=== PATIENT | female | born 1980 | race Caucasian/White ===

== ENCOUNTER 2020-08-14 08:17 | Emergency (ER) | payer BC, SELFPAY ==
[2020-08-14 08:31] VITALS: BP 125/80; PULSE 65; RESP 18; TEMP 37.3; O2SAT 99; BMI 25.7
--- NOTE | 2020-08-14 08:53 | CT_ITS ---
EXAMINATION: CT ABDOMEN AND PELVIS WITH CONTRAST CLINICAL INFORMATION: Epigastric pain. COMPARISON: CT abdomen and pelvis evaluate contrast 03/05/2020. TECHNIQUE: Multidetector volumetric images were obtained from the superior aspect of the liver through the pubic symphysis following administration 85 mL ofOmnipaque 350 intravenous contrast. Sagittal and coronal reformatted images were obtained on the technologist's workstation. Oral contrast: No This CT examination was performed using dose optimization techniques as appropriate, variously including the following: *Automated exposure control *Adjustment of mA and/or kV according to patient size (this includes techniques or standardized protocols for targeted exams where dose is matched to indication/reason for exam; i.e. extremities or head) *Use of iterative reconstruction technique DLP: 515 mGy-cm FINDINGS: LUNG BASES: The visualized lung bases are unremarkable. LIVER, GALLBLADDER, AND BILIARY TREE: The liver is normal in size, shape, and attenuation. There is a punctate hypodensity left hepatic lobe image 11/3. No focal hepatic lesion or biliary ductal dilatation is present. The gallbladder is unremarkable with no evidence of radiopaque gallstones, gallbladder wall thickening, or obvious pericholecystic inflammatory changes. PANCREAS: Unremarkable. SPLEEN: Unremarkable. ADRENAL GLANDS: Unremarkable. KIDNEYS AND URETERS: The kidneys are normal in size, shape, and attenuation. No hydronephrosis, hydroureter, or calculi seen. No perinephric stranding. BLADDER: The bladder is decompressed however there is mild bladder wall thickening. GASTROINTESTINAL TRACT: There is scattered stool and gas seen throughout the colon without significant distention. The small bowel loops are normal caliber. There is a surgical staple of the base of the appendix likely from previous appendectomy. Cecum lies within the lower pelvis. No inflammatory process or free fluid noted. ABDOMINAL WALL: No significant hernia is appreciated. LYMPH NODES: Normal. VASCULAR: Unremarkable. PELVIC VISCERA: Unremarkable. OSSEOUS STRUCTURES: No lytic or sclerotic process seen. CT/CT abdomen pelvis w IV con IMPRESSION: Moderate constipation without obstruction. Evidence of previous appendectomy. No acute intra-abdominal process seen
--- NOTE | 2020-08-14 08:54 | ECG_ITS ---
Test Reason : ABDOMINAL PAIN Blood Pressure : / mmHG Vent. Rate : 055 BPM Atrial Rate : 055 BPM P-R Int : 132 ms QRS Dur : 074 ms QT Int : 428 ms P-R-T Axes : 038 034 026 degrees QTc Int : 409 ms Sinus bradycardia Otherwise normal ECG When compared with ECG of 27-MAR-2020 11:07, Premature atrial complexes are no longer Present Referred By: Sugey Weiss Electronically Signed By:CECI BABCOCK MD
--- NOTE | 2020-08-14 08:54 | XR_ITS ---
EXAMINATION: XR CHEST CLINICAL INFORMATION: Bilateral lower rib pain. COMPARISON: None TECHNIQUE: Frontal view of the chest was obtained. FINDINGS: No significant abnormality is noted involving the heart, lungs, mediastinum, bony thorax or soft tissues. XR/XR chest 1V IMPRESSION: Unremarkable chest examination.
--- NOTE | 2020-08-14 08:57 | ED.ABDPAIN ---
HPI - Abdominal Pain General Stated Complaint: abd pain Time Seen by Provider: 08/14/20 08:44 Source: patient Mode of arrival: ambulatory Limitations: no limitations History of Present Illness HPI narrative: patient comes complaining of abdominal pain for approximately 4 days. Patient states it is epigastric, radiates backwards towards her back around the ribs. Patient states it is constant pain 4/10, at times the pain peaks to 10/10, causing her to dry heave, salivate. Patient denies diarrhea, no fever. Patient was admitted to the hospital in March 2020 for an internal hernia with omental adhesions. patient states that the abdominal pain is similar. Related Data Previous Rx's Medication Instructions Recorded lactulose 10 g PO DAILY PRN #237 ml 08/14/20 ondansetron HCl [Zofran] 4 mg PO Q6H PRN #14 tab 08/14/20 oxycodone-acetaminophen [Percocet] 1 tab PO Q6H PRN #14 tab 08/14/20 Allergies Allergy/AdvReac Type Severity Reaction Status Date / Time bee pollen [BEE STINGS] Allergy Severe ANAPHYLAXIS Unverified 07/03/20 19:30 clavulanic acid Allergy Severe GI DISTRESS Unverified 07/03/20 19:30 [CLAVULANIC ACID] latex [LATEX] Allergy Severe ANAPHYLAXIS Unverified 07/03/20 19:30 pork derived (porcine) Allergy Severe d/t Unverified 07/03/20 19:30 [PORK DERIVED (PORCINE)] MASTOCYTOSIS carrageenan [CARRAGEENAN] Allergy Unknown UNKNOWN Unverified 07/03/20 19:30 egg [EGG] Allergy Unknown DUE TO Unverified 07/03/20 19:30 MASTOCYTOSIS augmentin/ clevonic acid Allergy Unknown nausea and Uncoded 04/23/20 00:00 vomiting laytex/mucousa Allergy Unknown anaphylaxis Uncoded 04/23/20 00:00 Soy Allergy Unknown nausea and Uncoded 04/23/20 00:00 vomiting Review of Systems Review of Systems Constitutional : No Weight loss, No Fever, No Chills, No Night Sweats, No Fatigue, No Malaise ENT/Mouth : No Hearing loss, No Ear Pain, No Nasal Congestion, No Sinus Pain, No Hoarseness, No sore throat, No Rhinorrhea, No Swallowing Difficulty Eyes: No Eye Pain, No Swelling, No Redness, No Foreign Body, No Discharge, No Vision Changes Cardiovascular : No Chest Pain, No SOB, No Dyspnea on Exertion, No Orthopnea, No Edema, No Palpitations Respiratory : No Cough, No Sputum, No Wheezing, No Smoke Exposure, No Dyspnea Gastrointestinal : is planning of nausea without Vomiting, No Diarrhea, No Constipation, epigastric pain radiating towards the back around the ribs Genitourinary : no irregular bleeding, No Dysuria, No Urinary Frequency, No Hematuria, No Urinary Incontinence, No Urgency, No Flank Pain, No Urinary Flow Changes, No Hesitancy Musculoskeletal : No joint pain, No Myalgias, No Joint Swelling Skin : No Skin Lesions, No rash Neuro : No Weakness, No Numbness, No Paresthesias, No Loss of Consciousness, No Dizziness, No Headache Psych : No Anxiety/Panic, No Depression, No SI/HI/AH/VH, No Social Issues, Heme/Lymph: No Bruising, No Bleeding,No Lymphadenopathy Endocrine : No Polyuria, No Polydipsia, No Temperature Intolerance Physical Exam Vital Signs: Vital Signs: Vital Signs Temp Pulse Resp BP Pulse Ox 08/14/20 09:52 60 18 108/67 98 08/14/20 08:31 99.2 F 65 18 125/80 99 Body Mass Index 25.7 Appearance: Alert. Oriented X3. No acute distress. Eyes: Pupils equal, round and reactive to light. ENT: Pharynx normal. Neck: Normal inspection. Neck supple. No lymph nodes noted. No crepitus CVS: Normal heart rate and rhythm. Pulses normal. Normal S1 and S2 Respiratory: No respiratory distress. Breath sounds normal. No Wheezing. No rales Abdomen: Soft, tender to palpation in the epigastric area. No rigidity. No distention. good BS x4 Skin: Skin warm and dry. Normal skin color. Normal skin turgor. Extremities: No lower extremity edema. No lower extremity edema. No Lacerations. No Rash Neuro: Oriented X 3. No motor deficit. No sensory deficit. Moving all extermities. No slurred speech. Course Course Course Narrative: patient's abdominal pain improved with morphine. I discussed the labs and imaging with Dr. Doyle, at this time, no reason for admission, recommendations is to follow with Dr. Pierson from Gastroenterology. I discussed with the patient the CT scan and a moderate amount of stool was seen, patient will be discharged on lactulose, she is already taking 2 different medications for constipation. for pain management, patient will be discharged with Percocet, I discussed with the patient that this my worsen the constipation, therefore She will be sent home with a prescription for lactulose. MDM - Abdominal Pain Lab Data Result diagrams: 08/14/20 09:11 08/14/20 09:11 Labs: Lab Results 08/14/20 08/14/20 08/14/20 Range/Units 09:11 09:11 10:02 WBC 6.3 (4.8-10.8) X10*3/uL RBC 4.62 (4.20-5.50) X10*6/uL Hgb 13.6 (12.0-16.0) g/dl Hct 41.6 (37-47) % MCV 90.0 (80-98) fL MCH 29.4 (27.0-33.0) pg MCHC 32.7 (31.0-35.0) g/dl RDW 12.2 (11.0-16.0) % Plt Count 263 (160-400) X10*3/uL MPV 9.3 L (9.4-12.3) fL Immature Gran % (Auto) 0.2 (0.0-0.4) % Neut % (Auto) 63.7 (45-73) % Lymph % (Auto) 29.7 (20-40) % [place] % (Auto) 5.4 (2-11) % Eos % (Auto) 0.5 (0-4) % Baso % (Auto) 0.5 (0-2) % Lymph # (Auto) 1.9 (1.2-4.9) X10*3/uL [place] # (Auto) 0.3 (0.1-1.2) X10*3/uL Eos # (Auto) 0.0 (0.0-0.4) X10*3/uL Baso # (Auto) 0.0 (0.0-0.2) X10*3/uL Abs Immat Gran (auto) 0.01 (0.00-0.03) X10*3/uL Absolute Neuts (auto) 4.0 (2.0-8.3) X10*3/uL Absolute Nucleated RBC 0.000 (0.0-0.012) X10*3/uL Nucleated RBC % (auto) 0.0 (0.0-0.2) /100WBC Sodium 138 (135-145) mmol/L Potassium 4.3 (3.3-5.1) mmol/l Chloride 104 (96-108) mmol/L Carbon Dioxide 26 (22-29) mmol/L Anion Gap 12 (12-20) BUN 12 (9-16) mg/dL Creatinine 0.70 (0.5-1.4) mg/dL Estim Creat Clear Calc 97.3 Estimated GFR > 60 Random Glucose 104 (60-115) mg/dL Calcium 8.6 (8.4-10.2) mg/dL Total Bilirubin 0.6 (0.0-1.0) mg/dL Direct Bilirubin 0.2 (0.0-0.5) mg/dL AST 17 (5-31) U/L ALT 14 (0-31) U/L Alkaline Phosphatase 55 (39-117) U/L Total Protein 7.0 (6.5-8.0) g/dL Albumin 4.4 (3.5-5.0) g/dL Lipase 26 (8-78) U/L Urine Color YELLOW Urine Appearance CLEAR Urine pH 7.0 (5.0-8.0) Ur Specific [place] 1.010 (1.005-1.025) Urine Protein NEG (NEG-TRACE) MG/DL Urine Glucose (UA) NEG (NEG) MG/DL Urine Ketones NEG (NEG) MG/DL Urine Blood NEG (NEG) Urine Nitrite NEG (NEG) Ur Leukocyte Esterase NEG (NEG) Urine Test NEGATIVE (NEGATIVE) Imaging Data CT scan - abdomen: Radiologist's impression: LUNG BASES: The visualized lung bases are unremarkable. LIVER, GALLBLADDER, AND BILIARY TREE: The liver is normal in size, shape, and attenuation. There is a punctate hypodensity left hepatic lobe image 11/. No focal hepatic lesion or biliary ductal dilatation is present. The gallbladder is unremarkable with no evidence of radiopaque gallstones, gallbladder wall thickening, or obvious pericholecystic inflammatory changes. PANCREAS: Unremarkable. SPLEEN: Unremarkable. ADRENAL GLANDS: Unremarkable. KIDNEYS AND URETERS: The kidneys are normal in size, shape, and attenuation. No hydronephrosis, hydroureter, or calculi seen. No perinephric stranding. BLADDER: The bladder is decompressed however there is mild bladder wall thickening. GASTROINTESTINAL TRACT: There is scattered stool and gas seen throughout the colon without significant distention. The small bowel loops are normal caliber. There is a surgical staple of the base of the appendix likely from previous appendectomy. Cecum lies within the lower pelvis. No inflammatory process or free fluid noted. ABDOMINAL WALL: No significant hernia is appreciated. LYMPH NODES: Normal. VASCULAR: Unremarkable. PELVIC VISCERA: Unremarkable. ECG Data Attestation: I personally reviewed and interpreted this ECG as follows: (, rhythm, and cardia, heart rate 55, QTC 409, no ST segment depressions or elevations, no T-wave inversions) Discharge Plan Discharge Clinical Impression: Abdominal pain Qualifiers: Abdominal location: unspecified location Qualified Code(s): R10.9 - Unspecified abdominal pain Constipation Qualifiers: Constipation type: unspecified constipation type Qualified Code(s): K59.00 - Constipation, unspecified Patient Disposition: Home, Self-Care Instructions: Constipation (ED), Abdominal Pain (ED) Additional Instructions: please follow-up with her primary care physician and with 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 Please follow-up with your primary care physician tomorrow. If you have any worsening or new symptoms, please return to the emergency room or call 911 Prescriptions: New lactulose 10 gram/15 mL solution 10 g PO DAILY PRN (Reason: constipation) Qty: 237 RF: 0 oxycodone-acetaminophen [Percocet] 5-325 mg tablet 1 tab PO Q6H PRN (Reason: pain) Qty: 14 RF: 0 ondansetron HCl [Zofran] 4 mg tablet 4 mg PO Q6H PRN (Reason: nausea and vomiting) Qty: 14 RF: 0 PMFSH Past Medical History Medical History (Updated 08/14/20 @ 12:03 by Sugey Weiss MD) ADHD Depressed Dysplastic nevus Hyperlipidemia Mastocytosis Surgical History (Updated 08/14/20 @ 09:04 by Sugey Weiss MD) H/O gastric bypass H/O hernia repair H/O: hysterectomy History of appendectomy Social History Social History Advance Directives: No Advance Directives Information Provided: No
[2020-08-14] MEDS: Morphine Sulfate 4 MG/ML CARTRIDGE IVPUSH (09:18)
[2020-08-14] MEDS: ondansetron HCL 4 MG/2 ML VIAL IVPUSH (09:18)
[2020-08-14] MEDS: 0.9 % Sodium Chloride 1,000 ML 999 ML IVCONT (09:19)
[2020-08-14 09:20] LABS: MANUAL DIFF FLAG NO
[2020-08-14 09:22] LABS: Basophils Percent Auto 0.5 % (0-2); Eosinophils Percent Auto 0.5 % (0-4); Hematocrit 41.6 % (37-47); Hemoglobin 13.6 g/dl (12.0-16.0); Imm Gran Abs Auto 0.01 X10*3/uL (0.00-0.03); Imm Gran Pct Auto 0.2 % (0.0-0.4); Lymphocytes Absolute Auto 1.9 X10*3/uL (1.2-4.9); Lymphocytes Percent Auto 29.7 % (20-40); Mean Corpuscular HGB Conc 32.7 g/dl (31.0-35.0); Mean Corpuscular Hemoglobin 29.4 pg (27.0-33.0); Mean Platelet Volume 9.3 fL (9.4-12.3); Monocytes Absolute Auto 0.3 X10*3/uL (0.1-1.2); Monocytes Percent Auto 5.4 % (2-11); Neutrophils Percent Auto 63.7 % (45-73); Platelet Count 263 X10*3/uL (160-400); Red Blood Count 4.62 X10*6/uL (4.20-5.50); Red Cell Distribution Width 12.2 % (11.0-16.0); White Blood Count 6.3 X10*3/uL (4.8-10.8)
[2020-08-14 09:44] LABS: Alanine Aminotransferase 14 U/L (0-31); Albumin Level 4.4 g/dL (3.5-5.0); Alkaline Phosphatase 55 U/L (39-117); Anion Gap 12 (12-20); Aspartate Amino Transferase 17 U/L (5-31); Bilirubin Direct 0.2 mg/dL (0.0-0.5); Bilirubin Total 0.6 mg/dL (0.0-1.0); Blood Urea Nitrogen 12 mg/dL (9-16); Calcium 8.6 mg/dL (8.4-10.2); Carbon Dioxide 26 mmol/L (22-29); Chloride 104 mmol/L (96-108); Creatinine Clr Calc Pharmacy 97.3; Estimated Glomerular Filt Rate > 60; Glucose Random 104 mg/dL (60-115); Lipase 26 U/L (8-78); Potassium 4.3 mmol/l (3.3-5.1); Sodium 138 mmol/L (135-145)
[2020-08-14 09:52] VITALS: BP 108/67; PULSE 60; RESP 18; O2SAT 98
--- NOTE | 2020-08-14 09:54 | PC.NURSE ---
skin wpd, states pain now a 2/10, no nausea, lab results reviewed w pt
[2020-08-14 10:10] LABS: Glucose Urine UA NEG (NEG); Leukocyte Esterase Urine NEG (NEG); Nitrite Urine NEG (NEG); Urine Blood NEG (NEG); Urine Ketones NEG (NEG); Urine Protein NEG (NEG-TRACE)
[2020-08-14 10:13] LABS: Appearance Urine CLEAR; Color Urine YELLOW
[2020-08-14 10:15] LABS: UPreg QC Valid YES; Urine Pregnancy NEGATIVE (NEGATIVE)
[2020-08-14] MEDS: iohexoL 350 MG/ML 100 ML INFUS..BTL 85 ML IV (10:20)
[2020-08-14 11:58] VITALS: BP 96/56; PULSE 64; RESP 15; O2SAT 98
== END 2020-08-14 12:21 | disposition home or self-care (01) ==
PROVIDERS: Emergency Provider Emergency Medicine; PCP Internal Medicine
DX: K59.00 Constipation, unspecified (principal); M54.5 Low back pain; R10.9 Unspecified abdominal pain; Z79.899 Other long term (current) drug therapy
CPT/HCPCS: 36415; 71045; 74177; 80048; 80076; 81003; 81025; 83690; 85025; 93005; 96361; 96374; 96375; 99283; 99284; J2270; J2405; Q9967

== ENCOUNTER → 2020-08-19 09:57 | Outpatient (BNVA) | payer BC, SELFPAY | PROVIDERS: PCP Internal Medicine; Visit Provider Surgery | DX: Z76.89 Persons encountering health services in other specified circumstances (principal) ==

== ENCOUNTER 2020-08-30 07:40 | Outpatient (REF) | payer BC, SELFPAY ==
[2020-08-30 08:45] LABS: Alanine Aminotransferase 15 U/L (0-31); Albumin Level 4.2 g/dL (3.5-5.0); Alkaline Phosphatase 53 U/L (39-117); Anion Gap 10 (12-20); Aspartate Amino Transferase 16 U/L (5-31); Bilirubin Total 0.7 mg/dL (0.0-1.0); Blood Urea Nitrogen 19 mg/dL (9-16); C Reactive Protein 0.06 mg/dL (< or = 0.50); Calcium 8.6 mg/dL (8.4-10.2); Carbon Dioxide 30 mmol/L (22-29); Chloride 103 mmol/L (96-108); Cholesterol 212 mg/dL; Estimated Glomerular Filt Rate > 60; Glucose Fasting 101 mg/dL (60-99); HDL Cholesterol 60 mg/dL; Iron 86 mcg/dL (30-160); LDL Cholesterol Calculated 138 mg/dl; Percent Iron Saturation 27 % (15-50); Potassium 4.4 mmol/l (3.3-5.1); Sodium 139 mmol/L (135-145); Total Iron Binding Capacity 318 mcg/dL (228-428); Total Protein 6.4 g/dL (6.5-8.0); Triglycerides 72 mg/dL; Unsaturated Iron Binding 232 ug/dL
[2020-08-30 09:05] LABS: Thyroid Stimulating Hormone 1.08 uIU/mL (0.32-4.0)
[2020-08-30 09:37] LABS: Vitamin D 25-OH Total 53.8 ng/mL (>30)
[2020-09-01 08:55] LABS: Vitamin B12 637 pg/mL (200-900)
[2020-09-02 06:37] LABS: Zinc 83 mcg/dL (60-130)
[2020-09-04 15:36] LABS: Vitamin A 41 mcg/dL (38-98)
[2020-09-05 12:16] LABS: Vitamin B1 12 nmol/L (8-30)
== END 2020-08-30 07:41 | disposition home or self-care (01) ==
LOC: HO.LAB 07:40
PROVIDERS: PCP Internal Medicine; Visit Provider Surgery
DX: Z01.818 Encounter for other preprocedural examination (principal); K90.9 Intestinal malabsorption, unspecified
CPT/HCPCS: 80053; 80061; 82306; 82607; 83540; 84425; 84443; 84590; 84630; 86140

== ENCOUNTER → 2021-01-01 14:50 | Outpatient (BNVA) | payer BC, SELFPAY | PROVIDERS: PCP Internal Medicine; Visit Provider Surgery ==

== ENCOUNTER → 2021-01-23 10:50 | Outpatient (BNVA) | payer BC, SELFPAY | PROVIDERS: PCP Internal Medicine; Visit Provider Internal Medicine Gastroenterology ==

== ENCOUNTER → 2021-02-11 07:48 | Outpatient (BNVA) | payer BC, SELFPAY | PROVIDERS: PCP Internal Medicine; Visit Provider Internal Medicine Endocrinology, Diabetes & Metabolism ==

== ENCOUNTER 2021-02-24 06:36 | Outpatient (REF) | payer BC, SELFPAY ==
[2021-02-24 07:50] LABS: Free T4 (Free Thyroxine) 0.97 ng/dL (0.71-1.85)
[2021-02-25 09:32] LABS: C Peptide 0.82 ng/mL (0.80-3.85)
[2021-02-25 23:42] LABS: Adrenocorticotropic Hormone 17 pg/mL (6-50)
[2021-02-26 17:47] LABS: DHEA Sulfate 88 mcg/dL (19-231); Insulin Level Total 2.3 uIU/mL
[2021-02-28 13:42] LABS: Chlorpropamide None Detected; Glimepiride None Detected; Glipizide None Detected; Glyburide None Detected; Nateglinide None Detected; Pioglitazone None Detected; Repaglinide None Detected; Rosiglitazone None Detected; Tolazamide None Detected; Tolbutamide None Detected
[2021-02-28 21:42] LABS: Insulin Auto Antibody <0.4 U/mL (<0.4)
[2021-03-01 23:06] LABS: Insulinoma associated 2 aatb <5.4 U/mL (<5.4)
[2021-03-06 04:52] LABS: Proinsulin <4.0 pmol/L (< OR = 18.8)
[2021-03-06 14:11] LABS: Insulin Growth Factor 2 554 ng/mL (267-616)
[2021-03-07 20:02] LABS: 21 Hydroxylase Antibody NEGATIVE (NEGATIVE)
[2021-03-08 16:46] LABS: Beta-Hydroxybutyrate 3.8 mg/dL (0.0-3.0)
== END 2021-02-24 06:37 | disposition home or self-care (01) ==
LOC: HO.LAB 06:36
PROVIDERS: PCP Internal Medicine; Visit Provider Internal Medicine Endocrinology, Diabetes & Metabolism
DX: K91.2 Postsurgical malabsorption, not elsewhere classified (principal)
CPT/HCPCS: 36415; 80337; 82010; 82024; 82533; 82627; 83519; 83525; 83789; 84206; 84439; 84443; 84681; 86337

== ENCOUNTER → 2021-03-24 14:25 | Outpatient (BNVA) | payer BC, SELFPAY | PROVIDERS: PCP Internal Medicine; Visit Provider Dietitian, Registered | DX: K91.2 Postsurgical malabsorption, not elsewhere classified (principal) | CPT/HCPCS: 97802 ==

== ENCOUNTER → 2021-04-23 15:27 | Outpatient (BNVA) | payer BC, SELFPAY | PROVIDERS: PCP Internal Medicine; Referring Provider Internal Medicine; Visit Provider Surgery ==

== ENCOUNTER → 2021-04-30 07:47 | Outpatient (BNVA) | payer BC, SELFPAY | PROVIDERS: PCP Internal Medicine; Visit Provider Internal Medicine Endocrinology, Diabetes & Metabolism ==

== ENCOUNTER 2021-05-14 06:52 | Outpatient (REF) | payer BC, SELFPAY ==
[2021-05-14 08:24] LABS: Anion Gap 13 (12-20); Blood Urea Nitrogen 16 mg/dL (9-16); Calcium 9.2 mg/dL (8.4-10.2); Carbon Dioxide 24 mmol/L (22-29); Chloride 108 mmol/L (96-108); Estimated Glomerular Filt Rate > 60; Glucose Fasting 97 mg/dL (60-99); Potassium 4.5 mmol/L (3.3-5.1); Sodium 140 mmol/L (135-145)
[2021-05-16 19:02] LABS: C Peptide 0.74 ng/mL (0.80-3.85)
[2021-05-19 19:21] LABS: Insulinoma associated 2 aatb <5.4 U/mL (<5.4)
[2021-05-20 02:23] LABS: Proinsulin <4.0 pmol/L (< OR = 18.8)
[2021-05-22 15:10] LABS: Insulin Growth Factor 2 515 ng/mL (267-616)
[2021-05-25 21:06] LABS: Insulin Auto Antibody <0.4 U/mL (<0.4)
== END 2021-05-14 06:53 | disposition home or self-care (01) ==
LOC: HO.LAB 06:52
PROVIDERS: Surgery; PCP Internal Medicine; Visit Provider Internal Medicine Endocrinology, Diabetes & Metabolism
DX: Z01.818 Encounter for other preprocedural examination (principal); K91.2 Postsurgical malabsorption, not elsewhere classified
CPT/HCPCS: 36415; 80048; 82040; 83525; 83789; 84206; 84681; 86337

== ENCOUNTER 2021-06-22 05:51 | Emergency (ER) | payer BC, SELFPAY ==
--- NOTE | ~2021-06-22 | CT_ITS ---
EXAMINATION: CT ABDOMEN AND PELVIS WITH CONTRAST CLINICAL INFORMATION: Abdominal pain. History of internal hernia. COMPARISON: CT abdomen 08/14/2020 TECHNIQUE: Multidetector volumetric images were obtained from the superior aspect of the liver through the pubic symphysis following administration 85 mL of Omnipaque 350 intravenous contrast. Sagittal and coronal reformatted images were obtained on the technologist's workstation. Oral contrast: No This CT examination was performed using dose optimization techniques as appropriate, variously including the following: *Automated exposure control *Adjustment of mA and/or kV according to patient size (this includes techniques or standardized protocols for targeted exams where dose is matched to indication/reason for exam; i.e. extremities or head) *Use of iterative reconstruction technique DLP: 482 mGy-cm FINDINGS: LUNG BASES: Mild left basilar dependent changes. LIVER, GALLBLADDER, AND BILIARY TREE: The liver is normal in size, shape, and attenuation. Stable tiny hypodensity in the left hepatic lobe. No focal hepatic lesion otherwise or biliary ductal dilatation is present. The gallbladder is unremarkable with no evidence of radiopaque gallstones, gallbladder wall thickening, or obvious pericholecystic inflammatory changes. PANCREAS: Unremarkable. No acute inflammatory changes. SPLEEN: Unremarkable. ADRENAL GLANDS: Unremarkable. KIDNEYS AND URETERS: Normal enhancement bilateral kidneys.. No hydronephrosis, hydroureter, or calculi seen. No perinephric stranding. BLADDER: Unremarkable. GASTROINTESTINAL TRACT: There is mild wall prominence/thickening of the gastroesophageal junction. Postsurgical changes from prior gastric bypass surgery. There is wall thickening/prominence of small bowel loops in the left upper/mid abdomen. This could be related to lack of distention versus enteritis. No measurably dilated small bowel loops seen. There is luminal fluid in the distal small bowel. Small to moderate volume stool in the large colon. No dilatation of the large colon with no wall thickening or pericolonic inflammatory changes. Surgical clips adjacent to cecum likely prior appendectomy.. Small free fluid in the pelvis. No free air. ABDOMINAL WALL: No significant hernia is appreciated. LYMPH NODES: No enlarged lymph nodes are seen. VASCULAR: Normal caliber aorta. PELVIC VISCERA: Right adnexal/ovarian 1.7 cm peripherally enhancing cyst ([place] 8). OSSEOUS STRUCTURES: No suspicious lytic or sclerotic process is seen. CT/CT abdomen pelvis w IV con IMPRESSION: 1. Apparent mild wall prominence/thickening of the distal esophagus/gastroesophageal junction, which could be related to lack of distention versus other etiologies such as esophagitis. Postsurgical changes from gastric bypass surgery. Apparent wall prominence prominence of small bowel loops in the left upper/midabdomen, which could be related to lack of distention versus enteritis. Clinically correlate. Follow-up imaging for reassessment as clinically warranted. 2. Small free fluid in the pelvis, which could be physiological.
[2021-06-22 05:55] VITALS: BP 105/65; PULSE 75; RESP 16; TEMP 37; O2SAT 95; BMI 26.5
[2021-06-22 06:12] LABS: Basophils Percent Auto 0.4 % (0-2); Eosinophils Absolute Auto 0.1 X10*3/uL (0.0-0.4); Eosinophils Percent Auto 0.9 % (0-4); Hematocrit 37.6 % (37-47); Hemoglobin 12.3 g/dl (12.0-16.0); Imm Gran Abs Auto 0.01 X10*3/uL (0.00-0.03); Imm Gran Pct Auto 0.1 % (0.0-0.4); Lymphocytes Absolute Auto 2.3 X10*3/uL (1.2-4.9); Lymphocytes Percent Auto 33.6 % (20-40); Mean Corpuscular HGB Conc 32.7 g/dl (31.0-35.0); Mean Corpuscular Hemoglobin 28.6 pg (27.0-33.0); Mean Corpuscular Volume 87.4 fL (80-98); Monocytes Absolute Auto 0.4 X10*3/uL (0.1-1.2); Monocytes Percent Auto 6.2 % (2-11); Neutrophils Absolute Auto 4.1 X10*3/uL (2.0-8.3); Neutrophils Percent Auto 58.8 % (45-73); Platelet Count 281 X10*3/uL (160-400); Red Cell Distribution Width 12.8 % (11.0-16.0); White Blood Count 6.9 X10*3/uL (4.8-10.8)
[2021-06-22 06:13] LABS: MANUAL DIFF FLAG NO
[2021-06-22 06:25] LABS: COVID-19 Test Negative (Negative); IDNOW Serial# 9DD0AD1C
[2021-06-22 06:34] LABS: Alanine Aminotransferase 13 U/L (0-31); Alkaline Phosphatase 51 U/L (39-117); Anion Gap 11 (12-20); Aspartate Amino Transferase 15 U/L (5-31); Bilirubin Total 0.3 mg/dL (0.0-1.0); Blood Urea Nitrogen 15 mg/dL (9-16); Calcium 9.2 mg/dL (8.4-10.2); Carbon Dioxide 27 mmol/L (22-29); Chloride 105 mmol/L (96-108); Creatinine Clr Calc Pharmacy 100.8; Estimated Glomerular Filt Rate > 60; Glucose Random 98 mg/dL (60-115); Lipase 32 U/L (8-78); Sodium 139 mmol/L (135-145); Total Protein 6.1 g/dL (6.5-8.0)
--- NOTE | 2021-06-22 06:35 | ED_ITS ---
HPI - Abdominal Pain General Chief Complaint: Abdominal Pain Stated Complaint: Abd pain Time Seen by Provider: 06/22/21 06:35 Source: patient and old records reviewed Mode of arrival: ambulatory Limitations: no limitations History of Present Illness MD elicited complaint: abdominal pain Pertinent past history: other (bariatric surgery and internal hernia) Onset (ago): hour(s) (started at 2am today) Pain Consistency: constant Location: epigastric Severity: severe Quality: stabbing Radiation: back Migration to: no migration Exacerbating factors: eating, vomiting and movement Relieving factors: nothing Context: history of similar episodes Associated symptoms: nausea and vomiting Related Data Home Medications Medication Instructions Recorded Confirmed acetaminophen 500 mg tablet 500 mg PO Q6H PRN 08/19/20 04/30/21 (Tylenol Extra Strength) cholecalciferol (vitamin D3) 50 10,000 unit PO DAILY cap 08/19/20 04/30/21 mcg (2,000 unit) capsule clonidine HCl 0.1 mg tablet 0.1 mg PO TID 08/19/20 04/30/21 dexamethasone 4 mg tablet mg PO PRN 08/19/20 04/30/21 epinephrine 0.3 mg/0.3 mL 0.3 mg IM PRN 08/19/20 04/30/21 injection, auto-injector loratadine 10 mg tablet 10 mg PO DAILY 08/19/20 04/30/21 omega-3 fatty acids 1,250 mg 2,500 mg PO DAILY cap 08/19/20 04/30/21 capsule polyethylene glycol 3350 17 1 g PO BID g 08/19/20 04/30/21 gram/dose oral powder turmeric (bulk) 95 % powder ea MISCELLANEOUS DAILY g 08/19/20 04/30/21 (Curcumin) hydroxyzine HCl 25 mg tablet 25 mg PO BID 01/23/21 04/30/21 zinc gluconate 30 mg tablet 30 mg PO DAILY 02/11/21 04/30/21 Previous Rx's Medication Instructions Recorded hyoscyamine sulfate 0.125 mg 0.125 mg SUBLINGUAL TID PRN #90 tab 09/05/20 sublingual tablet cromolyn 100 mg/5 mL oral 200 mg PO QID 30 Days #1200 ml 01/23/21 concentrate FreeStyle Yesi 2 Sensor (flash #2 ea NS 04/30/21 glucose sensor) acarbose 50 mg tablet 50 mg PO TID 30 Days #90 tab 04/30/21 pantoprazole 40 mg tablet,delayed 40 mg PO DAILY #30 tab 06/12/21 release sucralfate 100 mg/mL oral 10 ml PO BID #1000 ml 06/12/21 suspension famotidine 40 mg tablet 40 mg PO BEDTIME 30 Days #30 tab 06/15/21 morphine 15 mg immediate release 15 mg PO Q6H PRN 3 Days #8 tab 06/22/21 tablet ondansetron 4 mg disintegrating 4 mg PO Q8H PRN #20 tab 06/22/21 tablet Allergies Allergy/AdvReac Type Severity Reaction Status Date / Time bee pollen [BEE STINGS] Allergy Severe ANAPHYLAXIS Verified 06/22/21 05:55 clavulanic acid Allergy Severe GI DISTRESS Verified 06/22/21 05:55 [CLAVULANIC ACID] latex [LATEX] Allergy Severe ANAPHYLAXIS Verified 06/22/21 05:55 pork derived (porcine) Allergy Severe d/t Verified 06/22/21 05:55 [PORK DERIVED (PORCINE)] MASTOCYTOSIS carrageenan [CARRAGEENAN] Allergy Unknown UNKNOWN Verified 06/22/21 05:55 egg [EGG] Allergy Unknown DUE TO Verified 06/22/21 05:55 MASTOCYTOSIS augmentin/ clevonic acid Allergy Mild nausea and Uncoded 04/23/21 16:30 vomiting laytex/mucousa Allergy Mild anaphylaxis Uncoded 04/23/21 16:30 Soy Allergy Mild nausea and Uncoded 04/23/21 16:30 vomiting Review of Systems Review of Systems Constitutional : No Weight loss, No Fever, No Chills ENT/Mouth : No sore throat, No Rhinorrhea Eyes: No Swelling, No Redness Cardiovascular : No Chest Pain, No SOB, NoEdema Respiratory : No Cough, No Sputum, No Wheezing Gastrointestinal : Positive Nausea, Positive Vomiting, no Diarrhea, positive abdominal Pain, No Hematochezia, No Melena Genitourinary : No Dysuria, No Urinary Frequency, No Hematuria, No Urgency Musculoskeletal : No joint pain, No Myalgias, No Joint Swelling Skin : No Skin Lesions, No rash Neuro : No Weakness, No Numbness, No Dizziness, No Headache Psych : No Anxiety/Panic, No Depression Heme/Lymph: No Bruising, No Lymphadenopathy Endocrine : No Polyuria, No Polydipsia All other systems reviewed and are negative. Physical Exam Vital Signs: Vital Signs: Last Vital Signs Temp 98.6 F 06/22/21 05:55 Pulse 93 06/22/21 07:21 Resp 20 06/22/21 07:21 BP 120/79 06/22/21 07:21 Pulse Ox 95 06/22/21 05:55 Body Mass Index 26.5 Appearance: Alert. Oriented X3. active vomiting mild acute distress. Eyes: Pupils equal, round and reactive to light. ENT: Pharynx dry MM Neck: Normal inspection. Neck supple. CVS: Normal heart rate and rhythm. Pulses normal. Respiratory: No respiratory distress. Breath sounds normal. Abdomen: Soft and moderate epigastric pain no rebound mild guarding Skin: Skin warm and dry. pale skin color. Normal skin turgor. Extremities: No lower extremity edema. No calf ttp Neuro: Oriented X 3. No motor deficit. No sensory deficit. Course Course Course Narrative: 855am will consult bariatric surgery service discussed with Felisha VALADEZ - okay for DC - lay off meat sticks do liquids just today feels better tolerating PO stable for DC MDM - Abdominal Pain MDM Narrative Medical decision making narrative: 40 yo female hx of adrenal insufficieny states she does not take PRN steroids with illness bouts, hx laparascopic co nversion of sleeve gastrectomy in 2017, lysis of adhesions in 2019 - sees Dr. Espinosa for her bariatric care. At this time reports sig abdominal pain as well as n/v starting at 2am. She is compliant with her diet and medications for suspected marjolin's ulcer. At this time labs, IVF, IV dilaudid for pain, CT scan for internal hernia. Dispo per results and findings. Lab Data Result diagrams: 06/22/21 06:07 06/22/21 06:07 Labs: Lab Results 06/22/21 06/22/21 06/22/21 Range/Units 06:07 06:07 06:07 WBC 6.9 (4.8-10.8) X10*3/uL RBC 4.30 (4.20-5.50) X10*6/uL Hgb 12.3 (12.0-16.0) g/dl Hct 37.6 (37-47) % MCV 87.4 (80-98) fL MCH 28.6 (27.0-33.0) pg MCHC 32.7 (31.0-35.0) g/dl RDW 12.8 (11.0-16.0) % Plt Count 281 (160-400) X10*3/uL MPV 9.0 L (9.4-12.3) fL Immature Gran % (Auto) 0.1 (0.0-0.4) % Neut % (Auto) 58.8 (45-73) % Lymph % (Auto) 33.6 (20-40) % [place] % (Auto) 6.2 (2-11) % Eos % (Auto) 0.9 (0-4) % Baso % (Auto) 0.4 (0-2) % Lymph # (Auto) 2.3 (1.2-4.9) X10*3/uL [place] # (Auto) 0.4 (0.1-1.2) X10*3/uL Eos # (Auto) 0.1 (0.0-0.4) X10*3/uL Baso # (Auto) 0.0 (0.0-0.2) X10*3/uL Abs Immat Gran (auto) 0.01 (0.00-0.03) X10*3/uL Absolute Neuts (auto) 4.1 (2.0-8.3) X10*3/uL Absolute Nucleated RBC 0.000 (0.0-0.012) X10*3/uL Nucleated RBC % (auto) 0.0 (0.0-0.2) /100WBC Sodium 139 (135-145) mmol/L Potassium 4.0 (3.3-5.1) mmol/L Chloride 105 (96-108) mmol/L Carbon Dioxide 27 (22-29) mmol/L Anion Gap 11 L (12-20) BUN 15 (9-16) mg/dL Creatinine 0.68 (0.5-1.4) mg/dL Estim Creat Clear Calc 100.8 Estimated GFR > 60 Random Glucose 98 (60-115) mg/dL Calcium 9.2 (8.4-10.2) mg/dL Total Bilirubin 0.3 (0.0-1.0) mg/dL AST 15 (5-31) U/L ALT 13 (0-31) U/L Alkaline Phosphatase 51 (39-117) U/L Total Protein 6.1 L (6.5-8.0) g/dL Albumin 4.0 (3.5-5.0) g/dL Lipase 32 (8-78) U/L COVID-19 (ANNA) Negative (Negative) COVID-19 Clin Com See Note Discharge Plan Discharge Clinical Impression: Esophagitis Abdominal pain Qualifiers: Abdominal location: epigastric Qualified Code(s): R10.13 - Epigastric pain Vomiting Qualifiers: Vomiting type: unspecified Vomiting Intractability: non-intractable Nausea presence: with nausea Qualified Code(s): R11.2 - Nausea with vomiting, unspecified Patient Disposition: Home, Self-Care Instructions: Acute Nausea and Vomiting (ED), Abdominal Pain (ED), Esophagitis (ED) Additional Instructions: return to ED for any worsening symptoms or concerns Bariatric surgery recommends holding meat sticks for today, clear liquids x 24 hours please call your surgeon and GI doctor Prescriptions: New morphine 15 mg tablet 15 mg PO Q6H PRN (Reason: pain) 3 Days Qty: 8 RF: 0 ondansetron 4 mg tablet,disintegrating 4 mg PO Q8H PRN (Reason: nausea and vomiting) Qty: 20 RF: 0 No Action hyoscyamine sulfate 0.125 mg tablet, sublingual 0.125 mg sublingual TID PRN (Reason: spasms) Qty: 90 RF: 4 sucralfate 100 mg/mL suspension 10 ml PO BID Qty: 1000 RF: 0 pantoprazole 40 mg tablet,delayed release (DR/EC) 40 mg PO DAILY Qty: 30 RF: 0 famotidine 40 mg tablet 40 mg PO BEDTIME 30 Days Qty: 30 RF: 3 clonidine HCl 0.1 mg tablet 0.1 mg PO TID RF: 0 loratadine 10 mg tablet 10 mg PO DAILY RF: 0 acetaminophen [Tylenol Extra Strength] 500 mg tablet 500 mg PO Q6H PRNRF: 0 cholecalciferol (vitamin D3) 50 mcg (2,000 unit) capsule 10,000 unit PO DAILY RF: 0 dexamethasone 4 mg tablet PO PRNRF: 0 epinephrine 0.3 mg/0.3 mL auto-injector 0.3 mg IM PRN (Reason: allergies) RF: 0 omega-3 fatty acids 1,250 mg capsule 2,500 mg PO DAILY RF: 0 polyethylene glycol 3350 17 gram/dose powder 1 g PO BID RF: 0 Curcumin 95 % powder miscellaneous DAILY RF: 0 zinc gluconate 30 mg tablet 30 mg PO DAILY RF: 0 hydroxyzine HCl 25 mg tablet 25 mg PO BID RF: 0 cromolyn 100 mg/5 mL concentrate 200 mg PO QID 30 Days Qty: 1200 RF: 3 (DME) FreeStyle Yesi 2 Sensor Kit See Rx Instructions .ROUTE .MEDSUPPLY Qty: 2 RF: 10 acarbose 50 mg tablet 50 mg PO TID 30 Days Qty: 90 RF: 4 PMFSH Past Medical History Medical History ADHD Adrenal insufficiency Depression Dysplastic nevus History of traumatic brain injury Hyperlipidemia Hypoglycemia after GI (gastrointestinal) surgery Hypothyroidism Intestinal malabsorption Mastocytosis Surgical History H/O colonoscopy H/O gastric bypass H/O hernia repair H/O: hysterectomy History of appendectomy History of esophagogastroduodenoscopy (EGD) History of laparoscopy History of sleeve gastrectomy Family History Family History Mother Obesity DM (diabetes mellitus) Arthritis Father Obesity HIV (human immunodeficiency virus infection) Hepatitis B Hepatitis C Brother No problems noted. Social History Social History (Updated 04/23/21 @ 16:33 by Theresa Doyle MD) Household Members: Spouse, Children and Other Alcohol intake: current Alcohol intake frequency: holidays/special occasions only Patient Tobacco Use Status: Former Tobacco user Advance Directives: No Advance Directives Information Provided: No
[2021-06-22] MEDS: HYDROmorphone HCl 1 MG/ML SYRINGE IVPUSH (07:12)
[2021-06-22] MEDS: ondansetron HCL 4 MG/2 ML VIAL IVPUSH (07:12)
[2021-06-22] MEDS: Lactated Ringers 1,000 ML 999 ML IV (07:12)
[2021-06-22 07:21] VITALS: BP 120/79; PULSE 93; RESP 20
[2021-06-22] MEDS: iohexoL 350 MG/ML 100 ML INFUS..BTL IV (08:07)
== END 2021-06-22 09:39 | disposition home or self-care (01) ==
PROVIDERS: Emergency Provider Emergency Medicine; PCP Internal Medicine
DX: K20.90 Esophagitis, unspecified without bleeding (principal); R10.13 Epigastric pain; R11.2 Nausea with vomiting, unspecified; Z20.822 Contact with and (suspected) exposure to COVID-19; Z98.84 Bariatric surgery status
CPT/HCPCS: 36415; 74177; 80053; 83690; 85025; 87635; 96361; 96374; 96375; 99283; 99284; J1170; J2405; Q9967

== ENCOUNTER → 2021-06-23 15:54 | Outpatient (BNVA) | payer BC, SELFPAY | PROVIDERS: PCP Internal Medicine; Referring Provider Internal Medicine; Visit Provider Surgery ==

== ENCOUNTER → 2021-07-14 11:07 | Outpatient (BNVA) | payer BC, SELFPAY | PROVIDERS: PCP Internal Medicine; Visit Provider Surgery ==

== ENCOUNTER → 2021-09-21 09:33 | Outpatient (BNVA) | payer BC, SELFPAY | PROVIDERS: PCP Internal Medicine; Referring Provider Internal Medicine; Visit Provider Internal Medicine Gastroenterology ==

== ENCOUNTER 2021-09-29 10:53 | Outpatient (REF) | payer BC, SELFPAY ==
--- NOTE | ~2021-09-29 | US_ITS ---
EXAMINATION: US ABDOMEN COMPLETE CLINICAL INFORMATION: Gastrojejunal ulcer, unspecified as acute or chronic. COMPARISON: CT abdomen and pelvis 06/22/2021. Ultrasound abdomen 08/16/2018. X-ray abdomen 05/26/2018. TECHNIQUE: Real-time imaging of the abdominal viscera. FINDINGS: PANCREAS: Normal. ABDOMINAL AORTA: The proximal, mid, and distal segments are normal in caliber. INFERIOR VENA CAVA: Visualized portions are normal. LIVER: Normal. The liver is normal in size. The liver contour is normal. Parenchymal echogenicity is normal. No focal hepatic lesion. There is no intrahepatic biliary duct dilatation seen. GALLBLADDER: Gallbladder wall thickness is 0.19 cm. The gallbladder is physiologically distended without evidence of stones, sludge, polyps, wall thickening or pericholecystic fluid. COMMON BILE DUCT: Normal in caliber measuring 0.5 cm in diameter. RIGHT KIDNEY: Normal. No hydronephrosis. No renal calculi or focal parenchymal lesions. The kidney measures 11.9 cm in maximum dimension. LEFT KIDNEY: Normal. No hydronephrosis. No renal calculi or focal parenchymal lesions. The kidney measures 11.7 cm in maximum dimension. SPLEEN: Normal. The spleen measures 10.0 cm in maximum dimension. FREE FLUID: None. US/US abdomen complete IMPRESSION: Unremarkable complete abdomen ultrasound.
== END 2021-09-29 10:54 | disposition home or self-care (01) ==
LOC: HO.US 10:53
PROVIDERS: Visit Provider Internal Medicine Gastroenterology
DX: K28.9 Gastrojejunal ulcer, unspecified as acute or chronic, without hemorrhage or perforation (principal); K90.9 Intestinal malabsorption, unspecified
CPT/HCPCS: 76700

== ENCOUNTER 2021-11-24 11:21 | Day surgery (SDC) | payer BC, SELFPAY ==
--- NOTE | 2021-11-23 10:08 | HO.ANESPROP2 ---
Documented by User: Cheyenne Parnell NP 11/23/21 10:09 HPI - Anesthesia Eval Consult details Narrative: 40yo F for Upper Endoscopy *Multiple Med Allergies* PMFSH Active Problems Active Problems: All Active Problems (Updated 11/18/21 @ 10:37 by Delilah Samuel RN) Body mass index (BMI) of 25.0 to 25.9 in adult (Acute) Hypoglycemia (Acute) Overweight (Acute) BMI 26.0-26.9,adult (Acute) BMI 27.0-27.9,adult (Acute) Marginal ulcer (Acute) H/O gastric bypass (Acute) Hypoglycemia after GI (gastrointestinal) surgery (Acute) Intestinal malabsorption (Acute) Past Medical History Medical History ADHD Adrenal insufficiency Depression Dysplastic nevus History of rhabdomyolysis History of traumatic brain injury Hyperlipidemia Hypoglycemia after GI (gastrointestinal) surgery Hypothyroidism Intestinal malabsorption Mastocytosis Family History Family History Mother Obesity DM (diabetes mellitus) Arthritis Father Obesity HIV (human immunodeficiency virus infection) Hepatitis B Hepatitis C Brother No problems noted. Surgical History Surgical History H/O colonoscopy H/O gastric bypass H/O hernia repair H/O: hysterectomy History of appendectomy History of esophagogastroduodenoscopy (EGD) History of laparoscopy History of sleeve gastrectomy Social History Social History Household Members: Spouse, Children and Other Alcohol intake: current Alcohol intake frequency: holidays/special occasions only Patient Tobacco Use Status: Former Tobacco user Tobacco use type: Cigarette Smoked in Last 30 Days: Yes Patient Interested in Nicotine Replacement: No (took 3 or 4 cigarettes yesterday) Use of substances other than those prescribed or required for medical reasons: No Are you DNR?: No Advance Directives: No Advance Directives Information Provided: No Patient : No (hx of hysterectomy) Meds Allergies Allergy/AdvReac Type Severity Reaction Status Date / Time bee pollen [BEE STINGS] Allergy Severe ANAPHYLAXIS Verified 09/21/21 09:38 clavulanic acid Allergy Severe GI DISTRESS Verified 09/21/21 09:38 [CLAVULANIC ACID] latex [LATEX] Allergy Severe ANAPHYLAXIS Verified 09/21/21 09:38 pork derived (porcine) Allergy Severe d/t Verified 09/21/21 09:38 [PORK DERIVED (PORCINE)] MASTOCYTOSIS carrageenan [CARRAGEENAN] Allergy Unknown UNKNOWN Verified 09/21/21 09:38 egg [EGG] Allergy Unknown DUE TO Verified 09/21/21 09:38 MASTOCYTOSIS augmentin/ clevonic acid Allergy Mild nausea and Uncoded 07/14/21 11:23 vomiting laytex/mucousa Allergy Mild anaphylaxis Uncoded 07/14/21 11:23 Soy Allergy Mild nausea and Uncoded 07/14/21 11:23 vomiting Home Medications Medication Instructions Recorded Confirmed Last Taken Type acetaminophen 500 mg tablet 500 mg PO Q6H PRN 08/19/20 11/18/21 Unknown History (Tylenol Extra Strength) cholecalciferol (vitamin D3) 50 10,000 unit PO DAILY cap 08/19/20 11/18/21 Unknown History mcg (2,000 unit) capsule clonidine HCl 0.1 mg tablet 0.1 mg PO TID 08/19/20 11/18/21 Unknown History epinephrine 0.3 mg/0.3 mL 0.3 mg IM PRN 08/19/20 07/14/21 Unknown History injection, auto-injector loratadine 10 mg tablet 10 mg PO DAILY 08/19/20 11/18/21 Unknown History omega-3 fatty acids 1,250 mg 2,500 mg PO DAILY cap 08/19/20 11/18/21 Unknown History capsule polyethylene glycol 3350 17 1 g PO BID g 08/19/20 07/14/21 Unknown History gram/dose oral powder hydroxyzine HCl 25 mg tablet 25 mg PO BID 01/23/21 11/18/21 Unknown History zinc gluconate 30 mg tablet 30 mg PO DAILY 02/11/21 11/18/21 Unknown History aluminum-mag hydroxide-simethicone 10 ml PO TID PRN 07/14/21 11/18/21 Unknown History 400 mg-400 mg-40 mg/5 mL oral susp (Mylanta Maximum Strength) esomeprazole magnesium 20 mg 20 mg PO BID cap 07/14/21 11/18/21 Unknown History capsule,delayed release dextroamphetamine-amphetamine 10 11/18/21 11/18/21 Unknown History mg tablet docusate sodium 100 mg capsule 100 mg PO BID 11/18/21 11/18/21 Unknown History (Colace) Exam Exam Date and Time: November 23, 2021 1008 Pertinent Lab Results Pertinent Lab Results: Laboratory Tests 06/22/21 06/22/21 06:07 06:07 WBC 6.9 Hgb 12.3 Hct 37.6 Plt Count 281 Sodium 139 Potassium 4.0 Chloride 105 Carbon Dioxide 27 BUN 15 Creatinine 0.68 Assessment and Plan Assessment Anesthesia Assessment: Chart Reviewed Documented by User: Darline Polanco MD 11/24/21 12:25 PMFSH Active Problems Active Problems: All Active Problems (Updated 11/18/21 @ 10:37 by Delilah Samuel RN) Body mass index (BMI) of 25.0 to 25.9 in adult (Acute) Hypoglycemia (Acute)- blood sugar today 101 Overweight (Acute) BMI 26.0-26.9,adult (Acute) BMI 27.0-27.9,adult (Acute) Marginal ulcer (Acute) H/O gastric bypass (Acute) Hypoglycemia after GI (gastrointestinal) surgery (Acute) Intestinal malabsorption (Acute) Past Medical History Medical History ADHD Adrenal insufficiency Depression Dysplastic nevus History of rhabdomyolysis History of traumatic brain injury Hyperlipidemia Hypoglycemia after GI (gastrointestinal) surgery Hypothyroidism Intestinal malabsorption Mastocytosis Family History Family History Mother Obesity DM (diabetes mellitus) Arthritis Father Obesity HIV (human immunodeficiency virus infection) Hepatitis B Hepatitis C Brother No problems noted. Family history of problems with anesthesia: Yes Surgical History Surgical History H/O colonoscopy H/O gastric bypass H/O hernia repair H/O: hysterectomy History of appendectomy History of esophagogastroduodenoscopy (EGD) History of laparoscopy History of sleeve gastrectomy History of Problems with Anesthesia: No (Has had propofol several times. No problems) Social History Social History Household Members: Spouse, Children and Other Alcohol intake: current Alcohol intake frequency: holidays/special occasions only Patient Tobacco Use Status: Former Tobacco user Tobacco use type: Cigarette Smoked in Last 30 Days: Yes Patient Interested in Nicotine Replacement: No (took 3 or 4 cigarettes yesterday) Use of substances other than those prescribed or required for medical reasons: No Are you DNR?: No Advance Directives: No Advance Directives Information Provided: No Patient : No (hx of hysterectomy) Meds Allergies Allergy/AdvReac Type Severity Reaction Status Date / Time bee pollen [BEE STINGS] Allergy Severe ANAPHYLAXIS Verified 09/21/21 09:38 clavulanic acid Allergy Severe GI DISTRESS Verified 09/21/21 09:38 [CLAVULANIC ACID] latex [LATEX] Allergy Severe ANAPHYLAXIS Verified 09/21/21 09:38 pork derived (porcine) Allergy Severe d/t Verified 09/21/21 09:38 [PORK DERIVED (PORCINE)] MASTOCYTOSIS carrageenan [CARRAGEENAN] Allergy Unknown UNKNOWN Verified 09/21/21 09:38 egg [EGG] Allergy Unknown DUE TO Verified 09/21/21 09:38 MASTOCYTOSIS augmentin/ clevonic acid Allergy Mild nausea and Uncoded 07/14/21 11:23 vomiting laytex/mucousa Allergy Mild anaphylaxis Uncoded 07/14/21 11:23 Soy Allergy Mild nausea and Uncoded 07/14/21 11:23 vomiting Home Medications Medication Instructions Recorded Confirmed Last Taken Type acetaminophen 500 mg tablet 500 mg PO Q6H PRN 08/19/20 11/18/21 Unknown History (Tylenol Extra Strength) cholecalciferol (vitamin D3) 50 10,000 unit PO DAILY cap 08/19/20 11/18/21 Unknown History mcg (2,000 unit) capsule clonidine HCl 0.1 mg tablet 0.1 mg PO TID 08/19/20 11/18/21 Unknown History epinephrine 0.3 mg/0.3 mL 0.3 mg IM PRN 08/19/20 07/14/21 Unknown History injection, auto-injector loratadine 10 mg tablet 10 mg PO DAILY 08/19/20 11/18/21 Unknown History omega-3 fatty acids 1,250 mg 2,500 mg PO DAILY cap 08/19/20 11/18/21 Unknown History capsule polyethylene glycol 3350 17 1 g PO BID g 08/19/20 07/14/21 Unknown History gram/dose oral powder hydroxyzine HCl 25 mg tablet 25 mg PO BID 01/23/21 11/18/21 Unknown History zinc gluconate 30 mg tablet 30 mg PO DAILY 02/11/21 11/18/21 Unknown History aluminum-mag hydroxide-simethicone 10 ml PO TID PRN 07/14/21 11/18/21 Unknown History 400 mg-400 mg-40 mg/5 mL oral susp (Mylanta Maximum Strength) esomeprazole magnesium 20 mg 20 mg PO BID cap 07/14/21 11/18/21 Unknown History capsule,delayed release dextroamphetamine-amphetamine 10 11/18/21 11/18/21 Unknown History mg tablet docusate sodium 100 mg capsule 100 mg PO BID 11/18/21 11/18/21 Unknown History (Colace) Exam Height,Weight and Vital Signs: Height 5 ft 3 in Weight 68.039 kg Vital Signs Temp Pulse Resp BP Pulse Ox 11/24/21 12:10 98.8 F 80 18 108/58 L 100 Airway Mallampati Class: II TM Dist: >3cm Neck ROM: Full Loose/Missing/Broken Teeth: Yes (Chipped top front left) Heart: RRR Lungs: CTAB Assessment and Plan Assessment Anesthesia Assessment: Anesthesia Plan Discussed Final Anesthetic Review Family History of Problems with Anesthesia: Yes History of Problems with Anesthesia: No (Has had propofol several times. No problems) NPO: Yes ASA Class: III Final Preanesthetic Review: No Changes in Pt Med Stat, Meds/Allgs Chart Reviewed, Consent Obtained/Reviewed and Anes Risks/Benef Reviewed Patient Risk: Intermediate Procedure Risk: Low Assessment/Block/Sedation in SS: Assess/Block/Sedation-SS Anesthetic Plan Anesthetic Plan: MAC: Disposition: Standard PACU
--- NOTE | 2021-11-24 11:23 | MHC.SHP ---
Pre-Procedural Eval Section A Date of Service: 11/24/21 Section B Chief Complaint: Gastrojejunal ulcer, unspecified Relevant Family History (Specify if Yes): No Relevant Social History: None Present Medications: see Short Stay Collaborative assessment Medical History: Significant History (ADHD Adrenal insufficiency Depression Dysplastic nevus History of rhabdomyolysis History of traumatic brain injury Hyperlipidemia Hypoglycemia after GI (gastrointestinal) surgery Hypothyroidism Intestinal malabsorption Mastocytosis) History of Previous Operations: Relevant previous surgery/procedure and date(s) (H/O colonoscopy H/O gastric bypass H/O hernia repair H/O: hysterectomy History of appendectomy History of esophagogastroduodenoscopy (EGD) History of laparoscopy History of sleeve gastrectomy) Allergies: Allergies Allergy/AdvReac Type Severity Reaction Status Date / Time bee pollen [BEE STINGS] Allergy Severe ANAPHYLAXIS Verified 09/21/21 09:38 clavulanic acid Allergy Severe GI DISTRESS Verified 09/21/21 09:38 [CLAVULANIC ACID] latex [LATEX] Allergy Severe ANAPHYLAXIS Verified 09/21/21 09:38 pork derived (porcine) Allergy Severe d/t Verified 09/21/21 09:38 [PORK DERIVED (PORCINE)] MASTOCYTOSIS carrageenan [CARRAG[place]NAN] Allergy Unknown UNKNOWN Verified 09/21/21 09:38 egg [EGG] Allergy Unknown DUE TO Verified 09/21/21 09:38 MASTOCYTOSIS augmentin/ clevonic acid Allergy Mild nausea and Uncoded 07/14/21 11:23 vomiting laytex/mucousa Allergy Mild anaphylaxis Uncoded 07/14/21 11:23 Soy Allergy Mild nausea and Uncoded 07/14/21 11:23 vomiting Review of Systems Sugical H&P ROS: Negative: Constitution, Cardiovascular, Respiratory, Neurological, Psychiatric, Hem-Onc, Allergic/Immunologic, Gastrointestinal, Genitourinary, Musculoskeletal, Integumentary, Endocrine and Eyes/Ears/Nose/Throat Exam Surgical H&P Exam: Normal: HEENT, Normal: Heart, Normal: Lungs, Normal: Extremities, Normal: Abdomen, Normal: Skin and Normal: Neurological Plan Diagnosis/Plan: Unchanged I have reviewed the history and physical and performed a pertinent physical examination on my patient. No changes have occurred unless specified.
[2021-11-24 11:42] VITALS: BMI 26.5
[2021-11-24 12:10] VITALS: BP 108/58; PULSE 80; RESP 18; TEMP 37.1; O2SAT 100
[2021-11-24] MEDS: Lactated Ringers 1,000 ML 100 ML IVCONT (12:11)
--- NOTE | 2021-11-24 12:40 | P.BOP_ITS ---
Brief Operative Note Date of Service: 11/24/21 Pre-op diagnosis: abdominal pain, nausea Post-op diagnosis: same Procedure: see op note Surgeon: Ld Harper MD Anesthesia: MAC Was an Engineering Illustrator used for this Procedure?: No Estimated blood loss (mL): 0 Condition: stable Disposition: PACU
--- NOTE | 2021-11-24 12:41 | W.PM.OPN ---
Operative Note Operative Note Date of Service: 11/24/21 Narrative: Procedure Description: EGD FLEXIBLE TRANSORAL UPPER GASTROINTESTINAL ENDOSCOPY UPPER ENDOSCOPY Consent: Indications for the procedure and potential complications of bleeding, perforation, reaction to medications and missed diagnosis were discussed with the patient and informed consent was obtained. Instrument: Olympus GIF H 190 J mid size upper endoscope Monitoring: Vital signs and clinical assessment, continuous EKG monitoring, Pulse oximetry, Carbon Dioxide monitoring and blood pressure monitoring were done throughout the procedure. Procedure: The patient was placed in the left lateral decubitis position and pre-procedure medications were administered and a bite block was placed. The endoscope was inserted into the mouth and advanced under direct vision to the third part of duodenum. A careful inspection was made as the upper endoscope was withdrawn including a retroflexed examination of the proximal stomach; Findings and interventions are described below. Hx of gastric sleeve converted to gastric bypass Findings: Larynx:normal Esophagus: GE junction at 33 cm, diaphragm hiatus at 35 cm, consistent with 2 cm hiatal hernia (fixed), aslo erosive esophagitis noted, bx taken from GEJ and random esophagus. Proximal esophageal inlet patch 1 cm. Stomach pouch: Measured 9 cm. Patchy gastric erythema and post surgical changes. Biopsies were obtained. hiatal hernia on retroflexed examination of the cardia. Jejunum: erythema and peptic injury to anastomic tissue with retained suture which was removed to prevent it acting as nidus for ulcer formation. Biopsies taken. Intervention: Biopsies as noted above, foreign body removal Impression/Findings: hiatal hernia erosive esophagitis jejunitis esophageal inlet patch retained suture PLAN: cont with carafate open PPI capsule and mix with apple sauce and take reconsult surgery for hernia repair
[2021-11-24 12:50] VITALS: BP 102/50; PULSE 95; RESP 15; TEMP 36.2; O2SAT 100
[2021-11-24 13:14] VITALS: BP 113/69; PULSE 77; RESP 16; TEMP 36.2; O2SAT 100
== END 2021-11-24 13:55 | disposition home or self-care (01) ==
PROVIDERS: Visit Provider Internal Medicine Gastroenterology
PROC: 0DJ08ZZ Inspection of Upper Intestinal Tract, Via Natural or Artificial Opening Endoscopic (ICD-10-PCS; CPT 43235; principal; 2021-11-24 12:30)
DX: K28.9 Gastrojejunal ulcer, unspecified as acute or chronic, without hemorrhage or perforation (principal); K20.80 Other esophagitis without bleeding; K63.89 Other specified diseases of intestine; K44.9 Diaphragmatic hernia without obstruction or gangrene; Q39.8 Other congenital malformations of esophagus; Z98.84 Bariatric surgery status; Z18.89 Other specified retained foreign body fragments
CPT/HCPCS: 43239; 88305; 88341; 88342

== ENCOUNTER → 2021-12-21 09:56 | Outpatient (BNVA) | payer OTHER, SELFPAY | PROVIDERS: PCP Internal Medicine; Visit Provider Internal Medicine Gastroenterology ==

== ENCOUNTER 2022-01-06 12:29 | Outpatient (REF) | payer OTHER, SELFPAY | END 2022-01-06 12:30 | disposition home or self-care (01) | LOC: HO.XRAY 12:29 | PROVIDERS: PCP Internal Medicine; Visit Provider Internal Medicine Gastroenterology | DX: Z13.89 Encounter for screening for other disorder (principal) ==

== ENCOUNTER 2022-01-11 10:32 | Outpatient (REF) | payer OTHER, SELFPAY ==
--- NOTE | ~2022-01-11 | XR_ITS ---
EXAMINATION: XR ABDOMEN KUB CLINICAL INDICATION: Check for colonic motility. COMPARISON: Previous CT of the abdomen and pelvis June 2021. TECHNIQUE: AP view of the abdomen. FINDINGS: 3 Sitz markers are seen 20 days after capsule ingestion; one projecting over the right lower quadrant/cecal region, one projecting over the left lateral abdomen/ ascending colon and one projecting in the pelvis /rectosigmoid. There is stool throughout the colon suggestive of constipation. There are postsurgical changes seen in the left side of the abdomen. There are small pelvic calcifications probably representing calcified phleboliths. Bony structures are unremarkable. XR/XR KUB IMPRESSION: Constipation. 3 Sitz markers seen 20 days after capsule ingestion suggestive of colonic inertia.
== END 2022-01-11 10:33 | disposition home or self-care (01) ==
LOC: HO.XRAY 10:32
PROVIDERS: PCP Internal Medicine; Visit Provider Internal Medicine Gastroenterology
DX: K59.01 Slow transit constipation (principal)
CPT/HCPCS: 74018

== ENCOUNTER → 2022-03-09 08:03 | Outpatient (BNVA) | payer OTHER, SELFPAY | PROVIDERS: PCP Student in an Organized Health Care Education/Training Program; Visit Provider Internal Medicine Endocrinology, Diabetes & Metabolism | DX: E16.2 Hypoglycemia, unspecified (principal) ==

== ENCOUNTER 2022-03-24 07:57 | Outpatient (REF) | payer OTHER, SELFPAY ==
--- NOTE | ~2022-03-24 | XR_ITS ---
EXAMINATION: XR ABDOMEN KUB CLINICAL INDICATION: Low transit constipation COMPARISON: Abdominal KUB 01/11/2022 TECHNIQUE: AP view of the abdomen. FINDINGS: Surgical changes consistent with gastric bypass procedure. There is a single loop of mildly prominent air-filled loop of small bowel within the left hemiabdomen which measure up to 3.5 cm, nonspecific. There is a moderate colonic stool burden diffusely. No acute osseous abnormality. A few small pelvic calcifications are likely vascular in nature. Visualized lung bases are well aerated. XR/XR KUB IMPRESSION: -Moderate colonic stool burden.
== END 2022-03-24 07:58 | disposition home or self-care (01) ==
LOC: HO.XRAY 07:57
PROVIDERS: Visit Provider Internal Medicine Gastroenterology
DX: K59.01 Slow transit constipation (principal)
CPT/HCPCS: 74018

== ENCOUNTER 2022-04-08 04:16 | Emergency (ER) | payer OTHER, SELFPAY ==
--- NOTE | ~2022-04-08 | CT_ITS ---
EXAMINATION: CT ABDOMEN AND PELVIS WITHOUT CONTRAST CLINICAL INFORMATION: Abdominal pain COMPARISON: KUB earlier today. Ultrasound abdomen 09/29/2021, CT abdomen pelvis 06/22/2021 TECHNIQUE: Multidetector volumetric imaging was performed from the superior aspect of the liver through the pubic symphysis. Sagittal and coronal reformatted images were obtained on the technologist's workstation. This CT examination was performed using dose optimization techniques as appropriate, variously including the following: *Automated exposure control *Adjustment of mA and/or kV according to patient size (this includes techniques or standardized protocols for targeted exams where dose is matched to indication/reason for exam; i.e. extremities or head) *Use of iterative reconstruction technique DLP: 438 mGy-cm FINDINGS: LUNG BASES: The visualized lung bases are unremarkable. LIVER, GALLBLADDER, AND BILIARY TREE: The liver is normal in size, shape, and attenuation. No focal hepatic lesion or biliary ductal dilatation is present. The gallbladder is unremarkable with no evidence of radiopaque gallstones, gallbladder wall thickening, or obvious pericholecystic inflammatory changes. PANCREAS: Unremarkable. SPLEEN: Unremarkable. ADRENAL GLANDS: Unremarkable. KIDNEYS AND URETERS: The kidneys are normal in size, shape, and attenuation. No hydronephrosis, hydroureter, or calculi seen. No perinephric stranding. BLADDER: Empty but unremarkable GASTROINTESTINAL TRACT: A small hiatal hernia is again seen. Again seen are postop changes in the stomach related to gastric bypass along with a small bowel anastomosis in left abdomen. There is no evidence of bowel obstruction. The small and large bowel are otherwise unremarkable. The appendix is none seen but there is no evidence of appendicitis.. ABDOMINAL WALL: No significant hernia is appreciated. Previous supraumbilical abdominal wall scarring/surgery. LYMPH NODES: No retroperitoneal lymphadenopathy. VASCULAR: Unremarkable. PELVIC VISCERA: Uterus does not appear to be present. An abnormal adnexal mass or free intraperitoneal fluid is not seen. OSSEOUS STRUCTURES: Unremarkable. CT/CT abdomen pelvis wo IV con IMPRESSION: An acute etiology for the patient's abdominal pain is not been found. Incidental note made of a small hiatal hernia and prior gastric/small bowel surgery without evidence of obstruction. Fleischner guidelines were followed.
--- NOTE | ~2022-04-08 | XR_ITS ---
EXAMINATION: XR ABDOMEN KUB CLINICAL INDICATION: Lower abdominal pain, history of constipation. COMPARISON: None TECHNIQUE: AP view of the abdomen. FINDINGS: There is a nonobstructive bowel gas pattern. Mild to moderate stool seen within the colon, most pronounced proximally. Surgical clips overlie the left upper quadrant epigastric region. The osseous structures are unremarkable. XR/XR KUB IMPRESSION: Nonobstructive bowel gas pattern. Mild to moderate colonic stool burden more pronounced proximally without significant interval change.
[2022-04-08 04:21] VITALS: BP 126/76; PULSE 92; RESP 18; TEMP 36.6; O2SAT 100; BMI 26.6
[2022-04-08 04:46] LABS: Basophils Percent Auto 0.4 % (0-2); Eosinophils Absolute Auto 0.1 X10*3/uL (0.0-0.4); Eosinophils Percent Auto 1.3 % (0-4); Hematocrit 38.2 % (37.0-47.0); Hemoglobin 12.5 g/dl (12.0-16.0); Imm Gran Abs Auto 0.02 X10*3/uL (0.00-0.03); Imm Gran Pct Auto 0.2 % (0.0-0.4); Lymphocytes Absolute Auto 2.4 X10*3/uL (1.2-4.9); Lymphocytes Percent Auto 26.3 % (20-40); MANUAL DIFF FLAG NO; Mean Corpuscular HGB Conc 32.7 g/dl (31.0-35.0); Mean Corpuscular Volume 85.7 fL (80.0-98.0); Monocytes Absolute Auto 0.6 X10*3/uL (0.1-1.2); Monocytes Percent Auto 6.5 % (2-11); Neutrophils Absolute Auto 5.9 x10*3/uL (2.0-8.3); Neutrophils Percent Auto 65.3 % (45-73); Platelet Count 374 X10*3/uL (160-400); Red Blood Count 4.46 X10*6/uL (4.20-5.50)
[2022-04-08 04:47] LABS: Appearance Urine HAZY; Color Urine YELLOW; Glucose Urine UA NEG (NEG); Leukocyte Esterase Urine NEG (NEG); Nitrite Urine NEG (NEG); PH 6.5 (5.0-8.0); Specific Gravity - Urine 1.025 (1.005-1.025); UACC Culture Trigger NO; Urine Blood TRACE (NEG); Urine Ketones 15 MG/DL (NEG); Urine Protein NEG (NEG-TRACE)
[2022-04-08 04:48] LABS: UPreg QC Valid YES; Urine Pregnancy NEGATIVE (NEGATIVE)
[2022-04-08 05:00] LABS: Bacteria Urine 1+ /LPF; Mucus Urine 3+ /LPF; RBC Urine 0-2 /HPF (0); Squamous Epithelial Cell Urine 3+ /LPF; WBC Urine 0 /HPF (0-4)
[2022-04-08 05:10] LABS: Alanine Aminotransferase 18 U/L (0-31); Albumin Level 4.2 g/dL (3.5-5.0); Alkaline Phosphatase 72 U/L (39-117); Anion Gap 11 (12-20); Aspartate Amino Transferase 20 U/L (5-31); Bilirubin Total 0.3 mg/dL (0.0-1.0); Blood Urea Nitrogen 9 mg/dL (9-16); Calcium 8.7 mg/dL (8.4-10.2); Carbon Dioxide 25 mmol/L (22-29); Chloride 104 mmol/L (96-108); Creatinine Clr Calc Pharmacy 94.7; Estimated Glomerular Filt Rate > 60; Glucose Random 106 mg/dL (60-115); Lipase 60 U/L (8-78); Potassium 4.2 mmol/L (3.3-5.1); Sodium 136 mmol/L (135-145); Total Protein 6.6 g/dL (6.5-8.0)
--- NOTE | 2022-04-08 07:21 | ED_ITS ---
HPI - Abdominal Pain General Chief Complaint: Abdominal Pain Stated Complaint: belly pain Time Seen by Provider: 04/08/22 07:21 Source: patient Mode of arrival: ambulatory History of Present Illness HPI narrative: 41-year-old female with history of mastocytosis/gastric sleeve and presents with complaints of 4 days of abdominal discomfort that is crampy in nature and radiates into her back but has not been associated by nausea, vomiting, fevers, chills, obstipation, patient states she does have pretty significant constipation issues and otherwise denies urinary pain/burning/frequency, or history of renal colic. Patient is currently under the care of Dr. Harper. Related Data Home Medications Medication Instructions Recorded Confirmed acetaminophen 500 mg tablet 500 mg PO Q6H PRN Pain 08/19/20 11/18/21 (Tylenol Extra Strength) cholecalciferol (vitamin D3) 50 10,000 unit PO DAILY 08/19/20 11/18/21 mcg (2,000 unit) capsule clonidine HCl 0.1 mg tablet 0.1 mg PO TID 08/19/20 11/18/21 epinephrine 0.3 mg/0.3 mL 0.3 mg IM PRN allergies 08/19/20 07/14/21 injection, auto-injector loratadine 10 mg tablet 10 mg PO DAILY 08/19/20 11/18/21 omega-3 fatty acids 1,250 mg 2,500 mg PO DAILY 08/19/20 11/18/21 capsule polyethylene glycol 3350 17 1 g PO BID constipation 08/19/20 07/14/21 gram/dose oral powder hydroxyzine HCl 25 mg tablet 25 mg PO BID 01/23/21 11/18/21 zinc gluconate 30 mg tablet 30 mg PO DAILY 02/11/21 11/18/21 aluminum-mag hydroxide-simethicone 10 ml PO TID PRN Heartburn 07/14/21 11/18/21 400 mg-400 mg-40 mg/5 mL oral susp (Mylanta Maximum Strength) esomeprazole magnesium 20 mg 20 mg PO BID 07/14/21 11/18/21 capsule,delayed release docusate sodium 100 mg capsule 100 mg PO BID 11/18/21 11/18/21 (Colace) metoclopramide HCl 10 mg tablet 10 mg PO QID 12/21/21 phentermine 7.5 mg-topiramate ER 1 cap PO DAILY 03/09/22 46 mg capsule,ext.release 24hr mphase (Qsymia) Previous Rx's Medication Instructions Recorded hyoscyamine sulfate 0.125 mg 0.125 mg sublingual TID PRN spasms 09/05/20 sublingual tablet #90 tabs acarbose 50 mg tablet 50 mg PO TID 30 days #90 tabs 04/30/21 ondansetron 4 mg disintegrating 4 mg PO Q8H PRN nausea and 06/22/21 tablet vomiting #20 tabs lidocaine HCl 2 % mucosal solution 1 appl mucous membrane BID #100 mL 07/14/21 (Lidocaine Viscous) sucralfate 100 mg/mL oral 10 ml PO QID 1 month #1,200 mL 07/14/21 suspension (Carafate) FreeStyle Yesi 2 Sensor (flash #2 ea 03/09/22 glucose sensor) prucalopride 2 mg tablet 2 mg PO DAILY #30 tabs 03/23/22 (Motegrity) dicyclomine 20 mg tablet 20 mg PO TID PRN pain #7 tabs 04/08/22 Allergies Allergy/AdvReac Type Severity Reaction Status Date / Time bee pollen [BEE STINGS] Allergy Severe ANAPHYLAXIS Verified 03/09/22 08:08 clavulanic acid Allergy Severe GI DISTRESS Verified 03/09/22 08:08 [CLAVULANIC ACID] latex [LATEX] Allergy Severe ANAPHYLAXIS Verified 03/09/22 08:08 pork derived (porcine) Allergy Severe d/t Verified 03/09/22 08:08 [PORK DERIVED (PORCINE)] MASTOCYTOSIS carrageenan [CARRAGEENAN] Allergy Unknown UNKNOWN Verified 03/09/22 08:08 egg [EGG] Allergy Unknown DUE TO Verified 03/09/22 08:08 MASTOCYTOSIS augmentin/ clevonic acid Allergy Mild nausea and Uncoded 03/09/22 08:08 vomiting laytex/mucousa Allergy Mild anaphylaxis Uncoded 03/09/22 08:08 Soy Allergy Mild nausea and Uncoded 03/09/22 08:08 vomiting Review of Systems Review of Systems Pertinent positives and negatives as stated in HPI 10 point review of systems is otherwise negative. PMFSH Past Medical History Source: nursing notes reviewed Medical History ADHD Adrenal insufficiency Depression Dysplastic nevus History of rhabdomyolysis History of traumatic brain injury Hyperlipidemia Hypothyroidism Mastocytosis Surgical History H/O colonoscopy H/O hernia repair H/O: hysterectomy History of appendectomy History of esophagogastroduodenoscopy (EGD) History of laparoscopy History of sleeve gastrectomy Family History Family History Mother Obesity DM (diabetes mellitus) Arthritis Father Obesity HIV (human immunodeficiency virus infection) Hepatitis B Hepatitis C Brother No problems noted. Social History Social History Household Members: Spouse, Children and Other Alcohol intake: never Patient Tobacco Use Status: Current someday Tobacco user Tobacco use type: Cigarette Use of substances other than those prescribed or required for medical reasons: No Advance Directives: No Advance Directives Information Provided: Yes Physical Exam ED Vital Signs: Vital Signs - 24 hr 04/08/22 04:21 04/08/22 07:39 04/08/22 10:43 Temperature 97.9 F Pulse Rate 92 64 Respiratory Rate 18 16 14 Blood Pressure 126/76 96/66 89/49 L Pulse Oximetry 100 97 Oxygen Delivery Method Room Air Room Air BMI result Body Mass Index 26.6 VITAL SIGNS: Reviewed. GENERAL: Well developed, well nourished, in mild distress. HEAD: Normocephalic/atraumatic EYES: PERRLA, EOMI EARS: Ext canals without abnormality OROPHARYNX: no oral lesions noted, posterior pharynx clear LUNGS: Normal breath sounds. No adventitious sounds or accessory muscle use. SpO2<100> CARDIOVASCULAR: Regular rate and rhythm without noted murmurs ABDOMEN: Soft, non-tender, non-distended with bowel sounds, no CVA tenderness MUSCULOSKELETAL: No tenderness, deformities, or effusions noted on gross inspection. EXTREMITIES: No cyanosis, clubbing or edema. SKIN: Inspection of the skin reveals no rashes NEUROLOGIC: Alert and oriented x 4. Course Course Course Narrative: 41-year-old female with history and clinical presentation most suggestive of possible renal colic versus UTI versus constipation. Review of all investigations without acute findings and on re-evaluation she has had some improvement in her pain but not entirely resolved. Patient did receive some symptom relief with the Bentyl and she will be discharged with a prescription for this medication as well as referral for GI. MDM - Abdominal Pain Lab Data Result diagrams: 04/08/22 04:41 04/08/22 04:41 Labs: Lab Results 04/08/22 04/08/22 04/08/22 Range/Units 04:39 04:39 04:41 WBC 9.0 (4.8-10.8) X10*3/uL RBC 4.46 (4.20-5.50) X10*6/uL Hgb 12.5 (12.0-16.0) g/dl Hct 38.2 (37.0-47.0) % MCV 85.7 (80.0-98.0) fL MCH 28.0 (27.0-33.0) pg MCHC 32.7 (31.0-35.0) g/dl RDW 14.0 (11.0-16.0) % Plt Count 374 (160-400) X10*3/uL MPV 9.0 L (9.4-12.3) fL Immature Gran % (Auto) 0.2 (0.0-0.4) % Neut % (Auto) 65.3 (45-73) % Lymph % (Auto) 26.3 (20-40) % [place] % (Auto) 6.5 (2-11) % Eos % (Auto) 1.3 (0-4) % Baso % (Auto) 0.4 (0-2) % Lymph # (Auto) 2.4 (1.2-4.9) X10*3/uL [place] # (Auto) 0.6 (0.1-1.2) X10*3/uL Eos # (Auto) 0.1 (0.0-0.4) X10*3/uL Baso # (Auto) 0.0 (0.0-0.2) X10*3/uL Abs Immat Gran (auto) 0.02 (0.00-0.03) X10*3/uL Absolute Neuts (auto) 5.9 (2.0-8.3) x10*3/uL Absolute Nucleated RBC 0.000 (0.0-0.012) X10*3/uL Nucleated RBC % (auto) 0.0 (0.0-0.2) /100WBC Sodium (135-145) mmol/L Potassium (3.3-5.1) mmol/L Chloride (96-108) mmol/L Carbon Dioxide (22-29) mmol/L Anion Gap (12-20) BUN (9-16) mg/dL Creatinine (0.5-1.4) mg/dL Estim Creat Clear Calc Estimated GFR Random Glucose (60-115) mg/dL Calcium (8.4-10.2) mg/dL Total Bilirubin (0.0-1.0) mg/dL AST (5-31) U/L ALT (0-31) U/L Alkaline Phosphatase (39-117) U/L Total Protein (6.5-8.0) g/dL Albumin (3.5-5.0) g/dL Lipase (8-78) U/L Urine Color YELLOW Urine Appearance HAZY Urine pH 6.5 (5.0-8.0) Ur Specific [place] 1.025 (1.005-1.025) Urine Protein NEG (NEG-TRACE) MG/DL Urine Glucose (UA) NEG (NEG) MG/DL Urine Ketones 15 (NEG) MG/DL Urine Blood TRACE (NEG) Urine Nitrite NEG (NEG) Ur Leukocyte Esterase NEG (NEG) Urine RBC 0-2 (0) /HPF Urine WBC 0 (0-4) /HPF Ur Squamous Epith Cells 3+ /LPF Urine Bacteria 1+ /LPF Urine Mucus 3+ /LPF Urine Test NEGATIVE (NEGATIVE) 04/08/22 Range/Units 04:41 WBC (4.8-10.8) X10*3/uL RBC (4.20-5.50) X10*6/uL Hgb (12.0-16.0) g/dl Hct (37.0-47.0) % MCV (80.0-98.0) fL MCH (27.0-33.0) pg MCHC (31.0-35.0) g/dl RDW (11.0-16.0) % Plt Count (160-400) X10*3/uL MPV (9.4-12.3) fL Immature Gran % (Auto) (0.0-0.4) % Neut % (Auto) (45-73) % Lymph % (Auto) (20-40) % [place] % (Auto) (2-11) % Eos % (Auto) (0-4) % Baso % (Auto) (0-2) % Lymph # (Auto) (1.2-4.9) X10*3/uL [place] # (Auto) (0.1-1.2) X10*3/uL Eos # (Auto) (0.0-0.4) X10*3/uL Baso # (Auto) (0.0-0.2) X10*3/uL Abs Immat Gran (auto) (0.00-0.03) X10*3/uL Absolute Neuts (auto) (2.0-8.3) x10*3/uL Absolute Nucleated RBC (0.0-0.012) X10*3/uL Nucleated RBC % (auto) (0.0-0.2) /100WBC Sodium 136 (135-145) mmol/L Potassium 4.2 (3.3-5.1) mmol/L Chloride 104 (96-108) mmol/L Carbon Dioxide 25 (22-29) mmol/L Anion Gap 11 L (12-20) BUN 9 (9-16) mg/dL Creatinine 0.69 (0.5-1.4) mg/dL Estim Creat Clear Calc 94.7 Estimated GFR > 60 Random Glucose 106 (60-115) mg/dL Calcium 8.7 (8.4-10.2) mg/dL Total Bilirubin 0.3 (0.0-1.0) mg/dL AST 20 (5-31) U/L ALT 18 (0-31) U/L Alkaline Phosphatase 72 D (39-117) U/L Total Protein 6.6 (6.5-8.0) g/dL Albumin 4.2 (3.5-5.0) g/dL Lipase 60 (8-78) U/L Urine Color Urine Appearance Urine pH (5.0-8.0) Ur Specific [place] (1.005-1.025) Urine Protein (NEG-TRACE) MG/DL Urine Glucose (UA) (NEG) MG/DL Urine Ketones (NEG) MG/DL Urine Blood (NEG) Urine Nitrite (NEG) Ur Leukocyte Esterase (NEG) Urine RBC (0) /HPF Urine WBC (0-4) /HPF Ur Squamous Epith Cells /LPF Urine Bacteria /LPF Urine Mucus /LPF Urine Test (NEGATIVE) Discharge Plan Discharge Clinical Impression: Abdominal pain, History of gastric bypass, Constipation by delayed colonic transit Patient Disposition: Home, Self-Care Instructions: Abdominal Pain (ED) Additional Instructions: 1. Resume all home medications as prescribed. 2. Please follow-up with the GI referral that you have been provided. Return to the ER for worsening symptoms. Prescriptions: New dicyclomine 20 mg tablet 20 mg PO TID PRN (Reason: pain) Qty: 7 0RF No Action hyoscyamine sulfate 0.125 mg tablet, sublingual 0.125 mg sublingual TID PRN (Reason: spasms) Qty: 90 4RF Motegrity 2 mg tablet 2 mg PO DAILY Qty: 30 0RF ondansetron 4 mg tablet,disintegrating 4 mg PO Q8H PRN (Reason: nausea and vomiting) Qty: 20 0RF docusate sodium [Colace] 100 mg Capsule 100 mg PO BID clonidine HCl 0.1 mg tablet 0.1 mg PO TID loratadine 10 mg tablet 10 mg PO DAILY acetaminophen [Tylenol Extra Strength] 500 mg tablet 500 mg PO Q6H PRN (Reason: Pain) cholecalciferol (vitamin D3) 50 mcg (2,000 unit) capsule 10,000 unit PO DAILY epinephrine 0.3 mg/0.3 mL auto-injector 0.3 mg IM PRN (Reason: allergies) omega-3 fatty acids 1,250 mg capsule 2,500 mg PO DAILY polyethylene glycol 3350 17 gram/dose powder 1 g PO BID zinc gluconate 30 mg tablet 30 mg PO DAILY hydroxyzine HCl 25 mg tablet 25 mg PO BID acarbose 50 mg tablet 50 mg PO TID 30 Days Qty: 90 4RF alum-mag hydroxide-simeth [Mylanta Maximum Strength] 400-400-40 mg/5 mL suspension 10 ml PO TID PRN (Reason: Heartburn) lidocaine HCl [Lidocaine Viscous] 2 % solution 1 appl mucous membrane BID Qty: 100 6RF esomeprazole magnesium 20 mg capsule,delayed release(DR/EC) 20 mg PO BID sucralfate [Carafate] 100 mg/mL suspension 10 ml PO QID 30 Days Qty: 1200 4RF Rx Instructions: swish in mouth and swallow; use after food/drink metoclopramide HCl 10 mg tablet 10 mg PO QID Qsymia 7.5-46 mg capsule, ER multiphase 24 hr 1 cap PO DAILY (DME) FreeStyle Yesi 2 Sensor Kit See Rx Instructions .ROUTE .MEDSUPPLY Qty: 2 10RF Rx Instructions: Every 14 days Referrals: Rivera Juarez DO [Primary Care Provider] - Lilian Simeon MD [Physician] -
[2022-04-08] MEDS: Ketorolac Tromethamine 15 MG/ML VIAL IM (07:37)
[2022-04-08 07:39] VITALS: BP 96/66; RESP 16
[2022-04-08] MEDS: Acetaminophen 325 MG TABLET 975 MG PO (10:41)
[2022-04-08] MEDS: Dicyclomine HCl 10 MG CAPSULE PO (10:41)
[2022-04-08 10:43] VITALS: BP 89/49; PULSE 64; RESP 14; O2SAT 97
== END 2022-04-08 13:11 | disposition home or self-care (01) ==
PROVIDERS: Emergency Provider Student in an Organized Health Care Education/Training Program; PCP Student in an Organized Health Care Education/Training Program
DX: R10.9 Unspecified abdominal pain (principal); K59.01 Slow transit constipation; Z98.84 Bariatric surgery status
CPT/HCPCS: 36415; 74018; 74176; 80053; 81001; 81025; 83690; 85025; 96372; 99284; J1885

== ENCOUNTER 2022-06-22 13:23 | Inpatient (IN) | payer OTHER, SELFPAY ==
[2022-06-22 15:02] VITALS: BP 114/75; PULSE 72; RESP 18; TEMP 37.7; O2SAT 100; BMI 24.7
[2022-06-22 19:59] LABS: Alanine Aminotransferase 13 U/L (0-31); Albumin Level 4.1 g/dL (3.5-5.0); Alkaline Phosphatase 71 U/L (39-117); Anion Gap 14 (12-20); Aspartate Amino Transferase 15 U/L (5-31); Bilirubin Direct 0.2 mg/dL (0.0-0.5); Bilirubin Total 0.4 mg/dL (0.0-1.0); Blood Urea Nitrogen 6 mg/dL (9-16); Calcium 8.9 mg/dL (8.4-10.2); Carbon Dioxide 23 mmol/L (22-29); Chloride 105 mmol/L (96-108); Creatinine Clr Calc Pharmacy 102.7; Estimated Glomerular Filt Rate > 60; Glucose Random 118 mg/dL (60-115); Lipase 21 U/L (8-78); Potassium 4.3 mmol/L (3.3-5.1); Sodium 138 mmol/L (135-145); Total Protein 6.9 g/dL (6.5-8.0)
[2022-06-22 20:01] LABS: Hematocrit 34.7 % (37.0-47.0); Hemoglobin 10.9 g/dl (12.0-16.0); Mean Corpuscular HGB Conc 31.4 g/dl (31.0-35.0); Mean Corpuscular Volume 79.6 fL (80.0-98.0); Mean Platelet Volume 8.8 fL (9.4-12.3); Platelet Count 508 X10*3/uL (160-400); Red Blood Count 4.36 X10*6/uL (4.20-5.50); Red Cell Distribution Width 14.2 % (11.0-16.0); White Blood Count 12.3 X10*3/uL (4.8-10.8)
[2022-06-22 20:23] LABS: Appearance Urine Clear; Color Urine Yellow; Glucose Urine UA Negative (Negative); Leukocyte Esterase Urine Negative (Negative); Nitrite Urine Negative (Negative); PH 6.5 (5.0-9.0); Specific Gravity - Urine 1.025 (1.005-1.025); Urine Blood Negative (Negative); Urine Ketones >=160 mg/dL (Negative); Urine Protein Trace mg/dL (Neg-Trace)
[2022-06-22 20:25] LABS: Bacteria Urine None Seen (None Seen); Hyaline Casts Urine 0-2 /LPF (0-2); Squamous Epithelial Cell Urine 0-2 /HPF (0-2); WBC Urine 0-5 /HPF (0-5)
[2022-06-22 21:24] VITALS: BP 119/67; PULSE 63; RESP 18; TEMP 36.8; O2SAT 98
--- NOTE | 2022-06-22 21:26 | ED.ABDPAIN ---
HPI - Abdominal Pain General Chief Complaint: Nausea/Vomiting/Diarrhea Stated Complaint: Abd pain/Vomiting blood Time Seen by Provider: 06/22/22 19:14 Source: patient Mode of arrival: ambulatory Limitations: no limitations History of Present Illness HPI narrative: Patient is status post gastric sleeve, gastric bypass surgery 2019 with frequent vomiting and abdominal pain with history of marginal ulcer comes here for 3 days of vomiting with bright red blood about half cup per day earlier today also patient has vomiting with blood but after that last vomiting was clearer with small specks of blood no melena Unable to hold any solids or liquids had normal bowel movement no fever no chills no abdominal distension complaining of upper abdominal pain patient does get this similar complaints in the past multiple times had a CT scan done 04/07 which was negative endoscopy done on 12/08 showed marginal ulcer without any active bleeding Related Data Home Medications Medication Instructions Recorded Confirmed acetaminophen 500 mg tablet 500 mg PO Q6H PRN Pain 08/19/20 11/18/21 (Tylenol Extra Strength) cholecalciferol (vitamin D3) 50 10,000 unit PO DAILY 08/19/20 11/18/21 mcg (2,000 unit) capsule clonidine HCl 0.1 mg tablet 0.1 mg PO TID 08/19/20 11/18/21 epinephrine 0.3 mg/0.3 mL 0.3 mg IM PRN allergies 08/19/20 07/14/21 injection, auto-injector loratadine 10 mg tablet 10 mg PO DAILY 08/19/20 11/18/21 omega-3 fatty acids 1,250 mg 2,500 mg PO DAILY 08/19/20 11/18/21 capsule polyethylene glycol 3350 17 1 g PO BID constipation 08/19/20 07/14/21 gram/dose oral powder hydroxyzine HCl 25 mg tablet 25 mg PO BID 01/23/21 11/18/21 zinc gluconate 30 mg tablet 30 mg PO DAILY 02/11/21 11/18/21 aluminum-mag hydroxide-simethicone 10 ml PO TID PRN Heartburn 07/14/21 11/18/21 400 mg-400 mg-40 mg/5 mL oral susp (Mylanta Maximum Strength) esomeprazole magnesium 20 mg 20 mg PO BID 07/14/21 11/18/21 capsule,delayed release docusate sodium 100 mg capsule 100 mg PO BID 11/18/21 11/18/21 (Colace) metoclopramide HCl 10 mg tablet 10 mg PO QID 12/21/21 phentermine 7.5 mg-topiramate ER 1 cap PO DAILY 03/09/22 46 mg capsule,ext.release 24hr mphase (Qsymia) Previous Rx's Medication Instructions Recorded hyoscyamine sulfate 0.125 mg 0.125 mg sublingual TID PRN spasms 09/05/20 sublingual tablet #90 tabs acarbose 50 mg tablet 50 mg PO TID 30 days #90 tabs 04/30/21 ondansetron 4 mg disintegrating 4 mg PO Q8H PRN nausea and 06/22/21 tablet vomiting #20 tabs lidocaine HCl 2 % mucosal solution 1 appl mucous membrane BID #100 mL 07/14/21 (Lidocaine Viscous) sucralfate 100 mg/mL oral 10 ml PO QID 1 month #1,200 mL 07/14/21 suspension (Carafate) FreeStyle Yesi 2 Sensor (flash #2 ea 03/09/22 glucose sensor) prucalopride 2 mg tablet 2 mg PO DAILY #30 tabs 03/23/22 (Motegrity) dicyclomine 20 mg tablet 20 mg PO TID PRN pain #7 tabs 04/08/22 Allergies Allergy/AdvReac Type Severity Reaction Status Date / Time bee pollen [BEE STINGS] Allergy Severe ANAPHYLAXIS Verified 03/09/22 08:08 clavulanic acid Allergy Severe GI DISTRESS Verified 03/09/22 08:08 [CLAVULANIC ACID] latex [LATEX] Allergy Severe ANAPHYLAXIS Verified 03/09/22 08:08 pork derived (porcine) Allergy Severe d/t Verified 03/09/22 08:08 [PORK DERIVED (PORCINE)] MASTOCYTOSIS carrageenan [CARRAGEENAN] Allergy Unknown UNKNOWN Verified 03/09/22 08:08 egg [EGG] Allergy Unknown DUE TO Verified 03/09/22 08:08 MASTOCYTOSIS augmentin/ clevonic acid Allergy Mild nausea and Uncoded 03/09/22 08:08 vomiting laytex/mucousa Allergy Mild anaphylaxis Uncoded 03/09/22 08:08 Soy Allergy Mild nausea and Uncoded 03/09/22 08:08 vomiting Review of Systems Review of Systems Yes all other systems are reviewed and are negative PMFSH Past Medical History Medical History (Updated 06/23/22 @ 01:15 by Jayjay Uribe MD) ADHD Adrenal insufficiency Depression Dysplastic nevus Erosive esophagitis History of rhabdomyolysis History of traumatic brain injury Hyperlipidemia Hypoglycemia after GI (gastrointestinal) surgery Hypothyroidism Intestinal malabsorption Jejunitis Mastocytosis Surgical History (Updated 06/23/22 @ 01:15 by Jayjay Uribe MD) H/O colonoscopy H/O gastric bypass H/O hernia repair H/O: hysterectomy History of appendectomy History of esophagogastroduodenoscopy (EGD) History of laparoscopy History of sleeve gastrectomy Family History Family History Mother Obesity DM (diabetes mellitus) Arthritis Father Obesity HIV (human immunodeficiency virus infection) Hepatitis B Hepatitis C Brother No problems noted. Social History Social History Household Members: Spouse, Children and Other Alcohol intake: never Patient Tobacco Use Status: Current everyday Tobacco user Tobacco use type: Cigarette Use of substances other than those prescribed or required for medical reasons: No Advance Directives: No Advance Directives Information Provided: No Physical Exam ED Vital Signs: Vital Signs - 24 hr 06/22/22 15:02 06/22/22 21:24 06/22/22 21:47 Temperature 100 F 98.2 F Pulse Rate 72 63 Respiratory Rate 18 18 18 Blood Pressure 114/75 119/67 Pulse Oximetry 100 98 Oxygen Delivery Method Room Air Room Air BMI result Body Mass Index 24.7 Appearance: Alert. Oriented X3. In moderate distress Eyes: No pallor or icterus ENT: Pharynx normal. Oral Mucosa dry Neck: Normal inspection. Neck supple. CVS: Normal heart rate and rhythm. Pulses normal. Respiratory: No respiratory distress. Equal air entry bilateral, no wheezing/rales/rhonchi Abdomen: Soft , epigastric tenderness Bowel sounds are present, no mass palpable, no CVA tenderness Skin: Skin warm and dry. Normal skin color. Normal skin turgor. Extremities: No lower extremity edema. No calf tenderness Neuro: Oriented X 3. No motor deficit. MDM - Abdominal Pain MDM Narrative Medical decision making narrative: Patient s/p gastric sleeve surgery followed by gastric bypass surgery with marginal ulcer history of bleeding in the past comes here with 3 days of nausea vomiting with intermittent blood in vomitus no melena patient baseline hemoglobin is 12.5 on arrival patient hemoglobin was 10.9 hematocrit 34.7 repeat hemoglobin is 9.5 with hematocrit 30.4 patient started on Protonix drip type and screen blood done at this time patient is not vomiting blood. Will admit patient for further management patient vitals are stable Differential Diagnosis Differential diagnosis: Likely abdominal pain, pancreatitis and peptic ulcer disease Medical Records Attestation: I reviewed the patient's medical records. Lab Data Attestation: I reviewed the patient's lab results. Result diagrams: 06/22/22 23:44 06/22/22 19:33 Labs: Lab Results 06/22/22 06/22/22 06/22/22 Range/Units 19:33 19:33 20:09 WBC 12.3 H (4.8-10.8) X10*3/uL RBC 4.36 (4.20-5.50) X10*6/uL Hgb 10.9 L (12.0-16.0) g/dl Hct 34.7 L (37.0-47.0) % MCV 79.6 L (80.0-98.0) fL MCH 25.0 L (27.0-33.0) pg MCHC 31.4 (31.0-35.0) g/dl RDW 14.2 (11.0-16.0) % Plt Count 508 H D (160-400) X10*3/uL MPV 8.8 L (9.4-12.3) fL Absolute Nucleated RBC 0.000 (0.0-0.012) X10*3/uL Nucleated RBC % (auto) 0.0 (0.0-0.2) /100WBC Sodium 138 (135-145) mmol/L Potassium 4.3 (3.3-5.1) mmol/L Chloride 105 (96-108) mmol/L Carbon Dioxide 23 (22-29) mmol/L Anion Gap 14 (12-20) BUN 6 L (9-16) mg/dL Creatinine 0.64 (0.5-1.4) mg/dL Estim Creat Clear Calc 102.7 Estimated GFR > 60 Random Glucose 118 H (60-115) mg/dL Calcium 8.9 (8.4-10.2) mg/dL Total Bilirubin 0.4 (0.0-1.0) mg/dL Direct Bilirubin 0.2 (0.0-0.5) mg/dL AST 15 (5-31) U/L ALT 13 (0-31) U/L Alkaline Phosphatase 71 (39-117) U/L Total Protein 6.9 (6.5-8.0) g/dL Albumin 4.1 (3.5-5.0) g/dL Lipase 21 (8-78) U/L Urine Color Yellow Urine Appearance Clear Urine pH 6.5 (5.0-9.0) Ur Specific [place] 1.025 (1.005-1.025) Urine Protein Trace (Neg-Trace) mg/dL Urine Glucose (UA) Negative (Negative) mg/dL Urine Ketones >=160 (Negative) mg/dL Urine Blood Negative (Negative) Urine Nitrite Negative (Negative) Ur Leukocyte Esterase Negative (Negative) Urine RBC 3-5 H (0-2) /HPF Urine WBC 0-5 (0-5) /HPF Ur Squamous Epith Cells 0-2 (0-2) /HPF Urine Bacteria None Seen (None Seen) Hyaline Casts 0-2 (0-2) /LPF 06/22/22 Range/Units 23:44 WBC (4.8-10.8) X10*3/uL RBC (4.20-5.50) X10*6/uL Hgb 9.5 L (12.0-16.0) g/dl Hct 30.4 L (37.0-47.0) % MCV (80.0-98.0) fL MCH (27.0-33.0) pg MCHC (31.0-35.0) g/dl RDW (11.0-16.0) % Plt Count (160-400) X10*3/uL MPV (9.4-12.3) fL Absolute Nucleated RBC (0.0-0.012) X10*3/uL Nucleated RBC % (auto) (0.0-0.2) /100WBC Sodium (135-145) mmol/L Potassium (3.3-5.1) mmol/L Chloride (96-108) mmol/L Carbon Dioxide (22-29) mmol/L Anion Gap (12-20) BUN (9-16) mg/dL Creatinine (0.5-1.4) mg/dL Estim Creat Clear Calc Estimated GFR Random Glucose (60-115) mg/dL Calcium (8.4-10.2) mg/dL Total Bilirubin (0.0-1.0) mg/dL Direct Bilirubin (0.0-0.5) mg/dL AST (5-31) U/L ALT (0-31) U/L Alkaline Phosphatase (39-117) U/L Total Protein (6.5-8.0) g/dL Albumin (3.5-5.0) g/dL Lipase (8-78) U/L Urine Color Urine Appearance Urine pH (5.0-9.0) Ur Specific [place] (1.005-1.025) Urine Protein (Neg-Trace) mg/dL Urine Glucose (UA) (Negative) mg/dL Urine Ketones (Negative) mg/dL Urine Blood (Negative) Urine Nitrite (Negative) Ur Leukocyte Esterase (Negative) Urine RBC (0-2) /HPF Urine WBC (0-5) /HPF Ur Squamous Epith Cells (0-2) /HPF Urine Bacteria (None Seen) Hyaline Casts (0-2) /LPF Discharge Plan Discharge Clinical Impression: Hematemesis, Marginal ulcer, H/O gastric bypass Patient Disposition: Admitted As Inpatient
[2022-06-22 21:47] VITALS: RESP 18
[2022-06-22] MEDS: 0.9 % Sodium Chloride 1,000 ML 999 ML IV (21:47)
[2022-06-22] MEDS: Morphine Sulfate 4 MG/ML CARTRIDGE IVPUSH (21:47)
[2022-06-22] MEDS: Pantoprazole Sodium 40 MG/10 ML VIAL IVPUSH (21:47)
[2022-06-22] MEDS: Prochlorperazine Edisylate 10 MG/2 ML VIAL IVPUSH (21:47)
--- NOTE | 2022-06-22 21:52 | PC.NURSE ---
Pt self presents with significant other with reports of N/V and upper abd pain X 2 days. Denies diarrhea. Denies urinary symptoms. A&Ox3 skin pwd respirations even unlabored. IV access obtained, medicated per MAR for pain and n/v. IVF hung and infusing without difficulty. Awaiting improvement in symptoms.
[2022-06-22 23:49] LABS: Hematocrit 30.4 % (37.0-47.0); Hemoglobin 9.5 g/dl (12.0-16.0)
[2022-06-23] VITALS (8 sets, daily range): BP systolic 94–108; BP diastolic 52–75; PULSE 63–98; RESP 16–18; TEMP 36.2–37.1; O2SAT 97–100; BMI 25.8
[2022-06-23] MEDS: 0.9 % Sodium Chloride 1,000 ML 999 ML IV (01:04)
--- NOTE | 2022-06-23 01:04 | P.HPHOSP_ITS ---
History of Present Illness Date of Service: 06/23/22 Chief Complaint: Bloody vomiting 41-year-old female with past medical history of erosive esophagitis, jejunitis, and hiatal hernia, ADHD, adrenal insufficiency, depression, HLD, hypothyroidism, distal malabsorption, mastocytosis, presents to the hospital with complaints of epigastric abdominal plain as well as hematemesis. Patient reports that she started developing epigastric abdominal pain radiating across the abdomen to the left and right, associated with 2 episodes of bright red blood. She reports about a 1 cup bleed. Reports no dizziness, no headache, no change in vision, no diarrhea but has had constipation for the past 3 days. Reports no fever, has some chills, feels clammy. Denies any weakness numbness or tingling. No urinary symptoms and no lower extremity edema. No chest pain, no shortness of breath. No cough. On arrival to the ED patient hemodynamically stable with no significant abnormal vitals Labs are significant for WBC count of 12.3, hemoglobin of 10.9- 12.5 previously, hematocrit of 34.7, MCV of 79.6, labs otherwise unremarkable Patient started on IV pantoprazole will be admitted for further management Review of Systems Review of Systems: Yes all other systems are reviewed and are negative [facility] Medical History (Updated 06/23/22 @ 01:11 by Maria Esther Camarillo MD) ADHD Adrenal insufficiency Depression Dysplastic nevus Erosive esophagitis History of rhabdomyolysis History of traumatic brain injury Hyperlipidemia Hypoglycemia after GI (gastrointestinal) surgery Hypothyroidism Intestinal malabsorption Jejunitis Mastocytosis Family History Mother Obesity DM (diabetes mellitus) Arthritis Father Obesity HIV (human immunodeficiency virus infection) Hepatitis B Hepatitis C Brother No problems noted. Surgical History H/O colonoscopy H/O gastric bypass H/O hernia repair H/O: hysterectomy History of appendectomy History of esophagogastroduodenoscopy (EGD) History of laparoscopy History of sleeve gastrectomy Social History Household Members: Spouse, Children and Other Alcohol intake: never Patient Tobacco Use Status: Current everyday Tobacco user Tobacco use type: Cigarette Use of substances other than those prescribed or required for medical reasons: No Advance Directives: No Advance Directives Information Provided: No Meds Allergies Allergy/AdvReac Type Severity Reaction Status Date / Time bee pollen [BEE STINGS] Allergy Severe ANAPHYLAXIS Verified 03/09/22 08:08 clavulanic acid Allergy Severe GI DISTRESS Verified 03/09/22 08:08 [CLAVULANIC ACID] latex [LATEX] Allergy Severe ANAPHYLAXIS Verified 03/09/22 08:08 pork derived (porcine) Allergy Severe d/t Verified 03/09/22 08:08 [PORK DERIVED (PORCINE)] MASTOCYTOSIS carrageenan [CARRAGEENAN] Allergy Unknown UNKNOWN Verified 03/09/22 08:08 egg [EGG] Allergy Unknown DUE TO Verified 03/09/22 08:08 MASTOCYTOSIS augmentin/ clevonic acid Allergy Mild nausea and Uncoded 03/09/22 08:08 vomiting laytex/mucousa Allergy Mild anaphylaxis Uncoded 03/09/22 08:08 Soy Allergy Mild nausea and Uncoded 03/09/22 08:08 vomiting Active Medications: Current Medications Pantoprazole Sodium 80 mg/ (Sodium Chloride) 100 mls @ 10 mls/hr IV .Q10H [facility] Home Medications Medication Instructions Recorded Confirmed Last Taken Type acetaminophen 500 mg tablet 500 mg PO Q6H PRN Pain 08/19/20 11/18/21 Unknown His tory (Tylenol Extra Strength) cholecalciferol (vitamin D3) 50 10,000 unit PO DAILY 08/19/20 11/18/21 Unknown History mcg (2,000 unit) capsule clonidine HCl 0.1 mg tablet 0.1 mg PO TID 08/19/20 11/18/21 Unknown History epinephrine 0.3 mg/0.3 mL 0.3 mg IM PRN allergies 08/19/20 07/14/21 Unknown History injection, auto-injector loratadine 10 mg tablet 10 mg PO DAILY 08/19/20 11/18/21 Unknown History omega-3 fatty acids 1,250 mg 2,500 mg PO DAILY 08/19/20 11/18/21 Unknown History capsule polyethylene glycol 3350 17 1 g PO BID constipation 08/19/20 07/14/21 Unknown History gram/dose oral powder hydroxyzine HCl 25 mg tablet 25 mg PO BID 01/23/21 11/18/21 Unknown History zinc gluconate 30 mg tablet 30 mg PO DAILY 02/11/21 11/18/21 Unknown History aluminum-mag hydroxide-simethicone 10 ml PO TID PRN Heartburn 07/14/21 11/18/21 Unknown History 400 mg-400 mg-40 mg/5 mL oral susp (Mylanta Maximum Strength) esomeprazole magnesium 20 mg 20 mg PO BID 07/14/21 11/18/21 Unknown History capsule,delayed release docusate sodium 100 mg capsule 100 mg PO BID 11/18/21 11/18/21 Unknown History (Colace) metoclopramide HCl 10 mg tablet 10 mg PO QID 12/21/21 Unknown History phentermine 7.5 mg-topiramate ER 1 cap PO DAILY 03/09/22 Unknown History 46 mg capsule,ext.release 24hr mphase (Qsymia) Physical Exam Vital Signs and Narrative: Vital Signs: Last Vital Signs Temp 98.2 F 06/22/22 21:24 Pulse 63 06/22/22 21:24 Resp 18 06/22/22 21:47 BP 119/67 06/22/22 21:24 Pulse Ox 98 06/22/22 21:24 O2 Del Method 06/22/22 21:24 BMI result Body Mass Index 24.7 Const: General: cooperative and no acute distress Orientation/consciousness: patient oriented x3 Eyes: General: appearance normal, both eyes and all related structures Resp: Effort & Inspection: normal respiratory effort and able to speak in complete sentences Auscultation: clear to auscultation bilaterally Cardio: Rate: regular rate Rhythm: regular rhythm GI: Other: Reproducible pain in the epigastric region, no rebound or guarding Palpation (GI): Soft to palpation Auscultation: normal bowel sounds Skin: General skin exam: no rashes or lesions noted Neuro: General: patient oriented x3 Cognition (Neuro): normal cognition Extrem: General: Yes normal to inspection and Yes no pedal edema Results Labs CBC and Chem 7: 06/22/22 23:44 06/22/22 19:33 Labs: Laboratory Results - last 24 hr 06/22/22 06/22/22 06/22/22 19:33 19:33 20:09 MCV 79.6 L MCH 25.0 L MCHC 31.4 RDW 14.2 Plt Count 508 H D MPV 8.8 L Absolute Nucleated RBC 0.000 Nucleated RBC % (auto) 0.0 Anion Gap 14 Estim Creat Clear Calc 102.7 Estimated GFR > 60 Random Glucose 118 H Calcium 8.9 Total Bilirubin 0.4 Direct Bilirubin 0.2 AST 15 ALT 13 Alkaline Phosphatase 71 Total Protein 6.9 Albumin 4.1 Lipase 21 Urine Color Yellow Urine Appearance Clear Urine pH 6.5 Ur Specific [place] 1.025 Urine Protein Trace Urine Glucose (UA) Negative Urine Ketones >=160 Urine Blood Negative Urine Nitrite Negative Ur Leukocyte Esterase Negative Urine RBC 3-5 H Urine WBC 0-5 Ur Squamous Epith Cells 0-2 Urine Bacteria None Seen Hyaline Casts 0-2 Assessment and Plan (1) Hematemesis: Qualifiers: Nausea presence: with nausea Qualified Code(s): K92.0 - Hematemesis Status: Acute (2) Acute blood loss anemia: Status: Acute (3) Erosive esophagitis: Status: Acute Plan This is a 41-year-old female with past medical history of erosive esophagitis, jejunitis, as well as hiatal hernia who presents to the hospital with hematemesis # acute hematemesis - with nausea and epigastric abdominal pain - concerning for stomach ulcer, as well as history of erosive esophagitis - patient started on PPI - continue Carafate - GI consulted - keep NPO # acute blood loss anemia - does have a drop in hemoglobin - hemodynamically stable - will follow CBC - threshold to transfuse hemoglobin of 7 # history of erosive esophagitis - had an endoscopy done in November of 2021 - showed erosive esophagitis as well as jejunitis - patient compliant with omeprazole b.i.d. as well as Carafate and Mylanta - GI consulted # constipation - MiraLax daily DVT prophylaxis: SCDs in the setting of acute bleed Given the hematemesis and need for evaluation by GI patient will be admitted will require a minimum tonight hospital stay for further management Quality Stroke Does the patient have a stroke diagnosis?: No VTE Prior VTE?: No VTE Risk Level:: Medical - moderate - high VTE Device Contraindication: N/A - Device Ordered VTE Drug Contraindication: Treatment Not Indicated
[2022-06-23] MEDS: Pantoprazole Sodium 80 MG in 0.9 % Sodium Chloride 80 ML 10 MG IV ×2 (01:14→10:28)
[2022-06-23 06:17] LABS: COVID-19 Test Negative (Negative); IDNOW Serial# 55D5AD1C
[2022-06-23 07:27] LABS: MANUAL DIFF FLAG NO
--- NOTE | 2022-06-23 07:30 | PHA.MEDREC ---
Pharmacy Consult ? Medication Reconciliation Pharmacy has completed the medication reconciliation. Reviewed med rec done by nursing
[2022-06-23 07:31] LABS: Basophils Percent Auto 0.4 % (0-2); Eosinophils Absolute Auto 0.1 X10*3/uL (0.0-0.4); Eosinophils Percent Auto 1.5 % (0-4); Hematocrit 27.9 % (37.0-47.0); Hemoglobin 8.8 g/dl (12.0-16.0); Imm Gran Abs Auto 0.05 X10*3/uL (0.00-0.03); Imm Gran Pct Auto 0.5 % (0.0-0.4); Lymphocytes Absolute Auto 2.3 X10*3/uL (1.2-4.9); Mean Corpuscular HGB Conc 31.5 g/dl (31.0-35.0); Mean Corpuscular Hemoglobin 25.2 pg (27.0-33.0); Mean Corpuscular Volume 79.9 fL (80.0-98.0); Mean Platelet Volume 8.5 fL (9.4-12.3); Monocytes Absolute Auto 0.8 X10*3/uL (0.1-1.2); Monocytes Percent Auto 8.3 % (2-11); Neutrophils Absolute Auto 6.2 x10*3/uL (2.0-8.3); Neutrophils Percent Auto 65.3 % (45-73); Platelet Count 373 X10*3/uL (160-400); Red Blood Count 3.49 X10*6/uL (4.20-5.50); Red Cell Distribution Width 14.3 % (11.0-16.0); White Blood Count 9.5 X10*3/uL (4.8-10.8)
--- NOTE | 2022-06-23 07:49 | PC.NURSE ---
confirmed with dr randolph about protonix orders, gtt and iv push bid wants to keep gtt for now
[2022-06-23 08:04] LABS: Anion Gap 13 (12-20); Blood Urea Nitrogen 6 mg/dL (9-16); Carbon Dioxide 21 mmol/L (22-29); Chloride 110 mmol/L (96-108); Creatinine Clr Calc Pharmacy 104.4; Estimated Glomerular Filt Rate > 60; Glucose Random 94 mg/dL (60-115); Potassium 3.6 mmol/L (3.3-5.1); Sodium 140 mmol/L (135-145)
[2022-06-23] MEDS: Sucralfate Oral Suspension 1 GM/10 ML ORAL.SUSP 0.5 GM PO ×2 (08:35→21:12)
--- NOTE | 2022-06-23 10:53 | P.CNGI_ITS ---
History of Present Illness Data of Consult Service Date: 06/23/22 Requesting physician: Ad Bui Primary Care Provider: Unknown Physician HPI Reason for consult: acute blood loss anemia A 41-year-old female with hx of mastocytosis, depression, HLD, hypothyroidism, sleeve gastrectomy with revision to gastric bypass 2018 being seen for assessment for acute blood loss anemia. Patient had suddenly started vomiting hugh bloody emesis since Tuesday, associated with 10/10 epigastric pain radiating across the bra line and worse with food. Seh had some chills, but denies melena, diarrhea, or rectal bleeding. Doesn;t recall eating anything suspicious but does remember last having some pudding on a road trip that made her feel sick for a day or so. Labs: WBC count of 12.3, hemoglobin of 10.9--->8.9 g/dl had been 12.5 before this admission, hematocrit of 34.7, MCV of 79.6 Prior tests: colonoscopy--04/2020-- penduculated polyp, small tics, tubular adenoma--scattered mast cells, no aggregates CT 06/2021-- thickening GEJ and small bowel loops LUQ due to ongoing abdo pain EGD was done:11/24/21---hiatal hernia, erosive esophagitis, jejunitis, retained suture ? Review of Systems Review of Systems: Constitutional : No Weight loss, No Fever, No Chills ENT/Mouth : No sore throat, No Rhinorrhea Eyes: No Swelling, No Redness Cardiovascular : No Chest Pain, No SOB, No Edema Respiratory : No Cough, No Sputum, No Wheezing Gastrointestinal : see HPI Genitourinary : NO Dysuria, No Urinary Frequency, No Hematuria, No Urgency Musculoskeletal : No joint pain, No Myalgias, No Joint Swelling Skin : No Skin Lesions, No rash Neuro : + Weakness, No Numbness, No Dizziness, No Headache Psych : No Anxiety/Panic, No Depression Heme/Lymph: No Bruising, No Lymphadenopathy Endocrine : No Polyuria, No Polydipsia All other systems reviewed and are negative. [facility]LY [facility] Past Medical History Medical History (Updated 06/23/22 @ 01:15 by Jayjay Uribe MD) ADHD Adrenal insufficiency Depression Dysplastic nevus Erosive esophagitis History of rhabdomyolysis History of traumatic brain injury Hyperlipidemia Hypoglycemia after GI (gastrointestinal) surgery Hypothyroidism Intestinal malabsorption Jejunitis Mastocytosis Family History Family History Mother Obesity DM (diabetes mellitus) Arthritis Father Obesity HIV (human immunodeficiency virus infection) Hepatitis B Hepatitis C Brother No problems noted. Surgical History Surgical History (Updated 06/23/22 @ 01:15 by Jayjay Uribe MD) H/O colonoscopy H/O gastric bypass H/O hernia repair H/O: hysterectomy History of appendectomy History of esophagogastroduodenoscopy (EGD) History of laparoscopy History of sleeve gastrectomy Social History Social History Household Members: Spouse, Children and Other Alcohol intake: never Patient Tobacco Use Status: Current everyday Tobacco user Tobacco use type: Cigarette Use of substances other than those prescribed or required for medical reasons: No Advance Directives: No Advance Directives Information Provided: No Meds Allergies Allergy/AdvReac Type Severity Reaction Status Date / Time bee pollen [BEE STINGS] Allergy Severe ANAPHYLAXIS Verified 03/09/22 08:08 clavulanic acid Allergy Severe GI DISTRESS Verified 03/09/22 08:08 [CLAVULANIC ACID] latex [LATEX] Allergy Severe ANAPHYLAXIS Verified 03/09/22 08:08 pork derived (porcine) Allergy Severe d/t Verified 03/09/22 08:08 [PORK DERIVED (PORCINE)] MASTOCYTOSIS carrageenan [CARRAGEENAN] Allergy Unknown UNKNOWN Verified 03/09/22 08:08 egg [EGG] Allergy Unknown DUE TO Verified 03/09/22 08:08 MASTOCYTOSIS augmentin/ clevonic acid Allergy Mild nausea and Uncoded 03/09/22 08:08 vomiting laytex/mucousa Allergy Mild anaphylaxis Uncoded 03/09/22 08:08 Soy Allergy Mild nausea and Uncoded 03/09/22 08:08 vomiting Active Medications: Current Medications Acetaminophen (Acetaminophen 325 Mg Tablet) 650 mg PO Q6H PRN PRN Reason: Pain, Mild (Pain Scale 1-3) Pantoprazole Sodium 80 mg/ (Sodium Chloride) 100 mls @ 10 mls/hr IV .Q10H [facility] Last Admin: 06/23/22 10:28 Dose: 8 mg/hr, 10 mls/hr Ondansetron HCl (Ondansetron Hcl 4 Mg/2 Ml Vial) 4 mg IVPUSH Q8H PRN PRN Reason: Nausea and Vomiting Polyethylene Glycol (Polyethylene Glycol 3350 17 Gm Powd.Pack) 17 gm PO DAILY [facility] Last Admin: 06/23/22 08:36 Dose: Not Given Sodium Chloride (0.9 % Sodium Chloride Flush 3 Ml Syringe) 3 ml IVFLUSH QSHIFT [facility] Last Admin: 06/23/22 08:36 Dose: Not Given Sucralfate (Sucralfate Oral Suspension 1 Gm/10 Ml Oral.Susp) 0.5 gm PO QIDACHS [facility] Last Admin: 06/23/22 08:35 Dose: 0.5 gm Home Medications Medication Instructions Recorded Confirmed Last Taken Type clonidine HCl 0.1 mg tablet 1 tab PO TID 06/23/22 06/23/22 Unknown History dextroamphetamine-amphetamine 10 1 tab PO BID 06/23/22 06/23/22 Unknown History mg tablet sucralfate 100 mg/mL oral 10 ml PO BID 06/23/22 06/23/22 Unknown History suspension (Carafate) Physical Exam Vital Signs: Vital Signs: Last Vital Signs Temp 97.9 F 06/23/22 05:55 Pulse 68 06/23/22 05:55 Resp 16 06/23/22 05:55 BP 106/52 L 06/23/22 05:55 Pulse Ox 97 06/23/22 05:55 O2 Del Method 06/23/22 05:55 BMI result Body Mass Index 24.7 EXAM: GENERAL: The patient is well developed and nontoxic, fatigued looking VITAL SIGNS:see workflow HEENT: Nonicteric sclerae, PERRLA, EOMI. Oropharynx clear. Moist mucous membranes. Conjunctivae appear well perfused. No thyroid mass. CHEST: Chest wall is nontender. HEART: Regular rate and rhythm without murmurs. LUNGS: Clear to auscultation bilaterally. ABDOMEN: Soft, positive bowel sounds, tender epigastrium, no organomegaly.no flank tenderness SKIN: No rash, no excessive bruising, petechiae, or purpura. NEUROLOGIC: Cranial nerves II-XII intact without motor/sensory deficit. Psych: nml affect Results Labs CBC & Chem 7: 06/23/22 07:23 06/23/22 07:23 Labs: Short CBC 06/22/22 06/22/22 06/23/22 Range/Units 19:33 23:44 07:23 WBC 12.3 H 9.5 (4.8-10.8) X10*3/uL Hgb 10.9 L 9.5 L 8.8 L (12.0-16.0) g/dl Hct 34.7 L 30.4 L 27.9 L (37.0-47.0) % Plt Count 508 H D 373 D (160-400) X10*3/uL BMP 06/22/22 06/23/22 19:33 07:23 Sodium 138 140 Potassium 4.3 3.6 Chloride 105 110 H Carbon Dioxide 23 21 L BUN 6 L 6 L Creatinine 0.64 0.63 Calcium 8.9 8.0 L D Liver Function 06/22/22 Range/Units 19:33 Total Bilirubin 0.4 (0.0-1.0) mg/dL Direct Bilirubin 0.2 (0.0-0.5) mg/dL AST 15 (5-31) U/L ALT 13 (0-31) U/L Alkaline Phosphatase 71 (39-117) U/L Albumin 4.1 (3.5-5.0) g/dL Urine 06/22/22 Range/Units 20:09 Urine Color Yellow Urine Appearance Clear Urine pH 6.5 (5.0-9.0) Ur Specific [place] 1.025 (1.005-1.025) Urine Protein Trace (Neg-Trace) mg/dL Urine Glucose (UA) Negative (Negative) mg/dL Assessment and Plan (1) Erosive esophagitis: Status: Acute (2) Acute blood loss anemia: Status: Acute Plan 1/ Acute blood loss anemia, concern for anastomotic ulcer, esophagitis, dieulafoy, Kirstin sebastian tear PLAN: 1/ Agree with BID PPI 2/ EGD today for further assessment 3/ transfuse PRBC if HGB < 7 g/dl 4/ check hematinics Procedures Date of Service Date of Service: 06/23/22
--- NOTE | 2022-06-23 11:15 | P.CONAN_ITS ---
[facility] Active Problems Active Problems: All Active Problems (Updated 06/23/22 @ 01:15 by Jayjay Uribe MD) Erosive esophagitis (Acute) Acute blood loss anemia (Acute) Hematemesis (Acute) Constipation by delayed colonic transit (Acute) Body mass index (BMI) of 25.0 to 25.9 in adult (Acute) Hypoglycemia (Acute) Overweight (Acute) BMI 26.0-26.9,adult (Acute) BMI 27.0-27.9,adult (Acute) Marginal ulcer (Acute) H/O gastric bypass (Acute) Hypoglycemia after GI (gastrointestinal) surgery (Acute) Intestinal malabsorption (Acute) Past Medical History Medical History ADHD Adrenal insufficiency Depression Dysplastic nevus Erosive esophagitis History of rhabdomyolysis History of traumatic brain injury Hyperlipidemia Hypoglycemia after GI (gastrointestinal) surgery Hypothyroidism Intestinal malabsorption Jejunitis Mastocytosis Functional capacity: independent ambulation Patient : No Family History Family History Mother Obesity DM (diabetes mellitus) Arthritis Father Obesity HIV (human immunodeficiency virus infection) Hepatitis B Hepatitis C Brother No problems noted. Family history of problems with anesthesia: Yes Surgical History Surgical History H/O colonoscopy H/O gastric bypass H/O hernia repair H/O: hysterectomy History of appendectomy History of esophagogastroduodenoscopy (EGD) History of laparoscopy History of sleeve gastrectomy History of Problems with Anesthesia: No (Has had propofol several times. No problems) Social History Social History Household Members: Spouse, Children and Other Alcohol intake: never Patient Tobacco Use Status: Current everyday Tobacco user Tobacco use type: Cigarette Use of substances other than those prescribed or required for medical reasons: No Advance Directives: No Advance Directives Information Provided: No Meds Allergies Allergy/AdvReac Type Severity Reaction Status Date / Time bee pollen [BEE STINGS] Allergy Severe ANAPHYLAXIS Verified 03/09/22 08:08 clavulanic acid Allergy Severe GI DISTRESS Verified 03/09/22 08:08 [CLAVULANIC ACID] latex [LATEX] Allergy Severe ANAPHYLAXIS Verified 03/09/22 08:08 pork derived (porcine) Allergy Severe d/t Verified 03/09/22 08:08 [PORK DERIVED (PORCINE)] MASTOCYTOSIS carrageenan [CARRAGEENAN] Allergy Unknown UNKNOWN Verified 03/09/22 08:08 egg [EGG] Allergy Unknown DUE TO Verified 03/09/22 08:08 MASTOCYTOSIS augmentin/ clevonic acid Allergy Mild nausea and Uncoded 03/09/22 08:08 vomiting laytex/mucousa Allergy Mild anaphylaxis Uncoded 03/09/22 08:08 Soy Allergy Mild nausea and Uncoded 03/09/22 08:08 vomiting Active Medications: Current Medications Acetaminophen (Acetaminophen 325 Mg Tablet) 650 mg PO Q6H PRN PRN Reason: Pain, Mild (Pain Scale 1-3) Pantoprazole Sodium 80 mg/ (Sodium Chloride) 100 mls @ 10 mls/hr IV .Q10H [facility] Last Admin: 06/23/22 10:28 Dose: 8 mg/hr, 10 mls/hr Ondansetron HCl (Ondansetron Hcl 4 Mg/2 Ml Vial) 4 mg IVPUSH Q8H PRN PRN Reason: Nausea and Vomiting Polyethylene Glycol (Polyethylene Glycol 3350 17 Gm Powd.Pack) 17 gm PO DAILY [facility] Last Admin: 06/23/22 08:36 Dose: Not Given Sodium Chloride (0.9 % Sodium Chloride Flush 3 Ml Syringe) 3 ml IVFLUSH QSHIFT [facility] Last Admin: 06/23/22 08:36 Dose: Not Given Sucralfate (Sucralfate Oral Suspension 1 Gm/10 Ml Oral.Susp) 0.5 gm PO QIDACHS [facility] Last Admin: 06/23/22 08:35 Dose: 0.5 gm Home Medications Medication Instructions Recorded Confirmed Last Taken Type clonidine HCl 0.1 mg tablet 1 tab PO TID 06/23/22 06/23/22 Unknown History dextroamphetamine-amphetamine 10 1 tab PO BID 06/23/22 06/23/22 Unknown History mg tablet sucralfate 100 mg/mL oral 10 ml PO BID 06/23/22 06/23/22 Unknown History suspension (Carafate) Exam Exam Date and Time: June 23, 2022 1115 Height,Weight and Vital Signs: Height 5 ft 3 in Weight 63.503 kg Last Vital Signs Temp 97.9 F 06/23/22 05:55 Pulse 68 06/23/22 05:55 Resp 16 06/23/22 05:55 BP 106/52 L 06/23/22 05:55 Pulse Ox 97 06/23/22 05:55 O2 Del Method 06/23/22 05:55 Pertinent Lab Results Pertinent Lab Results: Laboratory Tests 06/22/22 06/22/22 06/22/22 19:33 19:33 20:09 WBC 12.3 H RBC 4.36 Hgb 10.9 L Hct 34.7 L MCV 79.6 L MCH 25.0 L MCHC 31.4 RDW 14.2 Plt Count 508 H D MPV 8.8 L Immature Gran % (Auto) Neut % (Auto) Lymph % (Auto) [place] % (Auto) Eos % (Auto) Baso % (Auto) Lymph # (Auto) [place] # (Auto) Eos # (Auto) Baso # (Auto) Abs Immat Gran (auto) Absolute Neuts (auto) Absolute Nucleated RBC 0.000 Nucleated RBC % (auto) 0.0 Sodium 138 Potassium 4.3 Chloride 105 Carbon Dioxide 23 Anion Gap 14 BUN 6 L Creatinine 0.64 Estim Creat Clear Calc 102.7 Estimated GFR > 60 Random Glucose 118 H Calcium 8.9 Total Bilirubin 0.4 Direct Bilirubin 0.2 AST 15 ALT 13 Alkaline Phosphatase 71 Total Protein 6.9 Albumin 4.1 Lipase 21 Urine Color Yellow Urine Appearance Clear Urine pH 6.5 Ur Specific [place] 1.025 Urine Protein Trace Urine Glucose (UA) Negative Urine Ketones >=160 Urine Blood Negative Urine Nitrite Negative Ur Leukocyte Esterase Negative Urine RBC 3-5 H Urine WBC 0-5 Ur Squamous Epith Cells 0-2 Urine Bacteria None Seen Hyaline Casts 0-2 COVID-19 ([facility]NA) COVID-19 Clin Com Blood Type Antibody Screen 06/22/22 06/23/22 06/23/22 23:44 05:57 07:23 WBC 9.5 RBC 3.49 L Hgb 9.5 L 8.8 L Hct 30.4 L 27.9 L MCV 79.9 L MCH 25.2 L MCHC 31.5 RDW 14.3 Plt Count 373 D MPV 8.5 L Immature Gran % (Auto) 0.5 H Neut % (Auto) 65.3 Lymph % (Auto) 24.0 [place] % (Auto) 8.3 Eos % (Auto) 1.5 Baso % (Auto) 0.4 Lymph # (Auto) 2.3 [place] # (Auto) 0.8 Eos # (Auto) 0.1 Baso # (Auto) 0.0 Abs Immat Gran (auto) 0.05 H Absolute Neuts (auto) 6.2 Absolute Nucleated RBC 0.000 Nucleated RBC % (auto) 0.0 Sodium Potassium Chloride Carbon Dioxide Anion Gap BUN Creatinine Estim Creat Clear Calc Estimated GFR Random Glucose Calcium Total Bilirubin Direct Bilirubin AST ALT Alkaline Phosphatase Total Protein Albumin Lipase Urine Color Urine Appearance Urine pH Ur Specific [place] Urine Protein Urine Glucose (UA) Urine Ketones Urine Blood Urine Nitrite Ur Leukocyte Esterase Urine RBC Urine WBC Ur Squamous Epith Cells Urine Bacteria Hyaline Casts COVID-19 (ANNA) Negative COVID-19 [facility] Com See Note Blood Type Antibody Screen 06/23/22 06/23/22 07:23 07:23 WBC RBC Hgb Hct MCV MCH MCHC RDW Plt Count MPV Immature Gran % (Auto) Neut % (Auto) Lymph % (Auto) [place] % (Auto) Eos % (Auto) Baso % (Auto) Lymph # (Auto) [place] # (Auto) Eos # (Auto) Baso # (Auto) Abs Immat Gran (auto) Absolute Neuts (auto) Absolute Nucleated RBC Nucleated RBC % (auto) Sodium 140 Potassium 3.6 Chloride 110 H Carbon Dioxide 21 L Anion Gap 13 BUN 6 L Creatinine 0.63 Estim Creat Clear Calc 104.4 Estimated GFR > 60 Random Glucose 94 Calcium 8.0 L D Total Bilirubin Direct Bilirubin AST ALT Alkaline Phosphatase Total Protein Albumin Lipase Urine Color Urine Appearance Urine pH Ur Specific [place] Urine Protein Urine Glucose (UA) Urine Ketones Urine Blood Urine Nitrite Ur Leukocyte Esterase Urine RBC Urine WBC Ur Squamous Epith Cells Urine Bacteria Hyaline Casts COVID-19 (ANNA) COVID-19 Clin Com Blood Type A Negative Antibody Screen NEGATIVE Airway Mallampati Class: II TM Dist: >3cm Neck ROM: Full Heart: RRR Lungs: CTA Assessment and Plan Final Anesthetic Review Family History of Problems with Anesthesia: Yes History of Problems with Anesthesia: No (Has had propofol several times. No problems) ASA Class: II and Emergency Final Preanesthetic Review: Meds/Allgs Chart Reviewed, Consent Obtained/Reviewed and Anes Risks/Benef Reviewed Patient Risk: Low Procedure Risk: Low Anesthetic Plan Anesthetic Plan: MAC: Disposition: Standard PACU
--- NOTE | 2022-06-23 11:17 | MHC.SHP ---
Pre-Procedural Eval Section A Date of Service: 06/23/22 The patient is an INPATIENT: Yes The History & Physical has been completed within 30 days and I have reviewed it.: Yes Section B Chief Complaint: Hematemesis Allergies: Allergies Allergy/AdvReac Type Severity Reaction Status Date / Time bee pollen [BEE STINGS] Allergy Severe ANAPHYLAXIS Verified 03/09/22 08:08 clavulanic acid Allergy Severe GI DISTRESS Verified 03/09/22 08:08 [CLAVULANIC ACID] latex [LATEX] Allergy Severe ANAPHYLAXIS Verified 03/09/22 08:08 pork derived (porcine) Allergy Severe d/t Verified 03/09/22 08:08 [PORK DERIVED (PORCINE)] MASTOCYTOSIS carrageenan [CARRAGEENAN] Allergy Unknown UNKNOWN Verified 03/09/22 08:08 egg [EGG] Allergy Unknown DUE TO Verified 03/09/22 08:08 MASTOCYTOSIS augmentin/ clevonic acid Allergy Mild nausea and Uncoded 03/09/22 08:08 vomiting laytex/mucousa Allergy Mild anaphylaxis Uncoded 03/09/22 08:08 Soy Allergy Mild nausea and Uncoded 03/09/22 08:08 vomiting Plan Diagnosis/Plan: Unchanged I have reviewed the history and physical and performed a pertinent physical examination on my patient. No changes have occurred unless specified.
--- NOTE | 2022-06-23 11:18 | W.PM.OPN ---
Operative Note Operative Note Date of Service: 06/23/22 Narrative: Procedure Description: EGD Indication: acute blood loss anemia Anesthesia: MAC FLEXIBLE TRANSORAL UPPER GASTROINTESTINAL ENDOSCOPY UPPER ENDOSCOPY Consent: Indications for the procedure and potential complications of bleeding, perforation, reaction to medications and missed diagnosis were discussed with the patient and informed consent was obtained. Instrument: Olympus GIF H 190 J mid size upper endoscope Monitoring: Vital signs and clinical assessment, continuous EKG monitoring, Pulse oximetry, Carbon Dioxide monitoring and blood pressure monitoring were done throughout the procedure. Procedure: The patient was placed in the left lateral decubitis position and pre-procedure medications were administered and a bite block was placed. The endoscope was inserted into the mouth and advanced under direct vision to the third part of duodenum. A careful inspection was made as the upper endoscope was withdrawn including a retroflexed examination of the proximal stomach; Findings and interventions are described below. Findings: Larynx:normal Esophagus: GE junction at 33? cm, diaphragm hiatus at 35 cm, consistent with 2 cm hiatal hernia (fixed). Erosive esophagitis noted, Proximal esophageal inlet patch 1 cm. Stomach pouch: Measured 9 cm. Patchy gastric erythema and post surgical changes. Biopsies were obtained. hiatal hernia on retroflexed examination of the cardia. Jejunum: anastomotic ulcer at rosanne limb extending into the afferent limb with pigmented spot (emiliano grade IIc) measured about 12-14 mm in length. There was also patchy erythema and erosions in the efferent limb. The ulcer was biopsied. Intervention: Biopsies as noted above, Impression/Findings: hiatal hernia erosive esophagitis jejunitis and anastomotic ulcer esophageal inlet patch PLAN: high dose PPI, e.g omerpazoel capsule 40 mg bid, open capsule and mix with apple sauce carafate 1 g, liquid QID avoid smoking and nsaids
--- NOTE | 2022-06-23 12:03 | HO.POSTANES ---
Post Anesthesia Evaluation Post Anesthesia Evaluation Vital Signs: Vital Signs Temp Pulse Resp BP Pulse Ox O2 Del Method 06/23/22 11:15 98.3 F 81 16 94/58 L 98 Room Air 06/23/22 05:55 97.9 F 68 16 106/52 L 97 Room Air Anesthesia: Monitored Mental Status: Awake Pain Control: Satisfactory Nausea/Vomiting: None Hydration: Adequate Anesthesia-Related Issues: No Anes. Related Issues Comments: s
--- NOTE | 2022-06-23 14:22 | PM.EVENT ---
Event Note Date of Service: 06/23/22 Event Note: chart reviewed/ patient examined. Exam unchanged from admission. EEG notes reviewed. Will DC Protonix drip and start omeprazole b.i.d.. Follow clinically
--- NOTE | 2022-06-23 15:14 | MHC.CM.PN ---
PATIENT LIVES WITH [facility] AT HOME AND COMMUNITY- EMPLOYED DENIES USE OF DME OR HOME SERVICES ANTONIA HERNANDEZ'[facility] X[facility] MRNA PCP: VASU PAK HCP- EDUCATED DECLINED AT THIS TIME [facility] WILL TRANSPORT D/C PLAN: HOME SELF-CARE
[2022-06-23] MEDS: ondansetron HCL 4 MG/2 ML VIAL IVPUSH (15:48)
[2022-06-23] MEDS: Sucralfate Oral Suspension 1 GM/10 ML ORAL.SUSP PO ×2 (15:49→21:14)
[2022-06-23] MEDS: polyethylene glycoL 3350 17 GM POWD.PACK PO (15:49)
[2022-06-23] MEDS: Acetaminophen 325 MG TABLET 650 MG PO (15:56)
[2022-06-23] MEDS: Morphine Sulfate 4 MG/ML CARTRIDGE IVPUSH ×2 (16:04→21:11)
[2022-06-24] VITALS: BP 101/55; PULSE 77; RESP 14; TEMP 36.7; O2SAT 98
[2022-06-24 00:15] VITALS: BMI 26.1
[2022-06-24] MEDS: Morphine Sulfate 4 MG/ML CARTRIDGE IVPUSH (01:11)
[2022-06-24 04:00] VITALS: BP 123/56; PULSE 68; RESP 14; TEMP 36.6; O2SAT 99
[2022-06-24 07:32] VITALS: BP 107/69; PULSE 69; RESP 20; TEMP 36.6; O2SAT 97
[2022-06-24 07:42] LABS: MANUAL DIFF FLAG NO
[2022-06-24 07:45] LABS: Basophils Percent Auto 0.5 % (0-2); Eosinophils Absolute Auto 0.1 X10*3/uL (0.0-0.4); Hematocrit 27.1 % (37.0-47.0); Hemoglobin 8.6 g/dl (12.0-16.0); Imm Gran Abs Auto 0.02 X10*3/uL (0.00-0.03); Imm Gran Pct Auto 0.3 % (0.0-0.4); Lymphocytes Absolute Auto 1.8 X10*3/uL (1.2-4.9); Lymphocytes Percent Auto 23.3 % (20-40); Mean Corpuscular HGB Conc 31.7 g/dl (31.0-35.0); Mean Corpuscular Hemoglobin 25.4 pg (27.0-33.0); Mean Corpuscular Volume 80.2 fL (80.0-98.0); Mean Platelet Volume 8.6 fL (9.4-12.3); Monocytes Absolute Auto 0.7 X10*3/uL (0.1-1.2); Monocytes Percent Auto 8.7 % (2-11); Neutrophils Absolute Auto 5.1 x10*3/uL (2.0-8.3); Neutrophils Percent Auto 66.2 % (45-73); Platelet Count 358 X10*3/uL (160-400); Red Blood Count 3.38 X10*6/uL (4.20-5.50); Red Cell Distribution Width 14.2 % (11.0-16.0); White Blood Count 7.7 X10*3/uL (4.8-10.8)
[2022-06-24 08:11] LABS: Alanine Aminotransferase 8 U/L (0-31); Albumin Level 3.2 g/dL (3.5-5.0); Alkaline Phosphatase 52 U/L (39-117); Anion Gap 13 (12-20); Aspartate Amino Transferase 12 U/L (5-31); Bilirubin Total < 0.2 mg/dL (0.0-1.0); Blood Urea Nitrogen 7 mg/dL (9-16); Carbon Dioxide 26 mmol/L (22-29); Chloride 106 mmol/L (96-108); Creatinine Clr Calc Pharmacy 100.4; Estimated Glomerular Filt Rate > 60; Glucose Random 93 mg/dL (60-115); Potassium 3.7 mmol/L (3.3-5.1); Sodium 141 mmol/L (135-145); Total Protein 5.3 g/dL (6.5-8.0)
[2022-06-24] MEDS: polyethylene glycoL 3350 17 GM POWD.PACK PO (09:42)
[2022-06-24] MEDS: 0.9 % Sodium Chloride Flush 3 ML SYRINGE IVFLUSH (09:45)
[2022-06-24 10:27] VITALS: O2SAT 98
[2022-06-24] MEDS: Sucralfate Oral Suspension 1 GM/10 ML ORAL.SUSP PO (11:00)
[2022-06-24] MEDS: Sucralfate Oral Suspension 1 GM/10 ML ORAL.SUSP 0.5 GM PO (11:00)
--- NOTE | 2022-06-24 11:03 | HO.POSTANES ---
Post Anesthesia Evaluation Post Anesthesia Evaluation Vital Signs: Vital Signs Temp Pulse Resp BP Pulse Ox O2 Del Method 06/24/22 10:27 98 Room Air 06/24/22 07:32 97.9 F 69 20 107/69 97 Room Air 06/24/22 04:00 97.9 F 68 14 123/56 L 99 Room Air 06/24/22 00:00 98.0 F 77 14 101/55 L 98 Room Air Anesthesia: Monitored Mental Status: Awake Pain Control: Satisfactory Nausea/Vomiting: None Hydration: Adequate Anesthesia-Related Issues: No Anes. Related Issues
[2022-06-24 11:54] VITALS: BP 112/57; PULSE 86; RESP 20; TEMP 36.6; O2SAT 97
--- NOTE | 2022-06-24 12:02 | P.DS_ITS ---
DS: Providers Provider Date of Service: 06/24/22 Date of admission: 06/23/22 01:01 Date of discharge: 06/24/22 Primary care physician: Unknown Physician Consults: 06/23/22 00:56 Consult to Gastroenterology Routine Consulting Provider: Ld Harper Reason for consultation: pt of your, hematemsis DS: Diagnosis Discharge Diagnosis (1) Erosive esophagitis: Status: Acute (2) Acute blood loss anemia: Status: Acute DS: Summary Hospital Course Hospital Course: 41-year-old female with past medical history of erosive esophagitis, jejunitis, and hiatal hernia, ADHD, adrenal insufficiency, depression, HLD, hypothyroidism, distal malabsorption, mastocytosis, presents to the hospital with complaints of epigastric abdominal plain as well as hematemesis.? Patient reports that she started developing epigastric abdominal pain radiating across the abdomen to the left and right, associated with 2 episodes of bright red blood.? She reports about a 1 cup bleed.? Reports no dizziness, no headache, no change in vision, no diarrhea but has had constipation for the past 3 days.? Reports no fever, has some chills, feels clammy.? Denies any weakness numbness or tingling.? No urinary symptoms and no lower extremity edema.? No chest pain, no shortness of breath.? No cough.? Hospital course Admitted to telemetry on PPI drip. Seen by GI in consultation and on 06/23/2022 underwent an EGD which demonstrated erosive esophagitis, jejunitis and anastomotic ulcer. Her diet was advanced without issue. Last hemoglobin was 8.6 and she received 400 mg of IV iron prior to discharge. At this point in time she is stable for discharge and will follow-up with GI in the office Time Spent with Patient Time attestation: Total time spent providing and/or coordinating discharge services: Discharge coordination time: Greater than 30 minutes Quality: Safe Use of Opioids Does Pt have an Active Cancer Diagnosis on the Problem List?: No Quality: Stroke Does the patient have a stroke diagnosis?: No Physical Exam Vital Signs: Vital Signs: Last Vital Signs Temp 98 F 06/24/22 11:54 Pulse 86 06/24/22 11:54 Resp 20 06/24/22 11:54 BP 112/57 L 06/24/22 11:54 Pulse Ox 97 06/24/22 11:54 O2 Del Method 06/24/22 11:54 BMI result Body Mass Index 26.1 Const: Other: No acute distress Resp: Other: Clear to auscultation bilaterally. No rales rhonchi or wheezes Cardio: Other: No S4; positive S1-S2; no S3 murmurs rubs or gallops GI: Other: Soft nontender nondistended normoactive bowel sounds Extrem: Other: No edema bilaterally DS: Data Data Completed and Pending Pending studies at discharge: Pending at discharge 06/23/22 11:38 Surgical [PTH] Routine Labs on day of discharge: Laboratory Results - last 24 hr 06/24/22 06/24/22 07:38 07:38 WBC 7.7 RBC 3.38 L Hgb 8.6 L Hct 27.1 L MCV 80.2 MCH 25.4 L MCHC 31.7 RDW 14.2 Plt Count 358 MPV 8.6 L Immature Gran % (Auto) 0.3 Neut % (Auto) 66.2 Lymph % (Auto) 23.3 Emanuel % (Auto) 8.7 Eos % (Auto) 1.0 Baso % (Auto) 0.5 Lymph # (Auto) 1.8 Emanuel # (Auto) 0.7 Eos # (Auto) 0.1 Baso # (Auto) 0.0 Abs Immat Gran (auto) 0.02 Absolute Neuts (auto) 5.1 Absolute Nucleated RBC 0.000 Nucleated RBC % (auto) 0.0 Sodium 141 Potassium 3.7 Chloride 106 Carbon Dioxide 26 Anion Gap 13 BUN 7 L Creatinine 0.67 Estim Creat Clear Calc 100.4 Estimated GFR > 60 Random Glucose 93 Calcium 8.0 L Total Bilirubin < 0.2 AST 12 ALT 8 Alkaline Phosphatase 52 D Total Protein 5.3 L D Albumin 3.2 L D Discharge Plan Discharge Patient Disposition: Home, Self-Care Discharge Diagnosis: Erosive esophagitis Referrals: Physician,Unknown J [Primary Care Provider] - 1 Week Discharge Medications: New amoxicillin 875 mg tablet 875 mg PO BID Qty: 14 0RF Continued clonidine HCl 0.1 mg tablet 1 tab PO TID sucralfate [Carafate] 100 mg/mL suspension 10 ml PO BID dextroamphetamine-amphetamine 10 mg tablet 1 tab PO BID Discharge Orders: Discharge Order (Routine); Ordered 09/08/22 Ordered By: Ad Bui Diet: Advance to usual diet Activity on Discharge: As tolerated Stand Alone Forms: Patient Portal Discharge page Care Plan Goals: Resume all medications as prior to hospitalization Health Concerns: Complete course of amoxicillin for left otitis media. Abstain from tobacco Plan of Treatment: Follow-up with PCP/GI as scheduled Assessment: See discharge summary
--- NOTE | 2022-06-24 12:30 | MHC.CM.PN ---
Patient is discharged to home today. No home services have been ordered. Patient's Spouse will provide transportation home.
[2022-06-24] MEDS: Iron Sucrose Complex 400 MG in 0.9 % Sodium Chloride 250 ML 180 MG IV (12:58)
== END 2022-06-24 16:03 | disposition home or self-care (01) | DRG 243 ==
LOC: HO.ED 06-23 01:15 → HO.EDOVER 06-23 01:19 → HO.IMC 06-23 23:01
PROVIDERS: Internal Medicine Gastroenterology; Admitting Provider Internal Medicine; Emergency Provider Internal Medicine; PCP Student in an Organized Health Care Education/Training Program; Visit Provider Hospitalist
PROC: 0DJ08ZZ Inspection of Upper Intestinal Tract, Via Natural or Artificial Opening Endoscopic (ICD-10-PCS; CPT 43235; principal; 2022-06-23 16:40)
DX: K22.11 Ulcer of esophagus with bleeding (principal); K28.4 Chronic or unspecified gastrojejunal ulcer with hemorrhage; E27.40 Unspecified adrenocortical insufficiency; D62 Acute posthemorrhagic anemia; F90.9 Attention-deficit hyperactivity disorder, unspecified type; Z87.820 Personal history of traumatic brain injury; E03.9 Hypothyroidism, unspecified; F32.A Depression, unspecified; K59.00 Constipation, unspecified; Z20.822 Contact with and (suspected) exposure to COVID-19; Z98.84 Bariatric surgery status; F17.210 Nicotine dependence, cigarettes, uncomplicated; Z71.6 Tobacco abuse counseling; Z91.040 Latex allergy status; Z91.030 Bee allergy status; Z88.0 Allergy status to penicillin; Z88.1 Allergy status to other antibiotic agents; Z79.899 Other long term (current) drug therapy; K44.9 Diaphragmatic hernia without obstruction or gangrene
CPT/HCPCS: 36415; 80048; 80053; 81001; 82248; 83690; 85014; 85018; 85025; 85027; 86850; 86900; 86901; 87635; 88305; 88341; 88342; 99285; J1756; J2270; J2405

== ENCOUNTER 2022-07-06 09:33 | Outpatient (REF) | payer OTHER, SELFPAY ==
[2022-07-06 09:44] LABS: MANUAL DIFF FLAG NO
[2022-07-06 10:09] LABS: Basophils Absolute Auto 0.1 X10*3/uL (0.0-0.2); Basophils Percent Auto 0.7 % (0-2); Eosinophils Absolute Auto 0.1 X10*3/uL (0.0-0.4); Eosinophils Percent Auto 0.8 % (0-4); Hematocrit 32.6 % (37.0-47.0); Hemoglobin 9.9 g/dl (12.0-16.0); Imm Gran Abs Auto 0.03 X10*3/uL (0.00-0.03); Imm Gran Pct Auto 0.3 % (0.0-0.4); Lymphocytes Absolute Auto 2.3 X10*3/uL (1.2-4.9); Lymphocytes Percent Auto 25.2 % (20-40); Mean Corpuscular HGB Conc 30.4 g/dl (31.0-35.0); Mean Corpuscular Hemoglobin 25.4 pg (27.0-33.0); Mean Corpuscular Volume 83.8 fL (80.0-98.0); Mean Platelet Volume 8.9 fL (9.4-12.3); Monocytes Absolute Auto 0.6 X10*3/uL (0.1-1.2); Neutrophils Absolute Auto 5.9 x10*3/uL (2.0-8.3); Platelet Count 445 X10*3/uL (160-400); Red Blood Count 3.89 X10*6/uL (4.20-5.50); Red Cell Distribution Width 17.2 % (11.0-16.0); White Blood Count 8.9 X10*3/uL (4.8-10.8)
[2022-07-06 10:40] LABS: Iron 48 mcg/dL (30-160)
[2022-07-06 10:54] LABS: Percent Iron Saturation 15 % (15-50); Total Iron Binding Capacity 331 mcg/dL (228-428); Unsaturated Iron Binding 283 ug/dL
[2022-07-06 10:57] LABS: Ferritin 55 ng/mL (10-250)
== END 2022-07-06 09:34 | disposition home or self-care (01) ==
LOC: HO.LAB 09:33
PROVIDERS: Visit Provider Internal Medicine Gastroenterology
DX: K28.9 Gastrojejunal ulcer, unspecified as acute or chronic, without hemorrhage or perforation (principal); K90.9 Intestinal malabsorption, unspecified
CPT/HCPCS: 36415; 82728; 83540; 85025

== ENCOUNTER 2022-10-04 12:05 | Inpatient (IN) | payer OTHER, SELFPAY ==
[2022-10-04] VITALS (9 sets, daily range): BP systolic 78–114; BP diastolic 44–73; PULSE 67–112; RESP 14–49; TEMP 36.6–36.7; O2SAT 100; BMI 25.4
--- NOTE | 2022-10-04 12:08 | ED.GENADULT ---
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 associated with epigastric pain across the bra line worse with food patient does feel weak and tired and exhausted patient admitted here in 07/08 for upper GI bleed and received iron transfusion <Jayjay Uribe MD - Last Filed: 10/05/22 00:29> Related Data Home medications: Home Medications Medication Instructions Recorded Confirmed clonidine HCl 0.1 mg tablet 1 tab PO TID PRN Anxiety 06/23/22 10/04/22 acetaminophen 500 mg tablet 1,000 mg PO TID PRN Pain 07/05/22 10/04/22 (Tylenol Extra Strength) cholecalciferol (vitamin D3) 250 250 mcg PO DAILY 07/05/22 10/04/22 mcg (10,000 unit) capsule epinephrine 0.3 mg/0.3 mL 0.3 mg IM Q4H PRN Anaphylaxis 07/05/22 10/04/22 injection, auto-injector hyoscyamine sulfate 0.125 mg tablet 0.25 mg PO TID-QID PRN Spasms 07/05/22 10/04/22 loratadine 10 mg tablet 10 mg PO DAILY 07/05/22 10/04/22 omega-3 fatty acids 500 mg capsule 500 mg PO BID 07/05/22 10/04/22 simethicone 40 mg chewable tablet 20 mg PO QID 07/05/22 10/04/22 aluminum-mag hydroxide-simethicone 20 ml PO QID 10/04/22 10/04/22 200 mg-200 mg-20 mg/5 mL oral susp dextroamphetamine-amphetamine 10 1 tab PO DAILY PRN ATTENTION 10/04/22 10/04/22 mg tablet lidocaine HCl 2 % mucosal solution 15 ml PO QID 10/04/22 10/04/22 (Lidocaine Viscous) sucralfate 100 mg/mL oral 10 ml PO QID 10/04/22 10/04/22 suspension (Carafate) topiramate 50 mg tablet 50 mg PO BID 10/04/22 10/04/22 Previous Rx's Medication Instructions Recorded famotidine 40 mg tablet 40 mg PO BEDTIME #30 tabs 07/05/22 esomeprazole magnesium 40 mg 40 mg PO BID #120 caps 10/04/22 capsule,delayed release <Chrissy Lee CNP - Last Filed: 10/04/22 15:34> Allergies/adverse reactions: Allergies Allergy/AdvReac Type Severity Reaction Status Date / Time bee pollen [BEE STINGS] Allergy Severe ANAPHYLAXIS Verified 10/04/22 11:45 clavulanic acid Allergy Severe GI DISTRESS Verified 10/04/22 11:45 [CLAVULANIC ACID] latex [LATEX] Allergy Severe ANAPHYLAXIS Verified 10/04/22 11:45 pork derived (porcine) Allergy Severe d/t Verified 10/04/22 11:45 [PORK DERIVED (PORCINE)] MASTOCYTOSIS soy Allergy Severe Anaphylaxis Verified 10/04/22 22:47 carrageenan [CARRAGEENAN] Allergy Unknown UNKNOWN Verified 10/04/22 11:45 egg [EGG] Allergy Unknown DUE TO Verified 10/04/22 11:45 MASTOCYTOSIS <Chrissy Lee CNP - Last Filed: 10/04/22 15:34> Review of Systems Review of Systems: Yes all other systems are reviewed and are negative <Jayjay Uribe MD - Last Filed: 10/05/22 00:29> [facility] Past Medical History Medical History: Medical History (Updated 10/05/22 @ 00:28 by Jayjay Uribe MD) ADHD Depression Dysplastic nevus Erosive esophagitis History of rhabdomyolysis History of traumatic brain injury Hyperlipidemia Hypoglycemia after GI (gastrointestinal) surgery Hypothyroidism Intestinal malabsorption Jejunitis Mastocytosis <Chrissy Lee CNP - Last Filed: 10/04/22 15:34> Surgical History: Surgical History H/O colonoscopy H/O gastric bypass H/O hernia repair H/O: hysterectomy History of appendectomy History of esophagogastroduodenoscopy (EGD) History of laparoscopy History of sleeve gastrectomy <Chrissy Lee CNP - Last Filed: 10/04/22 15:34> Family History Family History: Family History Mother Obesity DM (diabetes mellitus) Arthritis Father Obesity HIV (human immunodeficiency virus infection) Hepatitis B Hepatitis C Brother No problems noted. <Chrissy Lee CNP - Last Filed: 10/04/22 15:34> Social History Social History: Social History Household Members: Spouse and Children Housing: House Do you presently have visiting nurse or other home services: No Alcohol intake: never Patient Tobacco Use Status: Current someday Tobacco user Tobacco use type: Cigarette Advance Directives: Yes Advance Directives Information Provided: No Advance Directives on File: No service: No Current occupational status: employed <Chrissy Lee CNP - Last Filed: 10/04/22 15:34> Physical Exam ED Vital Signs: Vital Signs - 24 hr 10/04/22 12:08 10/04/22 21:12 10/04/22 21:45 Temperature 97.8 F Pulse Rate 112 H 87 90 Respiratory Rate 18 16 Blood Pressure 114/73 85/44 L 87/52 L Pulse Oximetry 100 100 Oxygen Delivery Method Room Air Room Air 10/04/22 22:05 Temperature Pulse Rate 70 Respiratory Rate Blood Pressure 85/46 L Pulse Oximetry Oxygen Delivery Method BMI result Body Mass Index 25.4 <Chrissy Lee CNP - Last Filed: 10/04/22 15:34> Vital Signs - 24 hr 10/04/22 12:08 10/04/22 21:12 10/04/22 21:45 Temperature 97.8 F Pulse Rate 112 H 87 90 Respiratory Rate 18 16 Blood Pressure 114/73 85/44 L 87/52 L Pulse Oximetry 100 100 Oxygen Delivery Method Room Air Room Air 10/04/22 22:05 Temperature Pulse Rate 70 Respiratory Rate Blood Pressure 85/46 L Pulse Oximetry Oxygen Delivery Method BMI result Body Mass Index 25.4 <Jayjay Uribe MD - Last Filed: 10/05/22 00:29> Appearance: Alert. Oriented X3. No acute distress. Eyes: PERRLA, No Nystagmus pallor++ ENT: Pharynx normal. Oral Mucosa moist Neck: Normal inspection. Neck supple. CVS: Normal heart rate and rhythm. Pulses normal. Respiratory: No respiratory distress. Equal air entry bilateral, no wheezing/rales/rhonchi Abdomen: Soft, mild epigastric tenderness Bowel sounds are present, no mass palpable, no CVA tenderness Skin: Skin warm and dry. Normal skin color. Normal skin turgor. Extremities: No lower extremity edema. No calf tenderness Neuro: Oriented X 3. No motor deficit. No sensory deficit.No cerebellar signs , cranial nerves II-XII intact <Jayjay Uribe MD - Last Filed: 10/05/22 00:29> Course Course Course Narrative: RME: Patient is a 41-year-old female who presents to the emergency department after evaluation today at Gastroenterology office, Dr. Pierson, concern for acute blood loss; pale, tachycardic, fatigue, history of bleeding ulcer. Currently prescribed Nexium. Denies vomiting, bloody or dark stools. Plan: Labs, urinalysis. 15:30 - hemoglobin 7.5 hematocrit 24.3, symptomatic anemia, will require blood transfusion and further evaluation. Spoke with supercharger repair supervisor, patient should be moved to main ED. <Chrissy Lee CNP - Last Filed: 10/04/22 15:34> Medications Administered Generic Name Dose Route Start Last Admin Trade Name Freq PRN Reason Stop Dose Admin Lactated Ringer's 1,000 mls @ 80 mls/hr 10/04/22 22:45 10/05/22 00:12 Lr IVCONT 0 mls/hr .[id number] JAN Infusion Lactated Ringer's 1,000 mls @ 999 mls/hr 10/05/22 00:15 10/05/22 00:11 Lr IV 10/05/22 01:15 999 mls/hr .Q1H1M JAN Administration Sodium Chloride 3 ml 10/05/22 00:00 10/05/22 00:12 0.9 % Sodium Chloride Flush 3 Ml Syringe IVFLUSH 3 ml QSHIFT JAN Administration Discontinued Medications Generic Name Dose Route Start Last Admin Trade Name Freq PRN Reason Stop Dose Admin Diphenhydramine HCl 12.5 mg 10/04/22 22:10 10/04/22 22:18 Diphenhydramine Hcl 50 Mg/Ml Vial IVPUSH 10/04/22 22:11 12.5 mg ONCE ONE Administration Sodium Chloride 1,000 mls @ 999 mls/hr 10/04/22 21:19 10/04/22 23:33 Ns IV 10/04/22 22:19 Infused .Q1H1M ONE Infusion Methylprednisolone Sodium Succinate 125 mg 10/04/22 22:10 10/04/22 22:18 Methylprednisolone Sod Succ 125 Mg/2 Ml Vial IVPUSH 10/04/22 22:11 125 mg ONCE ONE Administration Pantoprazole Sodium 40 mg 10/04/22 20:40 10/04/22 21:46 Pantoprazole Sodium 40 Mg/10 Ml Vial IVPUSH 10/04/22 20:41 40 mg ONCE ONE Administration <Chrissy Lee, TEST ENGINEERING MANAGER - Last Filed: 10/04/22 15:34> Medications Administered Generic Name Dose Route Start Last Admin Trade Name Freq PRN Reason Stop Dose Admin Lactated Ringer's 1,000 mls @ 80 mls/hr 10/04/22 22:45 10/05/22 00:12 Lr IVCONT 0 mls/hr .[id number] JAN Infusion Lactated Ringer's 1,000 mls @ 999 mls/hr 10/05/22 00:15 10/05/22 00:11 Lr IV 10/05/22 01:15 999 mls/hr .Q1H1M JAN Administration Sodium Chloride 3 ml 10/05/22 00:00 10/05/22 00:12 0.9 % Sodium Chloride Flush 3 Ml Syringe IVFLUSH 3 ml QSHIFT JAN Administration Discontinued Medications Generic Name Dose Route Start Last Admin Trade Name Freq PRN Reason Stop Dose Admin Diphenhydramine HCl 12.5 mg 10/04/22 22:10 10/04/22 22:18 Diphenhydramine Hcl 50 Mg/Ml Vial IVPUSH 10/04/22 22:11 12.5 mg ONCE ONE Administration Sodium Chloride 1,000 mls @ 999 mls/hr 10/04/22 21:19 10/04/22 23:33 Ns IV 10/04/22 22:19 Infused .Q1H1M ONE Infusion Methylprednisolone Sodium Succinate 125 mg 10/04/22 22:10 10/04/22 22:18 Methylprednisolone Sod Succ 125 Mg/2 Ml Vial IVPUSH 10/04/22 22:11 125 mg ONCE ONE Administration Pantoprazole Sodium 40 mg 10/04/22 20:40 10/04/22 21:46 Pantoprazole Sodium 40 Mg/10 Ml Vial IVPUSH 10/04/22 20:41 40 mg ONCE ONE Administration <Jayjay Uribe MD - Last Filed: 10/05/22 00:29> Medical Decision Making Medical Decision Making [facility] Narrative: Patient has significant iron deficiency anemia with iron level of 10 transferrin saturation only 3% with history of anastomotic ulcer although patient is not bleeding at this time likely severe anemia is from malabsorption of iron although bleeding cannot be ruled out. Will give patient 2 units of PRBC plan for endoscopy by assistant curator in the a.m. advised to give IV iron infusion after admission <Jayjay Uribe MD - Last Filed: 10/05/22 00:29> Lab Data [facility] Lab Attestation statement: I reviewed the patient's lab results. <Jayjay Uribe MD - Last Filed: 10/05/22 00:29> Result Diagrams: : 10/04/22 13:07 10/04/22 13:07 <Chrissy Lee CNP - Last Filed: 10/04/22 15:34> Labs: Lab Results 10/04/22 10/04/22 10/04/22 Range/Units 13:07 13:07 19:00 WBC 9.7 (4.8-10.8) X10*3/uL RBC 3.22 L (4.20-5.50) X10*6/uL Hgb 7.5 L D (12.0-16.0) g/dl Hct 24.3 L D (37.0-47.0) % MCV 75.5 L (80.0-98.0) fL MCH 23.3 L (27.0-33.0) pg MCHC 30.9 L (31.0-35.0) g/dl RDW 16.0 (11.0-16.0) % Plt Count 360 (160-400) X10*3/uL MPV 8.9 L (9.4-12.3) fL Immature Gran % (Auto) 0.3 (0.0-0.4) % Neut % (Auto) 62.6 (45-73) % Lymph % (Auto) 31.0 (20-40) % [place] % (Auto) 5.2 (2-11) % Eos % (Auto) 0.5 (0-4) % Baso % (Auto) 0.4 (0-2) % Lymph # (Auto) 3.0 (1.2-4.9) X10*3/uL [place] # (Auto) 0.5 (0.1-1.2) X10*3/uL Eos # (Auto) 0.1 (0.0-0.4) X10*3/uL Baso # (Auto) 0.0 (0.0-0.2) X10*3/uL Abs Immat Gran (auto) 0.03 (0.00-0.03) X10*3/uL Absolute Neuts (auto) 6.1 (2.0-8.3) x10*3/uL Absolute Nucleated RBC 0.000 (0.0-0.012) X10*3/uL Nucleated RBC % (auto) 0.0 (0.0-0.2) /100WBC Sodium 138 (135-145) mmol/L Potassium 4.5 D (3.3-5.1) mmol/L Chloride 110 H (96-108) mmol/L Carbon Dioxide 23 (22-29) mmol/L Anion Gap 10 L (12-20) BUN 15 (9-16) mg/dL Creatinine 0.77 (0.5-1.4) mg/dL Estim Creat Clear Calc 86.3 Estimated GFR > 60 POC Glucose 100 (60-115) mg/dL Random Glucose 141 H (60-115) mg/dL Calcium 8.9 D (8.4-10.2) mg/dL Iron 10 L (30-160) mcg/dL TIBC 302 (228-428) mcg/dL % Saturation 3 L (15-50) % Unsat Iron Binding 292 ug/dL Total Bilirubin 0.2 (0.0-1.0) mg/dL AST 14 (5-31) U/L ALT 12 (0-31) U/L Alkaline Phosphatase 58 (39-117) U/L Total Protein 6.0 L (6.5-8.0) g/dL Albumin 3.9 (3.5-5.0) g/dL Urine Color Urine Appearance Urine pH (5.0-9.0) Ur Specific [place] (1.005-1.025) Urine Protein (Neg-Trace) mg/dL Urine Glucose (UA) (Negative) mg/dL Urine Ketones (Negative) mg/dL Urine Blood (Negative) Urine Nitrite (Negative) Ur Leukocyte Esterase (Negative) Urine Test (NEGATIVE) COVID-19 (ANNA) (Negative) COVID-19 Clin Com Blood Type Antibody Screen Crossmatch 10/04/22 10/04/22 10/04/22 Range/Units 20:42 20:42 20:42 WBC (4.8-10.8) X10*3/uL RBC (4.20-5.50) X10*6/uL Hgb (12.0-16.0) g/dl Hct (37.0-47.0) % MCV (80.0-98.0) fL MCH (27.0-33.0) pg MCHC (31.0-35.0) g/dl RDW (11.0-16.0) % Plt Count (160-400) X10*3/uL MPV (9.4-12.3) fL Immature Gran % (Auto) (0.0-0.4) % Neut % (Auto) (45-73) % Lymph % (Auto) (20-40) % [place] % (Auto) (2-11) % Eos % (Auto) (0-4) % Baso % (Auto) (0-2) % Lymph # (Auto) (1.2-4.9) X10*3/uL [place] # (Auto) (0.1-1.2) X10*3/uL Eos # (Auto) (0.0-0.4) X10*3/uL Baso # (Auto) (0.0-0.2) X10*3/uL Abs Immat Gran (auto) (0.00-0.03) X10*3/uL Absolute Neuts (auto) (2.0-8.3) x10*3/uL Absolute Nucleated RBC (0.0-0.012) X10*3/uL Nucleated RBC % (auto) (0.0-0.2) /100WBC Sodium (135-145) mmol/L Potassium (3.3-5.1) mmol/L Chloride (96-108) mmol/L Carbon Dioxide (22-29) mmol/L Anion Gap (12-20) BUN (9-16) mg/dL Creatinine (0.5-1.4) mg/dL Estim Creat Clear Calc Estimated GFR POC Glucose (60-115) mg/dL Random Glucose (60-115) mg/dL Calcium (8.4-10.2) mg/dL Iron (30-160) mcg/dL TIBC (228-428) mcg/dL % Saturation (15-50) % Unsat Iron Binding ug/dL Total Bilirubin (0.0-1.0) mg/dL AST (5-31) U/L ALT (0-31) U/L Alkaline Phosphatase (39-117) U/L Total Protein (6.5-8.0) g/dL Albumin (3.5-5.0) g/dL Urine Color Yellow Urine Appearance Clear Urine pH 5.5 (5.0-9.0) Ur Specific [place] 1.025 (1.005-1.025) Urine Protein Negative (Neg-Trace) mg/dL Urine Glucose (UA) 250 H (Negative) mg/dL Urine Ketones Trace (Negative) mg/dL Urine Blood Negative (Negative) Urine Nitrite Negative (Negative) Ur Leukocyte Esterase Negative (Negative) Urine Test NEGATIVE (NEGATIVE) COVID-19 (ANNA) (Negative) COVID-19 Clin Com Blood Type A Negative Antibody Screen NEGATIVE Crossmatch See Detail 10/04/22 Range/Units 21:33 WBC (4.8-10.8) X10*3/uL RBC (4.20-5.50) X10*6/uL Hgb (12.0-16.0) g/dl Hct (37.0-47.0) % MCV (80.0-98.0) fL MCH (27.0-33.0) pg MCHC (31.0-35.0) g/dl RDW (11.0-16.0) % Plt Count (160-400) X10*3/uL MPV (9.4-12.3) fL Immature Gran % (Auto) (0.0-0.4) % Neut % (Auto) (45-73) % Lymph % (Auto) (20-40) % [place] % (Auto) (2-11) % Eos % (Auto) (0-4) % Baso % (Auto) (0-2) % Lymph # (Auto) (1.2-4.9) X10*3/uL [place] # (Auto) (0.1-1.2) X10*3/uL Eos # (Auto) (0.0-0.4) X10*3/uL Baso # (Auto) (0.0-0.2) X10*3/uL Abs Immat Gran (auto) (0.00-0.03) X10*3/uL Absolute Neuts (auto) (2.0-8.3) x10*3/uL Absolute Nucleated RBC (0.0-0.012) X10*3/uL Nucleated RBC % (auto) (0.0-0.2) /100WBC Sodium (135-145) mmol/L Potassium (3.3-5.1) mmol/L Chloride (96-108) mmol/L Carbon Dioxide (22-29) mmol/L Anion Gap (12-20) BUN (9-16) mg/dL Creatinine (0.5-1.4) mg/dL Estim Creat Clear Calc Estimated GFR POC Glucose (60-115) mg/dL Random Glucose (60-115) mg/dL Calcium (8.4-10.2) mg/dL Iron (30-160) mcg/dL TIBC (228-428) mcg/dL % Saturation (15-50) % Unsat Iron Binding ug/dL Total Bilirubin (0.0-1.0) mg/dL AST (5-31) U/L ALT (0-31) U/L Alkaline Phosphatase (39-117) U/L Total Protein (6.5-8.0) g/dL Albumin (3.5-5.0) g/dL Urine Color Urine Appearance Urine pH (5.0-9.0) Ur Specific [place] (1.005-1.025) Urine Protein (Neg-Trace) mg/dL Urine Glucose (UA) (Negative) mg/dL Urine Ketones (Negative) mg/dL Urine Blood (Negative) Urine Nitrite (Negative) Ur Leukocyte Esterase (Negative) Urine Test (NEGATIVE) COVID-19 (ANNA) Negative (Negative) COVID-19 Clin Com See Note Blood Type Antibody Screen Crossmatch <Chrissy Lee, TEST ENGINEERING MANAGER - Last Filed: 10/04/22 15:34> Lab Results 10/04/22 10/04/22 10/04/22 Range/Units 13:07 13:07 19:00 WBC 9.7 (4.8-10.8) X10*3/uL RBC 3.22 L (4.20-5.50) X10*6/uL Hgb 7.5 L D (12.0-16.0) g/dl Hct 24.3 L D (37.0-47.0) % MCV 75.5 L (80.0-98.0) fL MCH 23.3 L (27.0-33.0) pg MCHC 30.9 L (31.0-35.0) g/dl RDW 16.0 (11.0-16.0) % Plt Count 360 (160-400) X10*3/uL MPV 8.9 L (9.4-12.3) fL Immature Gran % (Auto) 0.3 (0.0-0.4) % Neut % (Auto) 62.6 (45-73) % Lymph % (Auto) 31.0 (20-40) % [place] % (Auto) 5.2 (2-11) % Eos % (Auto) 0.5 (0-4) % Baso % (Auto) 0.4 (0-2) % Lymph # (Auto) 3.0 (1.2-4.9) X10*3/uL [place] # (Auto) 0.5 (0.1-1.2) X10*3/uL Eos # (Auto) 0.1 (0.0-0.4) X10*3/uL Baso # (Auto) 0.0 (0.0-0.2) X10*3/uL Abs Immat Gran (auto) 0.03 (0.00-0.03) X10*3/uL Absolute Neuts (auto) 6.1 (2.0-8.3) x10*3/uL Absolute Nucleated RBC 0.000 (0.0-0.012) X10*3/uL Nucleated RBC % (auto) 0.0 (0.0-0.2) /100WBC Sodium 138 (135-145) mmol/L Potassium 4.5 D (3.3-5.1) mmol/L Chloride 110 H (96-108) mmol/L Carbon Dioxide 23 (22-29) mmol/L Anion Gap 10 L (12-20) BUN 15 (9-16) mg/dL Creatinine 0.77 (0.5-1.4) mg/dL Estim Creat Clear Calc 86.3 Estimated GFR > 60 POC Glucose 100 (60-115) mg/dL Random Glucose 141 H (60-115) mg/dL Calcium 8.9 D (8.4-10.2) mg/dL Iron 10 L (30-160) mcg/dL TIBC 302 (228-428) mcg/dL % Saturation 3 L (15-50) % Unsat Iron Binding 292 ug/dL Total Bilirubin 0.2 (0.0-1.0) mg/dL AST 14 (5-31) U/L ALT 12 (0-31) U/L Alkaline Phosphatase 58 (39-117) U/L Total Protein 6.0 L (6.5-8.0) g/dL Albumin 3.9 (3.5-5.0) g/dL Urine Color Urine Appearance Urine pH (5.0-9.0) Ur Specific [place] (1.005-1.025) Urine Protein (Neg-Trace) mg/dL Urine Glucose (UA) (Negative) mg/dL Urine Ketones (Negative) mg/dL Urine Blood (Negative) Urine Nitrite (Negative) Ur Leukocyte Esterase (Negative) Urine Test (NEGATIVE) COVID-19 (ANNA) (Negative) COVID-19 Clin Com Blood Type Antibody Screen Crossmatch 10/04/22 10/04/22 10/04/22 Range/Units 20:42 20:42 20:42 WBC (4.8-10.8) X10*3/uL RBC (4.20-5.50) X10*6/uL Hgb (12.0-16.0) g/dl Hct (37.0-47.0) % MCV (80.0-98.0) fL MCH (27.0-33.0) pg MCHC (31.0-35.0) g/dl RDW (11.0-16.0) % Plt Count (160-400) X10*3/uL MPV (9.4-12.3) fL Immature Gran % (Auto) (0.0-0.4) % Neut % (Auto) (45-73) % Lymph % (Auto) (20-40) % [place] % (Auto) (2-11) % Eos % (Auto) (0-4) % Baso % (Auto) (0-2) % Lymph # (Auto) (1.2-4.9) X10*3/uL [place] # (Auto) (0.1-1.2) X10*3/uL Eos # (Auto) (0.0-0.4) X10*3/uL Baso # (Auto) (0.0-0.2) X10*3/uL Abs Immat Gran (auto) (0.00-0.03) X10*3/uL Absolute Neuts (auto) (2.0-8.3) x10*3/uL Absolute Nucleated RBC (0.0-0.012) X10*3/uL Nucleated RBC % (auto) (0.0-0.2) /100WBC Sodium (135-145) mmol/L Potassium (3.3-5.1) mmol/L Chloride (96-108) mmol/L Carbon Dioxide (22-29) mmol/L Anion Gap (12-20) BUN (9-16) mg/dL Creatinine (0.5-1.4) mg/dL Estim Creat Clear Calc Estimated GFR POC Glucose (60-115) mg/dL Random Glucose (60-115) mg/dL Calcium (8.4-10.2) mg/dL Iron (30-160) mcg/dL TIBC (228-428) mcg/dL % Saturation (15-50) % Unsat Iron Binding ug/dL Total Bilirubin (0.0-1.0) mg/dL AST (5-31) U/L ALT (0-31) U/L Alkaline Phosphatase (39-117) U/L Total Protein (6.5-8.0) g/dL Albumin (3.5-5.0) g/dL Urine Color Yellow Urine Appearance Clear Urine pH 5.5 (5.0-9.0) Ur Specific [place] 1.025 (1.005-1.025) Urine Protein Negative (Neg-Trace) mg/dL Urine Glucose (UA) 250 H (Negative) mg/dL Urine Ketones Trace (Negative) mg/dL Urine Blood Negative (Negative) Urine Nitrite Negative (Negative) Ur Leukocyte Esterase Negative (Negative) Urine Test NEGATIVE (NEGATIVE) COVID-19 (ANNA) (Negative) COVID-19 Clin Com Blood Type A Negative Antibody Screen NEGATIVE Crossmatch See Detail 10/04/22 Range/Units 21:33 WBC (4.8-10.8) X10*3/uL RBC (4.20-5.50) X10*6/uL Hgb (12.0-16.0) g/dl Hct (37.0-47.0) % MCV (80.0-98.0) fL MCH (27.0-33.0) pg MCHC (31.0-35.0) g/dl RDW (11.0-16.0) % Plt Count (160-400) X10*3/uL MPV (9.4-12.3) fL Immature Gran % (Auto) (0.0-0.4) % Neut % (Auto) (45-73) % Lymph % (Auto) (20-40) % [place] % (Auto) (2-11) % Eos % (Auto) (0-4) % Baso % (Auto) (0-2) % Lymph # (Auto) (1.2-4.9) X10*3/uL [place] # (Auto) (0.1-1.2) X10*3/uL Eos # (Auto) (0.0-0.4) X10*3/uL Baso # (Auto) (0.0-0.2) X10*3/uL Abs Immat Gran (auto) (0.00-0.03) X10*3/uL Absolute Neuts (auto) (2.0-8.3) x10*3/uL Absolute Nucleated RBC (0.0-0.012) X10*3/uL Nucleated RBC % (auto) (0.0-0.2) /100WBC Sodium (135-145) mmol/L Potassium (3.3-5.1) mmol/L Chloride (96-108) mmol/L Carbon Dioxide (22-29) mmol/L Anion Gap (12-20) BUN (9-16) mg/dL Creatinine (0.5-1.4) mg/dL Estim Creat Clear Calc Estimated GFR POC Glucose (60-115) mg/dL Random Glucose (60-115) mg/dL Calcium (8.4-10.2) mg/dL Iron (30-160) mcg/dL TIBC (228-428) mcg/dL % Saturation (15-50) % Unsat Iron Binding ug/dL Total Bilirubin (0.0-1.0) mg/dL AST (5-31) U/L ALT (0-31) U/L Alkaline Phosphatase (39-117) U/L Total Protein (6.5-8.0) g/dL Albumin (3.5-5.0) g/dL Urine Color Urine Appearance Urine pH (5.0-9.0) Ur Specific [place] (1.005-1.025) Urine Protein (Neg-Trace) mg/dL Urine Glucose (UA) (Negative) mg/dL Urine Ketones (Negative) mg/dL Urine Blood (Negative) Urine Nitrite (Negative) Ur Leukocyte Esterase (Negative) Urine Test (NEGATIVE) COVID-19 (ANNA) Negative (Negative) COVID-19 Clin Com See Note Blood Type Antibody Screen Crossmatch <Jayjay Uribe MD - Last Filed: 10/05/22 00:29> Discharge Plan Discharge Clinical Impression: Severe anemia, Iron deficiency anemia <Chrissy Lee CNP - Last Filed: 10/04/22 15:34> Patient Disposition: Admitted As Inpatient <Chrissy Lee CNP - Last Filed: 10/04/22 15:34>
[2022-10-04 13:14] LABS: MANUAL DIFF FLAG NO
[2022-10-04 13:30] LABS: Basophils Percent Auto 0.4 % (0-2); Eosinophils Absolute Auto 0.1 X10*3/uL (0.0-0.4); Eosinophils Percent Auto 0.5 % (0-4); Hematocrit 24.3 % (37.0-47.0); Hemoglobin 7.5 g/dl (12.0-16.0); Imm Gran Abs Auto 0.03 X10*3/uL (0.00-0.03); Imm Gran Pct Auto 0.3 % (0.0-0.4); Mean Corpuscular HGB Conc 30.9 g/dl (31.0-35.0); Mean Corpuscular Hemoglobin 23.3 pg (27.0-33.0); Mean Corpuscular Volume 75.5 fL (80.0-98.0); Mean Platelet Volume 8.9 fL (9.4-12.3); Monocytes Absolute Auto 0.5 X10*3/uL (0.1-1.2); Monocytes Percent Auto 5.2 % (2-11); Neutrophils Absolute Auto 6.1 x10*3/uL (2.0-8.3); Neutrophils Percent Auto 62.6 % (45-73); Platelet Count 360 X10*3/uL (160-400); Red Blood Count 3.22 X10*6/uL (4.20-5.50)
[2022-10-04 13:33] LABS: Alanine Aminotransferase 12 U/L (0-31); Albumin Level 3.9 g/dL (3.5-5.0); Alkaline Phosphatase 58 U/L (39-117); Anion Gap 10 (12-20); Aspartate Amino Transferase 14 U/L (5-31); Bilirubin Total 0.2 mg/dL (0.0-1.0); Blood Urea Nitrogen 15 mg/dL (9-16); Calcium 8.9 mg/dL (8.4-10.2); Carbon Dioxide 23 mmol/L (22-29); Chloride 110 mmol/L (96-108); Creatinine Clr Calc Pharmacy 86.3; Estimated Glomerular Filt Rate > 60; Glucose Random 141 mg/dL (60-115); Potassium 4.5 mmol/L (3.3-5.1); Sodium 138 mmol/L (135-145)
[2022-10-04 13:34] LABS: White Blood Count 9.7 X10*3/uL (4.8-10.8)
[2022-10-04 19:04] LABS: Glucose, Whole Blood 100 mg/dL (60-115)
[2022-10-04 20:51] LABS: Appearance Urine Clear; Color Urine Yellow; Glucose Urine UA 250 mg/dL (Negative); Leukocyte Esterase Urine Negative (Negative); Nitrite Urine Negative (Negative); PH 5.5 (5.0-9.0); Specific Gravity - Urine 1.025 (1.005-1.025); Urine Blood Negative (Negative); Urine Ketones Trace mg/dL (Negative); Urine Protein Negative (Neg-Trace)
[2022-10-04 20:52] LABS: UPreg QC Valid YES; Urine Pregnancy NEGATIVE (NEGATIVE)
[2022-10-04] MEDS: 0.9 % Sodium Chloride 1,000 ML 999 ML IV (21:25)
[2022-10-04] MEDS: Pantoprazole Sodium 40 MG/10 ML VIAL IVPUSH (21:46)
--- NOTE | 2022-10-04 21:56 | PHA.MEDREC ---
Pharmacy Consult ? Medication Reconciliation Pharmacy has completed the medication reconciliation.
[2022-10-04 21:57] LABS: COVID-19 Test Negative (Negative); IDNOW Serial# 55D5AD1C
[2022-10-04 22:00] LABS: Iron 10 mcg/dL (30-160); Percent Iron Saturation 3 % (15-50); Total Iron Binding Capacity 302 mcg/dL (228-428); Unsaturated Iron Binding 292 ug/dL
[2022-10-04] MEDS: diphenhydrAMINE HCL 50 MG/ML VIAL 12.5 MG IVPUSH (22:18)
[2022-10-04] MEDS: methylPREDNISolone Sod Succ 125 MG/2 ML VIAL IVPUSH (22:18)
--- NOTE | 2022-10-04 22:49 | P.HPHOSP_ITS ---
History of Present Illness Date of Service: 10/04/22 Chief Complaint: weakness 41F pmh ?sleeve gastrectomy with revision to gastric bypass 2018, mastocystotis, anastamosis site ulcer, erosive esophagitis, jejunitis, and hiatal hernia, ADHD, adrenal insufficiency, depression, HLD, hypothyroidism, distal malabsorption, presented with symptomatic anemia. patient was admitted to [facility] in june 2022 for anastmosis site ulcer and gi bleed. was discharged on carafate and high dose PPI, hgb was 9.9 on 07/06/22. was following up with GI as outpatient, noted to be pale and weak appearing, patient reports feeling more fatigued and having palpitations with tachycardia, though she had attributed to lack of sleep and s tress. noted to have hgb of 7.5. patient denies active gross bleeding. Review of Systems Review of Systems: Constitutional: feeling weak Eyes: denies blurry vision ENT: denies sore throat CVS: palpitations Respiratory: Denies dyspnea GI: no abdominal pain : denies dysuria MSK: denies neck pain Skin: denies rash Neuro: denies specific motor weakness Psych: denies suicidal ideation Endocrine: denies heat/cold intolerance Hematologic: denies easy bleeding Allergy: denies hives [facility] Medical History (Updated 10/04/22 @ 22:55 by Thierry Park MD) ADHD Depression Dysplastic nevus Erosive esophagitis History of rhabdomyolysis History of traumatic brain injury Hyperlipidemia Hypoglycemia after GI (gastrointestinal) surgery Hypothyroidism Intestinal malabsorption Jejunitis Mastocytosis Family History Mother Obesity DM (diabetes mellitus) Arthritis Father Obesity HIV (human immunodeficiency virus infection) Hepatitis B Hepatitis C Brother No problems noted. Surgical History H/O colonoscopy H/O gastric bypass H/O hernia repair H/O: hysterectomy History of appendectomy History of esophagogastroduodenoscopy (EGD) History of laparoscopy History of sleeve gastrectomy Social History Household Members: Spouse and Children Housing: House Do you presently have visiting nurse or other home services: No Alcohol intake: never Patient Tobacco Use Status: Current someday Tobacco user Tobacco use type: Cigarette Advance Directives: Yes Advance Directives Information Provided: No Advance Directives on File: No service: No Current occupational status: employed Meds Allergies Allergy/AdvReac Type Severity Reaction Status Date / Time bee pollen [BEE STINGS] Allergy Severe ANAPHYLAXIS Verified 10/04/22 11:45 clavulanic acid Allergy Severe GI DISTRESS Verified 10/04/22 11:45 [CLAVULANIC ACID] latex [LATEX] Allergy Severe ANAPHYLAXIS Verified 10/04/22 11:45 pork derived (porcine) Allergy Severe d/t Verified 10/04/22 11:45 [PORK DERIVED (PORCINE)] MASTOCYTOSIS soy Allergy Severe Anaphylaxis Verified 10/04/22 22:47 carrageenan [CARRAGEENAN] Allergy Unknown UNKNOWN Verified 10/04/22 11:45 egg [EGG] Allergy Unknown DUE TO Verified 10/04/22 11:45 MASTOCYTOSIS Active Medications: Current Medications Lactated Ringer's (Lr) 1,000 mls @ 80 mls/hr IVCONT .[id number] [facility] Non-Formulary Medication (Acetaminophen [Tylenol Extra Strength]) 1,000 mg PO TID PRN PRN Reason: Pain Non-Formulary Medication (Cholecalciferol (Vitamin D3)) 250 mcg PO DAILY [facility] Pantoprazole Sodium (Pantoprazole Sodium 40 Mg/10 Ml Vial) 40 mg IVPUSH BID@0630,1630 [facility] Pharmacy Consult (Consult Rx Perform Med Rec) 1 each MISCELLANE ONCE PRN PRN Reason: Consult order Sucralfate (Sucralfate Oral Suspension 1 Gm/10 Ml Oral.Susp) gm PO QID [facility] Topiramate (Topiramate 25 Mg Tablet) 50 mg PO BID [facility] Home Medications Medication Instructions Recorded Confirmed Last Taken Type clonidine HCl 0.1 mg tablet 1 tab PO TID PRN Anxiety 06/23/22 10/04/22 10/03/22 History acetaminophen 500 mg tablet 1,000 mg PO TID PRN Pain 07/05/22 10/04/22 10/03/22 History (Tylenol Extra Strength) cholecalciferol (vitamin D3) 250 250 mcg PO DAILY 07/05/22 10/04/22 10/03/22 History mcg (10,000 unit) capsule epinephrine 0.3 mg/0.3 mL 0.3 mg IM Q4H PRN Anaphylaxis 07/05/22 10/04/22 10/03/22 History injection, auto-injector hyoscyamine sulfate 0.125 mg tablet 0.25 mg PO TID-QID PRN Spasms 07/05/22 10/04/22 10/03/22 History loratadine 10 mg tablet 10 mg PO DAILY 07/05/22 10/04/22 10/03/22 History omega-3 fatty acids 500 mg capsule 500 mg PO BID 07/05/22 10/04/22 10/03/22 History simethicone 40 mg chewable tablet 20 mg PO QID 07/05/22 10/04/22 10/03/22 History aluminum-mag hydroxide-simethicone 20 ml PO QID 10/04/22 10/04/22 10/03/22 History 200 mg-200 mg-20 mg/5 mL oral susp dextroamphetamine-amphetamine 10 1 tab PO DAILY PRN ATTENTION 10/04/22 10/04/22 10/03/22 History mg tablet lidocaine HCl 2 % mucosal solution 15 ml PO QID 10/04/22 10/04/22 10/03/22 History (Lidocaine Viscous) sucralfate 100 mg/mL oral 10 ml PO QID 10/04/22 10/04/22 10/03/22 History suspension (Carafate) topiramate 50 mg tablet 50 mg PO BID 10/04/22 10/04/22 10/03/22 History Physical Exam Vital Signs and Narrative: Vital Signs: Last Vital Signs Temp 97.8 F 10/04/22 12:08 Pulse 70 10/04/22 22:05 Resp 16 10/04/22 21:12 BP 85/46 L 10/04/22 22:05 Pulse Ox 100 10/04/22 21:12 O2 Del Method 10/04/22 21:12 BMI result Body Mass Index 25.4 General: no acute distress HEENT: atraumatic Neck: normal to visual inspection CVS: S1, S2, RRR Resp: CTA bilateral Chest: non tender GI: soft, non tender, non distended : no CVA tenderness Skin: no rashes Extremities: no edema Neuro: Oriented X3, grossly intact Psych: cooperative Results Labs CBC and Chem 7: 10/04/22 13:07 10/04/22 13:07 Labs: Laboratory Results - last 24 hr 10/04/22 10/04/22 10/04/22 13:07 13:07 19:00 MCV 75.5 L MCH 23.3 L MCHC 30.9 L RDW 16.0 Plt Count 360 MPV 8.9 L Immature Gran % (Auto) 0.3 Neut % (Auto) 62.6 Lymph % (Auto) 31.0 [place] % (Auto) 5.2 Eos % (Auto) 0.5 Baso % (Auto) 0.4 Lymph # (Auto) 3.0 [place] # (Auto) 0.5 Eos # (Auto) 0.1 Baso # (Auto) 0.0 Abs Immat Gran (auto) 0.03 Absolute Neuts (auto) 6.1 Absolute Nucleated RBC 0.000 Nucleated RBC % (auto) 0.0 Anion Gap 10 L Estim Creat Clear Calc 86.3 Estimated GFR > 60 POC Glucose 100 Random Glucose 141 H Calcium 8.9 D Iron 10 L TIBC 302 % Saturation 3 L Unsat Iron Binding 292 Total Bilirubin 0.2 AST 14 ALT 12 Alkaline Phosphatase 58 Total Protein 6.0 L Albumin 3.9 Urine Color Urine Appearance Urine pH Ur Specific [place] Urine Protein Urine Glucose (UA) Urine Ketones Urine Blood Urine Nitrite Ur Leukocyte Esterase Urine Test COVID-19 (ANNA) [facility] Blood Type Antibody Screen Crossmatch 10/04/22 10/04/22 10/04/22 20:42 20:42 20:42 MCV MCH MCHC RDW Plt Count MPV Immature Gran % (Auto) Neut % (Auto) Lymph % (Auto) [place] % (Auto) Eos % (Auto) Baso % (Auto) Lymph # (Auto) [place] # (Auto) Eos # (Auto) Baso # (Auto) Abs Immat Gran (auto) Absolute Neuts (auto) Absolute Nucleated RBC Nucleated RBC % (auto) Anion Gap Estim Creat Clear Calc Estimated GFR POC Glucose Random Glucose Calcium Iron TIBC % Saturation Unsat Iron Binding Total Bilirubin AST ALT Alkaline Phosphatase Total Protein Albumin Urine Color Yellow Urine Appearance Clear Urine pH 5.5 Ur Specific [place] 1.025 Urine Protein Negative Urine Glucose (UA) 250 H Urine Ketones Trace Urine Blood Negative Urine Nitrite Negative Ur Leukocyte Esterase Negative Urine Test NEGATIVE COVID-19 (ANNA) COVID-[place] Com Blood Type A Negative Antibody Screen NEGATIVE Crossmatch See Detail 10/04/22 21:33 MCV MCH MCHC RDW Plt Count MPV Immature Gran % (Auto) Neut % (Auto) Lymph % (Auto) [place] % (Auto) Eos % (Auto) Baso % (Auto) Lymph # (Auto) [place] # (Auto) Eos # (Auto) Baso # (Auto) Abs Immat Gran (auto) Absolute Neuts (auto) Absolute Nucleated RBC Nucleated RBC % (auto) Anion Gap Estim Creat Clear Calc Estimated GFR POC Glucose Random Glucose Calcium Iron TIBC % Saturation Unsat Iron Binding Total Bilirubin AST ALT Alkaline Phosphatase Total Protein Albumin Urine Color Urine Appearance Urine pH Ur Specific [place] Urine Protein Urine Glucose (UA) Urine Ketones Urine Blood Urine Nitrite Ur Leukocyte Esterase Urine Test COVID-19 (ANNA) Negative COVID-19 Clin Com See Note Blood Type Antibody Screen Crossmatch Assessment and Plan (1) Erosive esophagitis: Status: Acute Plan 41F pmh ?sleeve gastrectomy with revision to gastric bypass 2018, mastocystotis, anastamosis site ulcer, erosive esophagitis, jejunitis, and hiatal hernia, ADHD, depression, distal malabsorption presented with symptomatic anemia acute on chronic blood loss anemia due to anastamosis site ulcer, erosive esophagitis, jejunitis, and hiatal hernia transfuse 2 units (premedicate with steroids and antihistamine due to mastocytosis) ppi carafate npo for EGD tomorrow gi eval montior cbc dvt prophylaxis - mechancial due to gi bleed full code patient with singificant anemia with multiple site of potential bleeding resulting in relative hypotension, requiring multiple transfusions, close monitoring, and urgent GI eval, therefore, expected to require atleast 2 midnights inpatient. Time Spent With Patient Time: Total time managing care of this patient today ____ minutes. Quality Stroke Does the patient have a stroke diagnosis?: No VTE Prior VTE?: No VTE Risk Level:: Medical - moderate - high VTE Device Contraindication: N/A - Device Ordered VTE Drug Contraindication: Treatment Not Tolerated
--- NOTE | 2022-10-04 23:05 | PC.NURSE ---
patient pre medicated prior to blood transfusion
--- NOTE | 2022-10-04 23:35 | PC.NURSE ---
patient sleeping, skin pale, warm, dry. resp even and non labored. awakens easily to verbal stimuli. NSR via tele, pt cont to be hypotensive. continuing w/ blood tranfusion-patient tolerating well. as well as starting IV fluids per order. patient reports feeling tired, denies any other complaints.
[2022-10-04] MEDS: Lactated Ringers 1,000 ML 80 ML IVCONT (23:49)
[2022-10-05] VITALS (17 sets, daily range): BP systolic 84–103; BP diastolic 36–59; PULSE 56–92; RESP 12–84; TEMP 36.1–37.1; O2SAT 95–100; BMI 25.4
[2022-10-05] MEDS: Lactated Ringers 1,000 ML 999 ML IV (00:11)
[2022-10-05] MEDS: 0.9 % Sodium Chloride Flush 3 ML SYRINGE IVFLUSH ×2 (00:12→15:50)
[2022-10-05] MEDS: Midodrine HCl 10 MG TABLET PO (00:34)
[2022-10-05] MEDS: Ferrous Sulfate 324 MG TABLET.DR PO (00:34)
--- NOTE | 2022-10-05 01:41 | PC.NURSE ---
patient awake and alert, skin pale, warm, dry. resp even and non labored. speaking in full, clear sentences. 2nd unit of RBC infusing as ordered, patient tolerating well. lungs CTA bilaterally throughout. patient denies pain. NSR via tele. denies any bleeding when using bathroom. awaiting admit.
--- NOTE | 2022-10-05 01:52 | PC.NURSE ---
This keno writer assumed care of this PT at 0139.
[2022-10-05 06:03] LABS: Hematocrit 26.3 % (37.0-47.0); Hemoglobin 8.5 g/dl (12.0-16.0); Mean Corpuscular HGB Conc 32.3 g/dl (31.0-35.0); Mean Corpuscular Hemoglobin 25.4 pg (27.0-33.0); Mean Corpuscular Volume 78.5 fL (80.0-98.0); Mean Platelet Volume 9.1 fL (9.4-12.3); Platelet Count 273 X10*3/uL (160-400); Red Blood Count 3.35 X10*6/uL (4.20-5.50); Red Cell Distribution Width 18.4 % (11.0-16.0); White Blood Count 14.4 X10*3/uL (4.8-10.8)
[2022-10-05 06:19] LABS: Anion Gap 12 (12-20); Blood Urea Nitrogen 12 mg/dL (9-16); Calcium 8.3 mg/dL (8.4-10.2); Carbon Dioxide 20 mmol/L (22-29); Chloride 110 mmol/L (96-108); Creatinine Clr Calc Pharmacy 105.4; Estimated Glomerular Filt Rate > 60; Glucose Fasting 160 mg/dL (60-99); Magnesium 1.8 mg/dL (1.6-2.6); Potassium 4.5 mmol/L (3.3-5.1); Sodium 137 mmol/L (135-145)
[2022-10-05] MEDS: Pantoprazole Sodium 40 MG/10 ML VIAL IVPUSH ×2 (06:19→16:39)
--- NOTE | 2022-10-05 06:48 | P.PNIM_ITS ---
Subjective Subjective Date of Service: 10/05/22 Interval History: cc: weakness, anemia interval history: some improvement after transfusion Cardiovascular Cardiovascular: Reports no additional cardiovascular complaints Respiratory Respiratory: Reports no additional respiratory complaints Physical Exam Vital Signs: Vital Signs: Last Vital Signs Temp 98.1 F 10/05/22 04:10 Pulse 65 10/05/22 06:27 Resp 14 10/05/22 06:27 BP 97/50 L 10/05/22 06:27 Pulse Ox 98 10/05/22 05:50 O2 Del Method 10/05/22 05:50 BMI result Body Mass Index 25.4 General: AO X 3, no acute distress Resp: CTA bilateral, no accessory muscles used CVS: S1,S2,RRR GI: soft, non tender, non distended Neuro: motor grossly intact, alert Psych: appropriate affect, appropriate insight Objective Data Active Medications Acetaminophen (Acetaminophen 325 Mg Tablet) 975 mg PO TID PRN PRN Reason: Pain Lactated Ringer's (Lr) 1,000 mls @ 80 mls/hr IVCONT .[id number] [facility] Last Infusion: 10/05/22 01:16 Dose: 80 mls/hr Documented By: MIS Pantoprazole Sodium (Pantoprazole Sodium 40 Mg/10 Ml Vial) 40 mg IVPUSH BID@0630,1630 [facility] Last Admin: 10/05/22 06:19 Dose: 40 mg Documented By: BASILIA Pharmacy Consult (Consult Rx Perform Med Rec) 1 each MISCELLANE ONCE PRN PRN Reason: Consult order Sodium Chloride (0.9 % Sodium Chloride Flush 3 Ml Syringe) 3 ml IVFLUSH QSHIFT [facility] Last Admin: 10/05/22 00:12 Dose: 3 ml Documented By: MIS Sucralfate (Sucralfate Oral Suspension 1 Gm/10 Ml Oral.Susp) 1 gm PO QID [facility] Topiramate (Topiramate 25 Mg Tablet) 50 mg PO BID [facility] Vitamin D (Cholecalciferol (Vitamin D3) 25 Mcg Tablet) 250 mcg PO DAILY [facility] Labs CBC & Chem 7: 10/05/22 05:33 10/05/22 05:33 Labs: Laboratory Results - last 24 hr 10/04/22 10/04/22 10/04/22 13:07 13:07 19:00 MCV 75.5 L MCH 23.3 L MCHC 30.9 L RDW 16.0 Plt Count 360 MPV 8.9 L Immature Gran % (Auto) 0.3 Neut % (Auto) 62.6 Lymph % (Auto) 31.0 [place] % (Auto) 5.2 Eos % (Auto) 0.5 Baso % (Auto) 0.4 Lymph # (Auto) 3.0 [place] # (Auto) 0.5 Eos # (Auto) 0.1 Baso # (Auto) 0.0 Abs Immat Gran (auto) 0.03 Absolute Neuts (auto) 6.1 Absolute Nucleated RBC 0.000 Nucleated RBC % (auto) 0.0 Anion Gap 10 L Estim Creat Clear Calc 86.3 Estimated GFR > 60 POC Glucose 100 Random Glucose 141 H Fasting Glucose Calcium 8.9 D Magnesium Iron 10 L TIBC 302 % Saturation 3 L Unsat Iron Binding 292 Total Bilirubin 0.2 AST 14 ALT 12 Alkaline Phosphatase 58 Total Protein 6.0 L Albumin 3.9 Urine Color Urine Appearance Urine pH Ur Specific [place] Urine Protein Urine Glucose (UA) Urine Ketones Urine Blood Urine Nitrite Ur Leukocyte Esterase Urine Test COVID-19 (ANNA) [facility] Blood Type Antibody Screen Crossmatch 10/04/22 10/04/22 10/04/22 20:42 20:42 20:42 MCV MCH MCHC RDW Plt Count MPV Immature Gran % (Auto) Neut % (Auto) Lymph % (Auto) [place] % (Auto) Eos % (Auto) Baso % (Auto) Lymph # (Auto) [place] # (Auto) Eos # (Auto) Baso # (Auto) Abs Immat Gran (auto) Absolute Neuts (auto) Absolute Nucleated RBC Nucleated RBC % (auto) Anion Gap Estim Creat Clear Calc Estimated GFR POC Glucose Random Glucose Fasting Glucose Calcium Magnesium Iron TIBC % Saturation Unsat Iron Binding Total Bilirubin AST ALT Alkaline Phosphatase Total Protein Albumin Urine Color Yellow Urine Appearance Clear Urine pH 5.5 Ur Specific [place] 1.025 Urine Protein Negative Urine Glucose (UA) 250 H Urine Ketones Trace Urine Blood Negative Urine Nitrite Negative Ur Leukocyte Esterase Negative Urine Test NEGATIVE COVID-19 (ANNA) [facility] Blood Type A Negative Antibody Screen NEGATIVE Crossmatch See Detail 10/04/22 10/05/22 10/05/22 21:33 05:33 05:33 MCV 78.5 L MCH 25.4 L MCHC 32.3 RDW 18.4 H Plt Count 273 MPV 9.1 L Immature Gran % (Auto) Neut % (Auto) Lymph % (Auto) [place] % (Auto) Eos % (Auto) Baso % (Auto) Lymph # (Auto) [place] # (Auto) Eos # (Auto) Baso # (Auto) Abs Immat Gran (auto) Absolute Neuts (auto) Absolute Nucleated RBC 0.000 Nucleated RBC % (auto) 0.0 Anion Gap 12 Estim Creat Clear Calc 105.4 Estimated GFR > 60 POC Glucose Random Glucose Fasting Glucose 160 H Calcium 8.3 L D Magnesium 1.8 Iron TIBC % Saturation Unsat Iron Binding Total Bilirubin AST ALT Alkaline Phosphatase Total Protein Albumin Urine Color Urine Appearance Urine pH Ur Specific [place] Urine Protein Urine Glucose (UA) Urine Ketones Urine Blood Urine Nitrite Ur Leukocyte Esterase Urine Test COVID-19 (ANNA) Negative COVID-19 Clin Com See Note Blood Type Antibody Screen Crossmatch Assessment and Plan (1) Severe anemia: Status: Acute Plan 41F pmh ?sleeve gastrectomy with revision to gastric bypass 2018, mastocystotis, anastamosis site ulcer, erosive esophagitis, jejunitis, and hiatal hernia, ADHD, depression, distal malabsorption presented with symptomatic anemia acute on chronic blood loss anemia due to anastamosis site ulcer, erosive esophagitis, jejunitis, and hiatal hernia transfused 2 units (premedicated with steroids and antihistamine due to mastocytosis) ppi carafate npo for EGD today gi eval montior cbc (hgb improved to 8.5) dvt prophylaxis - mechancial due to gi bleed full code reason for continued hospitalization:egd today Time Spent With Patient Time: Total time managing care of this patient today ____ minutes. Quality Stroke Does the patient have a stroke diagnosis?: No VTE Prior VTE?: No VTE Risk Level:: Medical - moderate - high VTE Device Contraindication: N/A - Device Ordered VTE Drug Contraindication: Treatment Not Tolerated
--- NOTE | 2022-10-05 08:18 | PC.NURSE ---
report given to SSS on pt. BP stable. pt has been NPO. She got up and ambulated to the BR independently, gait steady. pt A&O x4, skin PWD, no complaints at this time.
--- NOTE | 2022-10-05 08:37 | P.CNGI_ITS ---
History of Present Illness Data of Consult Service Date: 10/05/22 Requesting physician: Thierry Park Primary Care Provider: Rivera Juarez DO HPI Reason for consult: anemia 41 yr old f with h/o ?sleeve gastrectomy with revision to gastric bypass 2018, mastocystotis, anastamosis site ulcer, erosive esophagitis, jejunitis, and hiatal hernia, ADHD, adrenal insufficiency, depression, HLD, hypothyroidism, distal malabsorption, who I am seeing for assessment for anemia. Patient had noted increased tiredness, lightheadedness and fatgiue for last few days. She also noted palpitations but no chest pain, mild SOB. She denies melena, rectal bleeding, nose bleeds, but noted urine looked pinkish this morning. She has not been taking NSAIDs, does have hx of marginal ulcer and conts to smoke. Patient was admitted to [facility] in june 2022 for marginal ulcer and gi bleed. She was discharged on carafate and high dose PPI, hgb was 9.9 on 07/06/22 at that time but it was 7.5 g/dl on this admission. she has received PRBC transfusion. ? Review of Systems Review of Systems: Constitutional: feeling weak Eyes: denies blurry vision ENT: denies sore throat CVS: palpitations Respiratory: Denies dyspnea GI: no abdominal pain : denies dysuria MSK: denies neck pain Skin: denies rash Neuro: denies specific motor weakness Psych: denies suicidal ideation Endocrine: denies heat/cold intolerance Hematologic: denies easy bleeding Allergy: denies hives PMFSH Past Medical History Medical History (Updated 10/05/22 @ 00:28 by Jayjay Uribe MD) ADHD Depression Dysplastic nevus Erosive esophagitis History of rhabdomyolysis History of traumatic brain injury Hyperlipidemia Hypoglycemia after GI (gastrointestinal) surgery Hypothyroidism Intestinal malabsorption Jejunitis Mastocytosis Family History Family History Mother Obesity DM (diabetes mellitus) Arthritis Father Obesity HIV (human immunodeficiency virus infection) Hepatitis B Hepatitis C Brother No problems noted. Surgical History Surgical History H/O colonoscopy H/O gastric bypass H/O hernia repair H/O: hysterectomy History of appendectomy History of esophagogastroduodenoscopy (EGD) History of laparoscopy History of sleeve gastrectomy Social History Social History Household Members: Spouse and Children Housing: House Do you presently have visiting nurse or other home services: No Alcohol intake: never Patient Tobacco Use Status: Current everyday Tobacco user Tobacco use type: Cigarette Smoked in Last 30 Days: Yes Use of substances other than those prescribed or required for medical reasons: No Advance Directives: No Advance Directives Information Provided: No Advance Directives on File: No Patient : No service: No Current occupational status: employed Meds Allergies Allergy/AdvReac Type Severity Reaction Status Date / Time bee pollen [BEE STINGS] Allergy Severe ANAPHYLAXIS Verified 10/04/22 11:45 clavulanic acid Allergy Severe GI DISTRESS Verified 10/04/22 11:45 [CLAVULANIC ACID] latex [LATEX] Allergy Severe ANAPHYLAXIS Verified 10/04/22 11:45 pork derived (porcine) Allergy Severe d/t Verified 10/04/22 11:45 [PORK DERIVED (PORCINE)] MASTOCYTOSIS soy Allergy Severe Anaphylaxis Verified 10/04/22 22:47 carrageenan [CARRAGEENAN] Allergy Unknown UNKNOWN Verified 10/04/22 11:45 egg [EGG] Allergy Unknown DUE TO Verified 10/04/22 11:45 MASTOCYTOSIS Active Medications: Current Medications Acetaminophen (Acetaminophen 325 Mg Tablet) 975 mg PO TID PRN PRN Reason: Pain Lactated Ringer's (Lr) 1,000 mls @ 80 mls/hr IVCONT .[id number] [facility] Last Infusion: 10/05/22 01:16 Dose: 80 mls/hr Pantoprazole Sodium (Pantoprazole Sodium 40 Mg/10 Ml Vial) 40 mg IVPUSH BID@0630,1630 [facility] Last Admin: 10/05/22 06:19 Dose: 40 mg Pharmacy Consult (Consult Rx Perform Med Rec) 1 each MISCELLANE ONCE PRN PRN Reason: Consult order Sodium Chloride (0.9 % Sodium Chloride Flush 3 Ml Syringe) 3 ml IVFLUSH QSHIFT [facility] Last Admin: 10/05/22 07:53 Dose: Not Given Sucralfate (Sucralfate Oral Suspension 1 Gm/10 Ml Oral.Susp) 1 gm PO QID [facility] Topiramate (Topiramate 25 Mg Tablet) 50 mg PO BID [facility] Vitamin D (Cholecalciferol (Vitamin D3) 25 Mcg Tablet) 250 mcg PO DAILY [facility] Home Medications Medication Instructions Recorded Confirmed Last Taken Type clonidine HCl 0.1 mg tablet 1 tab PO TID PRN Anxiety 06/23/22 10/04/22 10/03/22 History acetaminophen 500 mg tablet 1,000 mg PO TID PRN Pain 07/05/22 10/04/22 10/03/22 History (Tylenol Extra Strength) cholecalciferol (vitamin D3) 250 250 mcg PO DAILY 07/05/22 10/04/22 10/03/22 History mcg (10,000 unit) capsule epinephrine 0.3 mg/0.3 mL 0.3 mg IM Q4H PRN Anaphylaxis 07/05/22 10/04/22 10/03/22 History injection, auto-injector hyoscyamine sulfate 0.125 mg tablet 0.25 mg PO TID-QID PRN Spasms 07/05/22 10/04/22 10/03/22 History loratadine 10 mg tablet 10 mg PO DAILY 07/05/22 10/04/22 10/03/22 History omega-3 fatty acids 500 mg capsule 500 mg PO BID 07/05/22 10/04/22 10/03/22 History simethicone 40 mg chewable tablet 20 mg PO QID 07/05/22 10/04/22 10/03/22 History aluminum-mag hydroxide-simethicone 20 ml PO QID 10/04/22 10/04/22 10/03/22 History 200 mg-200 mg-20 mg/5 mL oral susp dextroamphetamine-amphetamine 10 1 tab PO DAILY PRN ATTENTION 10/04/22 10/04/22 10/03/22 History mg tablet lidocaine HCl 2 % mucosal solution 15 ml PO QID 10/04/22 10/04/22 10/03/22 History (Lidocaine Viscous) sucralfate 100 mg/mL oral 10 ml PO QID 10/04/22 10/04/22 10/03/22 History suspension (Carafate) topiramate 50 mg tablet 50 mg PO BID 10/04/22 10/04/22 10/03/22 History Physical Exam Vital Signs: Vital Signs: Last Vital Signs Temp 98.1 F 10/05/22 04:10 Pulse 73 10/05/22 08:11 Resp 12 10/05/22 08:11 BP 103/55 L 10/05/22 08:11 Pulse Ox 98 10/05/22 08:11 O2 Del Method 10/05/22 08:11 BMI result Body Mass Index 25.4 EXAM: GENERAL: The patient is relaxed, pale VITAL SIGNS:see workflow HEENT: Nonicteric sclerae, PERRLA, EOMI. Oropharynx clear. Moist mucous membranes. Conjunctivae appear well perfused. No thyroid mass. CHEST: Chest wall is nontender. HEART: Regular rate and rhythm without murmurs. LUNGS: Clear to auscultation bilaterally. ABDOMEN: Soft, positive bowel sounds, nontender, no organomegaly.no flank tenderness SKIN: No rash, no excessive bruising, petechiae, or purpura. NEUROLOGIC: Cranial nerves II-XII intact without motor/sensory deficit. Psych--normal Results Labs CBC & Chem 7: 10/05/22 05:33 10/05/22 05:33 Labs: Short CBC 10/04/22 10/05/22 Range/Units 13:07 05:33 WBC 9.7 14.4 H (4.8-10.8) X10*3/uL Hgb 7.5 L D 8.5 L (12.0-16.0) g/dl Hct 24.3 L D 26.3 L (37.0-47.0) % Plt Count 360 273 (160-400) X10*3/uL BMP 10/04/22 10/05/22 13:07 05:33 Sodium 138 137 Potassium 4.5 D 4.5 Chloride 110 H 110 H Carbon Dioxide 23 20 L BUN 15 12 Creatinine 0.77 0.63 Calcium 8.9 D 8.3 L D Liver Function 10/04/22 Range/Units 13:07 Total Bilirubin 0.2 (0.0-1.0) mg/dL AST 14 (5-31) U/L ALT 12 (0-31) U/L Alkaline Phosphatase 58 (39-117) U/L Albumin 3.9 (3.5-5.0) g/dL Urine 10/04/22 Range/Units 20:42 Urine Color Yellow Urine Appearance Clear Urine pH 5.5 (5.0-9.0) Ur Specific [place] 1.025 (1.005-1.025) Urine Protein Negative (Neg-Trace) mg/dL Urine Glucose (UA) 250 H (Negative) mg/dL Assessment and Plan (1) Severe anemia: Status: Acute Plan 1/ Acute on chronic anemia, hx of marginal ulcer, concern for bleeding ulcer, she still smokes which may worsen such ulcers by reducing healing Plan: 1/NPO 2/ keep on PPI 3/ EGD today for assessment, if neg then colonoscopy and UA Time Spent With Patient Time: Total time managing care of this patient today ____ minutes. Procedures Date of Service Date of Service: 10/05/22
[2022-10-05] MEDS: Sucralfate Oral Suspension 1 GM/10 ML ORAL.SUSP PO ×4 (09:29→20:21)
[2022-10-05] MEDS: Topiramate 25 MG TABLET 50 MG PO ×2 (09:29→20:21)
[2022-10-05] MEDS: Cholecalciferol (Vitamin D3) 25 MCG TABLET 250 MCG PO (09:29)
--- NOTE | 2022-10-05 10:40 | PC.NURSE ---
educated pt regarding prep for the OR, informed pt she will need to have the hospital obinna on with hospital socks on and be naked underneath. also t/w explained to pt that she will need to remove all her jewelry. pt stated The OR is familiar with me and always let me keep my underwear on. I also cannot remove my nose ring or my rings on my fingers and they have never had a problem with that . re-educated pt regarding the importance of OR prep - pt insisted that the OR is familiar with her and always lets her do this.
--- NOTE | 2022-10-05 10:42 | PC.NURSE ---
pt requesting stop to IV fluids. tiger connect sent to dr reza who OKed stop of IVF LR running at 80ml/hr.
--- NOTE | 2022-10-05 10:43 | PC.NURSE ---
pt up to bathroom, reported she thinks her urine was a little pink and a little discolored . pt reported she attempted to get this rn but the toilet is on an automatic flusher and flushed too soon. plan to give pt a hat for next time she needs to get to the bathroom for t/w to inspect.
--- NOTE | 2022-10-05 12:03 | MHC.SHP ---
Pre-Procedural Eval Section A Date of Service: 10/05/22 The patient is an INPATIENT: Yes The History & Physical has been completed within 30 days and I have reviewed it.: Yes Section B Chief Complaint: GI Bleed Allergies: Allergies Allergy/AdvReac Type Severity Reaction Status Date / Time bee pollen [BEE STINGS] Allergy Severe ANAPHYLAXIS Verified 10/04/22 11:45 clavulanic acid Allergy Severe GI DISTRESS Verified 10/04/22 11:45 [CLAVULANIC ACID] latex [LATEX] Allergy Severe ANAPHYLAXIS Verified 10/04/22 11:45 pork derived (porcine) Allergy Severe d/t Verified 10/04/22 11:45 [PORK DERIVED (PORCINE)] MASTOCYTOSIS soy Allergy Severe Anaphylaxis Verified 10/04/22 22:47 carrageenan [CARRAGEENAN] Allergy Unknown UNKNOWN Verified 10/04/22 11:45 egg [EGG] Allergy Unknown DUE TO Verified 10/04/22 11:45 MASTOCYTOSIS Plan Diagnosis/Plan: Unchanged I have reviewed the history and physical and performed a pertinent physical examination on my patient. No changes have occurred unless specified. EGD Time Spent With Patient Time: Total time managing care of this patient today ____ minutes.
--- NOTE | 2022-10-05 12:04 | W.PM.OPN ---
Operative Note Operative Note Date of Service: 10/05/22 Narrative: Procedure Description: EGD Indication: anemia Anesthesia: MAC FLEXIBLE TRANSORAL UPPER GASTROINTESTINAL ENDOSCOPY UPPER ENDOSCOPY Consent: Indications for the procedure and potential complications of bleeding, perforation, reaction to medications and missed diagnosis were discussed with the patient and informed consent was obtained. Instrument: Olympus GIF H 190 J mid size upper endoscope Monitoring: Vital signs and clinical assessment, continuous EKG monitoring, Pulse oximetry, Carbon Dioxide monitoring and blood pressure monitoring were done throughout the procedure. Procedure: The patient was placed in the left lateral decubitis position and pre-procedure medications were administered and a bite block was placed. The endoscope was inserted into the mouth and advanced under direct vision to the third part of duodenum. A careful inspection was made as the upper endoscope was withdrawn including a retroflexed examination of the proximal stomach; Findings and interventions are described below. Findings: Larynx:normal Esophagus: GE junction at 32? cm, diaphragm hiatus at 35 cm, consistent with 3 cm hiatal hernia (fixed). Proximal esophageal inlet patch 1 cm. Stomach pouch: Measured 9 cm. Normal mucosa with post surgical changes. hiatal hernia on retroflexed examination of the cardia. Jejunum: anastomotic ulcer at rosanne charles (emiliano grade III) measured about 12- mm in length. This was not bleeding, but due to her recurrent anemia this was clipped with a ovesco clip and an ultra resolution clip as well Intervention: OTC Impression/Findings: hiatal hernia anastomotic ulcer -actually seems improved compared to before but still present esophageal inlet patch PLAN: high dose PPI, e.g omerpazoel capsule 40 mg bid, open capsule and mix with apple sauce carafate 1 g, liquid QID avoid smoking and nsaids colonoscopy for completion can be done as o/p if the patient prefers will discuss with her or as in patient tomorrow (last colonoscopy 2019)
--- NOTE | 2022-10-05 12:05 | P.CONAN_ITS ---
HPI - Anesthesia Eval Consult details Narrative: 41 F for EGD PMF Active Problems Active Problems: All Active Problems (Updated 10/05/22 @ 00:28 by Jayjay Uribe MD) Severe anemia (Acute) Iron deficiency anemia (Acute) Tachycardia (Acute) Erosive esophagitis (Acute) Constipation by delayed colonic transit (Acute) Body mass index (BMI) of 25.0 to 25.9 in adult (Acute) Hypoglycemia (Acute) Overweight (Acute) BMI 26.0-26.9,adult (Acute) BMI 27.0-27.9,adult (Acute) Marginal ulcer (Acute) Hypoglycemia after GI (gastrointestinal) surgery (Acute) Intestinal malabsorption (Acute) Past Medical History Medical History ADHD Depression Dysplastic nevus Erosive esophagitis History of rhabdomyolysis History of traumatic brain injury Hyperlipidemia Hypoglycemia after GI (gastrointestinal) surgery Hypothyroidism Intestinal malabsorption Jejunitis Mastocytosis Family History Family History Mother Obesity DM (diabetes mellitus) Arthritis Father Obesity HIV (human immunodeficiency virus infection) Hepatitis B Hepatitis C Brother No problems noted. Family history of problems with anesthesia: Yes (Paternal grandmother malignant hyperthermia ) Surgical History Surgical History H/O colonoscopy H/O gastric bypass H/O hernia repair H/O: hysterectomy History of appendectomy History of esophagogastroduodenoscopy (EGD) History of laparoscopy History of sleeve gastrectomy History of Problems with Anesthesia: No (Has had propofol several times. No problems) Social History Social History Household Members: Spouse and Children Housing: House Do you presently have visiting nurse or other home services: No Alcohol intake: never Patient Tobacco Use Status: Current someday Tobacco user Tobacco use type: Cigarette Cigarettes Per Day: 2 e-Cigarette/Vaping Use: Never Used service: No Current occupational status: employed Meds Allergies Allergy/AdvReac Type Severity Reaction Status Date / Time bee pollen [BEE STINGS] Allergy Severe ANAPHYLAXIS Verified 10/04/22 11:45 clavulanic acid Allergy Severe GI DISTRESS Verified 10/04/22 11:45 [CLAVULANIC ACID] latex [LATEX] Allergy Severe ANAPHYLAXIS Verified 10/04/22 11:45 pork derived (porcine) Allergy Severe d/t Verified 10/04/22 11:45 [PORK DERIVED (PORCINE)] MASTOCYTOSIS soy Allergy Severe Anaphylaxis Verified 10/04/22 22:47 carrageenan [CARRAGEENAN] Allergy Unknown UNKNOWN Verified 10/04/22 11:45 egg [EGG] Allergy Unknown DUE TO Verified 10/04/22 11:45 MASTOCYTOSIS Active Medications: Current Medications Acetaminophen (Acetaminophen 325 Mg Tablet) 975 mg PO TID PRN PRN Reason: Pain Lactated Ringer's (Lr) 1,000 mls @ 80 mls/hr IVCONT .[id number] [facility] Last Admin: 10/05/22 11:21 Dose: Not Given Pantoprazole Sodium (Pantoprazole Sodium 40 Mg/10 Ml Vial) 40 mg IVPUSH BID@0630,1630 [facility] Last Admin: 10/05/22 06:19 Dose: 40 mg Pharmacy Consult (Consult Rx Perform Med Rec) 1 each MISCELLANE ONCE PRN PRN Reason: Consult order Sodium Chloride (0.9 % Sodium Chloride Flush 3 Ml Syringe) 3 ml IVFLUSH QSHIFT [facility] Last Admin: 10/05/22 07:53 Dose: Not Given Sucralfate (Sucralfate Oral Suspension 1 Gm/10 Ml Oral.Susp) 1 gm PO QID [facility] Last Admin: 10/05/22 09:29 Dose: 1 gm Topiramate (Topiramate 25 Mg Tablet) 50 mg PO BID [facility] Last Admin: 10/05/22 09:29 Dose: 50 mg Vitamin D (Cholecalciferol (Vitamin D3) 25 Mcg Tablet) 250 mcg PO DAILY [facility] Last Admin: 10/05/22 09:29 Dose: 250 mcg Home Medications Medication Instructions Recorded Confirmed Last Taken Type clonidine HCl 0.1 mg tablet 1 tab PO TID PRN Anxiety 06/23/22 10/04/22 10/03/22 History acetaminophen 500 mg tablet 1,000 mg PO TID PRN Pain 07/05/22 10/04/22 10/03/22 History (Tylenol Extra Strength) cholecalciferol (vitamin D3) 250 250 mcg PO DAILY 07/05/22 10/04/22 10/03/22 History mcg (10,000 unit) capsule epinephrine 0.3 mg/0.3 mL 0.3 mg IM Q4H PRN Anaphylaxis 07/05/22 10/04/22 10/03/22 History injection, auto-injector hyoscyamine sulfate 0.125 mg tablet 0.25 mg PO TID-QID PRN Spasms 07/05/22 10/04/22 10/03/22 History loratadine 10 mg tablet 10 mg PO DAILY 07/05/22 10/04/22 10/03/22 History omega-3 fatty acids 500 mg capsule 500 mg PO BID 07/05/22 10/04/22 10/03/22 History simethicone 40 mg chewable tablet 20 mg PO QID 07/05/22 10/04/22 10/03/22 History aluminum-mag hydroxide-simethicone 20 ml PO QID 10/04/22 10/04/22 10/03/22 History 200 mg-200 mg-20 mg/5 mL oral susp dextroamphetamine-amphetamine 10 1 tab PO DAILY PRN ATTENTION 10/04/22 10/04/22 10/03/22 History mg tablet lidocaine HCl 2 % mucosal solution 15 ml PO QID 10/04/22 10/04/22 10/03/22 History (Lidocaine Viscous) sucralfate 100 mg/mL oral 10 ml PO QID 10/04/22 10/04/22 10/03/22 History suspension (Carafate) topiramate 50 mg tablet 50 mg PO BID 10/04/22 10/04/22 10/03/22 History Exam Exam Date and Time: October 05, 2022 1205 Height,Weight and Vital Signs: Height 5 ft 3 in Weight 65 kg Last Vital Signs Temp 98 F 10/05/22 11:10 Pulse 60 10/05/22 11:10 Resp 19 10/05/22 11:10 BP 96/53 L 10/05/22 11:10 Pulse Ox 97 10/05/22 11:10 O2 Del Method 10/05/22 11:10 Pertinent Lab Results Pertinent Lab Results: Laboratory Tests 10/04/22 10/04/22 10/04/22 13:07 13:07 19:00 WBC 9.7 RBC 3.22 L Hgb 7.5 L D Hct 24.3 L D MCV 75.5 L MCH 23.3 L MCHC 30.9 L RDW 16.0 Plt Count 360 MPV 8.9 L Immature Gran % (Auto) 0.3 Neut % (Auto) 62.6 Lymph % (Auto) 31.0 Labette % (Auto) 5.2 Eos % (Auto) 0.5 Baso % (Auto) 0.4 Lymph # (Auto) 3.0 Labette # (Auto) 0.5 Eos # (Auto) 0.1 Baso # (Auto) 0.0 Abs Immat Gran (auto) 0.03 Absolute Neuts (auto) 6.1 Absolute Nucleated RBC 0.000 Nucleated RBC % (auto) 0.0 Sodium 138 Potassium 4.5 D Chloride 110 H Carbon Dioxide 23 Anion Gap 10 L BUN 15 Creatinine 0.77 Estim Creat Clear Calc 86.3 Estimated GFR > 60 POC Glucose 100 Random Glucose 141 H Fasting Glucose Calcium 8.9 D Magnesium Iron 10 L TIBC 302 % Saturation 3 L Unsat Iron Binding 292 Total Bilirubin 0.2 AST 14 ALT 12 Alkaline Phosphatase 58 Total Protein 6.0 L Albumin 3.9 Urine Color Urine Appearance Urine pH Ur Specific Scott Urine Protein Urine Glucose (UA) Urine Ketones Urine Blood Urine Nitrite Ur Leukocyte Esterase Urine Test COVID-19 (ANNA) COVID-[employer] Blood Type Antibody Screen Crossmatch 10/04/22 10/04/22 10/04/22 20:42 20:42 20:42 WBC RBC Hgb Hct MCV MCH MCHC RDW Plt Count MPV Immature Gran % (Auto) Neut % (Auto) Lymph % (Auto) [place] % (Auto) Eos % (Auto) Baso % (Auto) Lymph # (Auto) [place] # (Auto) Eos # (Auto) Baso # (Auto) Abs Immat Gran (auto) Absolute Neuts (auto) Absolute Nucleated RBC Nucleated RBC % (auto) Sodium Potassium Chloride Carbon Dioxide Anion Gap BUN Creatinine Estim Creat Clear Calc Estimated GFR POC Glucose Random Glucose Fasting Glucose Calcium Magnesium Iron TIBC % Saturation Unsat Iron Binding Total Bilirubin AST ALT Alkaline Phosphatase Total Protein Albumin Urine Color Yellow Urine Appearance Clear Urine pH 5.5 Ur Specific Scott 1.025 Urine Protein Negative Urine Glucose (UA) 250 H Urine Ketones Trace Urine Blood Negative Urine Nitrite Negative Ur Leukocyte Esterase Negative Urine Test NEGATIVE COVID-19 (ANNA) COVID-[employer] Blood Type A Negative Antibody Screen NEGATIVE Crossmatch See Detail 10/04/22 10/05/22 10/05/22 21:33 05:33 05:33 WBC 14.4 H RBC 3.35 L Hgb 8.5 L Hct 26.3 L MCV 78.5 L MCH 25.4 L MCHC 32.3 RDW 18.4 H Plt Count 273 MPV 9.1 L Immature Gran % (Auto) Neut % (Auto) Lymph % (Auto) Labette % (Auto) Eos % (Auto) Baso % (Auto) Lymph # (Auto) Labette # (Auto) Eos # (Auto) Baso # (Auto) Abs Immat Gran (auto) Absolute Neuts (auto) Absolute Nucleated RBC 0.000 Nucleated RBC % (auto) 0.0 Sodium 137 Potassium 4.5 Chloride 110 H Carbon Dioxide 20 L Anion Gap 12 BUN 12 Creatinine 0.63 Estim Creat Clear Calc 105.4 Estimated GFR > 60 POC Glucose Random Glucose Fasting Glucose 160 H Calcium 8.3 L D Magnesium 1.8 Iron TIBC % Saturation Unsat Iron Binding Total Bilirubin AST ALT Alkaline Phosphatase Total Protein Albumin Urine Color Urine Appearance Urine pH Ur Specific Scott Urine Protein Urine Glucose (UA) Urine Ketones Urine Blood Urine Nitrite Ur Leukocyte Esterase Urine Test COVID-19 (ANNA) Negative COVID-19 Clin Com See Note Blood Type Antibody Screen Crossmatch Airway Mallampati Class: III TM Dist: >3cm Neck ROM: Full Loose/Missing/Broken Teeth: Yes (Chipped front teeth , crowns ) Heart: S1,S2 Lungs: b/l breath sounds Assessment and Plan Assessment Anesthesia Assessment: Anesthesia Plan Discussed and Chart Reviewed Final Anesthetic Review Family History of Problems with Anesthesia: Yes (Paternal grandmother malignant hyperthermia ) History of Problems with Anesthesia: No (Has had propofol several times. No problems) NPO: Yes ASA Class: III and Emergency Final Preanesthetic Review: Meds/Allgs Chart Reviewed, Consent Obtained/Reviewed and Anes Risks/Benef Reviewed Patient Risk: High Procedure Risk: Intermediate Anesthetic Plan Anesthetic Plan: MAC: Disposition: Standard PACU
--- NOTE | 2022-10-05 13:28 | MHC.CM.PN ---
met with pt in ed pt lives with is indepedetn is not expected to need servceis when dcd is covid vax x 5 has own ride home
--- NOTE | 2022-10-05 13:47 | PC.NURSE ---
patient transferred back to ed and report provided to Angelique CABRERA resting comfortably
[2022-10-05 14:54] LABS: Appearance Urine Clear; Color Urine Yellow; Glucose Urine UA Negative (Negative); Leukocyte Esterase Urine Negative (Negative); Nitrite Urine Negative (Negative); PH 7.5 (5.0-9.0); Specific Gravity - Urine <= 1.005 (1.005-1.025); Urine Blood Negative (Negative); Urine Ketones Negative (Negative); Urine Protein Negative (Neg-Trace)
[2022-10-05] MEDS: PEG 3350/Na Sulf,Bicarb,Cl/KCL 4,000 ML SOLN.RECON 4000 ML PO (15:50)
[2022-10-06] VITALS (9 sets, daily range): BP systolic 82–109; BP diastolic 43–62; PULSE 64–90; RESP 16–20; TEMP 36.4–36.9; O2SAT 97–100
[2022-10-06] MEDS: Pantoprazole Sodium 40 MG/10 ML VIAL IVPUSH ×2 (06:08→16:23)
[2022-10-06 06:17] LABS: Hematocrit 22.3 % (37.0-47.0); Hemoglobin 7.2 g/dl (12.0-16.0); Mean Corpuscular HGB Conc 32.3 g/dl (31.0-35.0); Mean Corpuscular Hemoglobin 25.2 pg (27.0-33.0); Mean Platelet Volume 9.1 fL (9.4-12.3); Platelet Count 231 X10*3/uL (160-400); Red Blood Count 2.86 X10*6/uL (4.20-5.50); Red Cell Distribution Width 17.6 % (11.0-16.0); White Blood Count 7.8 X10*3/uL (4.8-10.8)
[2022-10-06 06:40] LABS: Anion Gap 10 (12-20); Blood Urea Nitrogen 8 mg/dL (9-16); Calcium 8.1 mg/dL (8.4-10.2); Carbon Dioxide 24 mmol/L (22-29); Chloride 112 mmol/L (96-108); Creatinine Clr Calc Pharmacy 93.6; Estimated Glomerular Filt Rate > 60; Glucose Fasting 85 mg/dL (60-99); Potassium 3.7 mmol/L (3.3-5.1); Sodium 142 mmol/L (135-145)
[2022-10-06] MEDS: 0.9 % Sodium Chloride Flush 3 ML SYRINGE IVFLUSH ×2 (08:09→16:23)
[2022-10-06] MEDS: Sucralfate Oral Suspension 1 GM/10 ML ORAL.SUSP PO ×3 (08:09→19:53)
[2022-10-06] MEDS: Topiramate 25 MG TABLET 50 MG PO ×2 (08:09→19:53)
[2022-10-06] MEDS: Cholecalciferol (Vitamin D3) 25 MCG TABLET 250 MCG PO (08:09)
--- NOTE | 2022-10-06 11:04 | HO.PM.IMPN ---
Subjective Subjective Date of Service: 10/06/22 Interval History: seen and examined this AM awaiting colonoscopy concerned about her drop in h/h Review of Systems negative except HPI Physical Exam Vital Signs: Vital Signs: Last Vital Signs Temp 98.0 F 10/06/22 07:31 Pulse 70 10/06/22 07:31 Resp 18 10/06/22 07:31 BP 92/52 L 10/06/22 07:31 Pulse Ox 98 10/06/22 07:31 O2 Del Method 10/06/22 07:31 BMI result Body Mass Index 25.4 Const: Other: General - no acute distress, appears comfortable Cardiovascular - regular rate and rhythm, S1-S2 Lungs - normal respiratory effort, clear to auscultation bilaterally, no wheezing Abdomen - soft, nontender, no rebound or guarding Extremities - no edema bilaterally Neuro - awake and alert, no focal deficits Objective Data Active Medications Acetaminophen (Acetaminophen 325 Mg Tablet) 975 mg PO TID PRN PRN Reason: Pain Lactated Ringer's (Lr) 1,000 mls @ 80 mls/hr IVCONT [id number] Last Admin: 10/05/22 23:30 Dose: Not Given Documented By: AARON Non-Admin Reason: Patient Refused Ondansetron HCl (Ondansetron Hcl 4 Mg/2 Ml Vial) 4 mg IVPUSH ONCE PRN PRN Reason: Nausea and Vomiting Pantoprazole Sodium (Pantoprazole Sodium 40 Mg/10 Ml Vial) 40 mg IVPUSH BID@0630,1630 [facility] Last Admin: 10/06/22 06:08 Dose: 40 mg Documented By: AARON Pharmacy Consult (Consult Rx Perform Med Rec) 1 each MISCELLANE ONCE PRN PRN Reason: Consult order Sodium Chloride (0.9 % Sodium Chloride Flush 3 Ml Syringe) 3 ml IVFLUSH QSHIFT [facility] Last Admin: 10/06/22 08:09 Dose: 3 ml Documented By: ALVA Sucralfate (Sucralfate Oral Suspension 1 Gm/10 Ml Oral.Susp) 1 gm PO QID [facility] Last Admin: 10/06/22 08:09 Dose: 1 gm Documented By: ALVA Topiramate (Topiramate 25 Mg Tablet) 50 mg PO BID [facility] Last Admin: 10/06/22 08:09 Dose: 50 mg Documented By: ALVA Vitamin D (Cholecalciferol (Vitamin D3) 25 Mcg Tablet) 250 mcg PO DAILY [facility] Last Admin: 10/06/22 08:09 Dose: 250 mcg Documented By: ALVA Labs CBC & Chem 7: 10/06/22 05:47 10/06/22 05:47 Labs: Laboratory Results - last 24 hr 10/05/22 10/06/22 10/06/22 14:38 05:47 05:47 MCV 78.0 L MCH 25.2 L MCHC 32.3 RDW 17.6 H Plt Count 231 MPV 9.1 L Absolute Nucleated RBC 0.000 Nucleated RBC % (auto) 0.0 Anion Gap 10 L Estim Creat Clear Calc 93.6 Estimated GFR > 60 Fasting Glucose 85 Calcium 8.1 L Urine Color Yellow Urine Appearance Clear Urine pH 7.5 Ur Specific Nabb <= 1.005 Urine Protein Negative Urine Glucose (UA) Negative Urine Ketones Negative Urine Blood Negative Urine Nitrite Negative Ur Leukocyte Esterase Negative Assessment and Plan (1) Severe anemia: Status: Acute Plan 41F pmh ?sleeve gastrectomy with revision to gastric bypass 2018, mastocystotis, anastamosis site ulcer, erosive esophagitis, jejunitis, and hiatal hernia, ADHD, depression, distal malabsorption presented with symptomatic anemia acute on chronic blood loss anemia s/p prbcs with improvement in h/h initially, but now down to 7.5/22.3 - will repeat h/h at noon and transfuse if below 7 s/p EGD which showed improving anastomotic ulcer with no active bleeding continue PPI + carafate plan for colonscopy this afternoon dvt prophylaxis - mechancial due to gi bleed full code reason for continued hospitalization: continued work up for her anemia with plans for colonoscopy today Time Spent With Patient Time: Total time managing care of this patient today ____ minutes. Quality Stroke Does the patient have a stroke diagnosis?: No VTE Prior VTE?: No VTE Risk Level:: Medical - moderate - high VTE Device Contraindication: N/A - Device Ordered VTE Drug Contraindication: Treatment Not Tolerated
--- NOTE | 2022-10-06 11:05 | PC.NURSE ---
report received from overnight RN. project administrator per DEC, no c/o pain. Planned for procedure today, report given to RN at 0915, pt picked up by transport at 1035.
--- NOTE | 2022-10-06 11:40 | P.CONAN_ITS ---
[facility] Active Problems Active Problems: All Active Problems (Updated 10/05/22 @ 00:28 by Jayjay Uribe MD) Severe anemia (Acute) Iron deficiency anemia (Acute) Tachycardia (Acute) Erosive esophagitis (Acute) Constipation by delayed colonic transit (Acute) Body mass index (BMI) of 25.0 to 25.9 in adult (Acute) Hypoglycemia (Acute) Overweight (Acute) BMI 26.0-26.9,adult (Acute) BMI 27.0-27.9,adult (Acute) Marginal ulcer (Acute) Hypoglycemia after GI (gastrointestinal) surgery (Acute) Intestinal malabsorption (Acute) Past Medical History Medical History ADHD Depression Dysplastic nevus Erosive esophagitis History of rhabdomyolysis History of traumatic brain injury Hyperlipidemia Hypoglycemia after GI (gastrointestinal) surgery Hypothyroidism Intestinal malabsorption Jejunitis Mastocytosis Family History Family History Mother Obesity DM (diabetes mellitus) Arthritis Father Obesity HIV (human immunodeficiency virus infection) Hepatitis B Hepatitis C Brother No problems noted. Family history of problems with anesthesia: Yes (Paternal grandmother malignant hyperthermia ) Surgical History Surgical History H/O colonoscopy H/O gastric bypass H/O hernia repair H/O: hysterectomy History of appendectomy History of esophagogastroduodenoscopy (EGD) History of laparoscopy History of sleeve gastrectomy History of Problems with Anesthesia: No (Has had propofol several times. No problems) Social History Social History Household Members: Spouse and Children Housing: House Do you presently have visiting nurse or other home services: No Alcohol intake: never Patient Tobacco Use Status: Current someday Tobacco user Tobacco use type: Cigarette Cigarettes Per Day: 2 e-Cigarette/Vaping Use: Never Used service: No Current occupational status: employed Meds Allergies Allergy/AdvReac Type Severity Reaction Status Date / Time bee pollen [BEE STINGS] Allergy Severe ANAPHYLAXIS Verified 10/04/22 11:45 latex [LATEX] Allergy Severe ANAPHYLAXIS Verified 10/04/22 11:45 pork derived (porcine) Allergy Severe d/t Verified 10/04/22 11:45 [PORK DERIVED (PORCINE)] MASTOCYTOSIS soy Allergy Severe Anaphylaxis Verified 10/04/22 22:47 carrageenan [CARRAGEENAN] Allergy Unknown UNKNOWN Verified 10/04/22 11:45 egg [EGG] Allergy Unknown DUE TO Verified 10/04/22 11:45 MASTOCYTOSIS Active Medications: Current Medications Acetaminophen (Acetaminophen 325 Mg Tablet) 975 mg PO TID PRN PRN Reason: Pain Lactated Ringer's (Lr) 1,000 mls @ 80 mls/hr IVCONT .[id number] [facility] Last Admin: 10/05/22 23:30 Dose: Not Given Ondansetron HCl (Ondansetron Hcl 4 Mg/2 Ml Vial) 4 mg IVPUSH ONCE PRN PRN Reason: Nausea and Vomiting Pantoprazole Sodium (Pantoprazole Sodium 40 Mg/10 Ml Vial) 40 mg IVPUSH BID@0630,1630 [facility] Last Admin: 10/06/22 06:08 Dose: 40 mg Pharmacy Consult (Consult Rx Perform Med Rec) 1 each MISCELLANE ONCE PRN PRN Reason: Consult order Sodium Chloride (0.9 % Sodium Chloride Flush 3 Ml Syringe) 3 ml IVFLUSH QSHIFT [facility] Last Admin: 10/06/22 08:09 Dose: 3 ml Sucralfate (Sucralfate Oral Suspension 1 Gm/10 Ml Oral.Susp) 1 gm PO QID [facility] Last Admin: 10/06/22 08:09 Dose: 1 gm Topiramate (Topiramate 25 Mg Tablet) 50 mg PO BID [facility] Last Admin: 10/06/22 08:09 Dose: 50 mg Vitamin D (Cholecalciferol (Vitamin D3) 25 Mcg Tablet) 250 mcg PO DAILY [facility] Last Admin: 10/06/22 08:09 Dose: 250 mcg Home Medications Medication Instructions Recorded Confirmed Last Taken Type clonidine HCl 0.1 mg tablet 1 tab PO TID PRN Anxiety 06/23/22 10/04/22 10/03/22 History acetaminophen 500 mg tablet 1,000 mg PO TID PRN Pain 07/05/22 10/04/22 10/03/22 History (Tylenol Extra Strength) cholecalciferol (vitamin D3) 250 250 mcg PO DAILY 07/05/22 10/04/22 10/03/22 History mcg (10,000 unit) capsule epinephrine 0.3 mg/0.3 mL 0.3 mg IM Q4H PRN Anaphylaxis 07/05/22 10/04/22 10/03/22 History injection, auto-injector hyoscyamine sulfate 0.125 mg tablet 0.25 mg PO TID-QID PRN Spasms 07/05/22 10/04/22 10/03/22 History loratadine 10 mg tablet 10 mg PO DAILY 07/05/22 10/04/22 10/03/22 History omega-3 fatty acids 500 mg capsule 500 mg PO BID 07/05/22 10/04/22 10/03/22 History simethicone 40 mg chewable tablet 20 mg PO QID 07/05/22 10/04/22 10/03/22 History aluminum-mag hydroxide-simethicone 20 ml PO QID 10/04/22 10/04/22 10/03/22 History 200 mg-200 mg-20 mg/5 mL oral susp dextroamphetamine-amphetamine 10 1 tab PO DAILY PRN ATTENTION 10/04/22 10/04/22 10/03/22 History mg tablet lidocaine HCl 2 % mucosal solution 15 ml PO QID 10/04/22 10/04/22 10/03/22 History (Lidocaine Viscous) sucralfate 100 mg/mL oral 10 ml PO QID 10/04/22 10/04/22 10/03/22 History suspension (Carafate) topiramate 50 mg tablet 50 mg PO BID 10/04/22 10/04/22 10/03/22 History Exam Exam Date and Time: October 06, 2022 1140 Height,Weight and Vital Signs: Height 5 ft 3 in Weight 65 kg Last Vital Signs Temp 98.0 F 10/06/22 07:31 Pulse 70 10/06/22 07:31 Resp 18 10/06/22 07:31 BP 92/52 L 10/06/22 07:31 Pulse Ox 98 10/06/22 07:31 O2 Del Method 10/06/22 07:31 Pertinent Lab Results Pertinent Lab Results: Laboratory Tests 10/04/22 10/04/22 10/04/22 13:07 13:07 19:00 WBC 9.7 RBC 3.22 L Hgb 7.5 L D Hct 24.3 L D MCV 75.5 L MCH 23.3 L MCHC 30.9 L RDW 16.0 Plt Count 360 MPV 8.9 L Immature Gran % (Auto) 0.3 Neut % (Auto) 62.6 Lymph % (Auto) 31.0 [place] % (Auto) 5.2 Eos % (Auto) 0.5 Baso % (Auto) 0.4 Lymph # (Auto) 3.0 [place] # (Auto) 0.5 Eos # (Auto) 0.1 Baso # (Auto) 0.0 Abs Immat Gran (auto) 0.03 Absolute Neuts (auto) 6.1 Absolute Nucleated RBC 0.000 Nucleated RBC % (auto) 0.0 Sodium 138 Potassium 4.5 D Chloride 110 H Carbon Dioxide 23 Anion Gap 10 L BUN 15 Creatinine 0.77 Estim Creat Clear Calc 86.3 Estimated GFR > 60 POC Glucose 100 Random Glucose 141 H Fasting Glucose Calcium 8.9 D Magnesium Iron 10 L TIBC 302 % Saturation 3 L Unsat Iron Binding 292 Total Bilirubin 0.2 AST 14 ALT 12 Alkaline Phosphatase 58 Total Protein 6.0 L Albumin 3.9 Urine Color Urine Appearance Urine pH Ur Specific [place] Urine Protein Urine Glucose (UA) Urine Ketones Urine Blood Urine Nitrite Ur Leukocyte Esterase Urine Test COVID-19 (ANNA) COVID-[employer] Com Blood Type Antibody Screen Crossmatch 10/04/22 10/04/22 10/04/22 20:42 20:42 20:42 WBC RBC Hgb Hct MCV MCH MCHC RDW Plt Count MPV Immature Gran % (Auto) Neut % (Auto) Lymph % (Auto) [place] % (Auto) Eos % (Auto) Baso % (Auto) Lymph # (Auto) [place] # (Auto) Eos # (Auto) Baso # (Auto) Abs Immat Gran (auto) Absolute Neuts (auto) Absolute Nucleated RBC Nucleated RBC % (auto) Sodium Potassium Chloride Carbon Dioxide Anion Gap BUN Creatinine Estim Creat Clear Calc Estimated GFR POC Glucose Random Glucose Fasting Glucose Calcium Magnesium Iron TIBC % Saturation Unsat Iron Binding Total Bilirubin AST ALT Alkaline Phosphatase Total Protein Albumin Urine Color Yellow Urine Appearance Clear Urine pH 5.5 Ur Specific [place] 1.025 Urine Protein Negative Urine Glucose (UA) 250 H Urine Ketones Trace Urine Blood Negative Urine Nitrite Negative Ur Leukocyte Esterase Negative Urine Test NEGATIVE COVID-19 (ANNA) COVID-[employer]Nectar Blood Type A Negative Antibody Screen NEGATIVE Crossmatch See Detail 10/04/22 10/05/22 10/05/22 21:33 05:33 05:33 WBC 14.4 H RBC 3.35 L Hgb 8.5 L Hct 26.3 L MCV 78.5 L MCH 25.4 L MCHC 32.3 RDW 18.4 H Plt Count 273 MPV 9.1 L Immature Gran % (Auto) Neut % (Auto) Lymph % (Auto) [place] % (Auto) Eos % (Auto) Baso % (Auto) Lymph # (Auto) [place] # (Auto) Eos # (Auto) Baso # (Auto) Abs Immat Gran (auto) Absolute Neuts (auto) Absolute Nucleated RBC 0.000 Nucleated RBC % (auto) 0.0 Sodium 137 Potassium 4.5 Chloride 110 H Carbon Dioxide 20 L Anion Gap 12 BUN 12 Creatinine 0.63 Estim Creat Clear Calc 105.4 Estimated GFR > 60 POC Glucose Random Glucose Fasting Glucose 160 H Calcium 8.3 L D Magnesium 1.8 Iron TIBC % Saturation Unsat Iron Binding Total Bilirubin AST ALT Alkaline Phosphatase Total Protein Albumin Urine Color Urine Appearance Urine pH Ur Specific [place] Urine Protein Urine Glucose (UA) Urine Ketones Urine Blood Urine Nitrite Ur Leukocyte Esterase Urine Test COVID-19 (ANNA) Negative COVID-19 Clin Com See Note Blood Type Antibody Screen Crossmatch 10/05/22 10/06/22 10/06/22 14:38 05:47 05:47 WBC 7.8 RBC 2.86 L Hgb 7.2 L Hct 22.3 L MCV 78.0 L MCH 25.2 L MCHC 32.3 RDW 17.6 H Plt Count 231 MPV 9.1 L Immature Gran % (Auto) Neut % (Auto) Lymph % (Auto) [place] % (Auto) Eos % (Auto) Baso % (Auto) Lymph # (Auto) [place] # (Auto) Eos # (Auto) Baso # (Auto) Abs Immat Gran (auto) Absolute Neuts (auto) Absolute Nucleated RBC 0.000 Nucleated RBC % (auto) 0.0 Sodium 142 Potassium 3.7 Chloride 112 H Carbon Dioxide 24 Anion Gap 10 L BUN 8 L Creatinine 0.71 Estim Creat Clear Calc 93.6 Estimated GFR > 60 POC Glucose Random Glucose Fasting Glucose 85 Calcium 8.1 L Magnesium Iron TIBC % Saturation Unsat Iron Binding Total Bilirubin AST ALT Alkaline Phosphatase Total Protein Albumin Urine Color Yellow Urine Appearance Clear Urine pH 7.5 Ur Specific [place] <= 1.005 Urine Protein Negative Urine Glucose (UA) Negative Urine Ketones Negative Urine Blood Negative Urine Nitrite Negative Ur Leukocyte Esterase Negative Urine Test COVID-19 (ANNA) COVID-19 Clin Com Blood Type Antibody Screen Crossmatch Airway Mallampati Class: II Neck ROM: Full Heart: rrr Lungs: clear Assessment and Plan Final Anesthetic Review Family History of Problems with Anesthesia: Yes (Paternal grandmother malignant hyperthermia ) History of Problems with Anesthesia: No (Has had propofol several times. No problems) ASA Class: II and Emergency Final Preanesthetic Review: No Changes in Pt Med Stat, Meds/Allgs Chart Reviewed, Consent Obtained/Reviewed and Anes Risks/Benef Reviewed Patient Risk: Intermediate Procedure Risk: Low Anesthetic Plan Anesthetic Plan: MAC: Disposition: Standard PACU
--- NOTE | 2022-10-06 11:40 | MHC.SHP ---
Pre-Procedural Eval Section A Date of Service: 10/06/22 The patient is an INPATIENT: Yes The History & Physical has been completed within 30 days and I have reviewed it.: Yes Section B Chief Complaint: GI Bleed Allergies: Allergies Allergy/AdvReac Type Severity Reaction Status Date / Time bee pollen [BEE STINGS] Allergy Severe ANAPHYLAXIS Verified 10/04/22 11:45 latex [LATEX] Allergy Severe ANAPHYLAXIS Verified 10/04/22 11:45 pork derived (porcine) Allergy Severe d/t Verified 10/04/22 11:45 [PORK DERIVED (PORCINE)] MASTOCYTOSIS soy Allergy Severe Anaphylaxis Verified 10/04/22 22:47 carrageenan [CARRAGEENAN] Allergy Unknown UNKNOWN Verified 10/04/22 11:45 egg [EGG] Allergy Unknown DUE TO Verified 10/04/22 11:45 MASTOCYTOSIS Plan I have reviewed the history and physical and performed a pertinent physical examination on my patient. No changes have occurred unless specified. Repeat EGD due to recurrent anemia and colonoscopy Time Spent With Patient Time: Total time managing care of this patient today ____ minutes.
--- NOTE | 2022-10-06 12:04 | P.OP_ITS ---
Operative Note Operative Note Date of Service: 10/06/22 Narrative: Operative Information Procedure Description: EGD, Colonoscopy Indication: anemia--hx of gastric bypass Anesthesia: MAC FLEXIBLE TRANSORAL UPPER GASTROINTESTINAL ENDOSCOPY AND COLONOSCOPY PROCEDURE NOTE UPPER ENDOSCOPY Consent: Indications for the procedure and potential complications of bleeding, perforation, reaction to medications and missed diagnosis were discussed with the patient and informed consent was obtained. Instrument: Olympus GIF H 190 J mid size upper endoscope Monitoring: Vital signs and clinical assessment, continuous EKG monitoring, Pulse oximetry, Carbon Dioxide monitoring and blood pressure monitoring were done throughout the procedure. Procedure: The patient was placed in the left lateral decubitis position and pre-procedure medications were administered and a bite block was placed. The endoscope was inserted into the mouth and advanced under direct vision to the jejunum. A careful inspection was made as the upper endoscope was withdrawn including a retroflexed examination of the proximal stomach; Findings and interventions are described below. Findings: Larynx:normal Esophagus: GE junction at 32? cm, diaphragm hiatus at 35 cm, consistent with 3 cm hiatal hernia (fixed). Proximal esophageal inlet patch 1 cm. Stomach pouch: Measured 9 cm. Normal mucosa with post surgical changes. hiatal hernia on retroflexed examination of the cardia. Jejunum: anastomotic ulcer at rosanne limb (emiliano grade III) measured about 12- mm in length. The ovesco clip placed yesterday had slipped off, but the ulcer w as not actively bleeding, x 2 ultra clips and x 1 resolution clip was applied across the ulcer. No blood seen in pouch or jejunum. Intervention: clips applied COLONOSCOPY Instrument: Olympus variable stiffness pediatric scope 190L Colonoscopy Monitoring: Vital signs and clinical assessment, continuous EKG monitoring, Pulse oximetry, Carbon Dioxide monitoring and blood pressure monitoring were done throughout the procedure. Colon withdrawal time was 11 minutes. Procedure: The patient was placed in the left lateral decubitis position and pre-procedure medications were administered. After a digital rectal examination of the ano-rectum, the video colonoscope was inserted into the rectum and advanced through the colon to the cecum/TI. The colonoscope was slowly withdrawn in a retrograde panoramic fashion and the colon mucosa was carefully examined including a retroflexed view of the rectum. Findings and interventions are described below. Procedure Difficulty:easy Findings: Terminal Ileum-normal, no blood seen Cecum:normal, ovesco clip that had slipped from the ulcer noted in cecum and was retrieved with net and removed Ascending Colon: normal Transverse Colon -normal Descending Colon:normal Sigmoid Colon: normal Rectum: Retroflexion with moderate sized inflammed internal hemorrhoids, grade I Anorectum - normal Colon preparation: [place] Bowel Preparation Scale Right colon; 2 Transverse colon: 2 Left colon; 2 (0 = Unprepared colon segment with mucosa not seen due to solid stool that cannot be cleared. 1 = Portion of mucosa of the colon segment seen, but other areas of the colon segment not well seen due to staining, residual stool and/or opaque liquid. 2 = Minor amount of residual staining, small fragments of stool and/or opaque liquid, but mucosa of colon segment seen well. 3 = Entire mucosa of colon segment seen well with no residual staining, small fragments of stool or opaque liquid) Impression and Post Procedure Diagnosis: Endoscopy Findings: marginal ulcer hiatal hernia Colonoscopy Findings: internal hemorrhoids clip retrieval and removal Plan: No evidence of active bleeding recommend check hematinics and hemolysis labs she has not been taking iron supplements for some time so the anemia could be nutrition related as well, she would benefit from iron transfusion Above findings were reviewed with the patient and relevant handouts were provided if indicated.
[2022-10-06 14:58] LABS: Hematocrit 24.2 % (37.0-47.0); Hemoglobin 7.8 g/dl (12.0-16.0)
--- NOTE | 2022-10-06 15:21 | HO.POSTANES ---
Post Anesthesia Evaluation Post Anesthesia Evaluation Vital Signs: Vital Signs Temp Pulse Resp BP Pulse Ox O2 Del Method 10/06/22 13:59 71 20 99/59 L 100 Room Air 10/06/22 13:12 98.5 F 77 18 98/53 L 100 Room Air 10/06/22 12:56 98.2 F 87 20 108/62 100 Room Air 10/06/22 11:52 98 F 86 16 85/50 L 99 Room Air 10/06/22 07:31 98.0 F 70 18 92/52 L 98 Room Air 10/06/22 03:39 98.3 F 68 16 82/44 L 99 Room Air Anesthesia: Monitored Mental Status: Awake Pain Control: Satisfactory Nausea/Vomiting: None Hydration: Adequate Anesthesia-Related Issues: No Anes. Related Issues
[2022-10-06 15:38] LABS: Ferritin 166 ng/mL (10-250); Iron 37 mcg/dL (30-160); Lactate Dehydrogenase 174 U/L (122-220); Percent Iron Saturation 14 % (15-50); Total Iron Binding Capacity 263 mcg/dL (228-428); Unsaturated Iron Binding 226 ug/dL
[2022-10-06 15:50] LABS: Folate 17.9 ng/mL (> or = 4.0); Vitamin B12 579 pg/mL (200-900)
[2022-10-06] MEDS: Iron Sucrose Complex 200 MG in 0.9 % Sodium Chloride 100 ML 440 MG IV (18:01)
[2022-10-07] VITALS (15 sets, daily range): BP systolic 72–102; BP diastolic 48–59; PULSE 58–99; RESP 16–76; TEMP 36.4–37.2; O2SAT 98–100
[2022-10-07] MEDS: 0.9 % Sodium Chloride Flush 3 ML SYRINGE IVFLUSH ×3 (00:03→21:12)
[2022-10-07] MEDS: Lactated Ringers 1,000 ML 999 ML IV ×2 (01:09→08:03)
[2022-10-07 01:33] LABS: Lactic Acid 0.7 mmol/L (0.5-2.0)
[2022-10-07] MEDS: Pantoprazole Sodium 40 MG/10 ML VIAL IVPUSH (06:07)
--- NOTE | 2022-10-07 06:35 | PM.EVENT ---
Event Note Date of Service: 10/07/22 Event Note: pt slightly hypotensive. received 1 L of fluid with improvement. Pt lactic acid normal. no other abnormal vitals Time Spent With Patient Time: Total time managing care of this patient today ____ minutes.
--- NOTE | 2022-10-07 06:42 | PC.NURSE ---
PATIENT WILL LOW BP ON 0000 ROUNDS, 98.0-64-16-82/43, PT STATED FELT FINE OTHER THAN LITTLE WEAK AND TIRED. HOWEVER, NOTED PT HAD A BUSY DAY WITH PROCEDURES. HOSPITALIST ON DUTY ALERTED, 1 LIER IVF OF LR GIVEN, BP 84/58, 87/49 DUIRNG INFUSION. VITALS AFTERWARDS 98.0-67-18-92/51. MD UPDATED AND DID INCLUDE BP HISTORY DURING THIS STAY OF LOW VALUES. THIS AM PT AWAKE, VOIDED, NO STATED PAIN, WATCHING TV, AND DID ACCEPT AND DRINK PROVIDED BEVERAGES. WILL CONT TO MONITOR. NO FURTHER NEW ORDERS.
[2022-10-07] MEDS: Sucralfate Oral Suspension 1 GM/10 ML ORAL.SUSP PO ×4 (08:08→21:15)
[2022-10-07] MEDS: Cholecalciferol (Vitamin D3) 25 MCG TABLET 250 MCG PO (08:08)
[2022-10-07] MEDS: Topiramate 25 MG TABLET 50 MG PO ×2 (08:08→21:11)
[2022-10-07 11:29] LABS: Hematocrit 24.3 % (37.0-47.0); Hemoglobin 7.4 g/dl (12.0-16.0); Mean Corpuscular HGB Conc 30.5 g/dl (31.0-35.0); Mean Corpuscular Hemoglobin 24.4 pg (27.0-33.0); Mean Corpuscular Volume 80.2 fL (80.0-98.0); Mean Platelet Volume 9.4 fL (9.4-12.3); Platelet Count 278 X10*3/uL (160-400); Red Blood Count 3.03 X10*6/uL (4.20-5.50); Red Cell Distribution Width 18.2 % (11.0-16.0); White Blood Count 7.2 X10*3/uL (4.8-10.8)
--- NOTE | 2022-10-07 11:33 | HO.PM.IMPN ---
Subjective Subjective Date of Service: 10/07/22 Interval History: cc: weakness, anemia interval history: still weak Cardiovascular Cardiovascular: Reports no additional cardiovascular complaints Respiratory Respiratory: Reports no additional respiratory complaints Physical Exam Vital Signs: Vital Signs: Last Vital Signs Temp 98.4 F 10/07/22 11:00 Pulse 60 10/07/22 11:00 Resp 18 10/07/22 11:00 BP 86/52 L 10/07/22 11:00 Pulse Ox 100 10/07/22 11:00 O2 Del Method 10/07/22 11:00 BMI result Body Mass Index 25.4 General: AO X 3, pallor Resp: CTA bilateral, no accessory muscles used CVS: S1,S2,RRR GI: soft, non tender, non distended Neuro: motor grossly intact, alert Psych: appropriate affect, appropriate insight Objective Data Active Medications Acetaminophen (Acetaminophen 325 Mg Tablet) 975 mg PO TID PRN PRN Reason: Pain Ondansetron HCl (Ondansetron Hcl 4 Mg/2 Ml Vial) 4 mg IVPUSH ONCE PRN PRN Reason: Nausea and Vomiting Pantoprazole Sodium (Pantoprazole Sodium 40 Mg/10 Ml Vial) 40 mg IVPUSH BID@0630,4810 [facility] Last Admin: 10/07/22 06:07 Dose: 40 mg Documented By: GALINA Pharmacy Consult (Consult Rx Perform Med Rec) 1 each MISCELLANE ONCE PRN PRN Reason: Consult order Sodium Chloride (0.9 % Sodium Chloride Flush 3 Ml Syringe) 3 ml IVFLUSH QSHIFT [facility] Last Admin: 10/07/22 08:08 Dose: 3 ml Documented By: ALVA Sucralfate (Sucralfate Oral Suspension 1 Gm/10 Ml Oral.Susp) 1 gm PO QID [facility] Last Admin: 10/07/22 08:08 Dose: 1 gm Documented By: ALVA Topiramate (Topiramate 25 Mg Tablet) 50 mg PO BID [facility] Last Admin: 10/07/22 08:08 Dose: 50 mg Documented By: ALVA Vitamin D (Cholecalciferol (Vitamin D3) 25 Mcg Tablet) 250 mcg PO DAILY [facility] Last Admin: 10/07/22 08:08 Dose: 250 mcg Documented By: ALVA Labs CBC & Chem 7: 10/07/22 10:57 10/06/22 05:47 Labs: Laboratory Results - last 24 hr 10/04/22 10/06/22 10/06/22 20:42 14:02 14:02 MCV MCH MCHC RDW Plt Count MPV Absolute Nucleated RBC Nucleated RBC % (auto) Lactic Acid Iron 37 TIBC 263 % Saturation 14 L Unsat Iron Binding 226 Ferritin 166 Lactate Dehydrogenase 174 Vitamin B12 Folate HARRY, Polyspecific NEGATIVE Positive HARRY Work-up TNP Crossmatch See Detail 10/06/22 10/07/22 10/07/22 14:03 01:13 10:57 MCV 80.2 MCH 24.4 L MCHC 30.5 L RDW 18.2 H Plt Count 278 MPV 9.4 Absolute Nucleated RBC 0.000 Nucleated RBC % (auto) 0.0 Lactic Acid 0.7 Iron TIBC % Saturation Unsat Iron Binding Ferritin Lactate Dehydrogenase Vitamin B12 579 Folate 17.9 HARRY, Polyspecific Positive HARRY Work-up Crossmatch Assessment and Plan (1) Severe anemia: Status: Acute Plan 41F pmh ?sleeve gastrectomy with revision to gastric bypass 2018, mastocystotis, anastamosis site ulcer, erosive esophagitis, jejunitis, and hiatal hernia, ADHD, depression, distal malabsorption presented with symptomatic anemia acute on chronic blood loss anemia s/p EGD which showed improving chronic anastomotic ulcer with no active bleeding continue PPI + carafate colonoscopy unremarkable possible small bowel site vs malabsorption iron defeciency s/p 1 dose iv iron will transfuse another 2 units prbc as hgb still 7.4 and patient hypotensive and symptomatic monitor dvt prophylaxis - mechancial due to gi bleed full code reason for continued hospitalization: hypotension, anemia requiring tranfusion and close monitoring Time Spent With Patient Time: Total time managing care of this patient today ____ minutes. Quality Stroke Does the patient have a stroke diagnosis?: No VTE Prior VTE?: No VTE Risk Level:: Medical - moderate - high VTE Device Contraindication: N/A - Device Ordered VTE Drug Contraindication: Treatment Not Tolerated
[2022-10-07 11:47] LABS: Anion Gap 7 (12-20); Blood Urea Nitrogen 5 mg/dL (9-16); Calcium 8.4 mg/dL (8.4-10.2); Carbon Dioxide 23 mmol/L (22-29); Chloride 113 mmol/L (96-108); Creatinine Clr Calc Pharmacy 96.3; Estimated Glomerular Filt Rate > 60; Glucose Random 90 mg/dL (60-115); Potassium 4.1 mmol/L (3.3-5.1); Sodium 139 mmol/L (135-145)
--- NOTE | 2022-10-07 12:08 | PC.NURSE ---
Report received from overnight RN, per REGISTERED NURSE MIDWIFE round BP low - manual BP 72/50, HR 59. Pt reports feeling ok , denies dizziness/lightheadedness. MD Telles notified, verbal order for 1L of LR bolus at 999mL/hr. LR bolus administer along with morning medications per MAR. Pt c/o pain and discomfort in both IV sites - #20 in L forearm noted to be infiltrated. Both IVs removed, a new #20 IV was placed in the R forearm, blood return noted, flushing and patent. Call collins within reach, hourly rounding, encouraged to call for help.
--- NOTE | 2022-10-07 14:24 | HO.POSTANES ---
Post Anesthesia Evaluation Post Anesthesia Evaluation Vital Signs: Vital Signs Temp Pulse Resp BP Pulse Ox O2 Del Method 10/07/22 12:56 99.0 F 60 17 94/59 L 10/07/22 12:33 98.8 F 58 18 92/54 L 10/07/22 09:01 100 Room Air 10/07/22 11:00 98.4 F 60 18 86/52 L 100 Room Air 10/07/22 07:11 98.4 F 59 18 72/50 L 100 Room Air 10/07/22 03:42 60 10/07/22 03:17 98.0 F 67 16 92/51 L 98 Room Air Anesthesia: Monitored Mental Status: Awake Pain Control: Satisfactory Nausea/Vomiting: None Hydration: Adequate Anesthesia-Related Issues: No Anes. Related Issues
[2022-10-07] MEDS: Omeprazole 40 MG CAPSULE.DR PO (16:47)
--- NOTE | 2022-10-07 20:23 | P.PNGI_ITS ---
Subjective Subjective Date of Service: 10/07/22 Interval History: she has no complaints she has labile BP no melena and no rectal bleeding no abominal pain appetite is fair Critical Care Time (minutes): 0 Physical Exam Vital Signs: Vital Signs: Last Vital Signs Temp 98 F 10/07/22 19:30 Pulse 63 10/07/22 19:30 Resp 76 H 10/07/22 19:30 BP 90/55 L 10/07/22 19:30 Pulse Ox 99 10/07/22 19:30 O2 Del Method 10/07/22 19:30 BMI result Body Mass Index 25.4 EXAM: GENERAL: The patient is relaxed VITAL SIGNS:see workflow HEENT: Nonicteric sclerae, PERRLA, EOMI. Oropharynx clear. Moist mucous memb ranes. Conjunctivae pale. No thyroid mass. CHEST: Chest wall is nontender. HEART: Regular rate and rhythm without murmurs. LUNGS: Clear to auscultation bilaterally. ABDOMEN: Soft, positive bowel sounds, nontender, no organomegaly.no flank tenderness SKIN: No rash, no excessive bruising, petechiae, or purpura. NEUROLOGIC: Cranial nerves II-XII intact without motor/sensory deficit. psych- slightly low affect Objective Data Labs CBC & Chem 7: 10/07/22 10:57 10/07/22 10:57 Labs: Laboratory Results - last 24 hr 10/04/22 10/07/22 10/07/22 20:42 01:13 10:57 WBC 7.2 RBC 3.03 L Hgb 7.4 L Hct 24.3 L MCV 80.2 MCH 24.4 L MCHC 30.5 L RDW 18.2 H Plt Count 278 MPV 9.4 Absolute Nucleated RBC 0.000 Nucleated RBC % (auto) 0.0 Sodium Potassium Chloride Carbon Dioxide Anion Gap BUN Creatinine Estim Creat Clear Calc Estimated GFR Random Glucose Lactic Acid 0.7 Calcium Blood Type A Negative Antibody Screen NEGATIVE Crossmatch See Detail 10/07/22 10:57 WBC RBC Hgb Hct MCV MCH MCHC RDW Plt Count MPV Absolute Nucleated RBC Nucleated RBC % (auto) Sodium 139 Potassium 4.1 Chloride 113 H Carbon Dioxide 23 Anion Gap 7 L BUN 5 L Creatinine 0.69 Estim Creat Clear Calc 96.3 Estimated GFR > 60 Random Glucose 90 Lactic Acid Calcium 8.4 Blood Type Antibody Screen Crossmatch Procedures Date of Service Date of Service: 10/07/22 Progress Note: A&P Assessment and plan (1) Severe anemia: Status: Acute (2) Marginal ulcer: Status: Acute Plan 1/ Anemia from combination of marginal ulcer and prob diet with low iron intake (not taking iron due to constipation) 2/ smoking which maybe worsening the ulcer and impeding healing PLAN: 1/ NRT and smoking cessation 2/ consider cosyntropin stim test d ue to labile BP 3/ if stable then o/p capsule and recheck labs in4 weeks, she might need o/p iron Time Spent With Patient Time: Total time managing care of this patient today ____ minutes. Quality Stroke Does the patient have a stroke diagnosis?: No VTE Prior VTE?: No VTE Risk Level:: Medical - moderate - high VTE Device Contraindication: N/A - Device Ordered VTE Drug Contraindication: Treatment Not Tolerated
[2022-10-07] MEDS: diphenhydrAMINE HCL 50 MG/ML VIAL 25 MG IVPUSH (21:12)
[2022-10-08 04:00] VITALS: BP 87/54; PULSE 66; RESP 16; TEMP 37.1; O2SAT 98
[2022-10-08] MEDS: Omeprazole 40 MG CAPSULE.DR PO (06:10)
[2022-10-08 06:20] VITALS: BP 90/56; PULSE 65
[2022-10-08 06:58] LABS: Hematocrit 30.2 % (37.0-47.0); Hemoglobin 9.6 g/dl (12.0-16.0); Mean Corpuscular HGB Conc 31.8 g/dl (31.0-35.0); Mean Corpuscular Hemoglobin 26.2 pg (27.0-33.0); Mean Corpuscular Volume 82.3 fL (80.0-98.0); Mean Platelet Volume 9.2 fL (9.4-12.3); Platelet Count 230 X10*3/uL (160-400); Red Blood Count 3.67 X10*6/uL (4.20-5.50); Red Cell Distribution Width 19.8 % (11.0-16.0); White Blood Count 8.5 X10*3/uL (4.8-10.8)
[2022-10-08 07:11] LABS: Anion Gap 9 (12-20); Blood Urea Nitrogen 9 mg/dL (9-16); Calcium 8.2 mg/dL (8.4-10.2); Carbon Dioxide 24 mmol/L (22-29); Chloride 110 mmol/L (96-108); Creatinine Clr Calc Pharmacy 88.6; Estimated Glomerular Filt Rate > 60; Glucose Fasting 96 mg/dL (60-99); Potassium 3.9 mmol/L (3.3-5.1); Sodium 139 mmol/L (135-145)
[2022-10-08 07:25] VITALS: BP 93/59; PULSE 76; RESP 18; TEMP 37.2; O2SAT 98
[2022-10-08] MEDS: Topiramate 25 MG TABLET 50 MG PO (09:13)
[2022-10-08] MEDS: Acetaminophen 325 MG TABLET 975 MG PO (09:13)
[2022-10-08] MEDS: Cholecalciferol (Vitamin D3) 25 MCG TABLET 250 MCG PO (09:14)
[2022-10-08] MEDS: Sucralfate Oral Suspension 1 GM/10 ML ORAL.SUSP PO (09:14)
[2022-10-08] MEDS: 0.9 % Sodium Chloride Flush 3 ML SYRINGE IVFLUSH (09:14)
[2022-10-08 11:02] LABS: Cortisol Random 6.8 ug/dL
[2022-10-08 11:16] VITALS: BP 115/73; PULSE 76; RESP 20; TEMP 36.6; O2SAT 100
[2022-10-08 12:01] LABS: Influenza A PCR NEGATIVE (Negative); Influenza B PCR NEGATIVE (Negative); Resp Syncy Virus RNA Qual PCR NEGATIVE (Negative); SARS COV2 PCR INHOUSE NEGATIVE (Negative)
--- NOTE | 2022-10-08 12:26 | MHC.CM.PN ---
Per MD rounds dc today home self care. Patient has arranged for transport home.
--- NOTE | 2022-10-08 12:35 | PM.DS ---
DS: Providers Provider Date of Service: 10/08/22 Date of admission: 10/04/22 22:48 Primary care physician: Rivera Juarez DO Consults: 10/04/22 22:44 Consult to Gastroenterology Routine Consulting Provider: Ld Harper Reason for consultation: anemia, recent anastomtic ulcer bleed DS: Diagnosis Discharge Diagnosis (1) Severe anemia: Status: Acute (2) Marginal ulcer: Status: Acute DS: Summary Hospital Course Hospital Course: from initial hpi: Chief Complaint: weakness 41F pmh ?sleeve gastrectomy with revision to gastric bypass 2018, mastocystotis, anastamosis site ulcer, erosive esophagitis, jejunitis, and hiatal hernia, ADHD, adrenal insufficiency, depression, HLD, hypothyroidism, distal malabsorption, presented with symptomatic anemia. patient was admitted to [facility] in june 2022 for anastmosis site ulcer and gi bleed. was discharged on carafate and high dose PPI, hgb was 9.9 on 07/06/22. was following up with GI as outpatient, noted to be pale and weak appearing, patient reports feeling more fatigued and having palpitations with tachycardia, though she had attributed to lack of sleep and stress. noted to have hgb of 7.5. patient denies active gross bleeding.? hospital course: Patient was admitted for acute on chronic iron deficiency anemia with concern for acute on chronic blood loss. She underwent EGD which showed improving chronic anastomosis site ulcer with no active bleeding. Recommendations were to continue PPI and Carafate. Colonoscopy was unremarkable. Differential includes possible small-bowel source versus malabsorption iron deficiency. Patient received 1 dose of IV iron. She had multiple transfusions and hemoglobin is 9.6 at discharge. Patient will follow up with GI as outpatient. Time Spent with Patient Time attestation: Total time managing care of this patient today ____ minutes. Discharge coordination time: Greater than 30 minutes Quality: Safe Use of Opioids Does Pt have an Active Cancer Diagnosis on the Problem List?: No Quality: Stroke Does the patient have a stroke diagnosis?: No Physical Exam Vital Signs: Vital Signs: Last Vital Signs Temp 97.8 F 10/08/22 11:16 Pulse 76 10/08/22 11:16 Resp 20 10/08/22 11:16 BP 115/73 10/08/22 11:16 Pulse Ox 100 10/08/22 11:16 O2 Del Method 10/08/22 11:16 BMI result Body Mass Index 25.4 General: AO X 3, no acute distress Resp: CTA bilateral, no accessory muscles used CVS: S1,S2,RRR GI: soft, non tender, non distended Neuro: motor grossly intact, alert Psych: appropriate affect, appropriate insight DS: Data Data Completed and Pending Completed studies during hospitalization [Text1]: Procedures Excision of Jejunum, Via Natural or Artificial Opening Endoscopic, Diagnostic (06/23/22) Excision of Stomach, Pylorus, Via Natural or Artificial Opening Endoscopic, Diagnostic (06/23/22) Labs on day of discharge: Laboratory Results - last 24 hr 10/04/22 10/08/22 10/08/22 20:42 06:24 06:24 WBC 8.5 RBC 3.67 L D Hgb 9.6 L D Hct 30.2 L D MCV 82.3 MCH 26.2 L MCHC 31.8 RDW 19.8 H Plt Count 230 MPV 9.2 L Absolute Nucleated RBC 0.000 Nucleated RBC % (auto) 0.0 Sodium 139 Potassium 3.9 Chloride 110 H Carbon Dioxide 24 Anion Gap 9 L BUN 9 D Creatinine 0.75 Estim Creat Clear Calc 88.6 Estimated GFR > 60 Fasting Glucose 96 Calcium 8.2 L Random Cortisol Influenza Type A (PCR) Influenza Type B (PCR) RSV RNA Qual (PCR) SARS-CoV-2 RNA (RT-PCR) Blood Type A Negative Antibody Screen NEGATIVE Crossmatch See Detail 10/08/22 10/08/22 06:24 11:02 WBC RBC Hgb Hct MCV MCH MCHC RDW Plt Count MPV Absolute Nucleated RBC Nucleated RBC % (auto) Sodium Potassium Chloride Carbon Dioxide Anion Gap BUN Creatinine Estim Creat Clear Calc Estimated GFR Fasting Glucose Calcium Random Cortisol 6.8 Influenza Type A (PCR) NEGATIVE Influenza Type B (PCR) NEGATIVE RSV RNA Qual (PCR) NEGATIVE SARS-CoV-2 RNA (RT-PCR) NEGATIVE Blood Type Antibody Screen Crossmatch Discharge Plan Discharge Anticipated Discharge Date/Time: 10/08/22 12:33 Patient Disposition: Home, Self-Care Discharge Diagnosis: iron defeciency anemia Referrals: Rivera Juarez DO [Primary Care Provider] - 1 Week Discharge Medications: Continued dextroamphetamine-amphetamine 10 mg tablet 1 tab PO DAILY PRN (Reason: ATTENTION) lidocaine HCl [Lidocaine Viscous] 2 % solution 15 ml PO QID alum-mag hydroxide-simeth 200-200-20 mg/5 mL Suspension 20 ml PO QID Rx Instructions: administer between meals and at bedtime sucralfate [Carafate] 100 mg/mL suspension 10 ml PO QID simethicone 40 mg tablet,chewable 20 mg PO QID loratadine 10 mg tablet 10 mg PO DAILY omega-3 fatty acids 500 mg capsule 500 mg PO BID cholecalciferol (vitamin D3) 250 mcg (10,000 unit) capsule 250 mcg PO DAILY acetaminophen [Tylenol Extra Strength] 500 mg tablet 1,000 mg PO TID PRN (Reason: Pain) hyoscyamine sulfate 0.125 mg tablet 0.25 mg PO TID-QID PRN (Reason: Spasms) epinephrine 0.3 mg/0.3 mL auto-injector 0.3 mg IM Q4H PRN (Reason: Anaphylaxis) famotidine 40 mg tablet 40 mg PO BEDTIME Qty: 30 3RF topiramate 50 mg tablet 50 mg PO BID esomeprazole magnesium 40 mg capsule,delayed release(DR/EC) 40 mg PO BID Qty: 120 2RF Discontinued clonidine HCl 0.1 mg tablet 1 tab PO TID PRN (Reason: Anxiety) Discharge Orders: Discharge Order (Routine); Ordered 10/08/22 Ordered By: Thierry Park Diet: Advance to usual diet Activity on Discharge: As tolerated Stand Alone Forms: Patient Portal Discharge page Care Plan Goals: recovery Health Concerns: iron defeciency anemia Plan of Treatment: follow up gi Assessment: see above
[2022-10-08 13:08] LABS: Haptoglobin 142 mg/dL (43-212)
== END 2022-10-08 13:25 | disposition home or self-care (01) | DRG 252 ==
LOC: HO.ED 20:29 → HO.EDOVER 23:01 → HO.IMC 10-05 13:47
PROVIDERS: Family Medicine; Internal Medicine; Internal Medicine Gastroenterology; Nurse Practitioner Family; Admitting Provider Internal Medicine; Emergency Provider Internal Medicine; PCP Student in an Organized Health Care Education/Training Program; Visit Provider Internal Medicine
PROC: 0DJ08ZZ Inspection of Upper Intestinal Tract, Via Natural or Artificial Opening Endoscopic (ICD-10-PCS; CPT 43235; principal; 2022-10-05 15:10)
PROC: 0DCH8ZZ Extirpation of Matter from Cecum, Via Natural or Artificial Opening Endoscopic (ICD-10-PCS; principal; 2022-10-06 14:50)
DX: K95.89 Other complications of other bariatric procedure (principal); I95.9 Hypotension, unspecified; K91.2 Postsurgical malabsorption, not elsewhere classified; D62 Acute posthemorrhagic anemia; Y84.8 Other medical procedures as the cause of abnormal reaction of the patient, or of later complication, without mention of misadventure at the time of the procedure; F90.9 Attention-deficit hyperactivity disorder, unspecified type; E03.9 Hypothyroidism, unspecified; K28.7 Chronic gastrojejunal ulcer without hemorrhage or perforation; K64.8 Other hemorrhoids; E78.5 Hyperlipidemia, unspecified; Z87.820 Personal history of traumatic brain injury; F17.210 Nicotine dependence, cigarettes, uncomplicated; Z71.6 Tobacco abuse counseling; Z20.822 Contact with and (suspected) exposure to COVID-19; Z91.040 Latex allergy status; Z79.899 Other long term (current) drug therapy
CPT/HCPCS: 0241U; 36415; 36430; 80048; 80053; 81003; 81025; 82533; 82607; 82728; 82746; 82947; 83010; 83540; 83605; 83615; 83735; 85014; 85018; 85025; 85027; 86850; 86880; 86900; 86901; 86923; 87635; 96361; 96374; 96375; 99285; J1200; J1756; J2930; P9016

== ENCOUNTER 2022-11-09 14:47 | Outpatient (REF) | payer OTHER, SELFPAY ==
[2022-11-09 15:32] LABS: Hematocrit 28.4 % (37.0-47.0); Hemoglobin 9.1 g/dl (12.0-16.0); Mean Corpuscular Hemoglobin 27.6 pg (27.0-33.0); Mean Corpuscular Volume 86.1 fL (80.0-98.0); Mean Platelet Volume 9.5 fL (9.4-12.3); Platelet Count 334 X10*3/uL (160-400); Red Cell Distribution Width 20.6 % (11.0-16.0); White Blood Count 8.1 X10*3/uL (4.8-10.8)
[2022-11-09 16:25] LABS: Iron 10 mcg/dL (30-160); Percent Iron Saturation 4 % (15-50); Total Iron Binding Capacity 280 mcg/dL (228-428); Unsaturated Iron Binding 270 ug/dL
[2022-11-09 16:41] LABS: Ferritin 8 ng/mL (10-250)
== END 2022-11-09 14:48 | disposition home or self-care (01) ==
LOC: HO.LAB 14:47
PROVIDERS: PCP Student in an Organized Health Care Education/Training Program; Visit Provider Internal Medicine
DX: D50.9 Iron deficiency anemia, unspecified (principal)
CPT/HCPCS: 36415; 82728; 83540; 85027

== ENCOUNTER 2022-12-09 14:33 | Outpatient (REF) | payer OTHER, SELFPAY | END 2022-12-09 14:34 | disposition home or self-care (01) | LOC: HO.MDS 14:33 | PROVIDERS: Visit Provider Internal Medicine Gastroenterology | DX: D50.9 Iron deficiency anemia, unspecified (principal) | CPT/HCPCS: 96365; J1756 ==

== ENCOUNTER 2022-12-23 08:22 | Outpatient (REF) | payer OTHER, SELFPAY | END 2022-12-23 08:23 | disposition home or self-care (01) | LOC: HO.MDS 08:22 | PROVIDERS: Visit Provider Internal Medicine Gastroenterology | DX: D50.9 Iron deficiency anemia, unspecified (principal) | CPT/HCPCS: 96365; J1756 ==

== ENCOUNTER → 2023-01-03 09:22 | Outpatient (BNVA) | payer OTHER, SELFPAY | PROVIDERS: PCP Student in an Organized Health Care Education/Training Program; Visit Provider Internal Medicine Gastroenterology | DX: Z13.89 Encounter for screening for other disorder (principal) ==

== ENCOUNTER → 2023-04-21 14:25 | Outpatient (BNVA) | payer OTHER, SELFPAY | PROVIDERS: PCP Student in an Organized Health Care Education/Training Program; Visit Provider Physician Assistant Surgical ==

== ENCOUNTER 2023-04-27 15:14 | Outpatient (AMB) | payer OTHER, SELFPAY ==
--- NOTE | 2023-04-27 15:22 | MHC.AMNUTRGE ---
Intake Intake Visit Reasons: (OV) PO GBP 05/25/18 [employer]room[employer] Grader Required: No Allergies bee pollen [BEE STINGS] Allergy (Severe, Verified 04/21/23 14:39) ANAPHYLAXIS latex [LATEX] Allergy (Severe, Verified 04/21/23 14:39) ANAPHYLAXIS pork derived (porcine) [PORK DERIVED (PORCINE)] Allergy (Severe, Verified 04/21/23 14:39) d/t MASTOCYTOSIS soy Allergy (Severe, Verified 04/21/23 14:39) Anaphylaxis carrageenan [CARRAGEENAN] Allergy (Unknown, Verified 04/21/23 14:39) UNKNOWN egg [EGG] Allergy (Unknown, Verified 04/21/23 14:39) DUE TO MASTOCYTOSIS HPI Nutrition Presentation Details GBP 2018, Hx of ulcer and was following by Dr. Harper in GI. she reports she is symptom free. Pt has reactive Hypoglycemia - has CGM Mastocytosis Pt shares she wants to lose 20# Food allergies/aversions Yes Diet Assmnt Details I am a complicated case based on what I can and cannot eat . Between her mastocytosis and GBP related hypoglycemia, she feels that she has a lot of food restrictions. Can eat egg containing products but not the egg as is. chicken causes her vomiting and feeling sick. onions and garlic causes vomiting, flushing and some minor reactions. doesn't not tolerate whey protein or pea protein. cannot tolerate artificial sweeteners or stevia. She reports these food intolerances change overtime. can eat beef, pork, eats some seafood has an autistic child who is very picky about food. is keto. Is stressed about cooking many seperate meals for everyone Chronometer food tracking isidro - Now has the G7 which links with the food tracker. AM protein coffee with 2tbsp heavy cream, with vital proteins maritime - - 12g protein - collagen, not a complete protein. grazes during the day on whatever the kids eat Example: 12:45pm today, had 1 slice of cinnamon raisin toast, spiked blood glucose, then rapidly fell. Is experiencing true reactive hypoglycemia. Has dropped into the 30's middle of the night . Diagnosis Nutrition problem #1 altered nutrition labs As related to (etiology) #1 altered metabolism nutri As evidenced by (sign/symptom) #1 widely varied blood sugar Nutrition problem #2 food nutri know defi As related to (etiology) #2 lack of nutrit education As evidenced by (sign/symptom) #2 knowledge deficit of diet Monitoring/Goals Nutrition problem monitoring total energy intake, level of knowledge/skill, total PRO intake, total CHO intake and weight Outcome progress progressing Learning/Education Readiness to learn good Stages of change action Educational materials provided Yes Most Recent Diabetes Results: Cholesterol 237 mg/dL 04/29/23 HDL Cholesterol 50 mg/dL 04/29/23 Triglycerides 112 mg/dL 04/29/23 Creatinine 0.72 mg/dL (0.5-1.4) 04/29/23 Blood Urea Nitrogen 13 mg/dL (9-16) 04/29/23 Sodium 140 mmol/L (135-145) 04/29/23 Potassium 3.8 mmol/L (3.3-5.1) 04/29/23 Chloride 107 mmol/L (96-108) 04/29/23 Carbon Dioxide 26 mmol/L (22-29) 04/29/23 Calcium 9.4 mg/dL (8.4-10.2) 04/29/23 AST 17 U/L (5-31) 04/29/23 ALT 15 U/L (0-31) 04/29/23 Total Protein 6.7 g/dL (6.5-8.0) 04/29/23 Albumin 4.2 g/dL (3.5-5.0) 04/29/23 [facility] Medical History ADHD Depression Dysplastic nevus Erosive esophagitis History of rhabdomyolysis History of traumatic brain injury Hyperlipidemia Hypoglycemia after GI (gastrointestinal) surgery Hypothyroidism Intestinal malabsorption Jejunitis Mastocytosis Surgical History (Updated 04/21/23 @ 15:04 by RORY Jacobs) H/O colonoscopy H/O gastric bypass H/O hernia repair H/O: hysterectomy History of appendectomy History of esophagogastroduodenoscopy (EGD) History of laparoscopy History of sleeve gastrectomy History of surgery on wrist Hx of adenoidectomy Hx of dilation and curettage Hx of endoscopy Hx of tonsillectomy Family History Mother Obesity DM (diabetes mellitus) Arthritis Father Obesity HIV (human immunodeficiency virus infection) Hepatitis B Hepatitis C Brother No problems noted. Social History (Updated 04/21/23 @ 14:36 by JAYNE Oates) Household Members: Spouse and Children Housing: House Do you presently have visiting nurse or other home services: No Alcohol intake: never Patient Tobacco Use Status: Former Tobacco user Tobacco use type: Cigarette e-Cigarette/Vaping Use: Never Used service: No Current occupational status: employed Assessment & Plan Assessment & Plan (1) Hypoglycemia after GI (gastrointestinal) surgery: Code(s): K91.2 - Postsurgical malabsorption, not elsewhere classified Patient Instructions: Recommendation: structured meals with adequate protein and low carb For reactive hypoglycemia, we discussed limiting carbs to no more than 15 g per serving and having protein every 3-4 hours. If eating carbs, always pair with a protein or and limit portion. Goal should be 20-30 g of protein per serving. Can continue to use vitals collagen protein, but needs two shakes, and use 1% milk or 1% fairlife milk for more protein and carb. Plus 2 meals - each 3 oz of protein and 1-2 oz of vegetable. I provided pt with Iron supplements in soft chew form to trial. Coding Level of Care Code Nutr Indiv Subseq (27883) Diagnoses Hypoglycemia after GI (gastrointestinal) surgery K91.2 Time Spent (min) 45
== END 2023-04-27 16:36 | disposition home or self-care (01) ==
PROVIDERS: PCP Student in an Organized Health Care Education/Training Program; Visit Provider Dietitian, Registered
DX: K91.2 Postsurgical malabsorption, not elsewhere classified (principal)

== ENCOUNTER → 2023-04-27 15:14 | Outpatient (BNVA) | payer OTHER, SELFPAY | PROVIDERS: PCP Student in an Organized Health Care Education/Training Program; Visit Provider Dietitian, Registered | DX: K91.2 Postsurgical malabsorption, not elsewhere classified (principal); E16.2 Hypoglycemia, unspecified; Z71.3 Dietary counseling and surveillance; Z98.84 Bariatric surgery status | CPT/HCPCS: 97803 ==

== ENCOUNTER 2023-04-29 06:13 | Outpatient (REF) | payer OTHER, SELFPAY ==
[2023-04-29 06:29] LABS: MANUAL DIFF FLAG NO
[2023-04-29 07:23] LABS: Basophils Absolute Auto 0.1 X10*3/uL (0.0-0.2); Eosinophils Absolute Auto 0.2 X10*3/uL (0.0-0.4); Eosinophils Percent Auto 2.6 % (0-4); Hematocrit 35.5 % (37.0-47.0); Imm Gran Abs Auto 0.02 X10*3/uL (0.00-0.03); Imm Gran Pct Auto 0.3 % (0.0-0.4); Lymphocytes Absolute Auto 2.9 X10*3/uL (1.2-4.9); Mean Corpuscular Hemoglobin 23.6 pg (27.0-33.0); Mean Corpuscular Volume 76.2 fL (80.0-98.0); Mean Platelet Volume 9.1 fL (9.4-12.3); Monocytes Absolute Auto 0.6 X10*3/uL (0.1-1.2); Monocytes Percent Auto 7.8 % (2-11); Neutrophils Absolute Auto 3.6 x10*3/uL (2.0-8.3); Neutrophils Percent Auto 49.3 % (45-73); Platelet Count 357 X10*3/uL (160-400); Red Blood Count 4.66 X10*6/uL (4.20-5.50); Red Cell Distribution Width 19.8 % (11.0-16.0); White Blood Count 7.3 X10*3/uL (4.8-10.8)
[2023-04-29 08:10] LABS: Estimated Average Glucose 103 mg/dL; Hemoglobin A1c % 5.2 %
[2023-04-29 08:51] LABS: Alanine Aminotransferase 15 U/L (0-31); Albumin Level 4.2 g/dL (3.5-5.0); Alkaline Phosphatase 49 U/L (39-117); Anion Gap 11 (12-20); Aspartate Amino Transferase 17 U/L (5-31); Bilirubin Total 0.5 mg/dL (0.0-1.0); Blood Urea Nitrogen 13 mg/dL (9-16); C Reactive Protein 0.11 mg/dL (< or = 0.50); Calcium 9.4 mg/dL (8.4-10.2); Carbon Dioxide 26 mmol/L (22-29); Chloride 107 mmol/L (96-108); Cholesterol 237 mg/dL; Estimated Glomerular Filt Rate > 60; Glucose Random 82 mg/dL (60-115); HDL Cholesterol 50 mg/dL; Iron 39 mcg/dL (30-160); LDL Cholesterol Calculated 165 mg/dl; Percent Iron Saturation 13 % (15-50); Potassium 3.8 mmol/L (3.3-5.1); Sodium 140 mmol/L (135-145); Total Iron Binding Capacity 304 mcg/dL (228-428); Total Protein 6.7 g/dL (6.5-8.0); Triglycerides 112 mg/dL; Unsaturated Iron Binding 265 ug/dL
[2023-04-29 09:00] LABS: Ferritin 5 ng/mL (10-250); Insulin 7 uU/mL (2-29); TSH reflex Free T4 2.43 uIU/mL (0.32-4.0); Vitamin D 25-OH Total 64.7 ng/mL (>30)
[2023-04-29 09:18] LABS: Folate 15.8 ng/mL (> or = 4.0); Vitamin B12 692 pg/mL (200-900)
[2023-05-02 15:24] LABS: PTHI 63 pg/mL (16-77)
[2023-05-04 05:59] LABS: Zinc 75 mcg/dL (60-130)
[2023-05-04 15:48] LABS: Vitamin B1 16 nmol/L (8-30)
[2023-05-05 12:03] LABS: Vitamin A 41 mcg/dL (38-98)
== END 2023-04-29 06:14 | disposition home or self-care (01) ==
LOC: HO.LAB 06:13
PROVIDERS: PCP Student in an Organized Health Care Education/Training Program; Visit Provider Physician Assistant Surgical
DX: Z98.84 Bariatric surgery status (principal); K91.2 Postsurgical malabsorption, not elsewhere classified
CPT/HCPCS: 36415; 80053; 80061; 82306; 82607; 82728; 82746; 83036; 83525; 83540; 83970; 84425; 84443; 84590; 84630; 85025; 86140

== ENCOUNTER → 2023-05-11 10:13 | Outpatient (BNVA) | payer OTHER, SELFPAY | PROVIDERS: PCP Student in an Organized Health Care Education/Training Program; Visit Provider Dietitian, Registered | DX: E16.2 Hypoglycemia, unspecified (principal); D47.09 Other mast cell neoplasms of uncertain behavior; E78.5 Hyperlipidemia, unspecified; K22.10 Ulcer of esophagus without bleeding | CPT/HCPCS: 97803 ==

== ENCOUNTER 2023-06-09 14:09 | Outpatient (AMB) | payer OTHER, SELFPAY ==
--- NOTE | 2023-06-09 13:51 | MHC.AMNUTRGE ---
Intake VS Expanded 06/09/23 13:52 Height 5 ft 3 in Weight 150 lb BMI 26.6 Intake Visit Reasons: VIDEO PO GBP 05/25/18 Allergies bee pollen [BEE STINGS] Allergy (Severe, Verified 04/21/23 14:39) ANAPHYLAXIS latex [LATEX] Allergy (Severe, Verified 04/21/23 14:39) ANAPHYLAXIS pork derived (porcine) [PORK DERIVED (PORCINE)] Allergy (Severe, Verified 04/21/23 14:39) d/t MASTOCYTOSIS soy Allergy (Severe, Verified 04/21/23 14:39) Anaphylaxis carrageenan [CARRAGEENAN] Allergy (Unknown, Verified 04/21/23 14:39) UNKNOWN egg [EGG] Allergy (Unknown, Verified 04/21/23 14:39) DUE TO MASTOCYTOSIS HPI Nutrition Presentation Details GBP 2018, Hx of ulcer and was following by Dr. Harper in GI. she reports she is symptom free. Pt has reactive Hypoglycemia - has CGM Mastocytosis Pt shares she wants to lose 20# Food allergies/aversions Yes Diet Assmnt Details Dx of her mastocytosis and GBP related hypoglycemia, she feels that she has a lot of food restrictions. Can eat egg containing products but not the egg as is. chicken causes her vomiting and feeling sick. onions and garlic causes vomiting, flushing and some minor reactions. doesn't not tolerate whey protein or pea protein. cannot tolerate artificial sweeteners or stevia. She reports these food intolerances change overtime. can eat beef, pork, eats some seafood. Chronometer food tracking isidro - Now has the G7 which links with the food tracker. Has been tracking her food consistently at 1000 calories per day and 90-100g protein, gained 4# from this per pt 1/4c Cottage cheese coffee with 1/2c fairlife lunch another portion of cottage cheese or deli meat in a little jerky protein bar - Extend bars or Bulletproof bar and she just ordered built bars. (which actually contain a lot of the ingredients she reports she is allergic to) Main madyson in diet include fairlife milk, cottage cheese, pt states she is tired of sweet things but has a lot of intolerances to savory foods. Blood sugar low once, sensor did not read. the following blood sugars ranging: M 43-199 T 52- 132 W 39 - 132 TH 39 - 144 F 42 - 162 S 41-170 S 39 - 124 Bike, kayake, bike ride every weekend. Pt did complete labs - reviewed Diagnosis Nutrition problem #1 altered nutrition labs As related to (etiology) #1 altered metabolism nutri As evidenced by (sign/symptom) #1 widely varied blood sugar Nutrition problem #2 food nutri know defi As related to (etiology) #2 lack of nutrit education As evidenced by (sign/symptom) #2 knowledge deficit of diet Monitoring/Goals Nutrition problem monitoring total energy intake, level of knowledge/skill, total PRO intake, total CHO intake and weight Outcome progress progressing Learning/Education Readiness to learn good Stages of change action Educational materials provided Yes Most Recent Diabetes Results: Cholesterol 237 mg/dL 04/29/23 HDL Cholesterol 50 mg/dL 04/29/23 Triglycerides 112 mg/dL 04/29/23 Creatinine 0.72 mg/dL (0.5-1.4) 04/29/23 Blood Urea Nitrogen 13 mg/dL (9-16) 04/29/23 Sodium 140 mmol/L (135-145) 04/29/23 Potassium 3.8 mmol/L (3.3-5.1) 04/29/23 Chloride 107 mmol/L (96-108) 04/29/23 Carbon Dioxide 26 mmol/L (22-29) 04/29/23 Calcium 9.4 mg/dL (8.4-10.2) 04/29/23 AST 17 U/L (5-31) 04/29/23 ALT 15 U/L (0-31) 04/29/23 Total Protein 6.7 g/dL (6.5-8.0) 04/29/23 Albumin 4.2 g/dL (3.5-5.0) 04/29/23 [facility] Medical History ADHD Depression Dysplastic nevus Erosive esophagitis History of rhabdomyolysis History of traumatic brain injury Hyperlipidemia Hypoglycemia after GI (gastrointestinal) surgery Hypothyroidism Intestinal malabsorption Jejunitis Mastocytosis Surgical History (Updated 04/21/23 @ 15:04 by RORY Jacobs) H/O colonoscopy H/O gastric bypass H/O hernia repair H/O: hysterectomy History of appendectomy History of esophagogastroduodenoscopy (EGD) History of laparoscopy History of sleeve gastrectomy History of surgery on wrist Hx of adenoidectomy Hx of dilation and curettage Hx of endoscopy Hx of tonsillectomy Family History Mother Obesity DM (diabetes mellitus) Arthritis Father Obesity HIV (human immunodeficiency virus infection) Hepatitis B Hepatitis C Brother No problems noted. Social History (Updated 04/21/23 @ 14:36 by JAYNE Oates) Household Members: Spouse and Children Housing: House Do you presently have visiting nurse or other home services: No Alcohol intake: never Patient Tobacco Use Status: Former Tobacco user Tobacco use type: Cigarette e-Cigarette/Vaping Use: Never Used service: No Current occupational status: employed Assessment & Plan Assessment & Plan (1) Body mass index (BMI) of 25.0 to 25.9 in adult: Code(s): Z68.25 - Body mass index [BMI] 25.0-25.9, adult Patient Instructions: Not clear what her intolerances are. encouraged she continue to choose foods she is comfortable eating. continue to monitor blood glucose and continue structured meals high in protein and small amount of carb, fat. Increase exercise as tolerated. Mentioned research on cornstarch for hypoglycemia, will pull together research articles if able. pt willing to trial. Pt would like to f/u in a month Telehealth Telehealth Location of provider rendering services: practice address Location of patient: address on file Patient Identification confirmed using: Name, : Yes Telehealth method: video Patient verbally consented to treatment: Yes Patient verbally consented to billing insurance company: Yes Patient informed of any privacy concerns related to visit: Yes Minutes spent on Phone/Video with Pt.: 30 Coding Level of Care Code Nutr Indiv Subseq (70001) Diagnoses Body mass index (BMI) of 25.0 to 25.9 in adult Z68.25 Time Spent (min) 30
[2023-06-09 13:52] VITALS: BMI 26.6
== END 2023-06-09 14:18 | disposition home or self-care (01) ==
LOC: HO.HBS 14:09
PROVIDERS: PCP Student in an Organized Health Care Education/Training Program; Visit Provider Dietitian, Registered
DX: Z68.25 Body mass index [BMI] 25.0-25.9, adult (principal)

== ENCOUNTER → 2023-06-09 14:09 | Outpatient (BNVA) | payer OTHER, SELFPAY | PROVIDERS: PCP Student in an Organized Health Care Education/Training Program; Visit Provider Dietitian, Registered | DX: E16.2 Hypoglycemia, unspecified (principal); Z98.84 Bariatric surgery status; Z71.3 Dietary counseling and surveillance | CPT/HCPCS: 97803 ==

== ENCOUNTER 2023-07-12 12:50 | Outpatient (AMB) | payer OTHER, SELFPAY ==
--- NOTE | 2023-07-12 13:10 | A.OFFVIS_ITS ---
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 Harper in GI. she reports she is symptom free. Pt has reactive Hypoglycemia - has CGM Mastocytosis current weight 150# Pt shares she wants to lose 20# Food allergies/aversions Yes Diet Assmnt Details Dx of her mastocytosis and GBP related hypoglycemia, she feels that she has a lot of food restrictions. Can eat egg containing products but not the egg as is. chicken causes her vomiting and feeling sick. onions and garlic causes vomiting, flushing and some minor reactions. doesn't not tolerate whey protein or pea protein. cannot tolerate artificial sweeteners or stevia. She reports these food intolerances change overtime. can eat beef, pork, eats some seafood. Chronometer food tracking isidro - Now has the G7 which links with the food tracker. Struggling with insomnia, is managed by her mental health prescriber. 3:30am coffee with collagen (12g protein ) + 1/2c fairlife milk = 18g protein 4:30 same coffee again snacked on 10 animal crackers , also had 2 coffees 1:30 healthy choice zero frozen meal 3pm 2 tortillas and 3oz steak dinner 3 oz pork chops and 5oz carrots 9pm built bar Dietary counseling reduction Diagnosis Nutrition problem #1 altered nutrition labs As related to (etiology) #1 altered metabolism nutri As evidenced by (sign/symptom) #1 widely varied blood sugar Monitoring/Goals Nutrition problem monitoring total energy intake, level of knowledge/skill, total PRO intake, total CHO intake and weight Outcome progress not met Learning/Education Readiness to learn fair Stages of change action Educational materials provided Yes Most Recent Diabetes Results: Cholesterol 237 mg/dL 04/29/23 HDL Cholesterol 50 mg/dL 04/29/23 Triglycerides 112 mg/dL 04/29/23 Creatinine 0.72 mg/dL (0.5-1.4) 04/29/23 Blood Urea Nitrogen 13 mg/dL (9-16) 04/29/23 Sodium 140 mmol/L (135-145) 04/29/23 Potassium 3.8 mmol/L (3.3-5.1) 04/29/23 Chloride 107 mmol/L (96-108) 04/29/23 Carbon Dioxide 26 mmol/L (22-29) 04/29/23 Calcium 9.4 mg/dL (8.4-10.2) 04/29/23 AST 17 U/L (5-31) 04/29/23 ALT 15 U/L (0-31) 04/29/23 Total Protein 6.7 g/dL (6.5-8.0) 04/29/23 Albumin 4.2 g/dL (3.5-5.0) 04/29/23 [facility] Medical History Jejunitis Erosive esophagitis History of rhabdomyolysis Hypoglycemia after GI (gastrointestinal) surgery Intestinal malabsorption History of traumatic brain injury Hypothyroidism Depression Dysplastic nevus Hyperlipidemia Mastocytosis ADHD Surgical History (Updated 04/21/23 @ 15:04 by RORY Jacobs) Hx of endoscopy Hx of dilation and curettage History of surgery on wrist Hx of adenoidectomy Hx of tonsillectomy History of esophagogastroduodenoscopy (EGD) H/O colonoscopy History of laparoscopy History of sleeve gastrectomy H/O gastric bypass H/O hernia repair History of appendectomy H/O: hysterectomy Family History Mother Obesity DM (diabetes mellitus) Arthritis Father Obesity HIV (human immunodeficiency virus infection) Hepatitis B Hepatitis C Brother No problems noted. Social History (Updated 04/21/23 @ 14:36 by JAYNE Oates) Household Members: Spouse and Children Housing: House Do you presently have visiting nurse or other home services: No Alcohol intake: never Patient Tobacco Use Status: Former Tobacco user Tobacco use type: Cigarette e-Cigarette/Vaping Use: Never Used service: No Current occupational status: employed Assessment & Plan Assessment & Plan (1) BMI 26.0-26.9,adult: Code(s): Z68.26 - Body mass index [BMI] 26.0-26.9, adult Patient Instructions: Encouraged trying to maintain structure, eating every 3-4 hours and shortening eating window. She was agreeable to the following: black coffee in the morning after waking up 9am coffee with collagen and 1/2c fairlife milk = 18g protein 12pm 3oz protein, 2-3oz veg or yogurt, cottage cheese, etc 3pm another collagen + fairlife 6pm dinner 3oz protein and 2-3oz veg f/u wtih me in 1-2 months as requested by pt Coding Level of Care Code Nutr Indiv Subseq (57170) Diagnoses BMI 26.0-26.9,adult Z68.26 Time Spent (min) 40
[2023-07-12 13:18] VITALS: BMI 26.6
== END 2023-07-12 15:24 | disposition home or self-care (01) ==
PROVIDERS: PCP Student in an Organized Health Care Education/Training Program; Visit Provider Dietitian, Registered
DX: Z68.26 Body mass index [BMI] 26.0-26.9, adult (principal)

== ENCOUNTER → 2023-07-12 12:50 | Outpatient (BNVA) | payer OTHER, SELFPAY | PROVIDERS: PCP Student in an Organized Health Care Education/Training Program; Visit Provider Dietitian, Registered | DX: Z98.84 Bariatric surgery status (principal); Z71.3 Dietary counseling and surveillance | CPT/HCPCS: 97803 ==

== ENCOUNTER → 2023-08-23 13:13 | Outpatient (BNVA) | payer OTHER, SELFPAY | PROVIDERS: PCP Student in an Organized Health Care Education/Training Program; Visit Provider Dietitian, Registered | DX: K90.49 Malabsorption due to intolerance, not elsewhere classified (principal); E16.1 Other hypoglycemia; D47.09 Other mast cell neoplasms of uncertain behavior; Z90.3 Acquired absence of stomach [part of]; Z98.84 Bariatric surgery status | CPT/HCPCS: 97803 ==

== ENCOUNTER 2024-05-08 08:31 | Outpatient (AMB) | payer OTHER, SELFPAY ==
--- NOTE | 2024-05-08 08:38 | MHC.PC.OV ---
Vital Signs 05/08/24 08:42 Height 5 ft 3 in Weight 153 lb BMI 27.1 BP 100/62 Blood Pressure Location Rt brachial Position Sitting Respiration 12 Pulse 83 Pulse Source Pulse Oximeter Pulse Oximetry (%) 99 Oxygen Delivery Method Room Air Intake Visit Reasons: New patient exam Intake Note: Patient is here to establish care with [facility]. Patient expresses a complex medical history. [employer] Required: No Accompanied by: Self / Same As Patient Allergies bee pollen [BEE STINGS] Allergy (Severe, Verified 05/08/24 08:50) ANAPHYLAXIS latex [LATEX] Allergy (Severe, Verified 05/08/24 08:50) ANAPHYLAXIS pork derived (porcine) [PORK DERIVED (PORCINE)] Allergy (Severe, Verified 05/08/24 08:50) d/t MASTOCYTOSIS soy Allergy (Severe, Verified 05/08/24 08:50) Anaphylaxis carrageenan [CARRAGEENAN] Allergy (Unknown, Verified 05/08/24 08:50) UNKNOWN egg [EGG] Allergy (Unknown, Verified 05/08/24 08:50) DUE TO MASTOCYTOSIS Tobacco use date assessed: 05/08/24 Dental Screening Dental Screen Date: 05/08/24 Did you have a dental visit in the last 12 months?: Yes Did you have a dental problem in the last 6 months where you did not have access to dental care?: No Was dental information given to patient?: Patient has dentist HPI HPI Comments History of Present Illness Details 43-year-old female with a past medical history of systemic mastocytosis, sleeve gastrectomy, tubular adenoma, polyarthralgia, polymalgia, osteopenia presenting to establish care. Iliana ALMEIDA Patient says she is fairly stable. A&I: systemic mastocytosis. Managed by GI. Endocrine: hypoglycemia following sleeve gastrectomy. Saw endocrineDr Polk. Osteopenia. MSK: History of polyarthraliga, polymyalgia. Saw Dr Asia ALMEIDA in past. No signs of inflammatory condition GI: History of tubular adenoma. Has seen GI at [facility]. she was admitted with anemia 10/07 and had EGD and colonoscopy with no active bleeding but note made of hemorrhoids and Dallas III marginal ulcer. 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 Mela Moreland PAC. On berberine. Plans to go to [facility] for Frieda procedure-tightening of pouch. Followed by feeder catcher-Enrrique Fan. [facility] [place]. MRI and mammo annually. MRI usually Oct, 2 mammos per year at moment based on last imaging. Not on estrogen. ROS CONSTITUTIONAL: Denies weight loss, fever and chills. HEENT: Denies changes in vision and hearing. RESPIRATORY: Denies SOB and cough. CV: Denies palpitations and CP GI: Denies abdominal pain, nausea, vomiting and diarrhea. : Denies dysuria and urinary frequency. MSK: Denies new myalgia and joint pain. SKIN: Denies rash and pruritus. NEUROLOGICAL: Denies headache PSYCHIATRIC: Denies recent changes in mood. PHYSICAL EXAM: GENERAL: Alert and oriented x 3. NAD EYES: EOMI. Anicteric. HENT: Moist mucous membranes. No scleral icterus. No cervical lymphadenopathy. LUNGS: Clear to auscultation bilaterally. CARDIOVASCULAR: Regular rate and rhythm. No murmur. No JVD. ABDOMEN: Soft, non-tender +bs EXTREMITIES: No edema. Non-tender. SKIN: No rashes or lesions. Warm. NEUROLOGIC: No focal neurological deficits. CN II-XII grossly intact PSYCHIATRIC: Cooperative. Appropriate mood and affect [facility] Medical History (Updated 05/13/24 @ 11:27 by Angelique Alston MD) Jejunitis Erosive esophagitis History of rhabdomyolysis Hypoglycemia after GI (gastrointestinal) surgery Intestinal malabsorption History of traumatic brain injury Hypothyroidism Depression Dysplastic nevus Hyperlipidemia Mastocytosis ADHD Surgical History Hx of endoscopy Hx of dilation and curettage History of surgery on wrist Hx of adenoidectomy Hx of tonsillectomy History of esophagogastroduodenoscopy (EGD) H/O colonoscopy History of laparoscopy History of sleeve gastrectomy H/O gastric bypass H/O hernia repair History of appendectomy H/O: hysterectomy Family History Mother Obesity DM (diabetes mellitus) Arthritis Father Obesity HIV (human immunodeficiency virus infection) Hepatitis B Hepatitis C Brother No problems noted. Social History Household Members: Spouse and Children Housing: House Do you presently have visiting nurse or other home services: No Alcohol intake: never Patient Tobacco Use Status: Former Tobacco user Tobacco use type: Cigarette e-Cigarette/Vaping Use: Currently Using service: No Current occupational status: employed Current occupation: [employer] Cognitive needs: No Hearing needs: No Vision needs: Yes (wears glasses) Questionnaire PHQ-9 Over the last 2 weeks, how often have you been bothered by any of the following problems? 1. Little interest or pleasure in doing things: nearly every day 2. Feeling down, depressed, or hopeless: more than half the days 3. Trouble falling or staying asleep, or sleeping too much: nearly every day 4. Feeling tired or having little energy: nearly every day 5. Poor appetite or overeating: several days 6. Feeling bad about yourself - or that you are a failure or have let yourself or your family down: nearly every day 7. Trouble concentrating on things, such as reading the newspaper or watching television: nearly every day 8. Moving or speaking so slowly that other people could have noticed. Or the opposite - being so fidgety or restless that you have been moving around a lot more than usual: nearly every day 9. Thoughts that you would be better off or of hurting yourself in some way: not at all Total score: 21 Depression Screening Interpretation: Positive Depression Screening Follow-up: Existing condition Depression Screening Done: Yes 84712 - PHQ-9 Billing: Yes Source: Developed by Drs. Arthur Joaquin, Whitney Sarabia, Konrad Cat and colleagues, with an educational mary from [employer]. Thrive Questionnaire Date Thrive assessed: 05/08/24 I am a: Patient What is your living situation today?: I have a steady place to live Within the past 12 months, did the food you bought not last and you didn't have the money to get more?: Never true Within the past 12 months, did you worry whether your food would run out before you got money to buy more?: Never true Do you have trouble paying for medicines?: No Do you have trouble getting transportation to medical appointments?: No Do you have trouble paying your heating and electricity bill?: No Do you have trouble taking care of your child, family member or friend?: No Do you have trouble with day-to-day activities such as bathing, preparing meals, shopping, managing finances, etc.?: No Are you currently unemployed and looking for a job?: No Are you interested in more education?: No Please select the resources that you would like help with: None Currently or been in a relationship where the following occur: No concerns reported THRIVE Score: 0 AUDIT C Alcohol Use Questionnaire (AUDIT-C) 1. How often do you have a drink containing alcohol?: Monthly or less 2. How many drinks containing alcohol do you have on a typical day when you are drinking?: 1 or 2 3. How often do you have six or more drinks on one occasion?: Never Total Score: 1 YULIANA-7 AMB Questionnaire YULIANA-7 Date YULIANA - 7 assessed: 05/08/24 Feeling nervous, anxious, or on edge: 3 = Nearly every day Not being able to stop or control worryin = Nearly every day Worrying too much about different things: 3 = Nearly every day Trouble relaxin = Nearly every day Being so restless that it is hard to sit still: 3 = Nearly every day Becoming easily annoyed or irritable: 2 = More than half the days Feeling afraid as if something awful might happen: 2 = More than half the days Total YULIANA-7 score (0-4 normal; 5-9 mild; 10-14 moderate; 15-21 severe): 19 Source: Developed by Drs. Arthur Joaquin, Whitney Sarabia, Konrad Cat and colleagues, with an educational mary from [employer]. YULIANA-7 Assessment Billing YULIANA-7 Assessment Tool: YULIANA-7 Assessment 17038 Physical exam (Primary Care) Vital Signs: Last Vital Signs Pulse 83 05/08/24 08:42 Resp 12 05/08/24 08:42 BP 100/62 05/08/24 08:42 Pulse Ox 99 05/08/24 08:42 Oxygen Delivery Method Room Air 05/08/24 08:42 BMI result Body Mass Index 27.1 Tobacco/Smoking Status: Tobacco use Status Tobacco use date assessed 05/08/24 05/08/24 08:51 Patient Tobacco Use Status Former Tobacco user 05/08/24 08:40 Tobacco use type Cigarette 05/08/24 08:40 e-Cigarette/Vaping Use Currently Using 05/08/24 08:57 PHQ-9: PHQ-9 Score PHQ-9: Total score 21 05/13/24 11:28 Depression Screening Interpretation: Positive Depression Screening Follow-up: Existing condition Thrive Assessment: Date of Thrive Assessment Date Thrive assessed 05/08/24 05/08/24 11:59 Currently or been in a relationship where the following occur: No concerns reported Assessment and Plan Assessment & Plan (1) Encounter to establish care: Code(s): Z76.89 - Persons encountering health services in other specified circumstances Plan: 43 year old female with a complex medical history to [facility]. PMHx, surgical history, family and social history reviewed. Chart updated Referral to A&I for mast cell disorder (2) Mastocytosis: Code(s): D47.09 - Other mast cell neoplasms of uncertain behavior (3) Hypoglycemia after GI (gastrointestinal) surgery: Code(s): K91.2 - Postsurgical malabsorption, not elsewhere classified Orders: Referrals Allergy & Immunology Referral D47.09 - Other mast cell neoplasms of uncertain behavior, E16.2 - Hypoglycemia, unspecified, Z98.84 - Bariatric surgery status Medications: New blood-glucose sensor (Dexcom G6 Sensor device) As directed 9 ea 3RF E16.2 - Hypoglycemia, unspecified Refilled blood-glucose sensor (Dexcom G7 Sensor device) USE DIRECTED TO TEST BLOOD SUGARS CONTINUOUSLY AND CHANGE SENSOR EVERY 10 DAYS 9 ea 3RF Coding Level of Care Code New Pt Level 5 (85608) Diagnoses Encounter to establish care Z76.89 Mastocytosis D47.09 Hypoglycemia after GI (gastrointestinal) surgery K91.2 Additional Codes YULIANA-7 Assessment Billing - YULIANA-7 Assessment Tool: YULIANA-7 Assessment 36158 ([id number]) Time Spent (min) 62
[2024-05-08 08:42] VITALS: BP 100/62; PULSE 83; RESP 12; O2SAT 99; BMI 27.1
== END 2024-05-08 09:24 | disposition home or self-care (01) ==
PROVIDERS: PCP Internal Medicine; Visit Provider Internal Medicine
DX: D47.09 Other mast cell neoplasms of uncertain behavior (principal); K91.2 Postsurgical malabsorption, not elsewhere classified; Z76.89 Persons encountering health services in other specified circumstances
CPT/HCPCS: 99205

== ENCOUNTER 2024-05-22 09:24 | Outpatient (AMB) | payer OTHER, SELFPAY ==
--- NOTE | 2024-05-22 09:28 | A.OFFVIS_ITS ---
VS Expanded 05/22/24 09:37 BP 108/60 Blood Pressure Location Rt brachial Blood Pressure Position Sitting Pulse 78 Pulse Source Pulse Oximeter Temp 96.8 F Temperature Source Temporal Artery Scan Pulse Oximetry 78 L Oxygen Delivery Method Room Air Height 5 ft 3 in Weight 157 lb 12.8 oz BMI 27.9 Body Fat % 30.2 Body Fat Mass 47.6 Fat Free Mass 110.0 Visceral Fat Rating 6.0 Body Water % 49.8 Body Water Mass 78.4 Muscle Mass/Score 104.4 Basal Metabolic Rate/Score 1,481 Intake Visit Reasons: (OV) LRYGB 05/25/2018 Allergies bee pollen [BEE STINGS] Allergy (Severe, Verified 05/22/24 09:28) ANAPHYLAXIS latex [LATEX] Allergy (Severe, Verified 05/22/24 09:28) ANAPHYLAXIS pork derived (porcine) [PORK DERIVED (PORCINE)] Allergy (Severe, Verified 05/22/24 09:28) d/t MASTOCYTOSIS soy Allergy (Severe, Verified 05/22/24 09:28) Anaphylaxis carrageenan [CARRAGEENAN] Allergy (Unknown, Verified 05/22/24 09:28) UNKNOWN egg [EGG] Allergy (Unknown, Verified 05/22/24 09:28) DUE TO MASTOCYTOSIS Medication List - Last Reconciled 05/22/24 by RORY Jacobs acetaminophen (Tylenol Extra Strength) 1,000 mg PO TID PRN berberine chloride mg PO blood-glucose sensor (Dexcom G6 Sensor device) As directed blood-glucose sensor (Dexcom G7 Sensor device) USE DIRECTED TO TEST BLOOD SUGARS CONTINUOUSLY AND CHANGE SENSOR EVERY 10 DAYS cholecalciferol (vitamin D3) 125 mcg PO DAILY clonidine HCl 0.1 mg PO BID epinephrine 0.3 mg IM Q4H PRN esomeprazole magnesium 40 mg PO BID hyoscyamine sulfate 0.25 mg PO TID-QID PRN loratadine 10 mg PO DAILY [TAY WOMEN MVI PO] HPI Comments Details: This?is a?43?yo female who is s/p RYGB 05/25/2018. Presents for 6 year post op visit. Weight at last visit on 08/23/2023 was 150 pounds; weight today is 157.8 pounds, representing a 7.8 pound weight gain with a BMI today of 28.? Has an appt with a PA at [facility] for consult for TAHIR procedure, interested in discussing options for making pouch smaller. Now has Dr Membreno for a PCP, referred to immunology for mastocytosis. Is going through a separation with her . Blood sugars are okay as long as I don't do anything stupid. Ate a bag of Fritos last night and had a spike in BS which makes her symptomatic. Sleeps 4h/night. Present meal plan includes: 3:30am coffee with Kechava (12.5g protein) 4:30 same coffee again snacks throughout the day dinner 3 oz pork chops and 5oz carrots 9pm built bar still struggles to follow a timed meal plan due to chaotic schedule takes MVI Exercise routine includes: [facility] Medical History (Updated 05/13/24 @ 11:27 by Angelique Alston MD) Jejunitis Erosive esophagitis History of rhabdomyolysis Hypoglycemia after GI (gastrointestinal) surgery Intestinal malabsorption History of traumatic brain injury Hypothyroidism Depression Dysplastic nevus Hyperlipidemia Mastocytosis ADHD Surgical History Hx of endoscopy Hx of dilation and curettage History of surgery on wrist Hx of adenoidectomy Hx of tonsillectomy History of esophagogastroduodenoscopy (EGD) H/O colonoscopy History of laparoscopy History of sleeve gastrectomy H/O gastric bypass H/O hernia repair History of appendectomy H/O: hysterectomy Family History Mother Obesity DM (diabetes mellitus) Arthritis Father Obesity HIV (human immunodeficiency virus infection) Hepatitis B Hepatitis C Brother No problems noted. Social History Household Members: Spouse and Children Housing: House Do you presently have visiting nurse or other home services: No Alcohol intake: never Patient Tobacco Use Status: Former Tobacco user Tobacco use type: Cigarette e-Cigarette/Vaping Use: Currently Using service: No Current occupational status: employed Current occupation: [employer] Cognitive needs: No Hearing needs: No Vision needs: Yes (wears glasses) Physical Exam Vital Signs: Last Vital Signs Temp 96.8 F 05/22/24 09:37 Pulse 78 05/22/24 09:37 BP 108/60 05/22/24 09:37 Pulse Ox 78 L 05/22/24 09:37 Oxygen Delivery Method Room Air 05/22/24 09:37 BMI result Body Mass Index 27.9 Assessment & Plan Assessment & Plan (1) H/O gastric bypass: Code(s): Z98.84 - Bariatric surgery status Category: Surgical (2) Body mass index (BMI) of 25.0 to 25.9 in adult: Code(s): Z68.25 - Body mass index [BMI] 25.0-25.9, adult Category: Medical (3) Hypoglycemia after GI (gastrointestinal) surgery: Code(s): K91.2 - Postsurgical malabsorption, not elsewhere classified Category: Medical Plan Pt with inadequate meal plan currently, no exercise, frustrated with weight gain and lack of support. We reviewed Tanita, she actually has a healthy BF%. We will communicate weekly from now on with weight measurements sent every Tuesday. I encouraged pt to reach out with any concerns or if meal plan is not working well for her. 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 Discussed keeping meals to 6oz portion sizes after bypass. Meal plan Kechava shake x 2, 1 scoop each (12.5g each) can mix in coffee, water, or UAM 1 cottage cheese w/ veg 1 meal 6f/6f Labs ordered. RTC 6-8w. I spent a total of 30 minutes reviewing/updating records, examining the patient and counseling the patient on weight management as detailed above. Orders: Orders Insulin Today - Bariatric surgery status Complete Blood Count Auto Diff Today - Bariatric surgery status Lipid Panel Today - Bariatric surgery status IRON PROFILE Today - Bariatric surgery status Comprehensive Met. Panel Today - Bariatric surgery status Zinc Today - Bariatric surgery status C Reactive Protein Today - Bariatric surgery status Vitamin A Today - Bariatric surgery status TSH reflex Free T4 Today - Bariatric surgery status Hemoglobin A1c Today - Bariatric surgery status Vitamin B12 and Folate Today - Bariatric surgery status Vitamin B1 Today - Bariatric surgery status Ferritin Today - Bariatric surgery status Vitamin D 25-OH Total Today - Bariatric surgery status
[2024-05-22 09:37] VITALS: BP 108/60; PULSE 78; TEMP 36; O2SAT 78; BMI 27.9
== END 2024-05-22 10:18 | disposition home or self-care (01) ==
PROVIDERS: PCP Internal Medicine; Visit Provider Physician Assistant Surgical
DX: K91.2 Postsurgical malabsorption, not elsewhere classified (principal); Z68.27 Body mass index [BMI] 27.0-27.9, adult; Z98.84 Bariatric surgery status
CPT/HCPCS: 99214

== ENCOUNTER → 2024-05-22 09:24 | Outpatient (BNVA) | payer OTHER, SELFPAY | PROVIDERS: PCP Internal Medicine; Visit Provider Physician Assistant Surgical ==

== ENCOUNTER 2024-05-23 05:53 | Outpatient (REF) | payer OTHER, SELFPAY ==
[2024-05-23 06:22] LABS: MANUAL DIFF FLAG NO
[2024-05-23 07:12] LABS: Basophils Absolute Auto 0.1 X10*3/uL (0.0-0.2); Basophils Percent Auto 0.8 % (0-2); Eosinophils Absolute Auto 0.2 X10*3/uL (0.0-0.4); Eosinophils Percent Auto 3.3 % (0-4); Imm Gran Abs Auto 0.01 X10*3/uL (0.00-0.03); Imm Gran Pct Auto 0.2 % (0.0-0.4); Lymphocytes Absolute Auto 2.3 X10*3/uL (1.2-4.9); Lymphocytes Percent Auto 35.5 % (20-40); Mean Corpuscular HGB Conc 32.4 g/dl (31.0-35.0); Mean Corpuscular Hemoglobin 27.7 pg (27.0-33.0); Mean Corpuscular Volume 85.5 fL (80.0-98.0); Mean Platelet Volume 9.6 fL (9.4-12.3); Monocytes Absolute Auto 0.5 X10*3/uL (0.1-1.2); Monocytes Percent Auto 8.3 % (2-11); Neutrophils Absolute Auto 3.3 x10*3/uL (2.0-8.3); Neutrophils Percent Auto 51.9 % (45-73); Platelet Count 332 X10*3/uL (160-400); Red Blood Count 4.33 X10*6/uL (4.20-5.50); Red Cell Distribution Width 15.2 % (11.0-16.0); White Blood Count 6.4 X10*3/uL (4.8-10.8)
[2024-05-23 07:26] LABS: Estimated Average Glucose 105 mg/dL; Hemoglobin A1c % 5.3 % (<6.0)
[2024-05-23 07:46] LABS: Alanine Aminotransferase 14 U/L (0-31); Albumin Level 4.1 g/dL (3.5-5.0); Alkaline Phosphatase 48 U/L (39-117); Anion Gap 10 (12-20); Aspartate Amino Transferase 18 U/L (5-31); Bilirubin Total 0.3 mg/dL (0.0-1.0); Blood Urea Nitrogen 18 mg/dL (9-16); Carbon Dioxide 26 mmol/L (22-29); Chloride 110 mmol/L (96-108); Cholesterol 191 mg/dL (<200); Estimated Glomerular Filt Rate > 60; Glucose Random 96 mg/dL (60-115); HDL Cholesterol 54 mg/dL (>40); Iron 35 mcg/dL (30-160); LDL Cholesterol Calculated 127 mg/dL (<100); Percent Iron Saturation 13 % (15-50); Sodium 142 mmol/L (135-145); Total Iron Binding Capacity 280 mcg/dL (228-428); Total Protein 6.5 g/dL (6.5-8.0); Triglycerides 51 mg/dL (<150); Unsaturated Iron Binding 245 ug/dL
[2024-05-23 08:03] LABS: Ferritin 7 ng/mL (10-250); Insulin 5 uU/mL (2-29); TSH reflex Free T4 4.25 uIU/mL (0.32-4.0); Vitamin D 25-OH Total 71.4 ng/mL (>30)
[2024-05-23 08:14] LABS: Folate 11.9 ng/mL (> or = 4.0); Vitamin B12 1546 pg/mL (200-900)
[2024-05-23 08:59] LABS: Free T4 (Free Thyroxine) 0.89 ng/dL (0.71-1.85)
[2024-05-26 16:37] LABS: Zinc 77 mcg/dL (60-130)
[2024-05-26 20:37] LABS: Vitamin A 46 mcg/dL (38-98)
[2024-05-29 14:07] LABS: Vitamin B1 26 nmol/L (8-30)
== END 2024-05-23 05:54 | disposition home or self-care (01) ==
LOC: HO.LAB 05:53
PROVIDERS: PCP Internal Medicine; Visit Provider Physician Assistant Surgical
DX: Z98.84 Bariatric surgery status (principal); Z13.1 Encounter for screening for diabetes mellitus; Z13.89 Encounter for screening for other disorder
CPT/HCPCS: 36415; 80053; 80061; 82306; 82607; 82728; 82746; 83036; 83525; 83540; 84425; 84439; 84443; 84590; 84630; 85025; 86140

== ENCOUNTER 2024-07-16 12:43 | Outpatient (AMB) | payer OTHER, SELFPAY ==
--- NOTE | 2024-07-16 12:35 | A.OFFVIS_ITS ---
VS Expanded 07/16/24 12:41 Height 5 ft 3 in Weight 152 lb BMI 26.9 Intake Visit Reasons: (TV) LRYGB 05/25/2018 Allergies bee pollen [BEE STINGS] Allergy (Severe, Verified 05/22/24 09:28) ANAPHYLAXIS latex [LATEX] Allergy (Severe, Verified 05/22/24 09:28) ANAPHYLAXIS pork derived (porcine) [PORK DERIVED (PORCINE)] Allergy (Severe, Verified 05/22/24 09:28) d/t MASTOCYTOSIS soy Allergy (Severe, Verified 05/22/24 09:28) Anaphylaxis carrageenan [CARRAGEENAN] Allergy (Unknown, Verified 05/22/24 09:28) UNKNOWN egg [EGG] Allergy (Unknown, Verified 05/22/24 09:28) DUE TO MASTOCYTOSIS Medication List - Last Reconciled 07/16/24 by RORY Jacobs acetaminophen (Tylenol Extra Strength) 1,000 mg PO TID PRN berberine chloride mg PO blood-glucose sensor (Dexcom G6 Sensor device) As directed blood-glucose sensor (Dexcom G7 Sensor device) USE DIRECTED TO TEST BLOOD SUGARS CONTINUOUSLY AND CHANGE SENSOR EVERY 10 DAYS cholecalciferol (vitamin D3) 125 mcg PO DAILY clonidine HCl 0.1 mg PO BID epinephrine 0.3 mg IM Q4H PRN esomeprazole magnesium 40 mg PO BID hyoscyamine sulfate 0.25 mg PO TID-QID PRN loratadine 10 mg PO DAILY [TAY WOMEN MVI PO] HPI Comments Details: This?is a?43?yo female who is s/p RYGB 05/25/2018. Weight change since last OV 05/25/2018 -5.8lbs. Had an appt with a PA at [facility] for consult for TAHIR procedure, interested in discussing options for making pouch smaller. Pt reports she had a phone call with their office, but has not heard back after initial encounter. Now has Dr Membreno for a PCP, referred to immunology for mastocytosis. Blood sugars are a little bit crazy . Last night had a spike up to 250 after having a protein shake, reading stayed up for over an hour which is unusual for her. Sleeps 4h/night. Was restarted on Adderall. 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 Has one day per week on average where she has difficulty following plan. Trying to track hydration. Taking minimum 24oz coffee/day, puts shake in this. I don't like the physical act of drinking. Has to fight not to go over protein goal. Present meal plan includes: Kedeirdreva shake x 2, 1 scoop each (12.5g each) can mix in coffee, water, or UAM 1 cottage cheese w/ veg 1 meal 6f/6f takes MVI Exercise routine includes: very sporadic , depending on when she has her kids ( from her ) goes to park with her kids and is active there going on longer walks [facility] Medical History (Updated 05/13/24 @ 11:27 by Angelique Alston MD) Jejunitis Erosive esophagitis History of rhabdomyolysis Hypoglycemia after GI (gastrointestinal) surgery Intestinal malabsorption History of traumatic brain injury Hypothyroidism Depression Dysplastic nevus Hyperlipidemia Mastocytosis ADHD Surgical History Hx of endoscopy Hx of dilation and curettage History of surgery on wrist Hx of adenoidectomy Hx of tonsillectomy History of esophagogastroduodenoscopy (EGD) H/O colonoscopy History of laparoscopy History of sleeve gastrectomy H/O gastric bypass H/O hernia repair History of appendectomy H/O: hysterectomy Family History Mother Obesity DM (diabetes mellitus) Arthritis Father Obesity HIV (human immunodeficiency virus infection) Hepatitis B Hepatitis C Brother No problems noted. Social History Household Members: Spouse and Children Housing: House Do you presently have visiting nurse or other home services: No Alcohol intake: never Patient Tobacco Use Status: Former Tobacco user Tobacco use type: Cigarette e-Cigarette/Vaping Use: Currently Using service: No Current occupational status: employed Current occupation: [employer] Cognitive needs: No Hearing needs: No Vision needs: Yes (wears glasses) Telehealth Telehealth Telehealth Platform: Telephone Location of provider rendering services: practice address Location of patient: other Patient Identification confirmed using: Name, : Yes Telehealth method: voice only Patient verbally consented to treatment: Yes Patient verbally consented to billing insurance company: Yes Patient informed of any privacy concerns related to visit: Yes Minutes spent on Phone/Video with Pt.: 18 Assessment & Plan Assessment & Plan (1) H/O gastric bypass: Code(s): Z98.84 - Bariatric surgery status Category: Surgical (2) Overweight: Code(s): E66.3 - Overweight Category: Medical (3) Hypoglycemia after GI (gastrointestinal) surgery: Code(s): K91.2 - Postsurgical malabsorption, not elsewhere classified Category: Medical Plan We discussed expectations for pace of weight loss, pt was unhappy with rate of weight loss since last visit so I pointed out things that could change to help her pace- making sure she is hitting nutrition goals every day, increase exercise to 2000 calories/week, increase sleep. Pt would like to be a size 6 ultimately as she felt most comfortable here, does not have a weight loss goal. TSH was elevated last time labs were drawn, pt discussed with PCP, would like to recheck in a few months, has not been on levothyroxine in many years. RTC 6-8 weeks. I spent a total of 30 minutes reviewing/updating records, examining the patient and counseling the patient on weight management as detailed above.
[2024-07-16 12:41] VITALS: BMI 26.9
== END 2024-07-16 13:02 | disposition home or self-care (01) ==
LOC: HO.HBS 12:43
PROVIDERS: PCP Internal Medicine; Visit Provider Physician Assistant Surgical
DX: K91.2 Postsurgical malabsorption, not elsewhere classified (principal); Z98.84 Bariatric surgery status; E66.3 Overweight
CPT/HCPCS: 98967

== ENCOUNTER → 2024-07-16 12:43 | Outpatient (BNVA) | payer OTHER, SELFPAY | PROVIDERS: PCP Internal Medicine; Visit Provider Physician Assistant Surgical | DX: Z98.84 Bariatric surgery status (principal) ==

== ENCOUNTER → 2024-09-04 11:40 | Outpatient (BNVA) | payer OTHER, SELFPAY | PROVIDERS: PCP Internal Medicine; Visit Provider Physician Assistant Surgical ==

== ENCOUNTER 2024-11-30 15:09 | Outpatient (AMB) | payer OTHER, SELFPAY ==
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
[2024-11-30 15:34] VITALS: BP 98/68; PULSE 88; RESP 14; O2SAT 98; BMI 27.8
== END 2024-11-30 16:10 | disposition home or self-care (01) ==
PROVIDERS: PCP Internal Medicine; Visit Provider Internal Medicine
DX: Z00.00 Encounter for general adult medical examination without abnormal findings (principal); F33.41 Major depressive disorder, recurrent, in partial remission

== ENCOUNTER → 2024-11-30 15:09 | Outpatient (BNVA) | payer OTHER, SELFPAY | PROVIDERS: PCP Internal Medicine; Visit Provider Internal Medicine | DX: Z00.00 Encounter for general adult medical examination without abnormal findings (principal); F33.41 Major depressive disorder, recurrent, in partial remission; Z79.899 Other long term (current) drug therapy; Z98.84 Bariatric surgery status | CPT/HCPCS: 96127 ==

== ENCOUNTER 2024-12-04 12:43 | Outpatient (REF) | payer OTHER, SELFPAY ==
[2024-12-04 13:08] LABS: MANUAL DIFF FLAG NO
[2024-12-04 13:18] LABS: Basophils Absolute Auto 0.1 X10*3/uL (0.0-0.2); Basophils Percent Auto 0.7 % (0-2); Eosinophils Absolute Auto 0.1 X10*3/uL (0.0-0.4); Eosinophils Percent Auto 1.3 % (0-4); Hematocrit 39.4 % (37.0-47.0); Imm Gran Abs Auto 0.02 X10*3/uL (0.00-0.03); Imm Gran Pct Auto 0.3 % (0.0-0.4); Lymphocytes Absolute Auto 2.8 X10*3/uL (1.2-4.9); Lymphocytes Percent Auto 41.7 % (20-40); Mean Corpuscular Volume 90.8 fL (80.0-98.0); Mean Platelet Volume 8.9 fL (9.4-12.3); Monocytes Absolute Auto 0.6 X10*3/uL (0.1-1.2); Monocytes Percent Auto 8.2 % (2-11); Neutrophils Absolute Auto 3.2 x10*3/uL (2.0-8.3); Neutrophils Percent Auto 47.8 % (45-73); Platelet Count 308 X10*3/uL (160-400); Red Blood Count 4.34 X10*6/uL (4.20-5.50); White Blood Count 6.7 X10*3/uL (4.8-10.8)
[2024-12-04 13:33] LABS: Estimated Average Glucose 114 mg/dL; Hemoglobin A1C 126.2506 umol/L; Hemoglobin A1c % 5.6 % (<6.0)
--- OUTSIDE RECORDS SUMMARY | 2024-12-04 13:36 | XMS_ITS | Clinical Summary ---
Author Organization [address] Address [address] [place] [phone] Phone Care Team Providers Care Electrical Accessories Ii Assembler Name Role Phone Rivera Juarez DO Primary Care Provider [phone] Immunizations Name Administration Dates Next Due Moderna SARS-CoV-2 COVID-19, mRNA, LNP-S, preservative free 11/25/2020,10/28/2020 Surgical History Surgery Date Site/Laterality Comments OVARIAN CYST REMOVAL PROCEDURE: NM OVARIAN CYSTECTOMY UNI/BI; COMMENT: with appendectomy after PID (total of 3 laparoscopies for the ovary) TONSILLECTOMY PROCEDURE: HISTORICAL TONSILLECTOMY APPENDECTOMY PROCEDURE: HISTORICAL APPENDECTOMY OTHER SURGICAL HISTORY PROCEDURE: ARTHROSCOPY PROCEDURE NEC; COMMENT: hand surgery OTHER SURGICAL HISTORY PROCEDURE: NM DILATION & CURETTAGE DX&/THER NONOBSTETRIC; COMMENT: and [...] History Date Comments Bipolar disorder, unspecifie d ([facility]) DX:Bipolar disorder, unspeci fied ([facility]) Heartburn DX:Heartburn Heartburn 05/05/2006 DX:Heartburn; CO MMENT: Upper GI endoscopy 9.1.06 at [facility] was normal. Dysplastic nevus 06/10/2009 DX:Dysplastic n [...] 02/05/2025 10:30 AM EDT Appointment Radiology Department [address] [address] Health Maintenance Due Date Last Done Comments [...] left breast in 6 months. Mammo Location: [facility], [address] [place] [address], [address], . -------- FINAL REPORT -------- Dictated By: Isac Andres Dictated Date: 08/24/2024 16:26 ET Assigned Physician: Isac Andres Reviewed and Electronically Signed By: Isac Andres Signed Date: 08/24/2024 17:10 ET Workstation ID: [id number] Transcribed By: Self Edit Transcribed Date: 08/24/2024 [...] the left breast in 6months. Mammo Location: [facility], [address] [place] [address], [address], . -------- FINAL REPORT -------- Dictated By: Isac Andres Dictated Date: 08/24/2024 16:26 ET Assigned Physician: Isac Andres Reviewed and Electronically Signed By: Isac Andres Signed Date: 08/24/2024 17:10 ET Workstation ID: [id number] Transcribed By: Self Edit Transcribed Date: 08/24/2024 16:44 ET Stephany Dugan CNM IMG BI PROCEDURES Final Resul t from Last 3 Months or Most Recently Relevant to Health Maintenance [place] [address] [employer] Care Teams Electrical Accessories Ii Assembler Relationship Specialty Start Date End Date Rivera Juarez DO PCP - General Internal Medicine 01/22/22
--- OUTSIDE RECORDS SUMMARY | 2024-12-04 13:36 | XMS_ITS | Data Portability ---
Author Organization [facility], [address] Address [address] [place] [address] Care Team Providers Care Cleat Layer Name Role Phone [facility] Prim colts neck Care Provider Assessment No assessment recorded. Plan of Treatment Reminders Order Date Submit Date Provider Last Modified By Organization Details Last Modified Time Details Appointments None recorded. Lab rapid flu (A+B) 2023 [address] [place] [id number] [facility], [address] [place], [address], 10:59:41 rapid flu (A+B) 2021 [facility]22 [facility] [address] [place] [address], [address] [place] [address], [phone], 09:16:32 Referral None recorded. Procedures None recorded. Surgeries None recorded. Imaging None recorded. Medication Orders benzonatate 100 mg capsule 2023 [address] [place] [address] [id number], [address] [place], [address], 18:57:02 doxycycline hyclate 100 mg capsule 2023 024 [place] [id number], [address] [place], [address], 4 10:59:44 Tamiflu 75 mg capsule [address] [id number], [address] [place], [place], [phone], 4 09:26:51 prednisone 20 mg tablet [address] [id number], [address] [place], [place], [phone], 4 09:27:01 benzonatate 200 mg capsule [address] [id number], [address] [place], [place], [phone], 4 09:25:49 Patient TargetsNo targets recorded. Patient Instructions Encounter Date Encounter Id Patient Instructions Last Modified By Organization Details Last Modified Time 10/12/2022 [id number] You have tested positive for the flu (influenza). If prescribed take Tamiflu (oseltamivir). Take Mucinex DM or Robitussin DM as needed for cough and congestion. You can also try Flonase Allergy 2 sprays to each nostril once a day for congestion. You can also try saline spray for stuffy nose. If you do not have high blood pressure or heart problems, you can try Sudafed or similar decongestants for congestion. If you have high blood pressure you can take Coracidin HBP You can take Claritin or Zyrtec as needed for drainage. Take over the counter acetaminophen or ibuprofen as needed for pain, body aches, fever, or chills. You can try throat lozenges or salt water gargles for any sore throat. Your symptoms may take 7-10 days to go away. Drink lots of fluids. Get plenty of rest. Contact us if you have worsening symptoms such as high fever, shortness of breath, inability to keep liquids and solids down, or other worsening symptoms. Contact us if your symptoms fail to improve after 10 days. Get plenty of rest. Drink plenty of fluids. If you have to limit fluids because of a health problem, talk with your doctor before you increase the amount of fluids you drink. Take an sqas-tep-kofbrlu pain medicine if needed, such as acetaminophen (Tylenol), ibuprofen (Advil, Motrin), or naproxen (Aleve), to relieve fever, headache, and muscle aches. Be safe with medicines. Read and follow all instructions on the label. No one younger than 20 should take aspirin. It has been linked to Fab syndrome, a serious illness. Take any prescribed medicine exactly as directed. Do not smoke. Smoking can make the flu worse. If you need help quitting, talk to your doctor about stop-smoking programs and medicines. These can increase your chances of quitting for good. If the skin around your nose and lips becomes sore, put some petroleum jelly (such as Vaseline) on the area. To ease coughing: Suck on cough drops or plain, hard candy. Try an mgca-bpu-mnfzywx cough or cold medicine. Read and follow all instructions on the label. Raise your head at night with an extra pillow. This may help you rest if coughing keeps you awake. [email or web address] Not available 10/12/2022 09:08:14 02/07/2024 [id number] Acute Sinusitis: Care Instructions Not available 02/07/2024 10:59:41 sinusitis Not available 2023 10:59:41 upper respirator y infection (cold): care instructions Not available 02/07/2024 10:59:41 Patient strongly advised to go to the ER if any new onset signs and symptoms or any worsening of current signs and symptoms. Patient advised to follow up with PCP within 5-7 days. Patient expresses clear understanding of the above advice and agrees. Not available 02/15/2024 19:03:06 Reason for Referral None Reported. Results Created Date Observation Date Name Description Value Unit Range Abnormal Flag Note LastModifiedBy Organization Detail LastModifiedTime 10/12/20 22 10/12/2022 rapid flu (A+B) Unknown Analyte Normal = Negati ve Not Available [facility] [address], [address], 10/12/2022 09:11:54 10/12/20 22 10/12/2022 rapid flu (A+B) Unknown Analyte positi ve Not Available [facility] [address], [address], 10/12/2022 09:11:54 10/12/20 22 10/12/2022 rapid flu (A+B) Unknown Analyte Normal = Negati ve Not Available [facility] [address] [place], [address], 10/12/2022 09:11:54 10/12/20 22 10/12/2022 rapid flu (A+B) Unknown Analyte negati ve Not Available [facility] [address] [facility], [place], [address], 10/12/2022 09:11:54 02/07/20 24 02/07/2024 rapid flu (A+B) Unknown Analyte negati ve Not Available [facility] [address] [place] [address], [address], 02/07/2024 09:49:34 02/07/20 24 02/07/2024 rapid flu (A+B) Unknown Analyte negati ve Not Available [facility] [address] [place] [address], [address], 02/07/2024 09:49:34 Result Notes None recorded. 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 Procedures Surgical History Date Name Laterality Status Provider Name and Address Organization Details Recorded Time 10/17/19 19 Gastric bypass incl small i completed MAYITO MOMIN PA - [facility] 10/12/2022 08:23:37 partial hysterectomy completed MAYITO MOMIN PA - [facility] 10/12/2022 08:26:04 Imaging Results None recorded. Procedure Notes None recorded. Medical Equipment None Reported. Allergies Allergen ID Allergen Name Allergen Category Reaction Reaction Severity Criticality Documentation Date Start Date Code Code System Note Provider Name and Address Organization Details Recorded Time 87937 latex environme nt,medica tion Not available Not available Not available 10/12/2022 14565 91 RxNorm MAYITO MOMIN null, PA - [facility] 2 08:18:18 662114 clavulani c acid Not available Not available Not available Not available 02/07/2024 29964 RxNorm DAVEY ROLAND null, PA - [facility] 4 09:25:24 Medications Name Sig Start Date Stop Date Status Note LastModified by Organization Details LastModified Time clonidine HCl 0.1 mg tablet TAKE 1 TABLET BY MOUTH THREE TIMES DAILY active Not Available Not Available No t Available doxycycline hyclate 100 mg capsule Take 1 capsule twice a day by oral route as directed for 10 days, for Acute sinusitis . active Not Available Not Available No t Available Carafate 100 mg/mL oral suspension 02/06 completed Not Available Not Available Not Available trazodone 50 mg tablet TAKE UP TO 3 TABLETS BY MOUTH EVERY NIGHT AT BEDTIME NEEDED FOR INSOMNIA active Not Available Not Available No t Available Lidocaine Viscous 2 % mucosal solution active Not Available Not Available Not Available benzonatate 200 mg capsule TAKE 1 CAPSULE BY MOUTH THREE TIMES DAILY FOR 7 DAYS 02/06 completed Not Available Not Available Not Available famotidine 40 mg tablet active Not Available Not Available Not Available prednisone 20 mg tablet TAKE 2 TABLETS BY MOUTH EVERY DAY FOR 3 DAYS 02/06 completed Not Available Not Available Not Available dextroamphe tamine-amph etamine 10 mg tablet TAKE 1 TABLET BY MOUTH TWICE DAILY 02/06 completed Not Available Not Available Not Available bupropion HCl SR 100 mg tablet,12 hr sustained-r elease active Not Available Not Available Not Available dexmethylph enidate 10 mg tablet active Not Available Not Available No t Available dextroamphe tamine-amph etamine 30 mg tablet active Not Available Not Available No t Available amoxicillin 875 mg tablet 10/12 completed Not Available Not Available Not Available temazepam 15 mg capsule TAKE 1 TO 2 CAPSULES BY MOUTH EVERY NIGHT AT BEDTIME NEEDED FOR INSOMNIA active Not Available Not Available No t Available dicyclomine 20 mg tablet 10/12 completed Not Available Not Available Not Available benzonatate 100 mg capsule Take 1 capsule 3 times a day by oral route as needed for 7 days, for Persisten t cough. 2023 active Not Available Not Available Not Avai lable hyoscyamine 0.125 mg disintegrat ing tablet Place 1 tablet every 4 hours by sublingua l route. active Not Available Not Available No t Available erythromyci n 5 mg/gram (0.5 %) eye ointment APPLY 1/2 INCH RIBBON DIRECTED EVERY 6 HOURS FOR 7 DAYS active Not Available Not Available No t Available oseltamivir 75 mg capsule TAKE 1 CAPSULE BY MOUTH TWICE DAILY WITH MEALS FOR 5 DAYS 02/06 completed Not Available Not Available Not Available esomeprazol e magnesium 40 mg capsule,del ayed release TAKE 1 CAPSULE BY MOUTH TWICE DAILY active Not Available Not Available No t Available neomycin-po lymyxin-dex ameth 3.5 mg/mL-10,00 0 unit/mL-0.1 % eye drops INSTILL 1 DROP IN BOTH EYES FOUR TIMES DAILY FOR 5 DAYS THEN USE TWICE DAILY IN BOTH EYES FOR ANOTHER 5 DAYS active Not Available Not Available No t Available dextroamphe tamine-amph etamine 20 mg tablet active Not Available Not Available No t Available sertraline 25 mg tablet active Not Available Not Available Not Available zaleplon 10 mg capsule active Not Available Not Available N ot Available estradiol 0.5 mg tablet TAKE 1 TABLET BY MOUTH DAILY active Not Available Not Available No t Available epinephrine 0.3 mg/0.3 mL injection, auto-inject or ADMINISTE R 0.3 MG IN THE MUSCLE 1 TIME NEEDED FOR ANAPHYLAX IS active Not Available Not Available No t Available methylpredn isolone 4 mg tablets in a dose pack FOLLOW PACKAGE DIRECTION S active Not Available Not Available No t Available sertraline 50 mg tablet active Not Available Not Available Not Available metoclopram brianda 10 mg tablet 10/12 completed Not Available Not Available Not Available bupropion HCl XL 300 mg 24 hr tablet, extended release active Not Available Not Available Not Available topiramate 50 mg tablet active Not Available Not Available Not Available loratadine active Not Available Not Av ailable Not Available estradiol active Not Available Not Karrie ilable Not Available omeprazole 02/06 completed Not Available Not Available Not Available iron active Not Available Not Availa ble Not Available Tylenol 02/06 completed Not Available Not Available Not Available Vitamin D3 active Not Available Not Av ailable Not Available Epi E-Z Pen active Not Available Not A vailable Not Available Adderall active Not Available Not Avai lable Not Available Qsymia 7.5 mg-46 mg capsule, extended release 02/06 completed Not Available Not Available Not Available Linzess 290 mcg capsule 10/12 completed Not Available Not Available Not Available Motegrity 1 mg tablet 10/12 completed Not Available Not Available Not Available Motegrity 2 mg tablet 10/12 completed Not Available Not Available Not Available FreeStyle Yesi 2 Sensor kit USE EVERY 14 DAYS DIRECTED 02/06 completed Not Available Not Available Not Available Dexcom G7 Sensor device USE DIRECTED TO TEST BLOOD SUGARS CONTINUOU SLY AND CHANGE SENSOR EVERY 10 DAYS active Not Available Not Available No t Available berberine chloride active Not Available Not Available Not Available Vitals Date Recorded Body height Oxygen saturation Oxygen saturation in Arterial blood by Pulse oximetry Heart rate Respiratory rate Body temperature Body mass index (BMI) Body weight Systolic blood pressure Diastolic blood pressure Provider Name and Address Organization Details Last Updated DateTime 2 162.56 cm 95 % 95 % 107 /min 18 /min 99.7 [degF] 25.4 kg/m2 24714.6 7 g 113 mm[Hg] 66 mm[Hg] MAYITO MOMIN PA - [facility] 2 08:36:15 Date Recorded Body height Body mass index (BMI) Body weight Oxygen saturation Oxygen saturation in Arterial blood by Pulse oximetry Respiratory rate Heart rate Body temperature Systolic blood pressure Diastolic blood pressure Provider Name and Address Organization Details Last Updated DateTime 4 160.02 cm 28.3 kg/m2 70366.7 8 g 99 % 99 % 18 /min 81 /min 98.5 [degF] 100 mm[Hg] 63 mm[Hg] DAVEY ROLAND PA - [facility] 4 09:33:26 Social History Question Answer Notes LastModified by Organizat ion Details LastModified Time Tobacco Smoking Status Former Smoker MAYITO antony, PA - [facility] 10/12/2022 08:25:24 What Is Your Level Of Alcohol Consumption? None Information not available 10/12/2022 Are You Currently Employed? Yes Information not available 10/12/2022 Do You Use Any Illicit Or Recreational Drugs? No Information not available 10/12/2022 Have You Recently Traveled Abroad? No Information not available 10/12/2022 Do You Or Have You Ever Used Any Other Forms Of Tobacco Or Nicotine? No Information not available 10/12/2022 Sex: Unknown Functional Status None recorded. Mental Status None recorded. Family History Relationship Description Onset Age of this Age Resolved Age Notes LastModified by Organization Details LastModified Time Father Malignant neoplastic disease Not available 2021 08:24:08 Father Diabetes mellitus Not available 2021 08:24:23 Father Hypertensive disorder Not available 2021 08:24:49 Mother Malignant neoplastic disease Not available 2021 08:24:08 Mother Diabetes mellitus Not available 2021 08:24:23 Mother Hypertensive disorder Not available 2021 08:24:49 Medical History No medical history recorded. Gynecological HistoryNo gynecological history recorded. Obstetrics History GPAL:G 0 P 0 0 0 0 Immunizations Vaccine Type Date Status Note Provider Nam e and Address Organization Details Recorded Time Td (adult), 2 Lf tetanus toxoid, preservative free, adsorbed 0 completed MAYITO antony, PA - [facility] 10/12/2022 08:19:00 Influenza, recombinant, quadrivalent, PF 0 completed MAYITO MERRILL null, PA - [facility] 10/12/2022 08:19:00 Hep B, adolescent or pediatric 1 completed MAYITO MERRILL null, PA - [facility] 10/12/2022 08:19:00 MMR 1 completed MAYITO MERRILL null, PA - [facility] 10/12/2022 08:19:00 COVID-19, mRNA, LNP-S, PF, 100 mcg/0.5mL dose or 50 mcg/0.25mL dose 2 completed MAYITO MERRILL null, PA - [facility] 10/12/2022 08:19:00 Influenza, recombinant, quadrivalent, PF 9 completed MAYITO MERRILL null, PA - [facility] 10/12/2022 08:19:00 Tdap 0 completed MAYITO MERRILL null, PA - [facility] 10/12/2022 08:19:00 Hep B, adolescent or pediatric 1 completed MAYITO MERRILL null, PA - [facility] 10/12/2022 08:19:00 COVID-19, mRNA, LNP-S, PF, 100 mcg/0.5mL dose or 50 mcg/0.25mL dose 1 completed MAYITO MERRILL null, PA - [facility] 10/12/2022 08:19:00 Influenza, recombinant, quadrivalent, PF 1 completed MAYITO MERRILL null, PA - [facility] 10/12/2022 08:19:00 Influenza, MDCK, quadrivalent, PF 2 completed MAYITO MERRILL null, PA - [facility] 10/12/2022 08:19:00 Tdap 0 completed MAYITO MERRILL null, PA - [facility] 10/12/2022 08:19:00 COVID-19, mRNA, LNP-S, PF, 100 mcg/0.5mL dose or 50 mcg/0.25mL dose 1 completed MAYITO MERRILL null, PA - [facility] 10/12/2022 08:19:00 COVID-19, mRNA, LNP-S, bivalent, PF, 30 mcg/0.3 mL dose 2 completed MAYITO MERRILL null, PA - [facility] 10/12/2022 08:19:00 COVID-19, mRNA, LNP-S, PF, 100 mcg/0.5mL dose or 50 mcg/0.25mL dose 1 completed MAYITO MERRILL null, PA - [facility] 10/12/2022 08:19:00 MMR 2 completed MAYITO MERRILL null, PA - [facility] 10/12/2022 08:19:00 Hep B, adolescent or pediatric 2 completed MAYITO MERRILL null, PA - [facility] 10/12/2022 08:19:00 Influenza, recombinant, quadrivalent, PF 3 completed DAVEY ROLAND null, PA - [facility] 02/07/2024 09:24:59 Past Encounters Encounter ID Performer Location Encounter Start Date Encounter Closed Date Diagnosis/Indication Diagnosis SNOMED-CT Code Diagnosis ICD10 Code Diagnosis Note [id number] [address] [address] 05/13/2021 14:05:22 05/13/2021 16:11:30 [id number] [place] [address] [address] 10/12/2022 08:06:44 10/12/2022 09:18:38 Influenza caused by Influenza A virus 951820761 J09.X2 [id number] [place] [address] [address] 02/07/2024 09:08:07 02/07/2024 11:09:59 Acute sinusitis 27384938 J01.90 Upper resp iratory infection 82921739 J06.9 Persistent cough 0067438 02 R05.3 Health Concerns Section Related Observation LastModified by Organization Detai ls LastModified Time None Recorded Concern Status LastModified by Organization Details LastModified Time None Recorded Advance Directives Directive None Recorded Payers Encounter Date Sequence Insurance Name Policy Number Policy Hanks Covered Member ID Hanks Member ID Guarantor Name 05/13/2021 1 [facility] [id number] Rafa Vaca [id number] Marleen Vaca 10/12/2022 1 [employer] [place] [id number] Marleen Vaca [id number] Marleen aVca 02/07/2024 1 [employer] [id number] Marleen Vaca [id number] Marleen Vaca Notes Date Note Type Note Provider Name and Address Organization Details Recorded Time 10/12/2022 text/html has been sick x 3 days. fever with chills, body aches and tiredness. Leander Vivas NP [address] [place], [address], [place] [facility] 10/12/2022 09:34:07 02/07/2024 text/html CoughReported bypatient.Quality:p roductive cough;dry and wet; intermittent Severity:moderate Duration:symptoms lasting over 2 weeks Timing:worsening; gradual Context:family members ill with similar symptoms Modifying Factors:Lying down; at night Associated Symptoms:no fever; no chills; no chest pain; no heartburn; no nausea; no vomiting; no edema;wheezing;post nasal drip Danyelle Ray MD [address] [place], [address], [place] [facility] 02/15/2024 19:03:55 OBGyn Episode No OBEpisode recorded.
[2024-12-04 14:01] LABS: Alanine Aminotransferase 22 U/L (0-31); Albumin Level 4.3 g/dL (3.5-5.0); Alkaline Phosphatase 52 U/L (39-117); Anion Gap 11 (12-20); Aspartate Amino Transferase 20 U/L (5-31); Bilirubin Total 0.4 mg/dL (0.0-1.0); Blood Urea Nitrogen 16 mg/dL (9-16); Calcium 9.2 mg/dL (8.4-10.2); Carbon Dioxide 26 mmol/L (22-29); Chloride 107 mmol/L (96-108); Cholesterol 211 mg/dL (<200); Estimated Glomerular Filt Rate > 60; Glucose Random 94 mg/dL (60-115); HDL Cholesterol 58 mg/dL (>40); Iron 91 mcg/dL (30-160); LDL Cholesterol Calculated 132 mg/dL (<100); Percent Iron Saturation 32 % (15-50); Potassium 4.3 mmol/L (3.3-5.1); Sodium 140 mmol/L (135-145); Total Iron Binding Capacity 286 mcg/dL (228-428); Total Protein 7.4 g/dL (6.5-8.0); Triglycerides 105 mg/dL (<150); Unsaturated Iron Binding 195 ug/dL
[2024-12-04 14:16] LABS: Ferritin 9 ng/mL (10-250); TSH reflex Free T4 2.58 uIU/mL (0.32-4.0)
[2024-12-04 14:26] LABS: Folate 15.2 ng/mL (> or = 4.0); Vitamin B12 1034 pg/mL (200-900)
[2024-12-08 16:02] LABS: Vitamin D 25-OH, D2 <4 ng/mL; Vitamin D 25-OH, D3 60 ng/mL; Vitamin D 25-OH, Total 60 ng/mL (30-100)
[2024-12-09 14:09] LABS: Vitamin B1 23 nmol/L (8-30)
[2024-12-10 06:23] LABS: Vitamin B6 40.6 ng/mL (2.1-21.7)
== END 2024-12-04 12:44 | disposition home or self-care (01) ==
LOC: HO.LAB 12:43
PROVIDERS: PCP Internal Medicine; Visit Provider Internal Medicine
DX: E03.9 Hypothyroidism, unspecified (principal); D50.9 Iron deficiency anemia, unspecified; D64.9 Anemia, unspecified; D47.09 Other mast cell neoplasms of uncertain behavior; Z98.84 Bariatric surgery status
CPT/HCPCS: 36415; 80053; 80061; 82306; 82607; 82728; 82746; 83036; 83540; 84207; 84425; 84443; 85025

== ENCOUNTER 2025-04-21 12:41 | Emergency (ER) | payer OTHER, SELFPAY ==
--- NOTE | ~2025-04-21 | CT_ITS ---
CLINICAL HISTORY: abdominal pain, nausea, vomiting, s p rou CT abdomen and pelvis with contrast Comparison: None provided Findings: No consolidation or effusion. There is a sliding-type hiatal hernia. Unremarkable gallbladder and solid organs. No urolithiasis. No bowel obstruction, pneumoperitoneum, or pneumatosis. Gastric iatrogenic findings noted with focal prominent loop of jejunum physiologic. There are submucosal gastric prominence. Correlate for infiltrative process such as gastritis. Pelvic contents unremarkable. Normal appendix. The bones are intact. IMPRESSION: Possible gastritis. Consider gastroenterology consultation for follow-up. This document has been electronically signed by: Jose Lyles MD on 04/21/2025 18:16:29
--- NOTE | 2025-04-21 12:54 | ED_ITS ---
HPI - General Adult General Chief complaint: Nausea/Vomiting/Diarrhea Stated complaint: dehydrated Time Seen by Provider: 04/21/25 14:05 Source: patient Mode of arrival: wheelchair Limitations: no limitations History of Present Illness ED Provider: Maggie Infante PA-C HPI narrative: Patient is a 44 year old assigned female at with a history of recent gastric bypass repair by Dr. Miguel at [facility] in [place] on 04/16/2025, erosive esophagitis, anemia, and hypothyroidism presenting to the emergency department today with epigastric pain, nausea, and vomiting. Patient states that she has been unable to keep anything down for hours and has been trying Zofran without relief. Patient denies any dizziness, lightheadedness, fever, chills, blurry vision, double vision, loss of vision, chest pain, difficulty breathing, shortness of breath, back pain, night sweats, pain with urination, increased urinary frequency, increased urinary urgency, blood in her urine or stool, syncope or a near syncopal episode, recent trauma or falls, bowel incontinence, bladder incontinence, or any other complaints at this time. Relieving factors: none Exacerbating factors: none Associated symptoms: nausea/vomiting Treatments prior to arrival: other (Zofran without relief) Related Data Home Medications ?Medication ?Instructions ?Recorded ?Confirmed acetaminophen 500 mg tablet 1,000 mg PO TID PRN Pain 0 07/05/22 12/02/24 (Tylenol Extra Strength) epinephrine 0.3 mg/0.3 mL 0.3 mg IM Q4H PRN Anaphylaxi s 07/05/22 12/02/24 injection, auto-injector hyoscyamine sulfate 0.125 mg tablet 0.25 mg PO TID-QID PRN Spasms 07/05/22 12/02/24 loratadine 10 mg tablet 10 mg PO DAILY 07/05/2211/17 TAY WOMEN MVI PO 04/21/23 12/02/24 clonidine HCl 0.1 mg tablet 0.1 mg PO BID 04/21/23 cholecalciferol (vitamin D3) 125 125 mcg PO DAILY 04/1712/02/24 mcg (5,000 unit) capsule dextroamphetamine-amphetamine 20 1 tab PO BID 02/14/25 02/16/25 mg tablet iron 45 mg .Route 11/30/24 12/02/24 probiotic .Route 11/30/24 12/02/24 trazodone 50 mg tablet 0 - 150 mg PO BEDTIME PRN in somnia 11/30/24 12/02/24 Previous Rx's ?Medication ?Instructions ?Recorded esomeprazole magnesium 40 mg 40 mg PO BID #120 caps capsule,delayed release blood-glucose sensor (Dexcom G6 #9 ea 05/08/24 Sensor device) blood-glucose sensor (Dexcom G7 #9 ea 05/08/24 Sensor device) terbinafine HCl 250 mg tablet 250 mg PO DAILY #90 tabs 12/11/24 Allergies Allergy/AdvReac Type Severity Reaction Status Date / Time bee pollen (BEE STINGS) Allergy Severe ANAPHYLAXIS Verified 04/21/25 13:13 latex (LATEX) Allergy Severe ANAPHYLAXIS Verified 04/21/25 13:13 pork derived (porcine) (PORK Allergy Severe d/t Verified 04/21/25 13:13 DERIVED (PORCINE)) MASTOCYTOSIS soy Allergy Severe Anaphylaxis Verified 04/21/25 13:13 carrageenan (CARRAGEENAN) Allergy Unknown UNKNOWN Verified 04/21/25 13:13 egg (EGG) Allergy Unknown DUE TO Verified 04/21/25 13:13 MASTOCYTOSIS Review of Systems 2 Constitutional: Constitutional: Reports no additional constitutional complaints, Denies chills, Denies fever(s) and Denies night sweats Eyes: Eyes: Reports no additional eye complaints, Denies blurry vision, Denies change in vision, Denies diplopia, Denies eye discharge, Denies loss of vision and Denies eye pain ENT: Denies dizziness Cardiovascular: Cardiovascular: Reports no additional cardiovascular complaints, Denies chest pain, Denies lightheadedness, Denies Loss of Consciousness and Denies dyspnea Respiratory: Respiratory: Reports no additional respiratory complaints and Denies dyspnea Gastrointestinal: Gastrointestinal: Reports no additional gastrointestinal complaints, Reports abdominal pain, Denies melena, Denies hematochezia, Denies change in bowel habits, Denies change in stool character, Reports nausea and Reports vomiting Genitourinary: Genitourinary: Denies hematuria, Denies urinary frequency, Denies dysuria, Denies urinary incontinence, Denies urinary hesitancy and Denies urinary urgency Musculoskeletal: Musculoskeletal: Reports no additional musculoskeletal complaints, Denies numbness and Denies tingling Neurologic: Denies dizziness, Denies loss of vision, Denies numbness and Denies tingling Psychiatric: Psychiatric: Reports no additional psychiatric complaints Endocrine: Endocrine: Reports no additional endocrine complaints Hematologic/Lymphatic: Hematologic/Lymphatic: Reports no additional hematologic/lymphatic complaints Allergic/Immunologic: Allergic/Immunologic: Reports no additional allergic/immunologic complaints [facility] Past Medical History Attestation statement: The following information was validated with the patient. Source: old records reviewed and nursing notes reviewed Medical History Jejunitis Erosive esophagitis History of rhabdomyolysis Hypoglycemia after GI (gastrointestinal) surgery Intestinal malabsorption History of traumatic brain injury Hypothyroidism Depression Dysplastic nevus Hyperlipidemia Mastocytosis ADHD Surgical History Hx of endoscopy Hx of dilation and curettage History of surgery on wrist Hx of adenoidectomy Hx of tonsillectomy History of esophagogastroduodenoscopy (EGD) H/O colonoscopy History of laparoscopy History of sleeve gastrectomy H/O gastric bypass H/O hernia repair History of appendectomy H/O: hysterectomy Family History Family History Mother Obesity DM (diabetes mellitus) Arthritis Father Obesity HIV (human immunodeficiency virus infection) Hepatitis B Hepatitis C Brother No problems noted. Social History Social History Household Members: Spouse and Children Housing: House Do you presently have visiting nurse or other home services: No Alcohol intake: never Patient Tobacco Use Status: Former Tobacco user Tobacco use type: Cigarette e-Cigarette/Vaping Use: Currently Using Advance Directives: No Advance Directives Information Provided: Yes service: No Current occupational status: employed Current occupation: [employer] Cognitive needs: No Hearing needs: No Vision needs: Yes (wears glasses) Physical Exam ED Vital Signs: Vital Signs - 24 hr 04/21/25 13:09 04/21/25 14:00 04/21/25 16:00 Temperature 98.7 F 98.8 F 98.8 F Pulse Rate 69 60 66 Respiratory Rate 18 16 16 Blood Pressure 129/75 132/76 130/70 Pulse Oximetry 98 98 98 Oxygen Delivery Method Room Air Room Air Room Air 04/21/25 17:58 Temperature 98.5 F Pulse Rate 74 Respiratory Rate 16 Blood Pressure 131/69 Pulse Oximetry 100 Oxygen Delivery Method Room Air BMI result Body Mass Index 26.9 Const General: cooperative, no acute distress, alert and awake Nutritional Appearance: well nourished Orientation/consciousness: patient oriented x3 [facility] Head: Yes normal to inspection and Yes atraumatic Ears: hearing grossly normal bilaterally and external ears normal General nose exam: Normal external nose present, no nasal discharge noted and no epistaxis Face and sinus: Yes normal facial exam, No abrasion and No laceration Mouth: Normal oral and palatal mucosa present, no drooling and no muffled voice Eyes General: appearance normal, both eyes and all related structures Periorbital: periorbital findings normal Eyelids: Yes eyelids normal Conjunctivae: conjunctivae normal Pupils: Equal, round and reactive pupils present EOM: EOMs intact bilaterally Neck Neck: Yes normal visual inspection, Yes full ROM and Yes no lymphadenopathy Resp Effort & Inspection: normal respiratory effort and able to speak in complete sentences GI Palpation (GI): Soft to palpation, not firm, Tenderness to palpation present (GI), no guarding and not rigid Neuro General: patient oriented x3, moves all extremities and CN's II-XI intact bilaterally Cranial nerves: Yes Equal, round and reactive pupils present Cognition (Neuro): normal cognition Extrem General: Yes normal to inspection, Yes full ROM and Yes capillary refill normal Psych Appearance: grossly normal Mental Status: mental status grossly normal Affect: normal affect Attitude: cooperative Thought process: Normal thought process present Thought content: Normal thought content present Insight: Good insight present (Psych) Course Course Course Narrative: This is a rapid medical exam performed by Rickey Morocho NP: Additional HPI, ROS, PE not included below will be deferred to primary provider. Patient is a 44-year-old female with history of hypothyroidism, status post gastric bypass, erosive esophagitis, anemia, depression presenting to the emergency department with complaint of nausea, vomiting and dry heaving since endoscopic bariatric repair of gastric bypass at [facility] with Dr. Miguel on Tuesday. 03/26 epigastric pain. Reports brown emesis. Has been taking zofran without relief, scopalomine patch fell off yesterday, using OTC dramamine without relief. Plan: labs Medications Administered Discontinued Medications Generic Name Dose Route Start Last Admin Trade Name Lizeth PRN Reason Stop Dose Admin Diphenhydramine HCl 25 mg 04/21/25 14:08 04/21/25 14:26 Diphenhydramine Hcl 50 Mg/Ml Vial IVPUSH 04/21/25 14:09 25 mg ONCE ONE Administration Sodium Chloride 1,000 mls @ 999 mls/hr 04/21/25 16:15 04/21/25 17:49 Ns IV 04/21/25 17:15 Infused .Q1H1M JAN Infusion Sodium Chloride 1,000 mls @ 999 mls/hr 04/21/25 17:00 04/21/25 18:07 Ns IV 04/21/25 18:00 Infused .Q1H1M JAN Infusion Iohexol 85 ml 04/21/25 15:59 04/21/25 16:00 Iohexol 350 Mg/Ml 100 Ml Infus..Btl IV 04/21/25 16:00 85 ml ONCE ONE Administration Metoclopramide HCl 10 mg 04/21/25 14:08 04/21/25 14:26 Metoclopramide Hcl 10 Mg/2 Ml Vial IVPUSH 04/21/25 14:09 10 mg ONCE ONE Administration Scopolamine 1.5 mg 04/21/25 14:08 04/21/25 14:26 Scopolamine 1.5 Mg Patch.Td.3 EAR-BEHIND 04/21/25 14:09 1.5 mg ONCE ONE Administration Medical Decision Making Medical Decision Making MDM Narrative: Patient is a 44 year old assigned female at with a history of recent gastric bypass repair by Dr. Miguel at [facility] in [place] on 04/16/2025, erosive esophagitis, anemia, and hypothyroidism. Patient's physical exam was as noted in the physical exam portion of this note. Patient's blood work showed a mildly elevated WBC count of 13.7 with a left shift but otherwise unremarkable. Patient's EKG was unremarkable. Patient's CT abd/pelvis is pending but I did not appreciate any free air. I called and spoke with [facility] transfer line who recommended transferring the patient to their Emergency Department given she had the surgery there with Dr. Miguel, how close to surgery date the patient is, and her inability to tolerate PO. Dr. Colon in the [facility] ED is accepting. I explained my physical exam findings as well as all test results to the patient. I answered all questions asked by the patient. Patient received IV fluids, Reglan, Benadryl, and a Scopolamine patch which helped her nausea and vomiting some but when she attempted anything by mouth she immediately began vomiting again. Patient verbalized agreement and understanding with this treatment plan and transfer to [facility] ED. 1820 --> Patient's CT abd/pelvis read as possible gastritis. Patient continues to await EMS transportation to [facility] ED. Differential Diagnosis Differential Diagnoses: The differential diagnosis associated with the presentation includes Intractable nausea and vomiting Inability to tolerate PO Post-operative complication Admission/Observation Consideration of admission/observation: Escalation of care including admission/observation considered Patient transferred to [facility] ED. Consult Healthcare Provider Management of the patient was discussed with: Tech Writer (spoke with [facility] as noted in the MDM Rationale portion of this note. ) Lab Data [facility] Lab Attestation statement: I reviewed the patient's lab results. My interpretation of these results are in the MDM Rationale portion of this note. 04/21/25 13:17 04/21/25 13:17 Labs: Lab Results 04/21/25 04/21/25 Range/Units 13:17 13:24 WBC 13.7 H (4.8-10.8) X10*3/uL RBC 4.51 (4.20-5.50) X10*6/uL Hgb 13.5 (12.0-16.0) g/dl Hct 39.5 (37.0-47.0) % MCV 87.6 (80.0-98.0) fL MCH 29.9 (27.0-33.0) pg MCHC 34.2 (31.0-35.0) g/dl RDW 12.8 (11.0-16.0) % Plt Count 369 (160-400) X10*3/uL MPV 9.0 L (9.4-12.3) fL Immature Gran % (Auto) 0.3 (0.0-0.4) % Neut % (Auto) 88.0 H (45-73) % Lymph % (Auto) 8.0 L (20-40) % Clayton % (Auto) 3.4 (2-11) % Eos % (Auto) 0.1 (0-4) % Baso % (Auto) 0.2 (0-2) % Lymph # (Auto) 1.1 L (1.2-4.9) X10*3/uL Clayton # (Auto) 0.5 (0.1-1.2) X10*3/uL Eos # (Auto) 0.0 (0.0-0.4) X10*3/uL Baso # (Auto) 0.0 (0.0-0.2) X10*3/uL Abs Immat Gran (auto) 0.04 H (0.00-0.03) X10*3/uL Absolute Neuts (auto) 12.1 H (2.0-8.3) x10*3/uL Absolute Nucleated RBC 0.000 (0.0-0.012) X10*3/uL Nucleated RBC % (auto) 0.0 (0.0-0.2) /100WBC Hold Blue Top SEE NOTE Sodium 138 (135-145) mmol/L Potassium 4.4 (3.3-5.1) mmol/L Chloride 105 (96-108) mmol/L Carbon Dioxide 22 (22-29) mmol/L Anion Gap 15 (12-20) BUN 9 (9-16) mg/dL Creatinine 0.63 (0.5-1.4) mg/dL Estim Creat Clear Calc 105.1 Estimated GFR > 60 Random Glucose 98 (60-115) mg/dL Calcium 9.2 (8.4-10.2) mg/dL Magnesium 2.1 (1.6-2.6) mg/dL Total Bilirubin 0.5 (0.0-1.0) mg/dL AST 20 (5-31) U/L ALT 15 (0-31) U/L Alkaline Phosphatase 60 (39-117) U/L Total Protein 7.3 (6.5-8.0) g/dL Albumin 4.6 (3.5-5.0) g/dL Lipase 18 (8-78) U/L Independent Interpretation I performed an independent interpretation of an: EKG and CT Scan Interpretation: My interpretation is in agreement with the radiologist's impression of this imaging study. L Report Number: [id number]: Total DLP = 506.00 mGy-cm CLINICAL HISTORY: abdominal pain, nausea, vomiting, s p rou CT abdomen and pelvis with contrast Comparison: None provided Findings: No consolidation or effusion. There is a sliding-type hiatal hernia. Unremarkable gallbladder and solid organs. No urolithiasis. No bowel obstruction, pneumoperitoneum, or pneumatosis. Gastric iatrogenic findings noted with focal prominent loop of jejunum physiologic. There are submucosal gastric prominence. Correlate for infiltrative process such as gastritis. Pelvic contents unremarkable. Normal appendix. The bones are intact. IMPRESSION: Possible gastritis. Consider gastroenterology consultation for follow-up. This document has been electronically signed by: Jose Lyles MD on 04/21/2025 18:16:29 Dictated By: Jose Lyles MD Signed By: Electronically signed by Jose Lyles MD 04/21/25 1817 I independently interpreted this EKG and am in agreement with the below findings: Vent. Rate: 50 BPM Atrial Rate: 50 BPM P-R Int: 118 ms QRS Dur: 72 ms QT Int: 446 ms P-R-T Axes: 49 33 36 degrees QTcB Int: 406 ms Sinus bradycardia Cannot rule out Anterior infarct , age undetermined No previous ECGs available DD/ [id number] Radiology Impression Discussion of test interpretation with radiology: I have reviewed the radiologist's reading. Critical Care Time Critical Care Time Critical Care Time: Yes Total Critical Care Time: 47 Attestation: I spent 47 minutes of Critical Care Time with this patient. This does not include time spent on separately reported billable procedures. Discharge Plan Discharge Clinical Impression: Post surgical complication, Nausea & vomiting Patient Disposition: [facility] Transfer Details: [facility] - accepted by Dr. Colon Prescriptions: No Action esomeprazole magnesium 40 mg capsule,delayed release(DR/EC) 40 mg PO BID Qty: 120 0RF terbinafine HCl 250 mg tablet 250 mg PO DAILY Qty: 90 0RF (DME) Dexcom G6 Sensor Device See Rx Instructions .Route Qty: 9 3RF Rx Instructions: As directed (DME) Dexcom G7 Sensor Device See Rx Instructions .ROUTE .COMPLEX Qty: 9 3RF Dose Instruction: USE DIRECTED TO TEST BLOOD SUGARS CONTINUOUSLY AND CHANGE SENSOR EVERY 10 DAYS Rx Instructions: USE DIRECTED TO TEST BLOOD SUGARS CONTINUOUSLY AND CHANGE SENSOR EVERY 10 DAYS cholecalciferol (vitamin D3) 125 mcg (5,000 unit) capsule 125 mcg PO DAILY loratadine 10 mg tablet 10 mg PO DAILY acetaminophen [Tylenol Extra Strength] 500 mg tablet 1,000 mg PO TID PRN (Reason: Pain) hyoscyamine sulfate 0.125 mg tablet 0.25 mg PO TID-QID PRN (Reason: Spasms) epinephrine 0.3 mg/0.3 mL auto-injector 0.3 mg IM Q4H PRN (Reason: Anaphylaxis) clonidine HCl 0.1 mg tablet 0.1 mg PO BID TAY WOMEN MVI PO dextroamphetamine-amphetamine 20 mg tablet 1 tab PO BID trazodone 50 mg tablet 0 - 150 mg PO BEDTIME PRN (Reason: insomnia) probiotic .Route Rx Instructions: . iron 45 mg .Route Rx Instructions: , Print Language: South Korean
[2025-04-21 13:09] VITALS: BP 129/75; PULSE 69; RESP 18; TEMP 37.1; O2SAT 98; BMI 26.9
--- NOTE | 2025-04-21 13:12 | ECG_ITS ---
Test Reason : ASSES QTC Blood Pressure : */* mmHG Vent. Rate : 50 BPM Atrial Rate : 50 BPM P-R Int : 118 ms QRS Dur : 72 ms QT Int : 446 ms P-R-T Axes : 49 33 36 degrees QTcB Int : 406 ms Sinus bradycardia Cannot rule out Anterior infarct , age undetermined Abnormal ECG No previous ECGs available Referred By: Cynthia Morocho Electronically Signed By: Mitchel Shetty
[2025-04-21 13:28] LABS: MANUAL DIFF FLAG NO
[2025-04-21 13:31] LABS: Hematocrit 39.5 % (37.0-47.0); Hemoglobin 13.5 g/dl (12.0-16.0); Imm Gran Abs Auto 0.04 X10*3/uL (0.00-0.03); Imm Gran Pct Auto 0.3 % (0.0-0.4); Lymphocytes Absolute Auto 1.1 X10*3/uL (1.2-4.9); Mean Corpuscular HGB Conc 34.2 g/dl (31.0-35.0); Mean Corpuscular Hemoglobin 29.9 pg (27.0-33.0); Mean Corpuscular Volume 87.6 fL (80.0-98.0); NRBC Abs Auto 0.000 X10*3/uL (0.0-0.012); NRBC Pct Auto 0.0 /100WBC (0.0-0.2); Platelet Count 369 X10*3/uL (160-400); Red Blood Count 4.51 X10*6/uL (4.20-5.50); White Blood Count 13.7 X10*3/uL (4.8-10.8)
[2025-04-21 13:46] LABS: Alanine Aminotransferase 15 U/L (0-31); Albumin Level 4.6 g/dL (3.5-5.0); Alkaline Phosphatase 60 U/L (39-117); Anion Gap 15 (12-20); Aspartate Amino Transferase 20 U/L (5-31); Blood Urea Nitrogen 9 mg/dL (9-16); Calcium 9.2 mg/dL (8.4-10.2); Carbon Dioxide 22 mmol/L (22-29); Chloride 105 mmol/L (96-108); Creatinine Clr Calc Pharmacy 105.1; Estimated Glomerular Filt Rate > 60; Lipase 18 U/L (8-78); Magnesium 2.1 mg/dL (1.6-2.6); Potassium 4.4 mmol/L (3.3-5.1); Sodium 138 mmol/L (135-145); Total Protein 7.3 g/dL (6.5-8.0)
[2025-04-21 14:00] VITALS: BP 132/76; PULSE 60; RESP 16; TEMP 37.1; O2SAT 98
[2025-04-21 16:00] VITALS: BP 130/70; PULSE 66; RESP 16; TEMP 37.1; O2SAT 98
[2025-04-21] MEDS: iohexoL 350 MG/ML 100 ML INFUS..BTL 85 ML IV (16:00)
[2025-04-21 17:58] VITALS: BP 131/69; PULSE 74; RESP 16; TEMP 36.9; O2SAT 100
[2025-04-21 18:55] VITALS: BP 131/69; PULSE 74; RESP 16; TEMP 36.9; O2SAT 100
--- NOTE | 2025-04-23 22:06 | PC.NURSE ---
MAR correction: On 04/21/25 1000mg IV Tylenol administered @ 1845 were completed @ 1900.
== END 2025-04-21 19:02 | disposition short-term general hospital (02) ==
PROVIDERS: Registered Nurse Emergency; Emergency Provider Emergency Medicine; PCP Internal Medicine
DX: K91.0 Vomiting following gastrointestinal surgery (principal); G89.18 Other acute postprocedural pain; Z98.84 Bariatric surgery status; R10.13 Epigastric pain; Z79.899 Other long term (current) drug therapy; E78.5 Hyperlipidemia, unspecified; E03.9 Hypothyroidism, unspecified; Z87.891 Personal history of nicotine dependence
CPT/HCPCS: 36415; 74177; 80053; 83690; 83735; 85025; 93005; 96361; 96374; 96375; 99284; 99285; 99291; J0131; J1200; J2470; J2765; Q9967

== ENCOUNTER → 2025-04-21 13:12 | Outpatient (BNV) | payer OTHER, SELFPAY | PROVIDERS: Emergency Provider Emergency Medicine; PCP Internal Medicine; Visit Provider Internal Medicine Cardiovascular Disease | DX: R00.1 Bradycardia, unspecified (principal) | CPT/HCPCS: 93010 ==

== ENCOUNTER → 2025-04-21 15:38 | Outpatient (BNV) | payer OTHER, SELFPAY | PROVIDERS: Emergency Provider Emergency Medicine; PCP Internal Medicine; Visit Provider Specialist | DX: R10.9 Unspecified abdominal pain (principal) | CPT/HCPCS: 74177 ==

== ENCOUNTER 2025-04-30 09:12 | Outpatient (AMB) | payer OTHER, SELFPAY ==
--- NOTE | 2025-04-30 09:23 | A.OFFPC_ITS ---
Vital Signs 04/30/25 09:29 Height 5 ft 2 in Weight 149 lb 8 oz BMI 27.3 BP 104/64 Blood Pressure Location Rt brachial Position Sitting Respiration 12 Pulse 84 Pulse Source Pulse Oximeter Temp 98.6 F Temp Source Oral Pulse Oximetry (%) 98 Oxygen Delivery Method Room Air Intake Visit Reasons: Post /procedure side effects/ nausea/ vomiting Intake Note: Bypass repair City Manager Required: No Allergies bee pollen (BEE STINGS) Allergy (Severe, Verified 04/21/25 13:13) ANAPHYLAXIS latex (LATEX) Allergy (Severe, Verified 04/21/25 13:13) ANAPHYLAXIS pork derived (porcine) (PORK DERIVED (PORCINE)) Allergy (Severe, Verified 13:13) d/t MASTOCYTOSIS soy Allergy (Severe, Verified 04/21/25 13:13) Anaphylaxis carrageenan (CARRAGEENAN) Allergy (Unknown, Verified 04/21/25 13:13) UNKNOWN egg (EGG) Allergy (Unknown, Verified 04/21/25 13:13) DUE TO MASTOCYTOSIS Tobacco use date assessed: 04/30/25 Dental Screening Dental Screen Date: 04/30/25 Did you have a dental visit in the last 12 months?: Yes Did you have a dental problem in the last 6 months where you did not have access to dental care?: No Was dental information given to patient?: Patient has dentist HPI HPI Comments History of Present Illness Details 44-year-old female with a past medical history of systemic mastocytosis, sleeve gastrectomy, tubular adenoma, polyarthralgia, polymalgia, osteopenia presenting for hospital follow up She was hospitalized at [facility] from 04/21-04/25/25 for intractable nausea and vomiting following gastric bypass repair by Dr Lamont wolf on 04/16/25. She was transferred from [facility] ED. She is doing better. She is tolerating some fluids. She is going to try off her scopolomine patch today. She has some zofran to use as needed. A&I: systemic mastocytosis. Managed by GI. Referred to A&I -she had an appt but had to reschedule Endocrine: hypoglycemia following sleeve gastrectomy. Saw endocrineDr Polk. Osteopenia. Her recent procedure is supposed to improve her hypoglycemia MSK: History of polyarthraliga, polymyalgia. Saw Dr Asia ALMEIDA in past. No signs of inflammatory condition GI: History of tubular adenoma. Has seen GI at [facility]. she was admitted with anemia 10/07 and had EGD and colonoscopy with no active bleeding but note made of hemorrhoids and Dallas III marginal ulcer. On levsin prn, esomeprazole BH: [employer] [place]-On clonidine, adderall, trazodone. Difficult past six months- from her , using a home health manager. Financial issues Follows with weight management. Mela Hamlincong PAC. On berberine. She has onychomycosis which has responded well to terbanifine in the past. Followed by nuclear weapons specialist-Enrrique Fan. [facility] [place]. MRI and mammo annually. MRI usually Oct, 2 mammos per year at moment based on last imaging. Not on estrogen. Reports swelling in the left axilla that is not painful and is shallow. ROS see HPI PHYSICAL EXAM: GENERAL: Alert and oriented x 3. NAD EYES: EOMI. Anicteric. HENT: Moist mucous membranes. No scleral icterus. No cervical lymphadenopathy. LUNGS: Clear to auscultation bilaterally. CARDIOVASCULAR: Regular rate and rhythm. No murmur. No JVD. ABDOMEN: Soft, non-tender +bs EXTREMITIES: No edema. Non-tender. SKIN: No rashes or lesions. Warm. NEUROLOGIC: No focal neurological deficits. CN II-XII grossly intact PSYCHIATRIC: Cooperative. Appropriate mood and affect [facility] Medical History Jejunitis Erosive esophagitis History of rhabdomyolysis Hypoglycemia after GI (gastrointestinal) surgery Intestinal malabsorption History of traumatic brain injury Hypothyroidism Depression Dysplastic nevus Hyperlipidemia Mastocytosis ADHD Surgical History Hx of endoscopy Hx of dilation and curettage History of surgery on wrist Hx of adenoidectomy Hx of tonsillectomy History of esophagogastroduodenoscopy (EGD) H/O colonoscopy History of laparoscopy History of sleeve gastrectomy H/O gastric bypass H/O hernia repair History of appendectomy H/O: hysterectomy Family History Mother Obesity DM (diabetes mellitus) Arthritis Father Obesity HIV (human immunodeficiency virus infection) Hepatitis B Hepatitis C Brother No problems noted. Social History Household Members: Spouse and Children Housing: House Do you presently have visiting nurse or other home services: No Alcohol intake: current Alcohol intake frequency: does not drink Patient Tobacco Use Status: Former Tobacco user Tobacco use type: Cigarette e-Cigarette/Vaping Use: Currently Using service: No Current occupational status: employed Current occupation: [employer] Cognitive needs: No Hearing needs: No Vision needs: Yes (wears glasses) Questionnaire Thrive Questionnaire Date Thrive assessed: 11/30/24 I am a: Patient What is your living situation today?: I have a place to live, but I am worried about losing it in the future Within the past 12 months, did the food you bought not last and you didn't have the money to get more?: Sometimes True Within the past 12 months, did you worry whether your food would run out before you got money to buy more?: Sometimes True Do you have trouble paying for medicines?: I choose not to answer this question Do you have trouble getting transportation to medical appointments?: No Do you have trouble paying your heating and electricity bill?: Yes Do you have trouble taking care of your child, family member or friend?: No Do you have trouble with day-to-day activities such as bathing, preparing meals, shopping, managing finances, etc.?: Yes Are you currently unemployed and looking for a job?: No Are you interested in more education?: No Please select the resources that you would like help with: None Currently or been in a relationship where the following occur: Controlled Financially THRIVE Score: 5 AUDIT C Alcohol Use Questionnaire (AUDIT-C) 1. How often do you have a drink containing alcohol?: Monthly or less (1-2 a year) 2. How many drinks containing alcohol do you have on a typical day when you are drinking?: 1 or 2 3. How often do you have six or more drinks on one occasion?: Never Total Score: 1 YULIANA-7 AMB Questionnaire YULIANA-7 Date YULIANA - 7 assessed: 11/30/24 Source: Developed by Drs. Arthur Joaquin, Whitney Sarabia, Konrad Cat and colleagues, with an educational mary from [employer]. Physical exam (Primary Care) Vital Signs: Last Vital Signs Temp 98.6 F 04/30/25 09:29 Pulse 84 04/30/25 09:29 Resp 12 04/30/25 09:29 BP 104/64 04/30/25 09:29 Pulse Ox 98 04/30/25 09:29 Oxygen Delivery Method Room Air 04/30/25 09:29 BMI result Body Mass Index 27.3 Tobacco/Smoking Status: Tobacco use Status Tobacco use date assessed 11/30/24 04/30/25 09:25 Patient Tobacco Use Status Former Tobacco user 04/30/25 09:34 Tobacco use type Cigarette 04/30/25 09:34 e-Cigarette/Vaping Use Currently Using 04/30/25 09:34 Thrive Assessment: Date of Thrive Assessment Date Thrive assessed 11/30/24 04/30/25 09:25 Currently or been in a relationship where the following occur: Controlled Financially Coding Level of Care Code Est Pt Level 4 (08134) Complex EM visit Add On G2211 Diagnoses Hospital discharge follow-up Z09 Hypoglycemia E16.2 Erosive esophagitis K22.10 Tinea pedis of both feet B35.3 Laterality: bilateral Assessment & Plan Assessment & Plan (1) Hospital discharge follow-up: Code(s): Z09 - Encounter for follow-up examination after completed treatment for conditions other than malignant neoplasm (2) Hypoglycemia: Code(s): E16.2 - Hypoglycemia, unspecified Category: Medical (3) Erosive esophagitis: Code(s): K22.10 - Ulcer of esophagus without bleeding Category: Medical (4) Tinea pedis: Code(s): B35.3 - Tinea pedis Category: Medical Qualifiers: Laterality: bilateral Qualified Code(s): B35.3 - Tinea pedis Plan Hospital discharge Records requested but not received Reviewed course and labs with patient She is improving with time following surgery. She can continue scopolamine and zofran prn Hypoglycemia-continue CGM. She is almost at prediabetic A1C. She will recheck in 3 months Onychomycosis-repeat terbanifine. LFTs ordered Orders: Orders Hemoglobin A1c Today E03.9 - Hypothyroidism, unspecified, E16.2 - Hypoglycemia, unspecified Comprehensive Met. Panel Today E03.9 - Hypothyroidism, unspecified, E16.2 - Hypoglycemia, unspecified Medications: Changed From blood-glucose sensor (Dexcom G7 Sensor device) USE DIRECTED TO TEST BLOOD SUGARS CONTINUOUSLY AND CHANGE SENSOR EVERY 10 DAYS 9 ea 3RF K91.2 - Postsurgical malabsorption, not elsewhere classified To Dexcom G7 Sensor (blood-glucose sensor) USE DIRECTED TO TEST BLOOD SUGARS CONTINUOUSLY AND CHANGE SENSOR EVERY 10 DAYS 9 ea 6RF NS K91.2 - Postsurgical malabsorption, not elsewhere classified Refilled terbinafine HCl 250 mg PO DAILY 180 tabs 0RF
[2025-04-30 09:29] VITALS: BP 104/64; PULSE 84; RESP 12; TEMP 37; O2SAT 98; BMI 27.3
--- OUTSIDE RECORDS SUMMARY | 2025-04-30 09:36 | XMS_ITS | Data Portability ---
Author Organization [facility], [address] Address [address] [place] [address] Care Team Providers Care Underliner Name Role Phone [facility] Prim [place] Care Provider Assessment No assessment recorded. Plan of Treatment Reminders Order Date Submit Date Provider Last Modified By Organization Details Last Modified Time Details Appointments None recorded. Lab rapid flu (A+B) 2023 024 [place] [address] [place] [address], [address] [place] [address], [id number], 10:59:41 rapid flu (A+B) [address] [place] [address], [address] [place], [address], 09:16:32 Referral None recorded. Procedures None recorded. Surgeries None recorded. Imaging None recorded. Medication Orders benzonatate 100 mg capsule [address]/Pharmacy #[id number], [address] [place], [address], 18:57:02 doxycycline hyclate 100 mg capsule 2023 024 [facility]/Pharmacy #[id number], [address] [place], [address], 10:59:44 Tamiflu 75 mg capsule [address] [id number], [address] [place], [place], [id number], 4 09:26:51 prednisone 20 mg tablet 2021 [id number], [address] [place], [place], [id number], 4 09:27:01 benzonatate 200 mg capsule 2021 022 [id number], [address] [place], [place], [id number], 4 09:25:49 Patient TargetsNo targets recorded. Patient Instructions Encounter Date Encounter Id Patient Instructions Last Modified By Organization Details Last Modified Time 10/12/2022 [id number] You have tested positive for the flu [...] amount of fluids you drink. Take an okwa-rug-nrrholp pain medicine if needed, such as acetaminophen [...] drops or plain, hard candy. Try an wsfc-sbo-lwgftcq cough or cold medicine. Read and follow all instructions on the label. Raise your head at night with an extra pillow. This may help you rest if coughing keeps you awake. [email or web address] Not available 10/12/2022 09:08:14 02/07/2024 [id number] Acute Sinusitis: Care Instructions Not available 02/07/2024 [...] = Negati ve Not Available [address] [address], [address], 10/12/2022 09:11:54 10/12/20 22 10/12/2022 rapid flu (A+B) Unknown Analyte positi ve Not Available [facility] [address], [address], 10/12/2022 09:11:54 10/12/20 22 10/12/2022 rapid flu (A+B) Unknown Analyte Normal = Negati ve Not Available [address] [place], [address], 10/12/2022 09:11:54 10/12/20 22 10/12/2022 rapid flu (A+B) Unknown Analyte negati ve Not Available [address] [facility] [address] [place], [address], 10/12/2022 09:11:54 02/07/20 24 02/07/2024 rapid flu (A+B) Unknown Analyte negati ve Not Available [facility] [address] [place] [address], [address], 02/07/2024 09:49:34 02/07/20 24 02/07/2024 rapid flu (A+B) Unknown Analyte negati ve Not Available [facility] [address] [place], [address], 02/07/2024 09:49:34 Result Notes None recorded. Problems Name Problem SNOMED Code Status Onset Date Resolution Date Notes Provider Name and Address Organization Details Recorded Time Depressive disorder 20054951 Active 022 MAYITO MERRILL null, [place] - [facility] 2 08:22:19 Anemia 812199725 Active 022 MAYITO MERRILL null, PA - [facility] 2 08:22:28 Ulcer 264850317 Active 022 MAYITO MERRILL null, PA - [facility] 2 08:22:36 Systemic mast cell disease 502974581 Active DAVEY ROLAND null, PA - [facility] 4 09:30:06 [...] Name and Address Organization Details Recorded Time 71943 latex environme nt,medica tion Not available Not available Not available 10/12/2022 81171 91 RxNorm MAYITO MOMIN null, [place] - [facility] 2 08:18:18 120648 clavulani c acid Not available Not available Not available Not available 02/07/2024 49176 RxNorm DAVEY ROLAND null, [facility] - [facility] [...] Not Available Vitals Date Recorded Body height Body mass index (BMI) Body weight Oxygen saturation Oxygen saturation in Arterial blood by Pulse oximetry Respiratory rate Heart rate Body temperature Systolic And Diastolic Provider Name and Address Organization Details Last Updated DateTime 4 160.02 cm 28.3 kg/m2 77181.7 8 g 99 % 99 % 18 /min 81 /min 98.5 [degF] 100/63 mm[Hg] DAVEY ROLAND PA - [facility] 4 09:33:26 Date Recorded Body height Oxygen saturation Oxygen saturation in Arterial blood by Pulse oximetry Heart rate Respiratory rate Body temperature Body mass index (BMI) Body weight Systolic And Diastolic Provider Name and Address Organization Details Last Updated DateTime 2 162.56 cm 95 % 95 % 107 /min 18 /min 99.7 [degF] 25.4 kg/m2 63374.6 7 g 113/66 mm[Hg] MAYITO MOMIN PA - [facility] 08:36:15 Social History Question Answer Notes LastModified by Organizat ion Details LastModified Time Tobacco Smoking Status Former Smoker MAYITO antony, [place] - [facility] 10/12/2022 08:25:24 Have You Recently Traveled Abroad? No Information not available 10/12/2022 Sex: Unknown Functional Status Question Answer Note LastModified by Organizat ion Details LastModified Time Do you use any illicit or recreational drugs? No Information not available 10/12/2022 Do you or have you ever used any other forms of tobacco or nicotine? No Information not available 10/12/2022 What is your level of alcohol consumption? None Information not available 10/12/2022 Are you currently employed? Yes Information not available 10/12/2022 Mental Status None recorded. Family History Relationship [...] toxoid, preservative free, adsorbed 0 completed MAYITO MERRILL null, PA - [...] SNOMED-CT Code Diagnosis ICD10 Code Diagnosis Note [id number] [address] [address] [address] 05/13/2021 14:05:22 05/13/2021 16:11:30 [id number] [place] [address] [address] 10/12/2022 08:06:44 10/12/2022 09:18:38 Influenza caused by Influenza A virus 340937299 J09.X2 [id number] [place] [address] [address] 02/07/2024 09:08:07 02/07/2024 11:09:59 Acute sinusitis 73435353 J01.90 Upper resp iratory infection 26605573 J06.9 Persistent cough 9636519 02 R05.3 Health Concerns Section Related Observation LastModified by Organization Detai ls LastModified Time None Recorded Concern Status LastModified by Organization Details LastModified Time None Recorded Advance Directives Directive None Recorded Payers Insurance Date Sequence Insurance Name Policy Number Policy Hanks Covered Member ID Hanks Member ID Guarantor Name 10/12/2022 1 [facility]: [facility] [place] [id number] Rafa Nola [id number] Marleen Vaca 02/15/2024 1 [facility] ([facility] [id number] Marleen Vaca [id number] Marleen Vaca Notes Date Note Type Note Provider Name and Address Organization Details Recorded Time 10/12/2022 text/html has been sick x 3 days. fever with chills, body aches and tiredness. Leander Vivas NP [address] [place], [address], [place] [facility] 10/12/2022 09:34:07 02/07/2024 text/html CoughReported bypatient.Quality:p roductive cough;dry and wet; intermittent Severity:moderate Duration:symptoms lasting over 2 weeks Timing:worsening; gradual Context:family members ill with similar symptoms Modifying Factors:Lying down; at night Associated Symptoms:no fever; no chills; no chest pain; no heartburn; no nausea; no vomiting; no edema;wheezing;post nasal drip Danyelle Ray MD [address] [place], [address], [place] - [facility] 02/15/2024 19:03:55 OBGyn Episode No OBEpisode recorded.
--- OUTSIDE RECORDS SUMMARY | 2025-04-30 09:36 | XMS_ITS | Clinical Summary ---
Author Organization [facility] [address] [place] [address] Address [address], [place] Phone Care Team Providers Care Spray Booth Operator Name Role Phone Rivera Juarez DO Primary Care Provider [phone] Encounters Date Type Department Care Team Description 02/27/2025 Telephone Obstetrics and Gynecology - [place] [address] [place] [phone] Francisca Patel MA 02/22/2025 3:11 PM EDT - 02/22/2025 11:59 PM EDT Hospital Encounter Radiology Department - [address] [phone] Family history of breast cancer; Breast cancer screening, high risk patient Discharge Disposition: Home or Self Care 02/05/2025 9:51 AM EDT - 02/05/2025 11:59 PM EDT Hospital Encounter Radiology Department - [address] [phone] Abnormal mammogram of right breast Discharge Disposition: Home or Self Care 02/05/2025 Telephone Obstetrics and Gynecology - [place] [address] [place] [phone] Enrrique Fan CNM Request For Order(s) from Last 3 Months Immunizations Name Administration Dates Next Due Moderna SARS-CoV-2 COVID-19, mRNA, LNP-S, preservative free 11/25/2020,10/28/2020 Surgical History Surgery Date Site/Laterality Comments OVARIAN CYST REMOVAL PROCEDURE: AR OVARIAN CYSTECTOMY UNI/BI; COMMENT: with appendectomy after PID (total of 3 laparoscopies for the ovary) TONSILLECTOMY PROCEDURE: HISTORICAL TONSILLECTOMY APPENDECTOMY PROCEDURE: HISTORICAL APPENDECTOMY OTHER SURGICAL HISTORY PROCEDURE: ARTHROSCOPY PROCEDURE NEC; COMMENT: hand surgery OTHER SURGICAL HISTORY PROCEDURE: AR DILATION & CURETTAGE DX&/THER NONOBSTETRIC; COMMENT: and [...] History Date Comments Bipolar disorder, unspecifie d ([facility] V24, [facility] V28) DX:Bipolar disorder, unspeci fied ([facility]) Heartburn DX:Heartburn Heartburn 05/05/2006 DX:Heartburn; CO MMENT: Upper GI endoscopy 9.1.06 at [facility] was normal. Dysplastic nevus 06/10/2009 DX:Dysplastic [...] attack Mother Testicular cancer Other 1 cousin-pat [place] Other: prostate cancer Other 2 pater nal [...] - Inhaled Oxygen Concentration - - Weight 70.3 kg (155 lb) 02/22/2025 3:48 PM EDT Height 160 cm (5' 3 ) 03/07/2024 2:47 PM EDT Body Mass Index 27.46 03/07/2024 2:47 PM EDT Plan of Treatment Health Maintenance Due Date Last Done Comments Hepatitis A Vaccines (1 of 2 - Risk 2-dose series) 1998 Hepatitis B Vaccines (1 of 3 - 19+ 3-dose series) 1998 12/25/2001, 09/21/2001, 05/26/2001 Pneumococcal Vaccine: Pediatrics (0 to 5 Years) and At-Risk Patients (6 to 49 Years) (1 of 2 - PCV) 1998 Cholesterol Screening (Lipid Panel) 09/25/2022 Colorectal Cancer Screening: Colonoscopy 09/25/2022 Depression Screening 09/25/2022 HIV Screening 09/25/2022 Hepatitis C Screening 09/25/2022 Social Influencers of Health Screening 09/25/2022 COVID-19 Vaccine ( season) 2024 08/19/2022, 05/06/2022, 09/25/2021, Additional history exists Influenza Vaccine (#1) 2025 , 08/12/2022, 08/17/2021, Additional history exists Breast Cancer Screening 02/05/2027 02/06/20, 08/24/2024, 02/20/2024, Additional history exists DTaP,Tdap,and Td Vaccines [...] age to complete this topic Meningococcal B Vaccine Aged Out No l onger eligible based on patient's age to complete this topic RSV Immunization Patients Under 20 months Aged Out No longer eligible based on patient's age to complete this topic Varicella Vaccines Aged Out No longer eligible based on patient's age to complete this topic Procedures Procedure Name Priority Date/Time Associated Diagnosis Comments EXTERNAL CLINICAL LAB 03/05/2025 MR BREAST WO AND W CONTRAST BILAT Routine 02/22/2025 4:10 PM EDT Family history of breast cancer Breast cancer screening, high risk patient MG MAMMO DIGITAL DIAGNOSTIC W TANG BILAT Routine 02/05/2025 10:02 AM EDT Abnormal mammogram of right breast from Last 3 Months Results * External clinical lab (03/05/2025) us Provider [facility] BLOOD ORDERABLES Fin al Result * MR Breast wo and w Contrast bilat (02/22/2025 4:10 PM EDT) Anatomical Region Laterality Modality Breast Bilateral Magnetic Resonan ce 02/22/2025 6:57 PM EDT Impressions 02/25/2025 9:08 AM EDT Stable probably benign 0.5 cm enhancing area in the left breast at the 1 o'clock position. Recommend continued MRI follow-up in 6 months. New bilateral areas of enhancement which are suspected to be secondary to benign background parenchymal enhancement. Recommend follow-up MRI in 6 months. BI-RADS CATEGORY: 3 - PROBABLY BENIGN RECOMMENDATION: MRI of bilateral breasts is recommended in 6 months. POS -[id number] -------- FINAL REPORT -------- Dictated By: Noy Figueroa Dictated Date: 02/22/2025 18:57 ET Assigned Physician: Noy Figueroa Reviewed and Electronically Signed By: Noy Figueroa Signed Date: 02/25/2025 09:08 ET Workstation ID: [id number] Transcribed By: Self Edit Transcribed Date: 02/22/2025 19:23 ET Narrative 02/25/2025 9:08 AM EDT HISTORY: Six-month follow-up for a probably benign focus of enhancement in the left breast. High risk screening. Family history of breast cancer. Left nipple discharge. COMPARISON: 08/10/2024, 07/18/2023, 08/03/2018 CORRELATION: Mammography as recent as 02/05/2025 TECHNIQUE: Exam performed on a 1.5 Pretty high-field MRI scanner. Multiplanar multiphasic MRI performed without and with contrast using department protocol. Exam is reviewed on CAD workstation with enhancement curves plotting, 3-D multi-planar reformatted and angiographic MIP images obtained. 20 cc of Dotarem administered intravenously. Exam is reviewed on CAD workstation with enhancement curves plotting, 3-D multi-planar reformatted and angiographic MIP images obtained. FINDINGS: Breast parenchyma is heterogeneously dense with moderate background parenchymal enhancement. RIGHT BREAST: New multifocal areas of patchy and stippled enhancement and new multifocal enhancing foci which have similar appearance to new enhancing areas in the contralateral breast. These findings are suspected to be secondary to background parenchymal enhancement. Six-month follow-up MRI recommended. No new suspicious nipple abnormality. Scattered subcentimeter cysts. LEFT BREAST: Stable 0.5 cm enhancing area in the upper and slightly outer breast at approximately the 1 o'clock position at the anterior depth, axial image 52. Continued MRI follow-up recommended in 6 months. New multifocal areas of patchy and stippled enhancement and new multifocal enhancing foci which have similar appearance to new enhancing areas in the contralateral breast. These findings are suspected to be secondary to background parenchymal enhancement. Six-month follow-up MRI recommended. No new suspicious nipple abnormality. Scattered subcentimeter cysts. OTHER: No axillary lymphadenopathy. Procedure Note Noy Figueroa MD - 02/25/2025 HISTORY: Six-month follow-up for a probably benign focus of enhancement inthe left breast. High risk screening. Family history of breast cancer.Left nipple discharge. COMPARISON: 08/10/2024, 07/18/2023, 08/03/2018 CORRELATION: Mammography as recent as 02/05/2025 TECHNIQUE: Exam performed on a 1.5 Pretty high-field MRI scanner.Multiplanar multiphasic MRI performed without and with contrast usingdepartment protocol. Exam is reviewed on CAD workstation with enhancementcurves plotting, 3-D multi-planar reformatted and angiographic MIP imagesobtained. 20 cc of Dotarem administered intravenously. Exam is reviewed on CAD workstation with enhancement curves plotting, 6-Brpzuw-nygcwn reformatted and angiographic MIP images obtained. FINDINGS: Breast parenchyma is heterogeneously dense with moderate backgroundparenchymal enhancement. RIGHT BREAST: New multifocal areas of patchy and stippled enhancement and new multifocalenhancing foci which have similar appearance to new enhancing areas in thecontralateral breast. These findings are suspected to be secondary tobackground parenchymal enhancement. Six-month follow-up MRIrecommended. No new suspicious nipple abnormality. Scattered subcentimeter cysts. LEFT BREAST: Stable 0.5 cm enhancing area in the upper and slightly outer breast atapproximately the 1 o'clock position at the anterior depth, axial image52. Continued MRI follow-up recommended in 6 months. New multifocal areas of patchy and stippled enhancement and new multifocalenhancing foci which have similar appearance to new enhancing areas in thecontralateral breast. These findings are suspected to be secondary tobackground parenchymal enhancement. Six-month follow-up MRI recommended. No new suspicious nipple abnormality. Scattered subcentimeter cysts. OTHER: No axillary lymphadenopathy. IMPRESSION: Stable probably benign 0.5 cm enhancing area in the left breast at the 1o'clock position. Recommend continued MRI follow-up in 6 months. New bilateral areas of enhancement which are suspected to be secondary tobenign background parenchymal enhancement. Recommend follow-up MRI in 6months. BI-RADS CATEGORY: 3 - PROBABLY BENIGN RECOMMENDATION: MRI of bilateral breasts is recommended in 6 months. POS -[id number] -------- FINAL REPORT -------- Dictated By: Noy Figueroa Dictated Date: 02/22/2025 18:57 ET Assigned Physician: Noy Figueroa Reviewed and Electronically Signed By: Noy Figueroa Signed Date: 02/25/2025 09:08 ET Workstation ID: [id number] Transcribed By: Self Edit Transcribed Date: 02/22/2025 19:23 ET Enrrique Fan [facility] IM MRI PROCEDURES Final Resul t * MG Mammo Digital Diagnostic w Tang bilat (02/05/2025 10:02 AM EDT) Anatomical Region Laterality Modality Breast Bilateral Mammography 02/05/2025 10:2 2 AM EDT Impressions 02/05/2025 10:29 AM EDT RIGHT BREAST: Asymmetry in the upper breast on the MLO view, unchanged from February 2024. Probably benign. A 12-month follow-up is recommended as diagnostic bilateral mammogram. LEFT BREAST: Negative, no evidence of malignancy. Normal interval follow-up is recommended in 12 months. Findings and recommendations were conveyed to the patient via chemical engineering technologist. BREAST DENSITY: C - The breasts are heterogeneously dense which may obscure small masses. BI-RADS CATEGORY: 3 - PROBABLY BENIGN RECOMMENDATION: Mammography: Diagnostic bilateral mammogram recommended in 1 year. Note: Breast MRI obtained July 2024 has recommended a 6 months follow-up breast MRI. Mammo Location: [facility], [address] [place] [address], [id number], . -------- FINAL REPORT -------- Dictated By: Isac Andres Dictated Date: 02/05/2025 10:22 ET Assigned Physician: Isac Andres Reviewed and Electronically Signed By: Isac Andres Signed Date: 02/05/2025 10:29 ET Workstation ID: [id number] Transcribed By: Self Edit Transcribed Date: 02/05/2025 10:22 ET Narrative 02/05/2025 10:29 AM EDT HISTORY: - This is a 2nd 6-month follow-up of right asymmetry in the upper breast on the MLO view -Patient is status post breast MRI on August 10, 2024 that describes left breast 0.5 cm focus of enhancement, for which a 6-month follow-up breast MRI was recommended. STUDY: Bilateral diagnostic mammography with tomosynthesis and CAD TECHNIQUE: Bilateral digital diagnostic mammography is obtained and read in conjunction with computer-aided detection. Tomosynthesis as well as 2-D C view imaging were obtained. Spot compression Tomosynthesis images of the right breast was also obtained. COMPARISON: Comparison made to multiple prior, most recent right diagnostic mammogram on August 24, 2024, and most remote June 08, 2013. RIGHT BREAST: Asymmetry in the upper breast middle depth is unchanged from prior spot compression views from February 2024. No new masses, suspicious calcifications or other abnormalities are seen. LEFT BREAST: No significant masses, suspicious calcifications or other abnormalities are seen. Procedure Note Isac Andres MD - 02/05/2025 HISTORY: - This is a 2nd 6-month follow-up of right asymmetry in the upper breaston the MLO view -Patient is status post breast MRI on August 10, 2024 that describes leftbreast 0.5 cm focus of enhancement, for which a 6-month follow-up breastMRI was recommended. STUDY: Bilateral diagnostic mammography with tomosynthesis and CAD TECHNIQUE: Bilateral digital diagnostic mammography is obtained and readin conjunction with computer-aided detection. Tomosynthesis as well as2-D C view imaging were obtained. Spot compression Tomosynthesis images ofthe right breast was also obtained. COMPARISON: Comparison made to multiple prior, most recent rightdiagnostic mammogram on August 24, 2024, and most remote May. RIGHT BREAST: Asymmetry in the upper breast middle depth is unchangedfrom prior spot compression views from February 2024. No new masses, suspiciouscalcifications or other abnormalities are seen. LEFT BREAST: No significant masses, suspicious calcifications or otherabnormalities are seen. IMPRESSION: RIGHT BREAST: Asymmetry in the upper breast on the MLO view, unchangedfrom February 2024. Probably benign. A 12-month follow-up is recommended asdiagnostic bilateral mammogram. LEFT BREAST: Negative, no evidence of malignancy. Normal intervalfollow-up is recommended in 12 months. Findings and recommendations were conveyed to the patient via mammographytechnologist. BREAST DENSITY: C - The breasts are heterogeneously dense which mayobscure small masses. BI-RADS CATEGORY: 3 - PROBABLY BENIGN RECOMMENDATION: Mammography: Diagnostic bilateral mammogram recommended in 1 year. Note: Breast MRI obtained July 2024 has recommended a 6 monthsfollow-up breast MRI. Mammo Location: [facility], [address] [place] [address], [id number], . -------- FINAL REPORT -------- Dictated By: Isac Andres Dictated Date: 02/05/2025 10:22 ET Assigned Physician: Isac Andres Reviewed and Electronically Signed By: Isac Andres Signed Date: 02/05/2025 10:29 ET Workstation ID: [id number] Transcribed By: Self Edit Transcribed Date: 02/05/2025 10:22 ET Enrrique Fan CNM IMG BI PROCEDURES Final Result from Last 3 Months Insurance [place] [id number] [employer] [facility] Care Teams Spray Booth Operator Relationship Specialty Start Date End Date Rivera Juarez DO [facility] [place] [address] PCP - General Internal Medicine 02/04/25
== END 2025-04-30 10:01 | disposition home or self-care (01) ==
LOC: HO.HMCFM 09:13
PROVIDERS: PCP Internal Medicine; Visit Provider Internal Medicine
DX: Z09 Encounter for follow-up examination after completed treatment for conditions other than malignant neoplasm (principal); E16.2 Hypoglycemia, unspecified; K22.10 Ulcer of esophagus without bleeding; B35.3 Tinea pedis

== ENCOUNTER 2025-06-25 15:59 | Outpatient (REF) | payer OTHER, SELFPAY ==
[2025-06-25 16:37] LABS: Hemoglobin A1C 124.9358 umol/L; Total Hemoglobin (HGBA1C) 3402.7453 umol/L
[2025-06-25 17:25] LABS: Alanine Aminotransferase 14 U/L (0-31); Albumin Level 4.6 g/dL (3.5-5.0); Alkaline Phosphatase 53 U/L (39-117); Anion Gap 13 (12-20); Aspartate Amino Transferase 18 U/L (5-31); Blood Urea Nitrogen 12 mg/dL (9-16); Calcium 9.0 mg/dL (8.4-10.2); Carbon Dioxide 24 mmol/L (22-29); Chloride 105 mmol/L (96-108); Estimated Glomerular Filt Rate > 60; Potassium 3.7 mmol/L (3.3-5.1); Sodium 138 mmol/L (135-145); Total Protein 6.8 g/dL (6.5-8.0)
--- OUTSIDE RECORDS SUMMARY | 2025-06-25 18:06 | XMS_ITS | Encounter Summary ---
Author Organization [facility] Address [address] [facility] [address] [place] [phone] Phone Care Team Providers Care Hand Stitcher Name Role Phone Pebbles Santos MD Primary Care Provide r Encounter Details Date Type Department Care Team (Late st Contact Info) Description 12/05/2024 Procedure Pass [facility] Endoscopy Department [address] [place] [phone] Social History Tobacco Use Types Packs/Day Years Used Date Smoking Tobacco: Former Smokeless Tobacco: Never Alcohol Use Standard Drinks/Week Comments Not Currently 0 (1 standard drink = 0.6 oz pur e alcohol) Education Answer Date Recorded Are you interested in more education? Not on ayan e 02/11/2023 Are you concerned about learning? Not on file 02/11/2023 No 02/11/2023 No 02/11/2023 Digital Access Answer Date Recorded No 03/12/2023 No 03/12/2023 Reliable internet access at home? Not on file 03/12/2023 Device with a working camera? Not on file Intimate Partner Violence Answer Date R ecorded Are you denied basic needs s uch as food, clothing, or medical care? No 12/05/2024 In the past 12 months have y ou been in a relationship with a person who hurts, threatens, or tries to control you? No 12/05/2024 Are you denied basic needs s uch as food, clothing, or medical care? No 12/05/2024 In the past 12 months have y ou been in a relationship with a person who hurts, threatens, or tries to control you? 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 It is not the complete legal health record.[facility]
--- OUTSIDE RECORDS SUMMARY | 2025-06-25 18:06 | XMS_ITS | Clinical Summary ---
Author Organization [address] Address [address] [place] [phone] Phone Care Team Providers Care Financial Developer Name Role Phone Rivera Juarez DO Primary Care Provider [phone] Immunizations Name Administration Dates Next Due Moderna SARS-CoV-2 COVID-19, mRNA, LNP-S, preservative free 11/25/2020,10/28/2020 Surgical History Surgery Date Site/Laterality Comments OVARIAN CYST REMOVAL PROCEDURE: NE OVARIAN CYSTECTOMY UNI/BI; COMMENT: with appendectomy after PID (total of 3 laparoscopies for the ovary) TONSILLECTOMY PROCEDURE: HISTORICAL TONSILLECTOMY APPENDECTOMY PROCEDURE: HISTORICAL APPENDECTOMY OTHER SURGICAL HISTORY PROCEDURE: ARTHROSCOPY PROCEDURE NEC; COMMENT: hand surgery OTHER SURGICAL HISTORY PROCEDURE: NE DILATION & CURETTAGE DX&/THER NONOBSTETRIC; COMMENT: and [...] History Date Comments Bipolar disorder, unspecifie d ([facility] V24, [facility] V28) DX:Bipolar disorder, unspeci fied ([facility]) Heartburn DX:Heartburn Heartburn 05/05/2006 DX:Heartburn; CO MMENT: Upper GI endoscopy 9.1.[address] [facility] was normal. Dysplastic nevus 06/10/2009 DX:Dysplastic [...] 19+ 3-dose series) 1998 12/25/2001, 09/21/2001, 05/26/2001 Cholesterol Screening (Lipid Panel) 09/25/2022 Colorectal Cancer Screening: Colonoscopy 09/25/2022 HIV Screening 09/25/2022 Hepatitis C Screening 09/25/2022 Social Influencers of Health Screening 09/25/2022 Depression Screening 10/17/2024 COVID-19 Vaccine ( season) 2025 08/19/2022, 05/06/2022, 09/25/2021, Additional history exists Influenza Vaccine (#1) 2025 3, 08/12/2022, 08/17/2021, Additional history exists Breast [...] on patient's age to complete this topic Pneumococcal Vaccine: Pediatrics (0 to 5 Years) and At-Risk Patients (6 to 49 Years) Aged Out No longer eligible based on patient's age to complete this topic RSV Immunization Patients Under 20 months Aged Out No longer eligible based on patient's age to complete this topic Varicella Vaccines Aged Out No longer eligible based on patient's age to complete this topic Procedures Procedure Name Priority Date/Time Associated Diagnosis Comments MG MAMMO DIGITAL DIAGNOSTIC W TANG BILAT Routine 02/05/2025 10:02 AM EDT Abnormal mammogram of right breast from Last 3 Months or Most Recently [...] recommendations were conveyed to the patient via veterinary technologist. BREAST DENSITY: C - The breasts are heterogeneously dense which may obscure small masses. BI-RADS CATEGORY: 3 - PROBABLY BENIGN RECOMMENDATION: Mammography: Diagnostic bilateral mammogram recommended in 1 year. Note: Breast MRI obtained July 2024 has recommended a 6 months follow-up breast MRI. Mammo Location: [facility], [address] [place] [address], [id number], . -------- FINAL REPORT -------- Dictated By: Isac Andres Dictated Date: 02/05/2025 10:22 ET Assigned Physician: Isac Andres Reviewed and Electronically Signed By: Isac Andres Signed Date: 02/05/2025 10:29 ET Workstation ID: [id number] Transcribed By: Self Edit Transcribed Date: 02/05/2025 [...] a 6 monthsfollow-up breast MRI. Mammo Location: [facility], [address] [place] [address], [address], . -------- FINAL REPORT -------- Dictated By: Isac Andres Dictated Date: 02/05/2025 10:22 ET Assigned Physician: Isac Andres Reviewed and Electronically Signed By: Isac Andres Signed Date: 02/05/2025 10:29 ET Workstation ID: [id number] Transcribed By: Self Edit Transcribed Date: 02/05/2025 10:22 ET Enrrique Fan [facility] IMG BI PROCEDURES Final Result from Last 3 Months or Most Recently Relevant to Health Maintenance Insurance [employer] [facility] Care Teams Financial Developer Relationship Specialty Start Date End Date Rivera Juarez DO [address] [place] [phone] PCP - General Internal Medicine 02/04/25
--- OUTSIDE RECORDS SUMMARY | 2025-06-25 18:06 | XMS_ITS | Encounter Summary ---
Author Organization [facility] Address [address] [facility] [address] [place] [phone] Phone Care Team Providers Care Hose Inspector Name Role Phone Pebbles Santos MD Primary Care Provide r Encounter Details Date Type Department Care Team (Late st Contact Info) Description 04/17/2025 Procedure Pass [facility] Endoscopy Department [address] [place] [id number] Social History Tobacco Use Types Packs/Day Years Used Date Smoking Tobacco: Former Smokeless Tobacco: Former Comments:Occasional vaping, last 03/28 Alcohol Use Standard Drinks/Week Comments Not Currently [...] as food, clothing, or medical care? No 04/17/2025 In the past 12 months have y ou been in a relationship with a person who hurts, threatens, or tries to control you? No 04/17/2025 Are you denied basic needs s uch as food, clothing, or medical care? No 04/17/2025 In the past 12 months have y ou been in a relationship with a person who hurts, threatens, or tries to control you? 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 Wish to be (Past 1 Month) No 025 6:00 PM EDT Tammi Thurston RN 2. Non-Specific Active Suici carla Thoughts (Past 1 Month) No 04/17/2025 6:00 PM EDT Alesia Thurston RN 6. Suicidal Behavior (Lifetime) Yes 5 6:00 PM EDT Tammi Thusrton RN 6. Suicidal Behavior (3 Months) No 5 6:00 PM EDT Tammi Thurston RN documented as of this encounter Plan of Treatment Not on file documented as of this encounter Visit Diagnoses Not on filedocumented in this encounter Care Teams Hose Inspector Relationship Specialty Start Date End Date Pebbles Santos MD [address] [place] [phone] PCP - General 11/27/21 documented as of this encounter Additional Source Comments The information contained in this document represents components of the legal health record. It is not the complete legal health record.[facility]
--- OUTSIDE RECORDS SUMMARY | 2025-06-25 18:07 | XMS_ITS | Clinical Summary ---
Author Organization [facility] Address [address] [place] [phone] Phone Care Team Providers Care Er Physician Name Role Phone Pebbles Santos MD Primary Care Provide r Allergies Active Allergy Reactions Criticality Noted Date Comments Allergen Res-Qgoim-Dvgpt Bee Anaphylaxis High 08/01/2006 Clavulanic Acid Diarrhea,GI Upset,Itching,Nausea and/or Vomiting 11/27/2021 Egg Anaphylaxis High 03/09/2018 Hymenoptera Allergenic Extract Anaphylaxis High 11/27/2021 Latex, Natural Rubber Anaphylaxis High 05/05/2006 Pork Extract 09/05/2015 Fekaqhi-Nyq-Tkn Reductase Inhibitors 06/04/2019 Interactions/macrocyto sis/had rhabdomyolysis 2013 Adhesive Rash Low 10/20/2012 Medications dextroamphetam ine-amphetamin e (ADDERALL) 10 mg Tab tablet Take 20 mg by mouth 2 (two) times a day. Active EPINEPHrine (SYMJEPI) 0.3 mg/0.3 mL syringe Inject 0.3 mg as directed. Active FREESTYLE MANPREET 2 SENSOR Kit 1 Active loratadine (CLARITIN) 10 mg tablet Take 10 mg by mouth daily. Active acetaminophen (TYLENOL) 500 MG tablet Take 1,000 mg by mouth 3 (three) times a day. Active ARIPiprazole (ABILIFY) 5 MG tablet Take 7 mg by mouth daily. Active blood-glucose sensor Terese by Miscellaneous route. Active diazePAM (VALIUM) 5 MG tablet Take 5 mg by mouth as needed for other (free text field) (insomnia). Active cloNIDine HCL (CATAPRES) 0.1 MG tablet Take 1 tablet (0.1 mg total) by mouth 2 (two) times a day. Takes BID in AM and PM, midday dose is prn 5 Active sore throat (CEPACOL) lozenge Use as directed 1 lozenge in the mouth or throat 3 (three) times a day as needed (sore throat, irritation). 30 lozenge 5 Active scopolamine (TRANSDERM-SCO P) 1 mg over [address] 1 patch onto the skin every third day. 10 patch 5 Active sucralfate (CARAFATE) 1 gram tablet Take 1 tablet (1 g total) by mouth 3 (three) times a day before meals. 90 tablet 5 Active omeprazole (PRILOSEC) 40 MG capsule Take 1 capsule (40 mg total) by mouth 2 (two) times a day before meals. Please open capsule and sprinkle contents into liquid. Please take 30-45 minutes before breakfast and dinner. 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 It appears that her marginal ulcer may be multifactorial. The patient is at increased risk for marginal ulcer by virtue of her having a Rosanne-en-Y gastric bypass. Her Adderall may also have contributed but the patient is also using nicotine products. The patient has been taken off of the Adderall and I have asked her again to stop using any nicotine products. Patient will continue current use of Carafate 4 times daily. She will continue both famotidine and Nexium. I will follow-up with the patient again in the office in about 2 months. I have ordered a repeat CBC to check the patient's stability of her hematocrit for 2 weeks from now. I spent 26 minutes with this patient which also included documentation. Smoker 05/18/2022 Reactive hypoglycemia 03/05/2022 Overweight (BMI 25.0-29.9) 02/22/2022 Assessment & Plan (04/20/2022 10:50 AM EDT): This is a 41-year-old lady who is status post laparoscopic sleeve gastrectomy. She had gained some weight and is now trying to resume weight loss and obtain better body composition. The patient is almost at goal for BMI but her body fat is too high. She has had a significant change in life stressors recently and is unable to exercise as much as she was exercising before. Her exercise currently includes mostly cardiovascular exercise and is devoid of any resistance training. I have recommended the patient add resistance training 20 to 30 minutes at least 3 times a week to improve body composition. Patient was prescribed phentermine and topiramate to help with appetite suppression over the past 2 visits. Patient just picked up her prescription from last visit a couple of days ago and has an entire prescription left. I will not prescribe any further appetite suppression. I believe the patient needs to increase exercise to change body composition and does not need to lose any weight but needs to convert that to muscle. Patient will continue current eating plan and water intake. She will attempt to change her exercise plan to include more resistance training. Patient will follow up with me again in 4 weeks timeframe. She will continue current medications as reviewed. I spent 24 minutes with this patient which included documentation. Assessment & Plan (03/23/2022 4:44 PM EDT): This is a 41-year-old lady who had weight regain after Rosanne-en-Y gastric bypass. She was started on appetite suppressant on her last visit and has done extremely well with weight loss. Patient has lost 10.6 pounds in the past month. Patient has had recurrence of her chronic constipation after starting a new bar to prevent hypoglycemia. She has now stopped this far but continue to take the appetite suppressant. She is having some abdominal bloating and some left-sided discomfort. Her Motegrity is being doubled to help relieve the constipation. I have recommended that the patient stopped the appetite suppressant in this setting as she may have increased constipation with the appetite suppressant as well. Patient will start the increased dose of Motegrity and once she has evidence of return of normal soft stools she will call the office and we can restart the appetite suppressant. I will follow-up with this patient again in 1 months timeframe. Patient should continue current medications as prescribed with the exception of the phentermine topiramate mix. She is not able and is considered overweight. Assessment & Plan (02/22/2022 12:24 PM EDT): This is a 41-year-old lady who underwent laparoscopic sleeve gastrectomy many years ago and then required a revision of her sleeve gastrectomy to Rosanne-en-Y gastric bypass to treat severe gastroesophageal reflux disease. Patient did extremely well with weight loss but over the past year has put on 20 to 30 pounds. She was recently diagnosed with slow gastric and intestinal motility and has been placed on a medication called Motegrity to increase motility. She has seen an improvement in her intestinal motility and has been moving her bowels more frequently since starting the medication about 5 weeks ago. Patient is interested in an appetite suppressant to help her to take off the additional weight that she has gained. She is doing well with the new medication in addition. I believe that she may benefit from the appetite suppressant. Patient would like to try the phentermine and topiramate mixture. I have sent this medication to the pharmacy. She will start on 7.5 mg of phentermine and 46 mg of topiramate once daily for the next 30 days. I will follow-up with her again in the office to evaluate how well she is doing this medication. The patient has had a hysterectomy so does not need to be evaluated for or monthly tests. Patient will continue current other medications as reviewed. She has not stable is considered overweight. 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 The patient has history of mastocytosis and has had multiple GI issues that have surfaced over the past several years. Patient has recently been diagnosed with slow motility given a recent GI study with radiologic capsule study that showed retention of most of the capsule components in the GI tract after a significant amount of time. Patient has been taken off of all of her other GI medications and has been started on new medication to help to reset the motility of her intestine. Patient is also concerned about the weight that she has gained over the past year and would like to get back on track in terms of weight loss. She is interested in trialing the appetite suppressant Adipex and Topamax. I am uncomfortable with starting her on a new medication in the setting of this new medicine she is on for her gastrointestinal tract. Patient will follow up with me in 4 weeks timeframe and if she is doing well on her new gastrointestinal medication I will start the patient on Adipex and Topamax in an effort to help her get back on track with the weight that she had lost. Patient would like to lose about an additional 20 pounds to be back at her goal weight. She will continue current medications as 3 reviewed. She is not stable is considered overweight. Assessment & Plan (11/27/2021 2:35 PM EST): This is a 41-year-old lady with a history of conversion of sleeve gastrectomy to Rosanne-en-Y gastric bypass for severe gastroesophageal reflux disease with a baseline history of mastocytosis. Over the past 2 years patient has had GI symptoms related to her mastocytosis. This is a chronic problem with exacerbation. Several months ago to almost 1 year ago the patient developed severe abdominal cramps and now has had some vomiting and constipation that are associated with this as well. Patient recently underwent an endoscopy which showed a small hiatal hernia that is fixed without any evidence of gastritis but a small amount of esophagitis. I believe her esophagitis is related to the 1-3 times a day that she is vomiting. Patient has significant constipation and hard stools with bowel movements only once every 4 days or so. I believe the patient has slow GI motility that starts at her esophagus and runs throughout the colon. I do not believe the patient needs a rerepair of her hiatal hernia as it is a small hiatal hernia and she has no reflux given her history of gastric bypass. I believe the patient may benefit from a promotility agent such as Reglan to promote emptying of the esophagus through the colon. I have prescribed for the patient Reglan 10 mg to be used twice daily to help with promotion of the motility in the intestine. I have also prescribed Carafate to be used at least once daily to prevent any ulceration and to improve small amount of esophagitis that was seen on endoscopy. Patient has also been prescribed viscous lidocaine should she need it for the upper abdominal discomfort is related to the esophagitis. Patient will follow up with me again in 8 weeks to evaluate how she is doing in regards to vomiting and improvement in her constipation. H/O gastric bypass 11/27/2021 Assessment & Plan (04/17/2025 6:18 PM EDT): # Gastric bypass revision She has noticed weight regain and has gained about 30 pounds in the last year. Underwent EGD anatomy check on 12/05/24. EGD notable for RYGB anatomy, dilated and incompetent GJA and long pouch, likely contributing to recurrent weight gain. Based on these results, she was determined to be a candidate for endoscopic revision. S/p successful ESD-TORe with additional reinforcing sutures for long gastric pouch. Patient admitted for 24 hours post-procedure for monitoring and symptom management. Experiencing some post-op nausea. - NPO post-procedure and overnight (okay for APAP and crushed meds) - Morning after procedure can advance to clears - Fluids are the number one priority - 2 ounces of non-caloric, non-carbonated, non-caffeinated liquids every hour for the first 6 hours - Then 4oz per hour for the next 8 hours . - Record all fluid intake - Use 1 ounce medicine cup and take 1 sip every 5mins - Sip slowly and stop as soon as you feel full - Do not use straw 48 hours - 45 days after procedure advance to full liquids - Fluid Goal: 60 ounces per day (protein drinks do NOT count towards fluid goal) Protein Goal: 60 grams per day Calorie Goal: 900 - 1000 calories per day - 150 cc LR/hour; can stop on POD #1 if tolerating sips - Start pantoprazole 40mg IV BID - For nausea control, patient has been given a scopolamine patch. In addition, giving zofran 8 mg IV q8h. Additional anti-emetics such as compazine (rectal), IV phenergan, IV decadron, IV ativan may be used in conjunction (please avoid reglan) - For pain control, liquid or IV tylenol is preferred; however, IV narcotics (morphine, dilaudid) may be used as needed with caution, but the patient should not be discharged with narcotics unless absolutely indicated - Can consider cepacol lozenges or phenol spray for sore throat - No NG tube - No BiPAP or CPAP (NIPPV) - If nausea is well controlled and patient can tolerate small doses of water, the patient should be discharged home on POD #1? - Ambulate patient with assist - Avoid heparin/lovenox for DVT ppx - only SCDs - Patient should be discharged on omeprazole 40mg BID before meals (capsules, to be opened and contents sprinkled on pudding, yogurt, or applesauce) x 6 weeks - Start liquid Carafate solution 1gm TID x 6 weeks after meals POD#2. If insurance does not cover solution form, can prescribe tablet and ask patient to crush tablet and mix in 6-8 oz of water. - Ensure prescribed anti-emetic medications at discharge (zofran 8 mg disintegrating table q 8 hr prn) - All medications to be converted to liquid and crushable form for 6 weeks at discharge. - GI to arrange for outpatient follow-up with nutrition in 2 weeks and GI clinic with in 4 weeks - Confirmed with pharmacy that patient's home medications may be converted to liquid or crushed for the next 6 weeks. - Liquid protein diet for 45 days. Further diet instructions provided to patient and included in chart. Narcotics not provided at discharge. Patient will follow-up with GI & Nutrition after discharge. Assessment & Plan (05/18/2022 4:43 PM EDT): This is a 41-year-old lady who is status post conversion of sleeve gastrectomy to a Rosanne-en-Y gastric bypass who I put on some weight and has done a great job to take off the additional weight. Patient has lost about 6 pounds since her last visit about a month ago. She was taken an appetite suppressant and has 3 more pills left. She recently restarted work about 2 to 3 weeks ago and has had very busy days and is unable to drink enough liquids during the day. She will increase her fluid intake to at least 64 ounces of water on a daily basis. She has not added any resistance training but she will over the next month. Patient will continue current medications as reviewed. Patient is still smoking but trying to quit. Smoking cessation counseling was performed once again. She will continue her current eating plan and increase the frequency of her exercise. I will follow-up with her in the office again in 3 months timeframe. I spent 27 minutes with this patient which included documentation. MTHFR gene mutation 06/04/2019 Overview (06/12/2024): Patient reported that she has history of MTHFR gene mutation, no supporting documents available in the chart review History of sleeve gastrectomy 01/08/2019 Overview (06/12/2024): Procedure to help with Anaphylaxis Major depressive disorder, recurrent episode, mo derate 03/08/2014 IBS (irritable bowel syndrome) 11/07/2008 Encounters Date Type Department Care Team Description 5 12:06 PM EDT Anesthesia Event [facility] Endoscopy Department [address] [place] [id number] Maribell Nino MD Lee, Chan, MD 5 11:25 AM EDT - 5 11:55 AM EDT Surgery [facility] Endoscopy Department [address] [place] [id number] Darien Mayfield MD, PhD ESOPHAGOGASTRODUODENOSCOPY 5 Procedure Pass [facility] Endoscopy Department [address] [place] [phone] 5 Telephone [facility] General & GI Surgery [address] [place] [address] [place] [address] [facility] Appointment 5 10:10 PM EDT Ancillary Procedure [facility] Radiology [address] [place], [place] [id number] 5 9:30 PM EDT - 5 10:57 AM EDT Hospital Encounter [facility] [address] [place], [place] [id number] Romelia Solorio MD Joseph, MD Junior Williamson Joshua Marc, MD Gordon, Samy Garvey MD Discharge Disposition: Home or Self Care 5 Ancillary Orders [facility] Radiology [address] [place] [id number] [facility] Emergency, Protocol 5 3:00 PM EDT - 5 5:00 PM EDT Surgery [facility] Endoscopy Department [address] [place], [place] [id number] Iron Miguel MD ENDOSCOPIC REPAIR GASTRIC BYPASS 5 2:39 PM EDT Anesthesia Event [facility] Endoscopy Department [address] [place] [id number] Joselito Scherer MD Marsh, Emily J, CRNA 5 1:41 PM EDT - 5 10:16 AM EDT Hospital Encounter [facility] [address] [place] [address] Iron Miguel MD Bajaj, Rohan P, MD Choi, Alexander Jinsung, MD Discharge Disposition: Home or Self Care 5 Procedure Pass [facility] Endoscopy Department [address] [place] [phone] 5 Documentation [facility] Medical Specialties [address] [address] [place] [address] Linda Javier PA-C 5 Orders Only [facility] Specialties [address] [address] [place] [address] Jasbir Miller MD 5 Orders Only [facility] Specialties [address] [address] [place] [address] Jasbir Miller MD S/P bariatric surgery (Primary Dx) from Last 3 Months Immunizations Immunization Administration Dates Next Due COVID-19 (Pre-08/08) Moderna Vaccine, mRNA, PF 11/25/2020,10/28/2020 Hepatitis B 12/25/2001,09/21/2001,05/26/2001 Influenza Recombinant [place] valent Preservative Free IM 07/10/2020,08/14/2019 MMR 03/24/1992,04/01/1981 Td (adult),2 Lf Tetanus Toxo id, PF, Adsorbed 06/12/2000 Tdap 07/03/2020,02/09/2010 Family History Medical History Relation Comments COPD Father Cirrhosis Father Heart disease Father Hepatitis B Father hepatitis c Father Prostate cancer Maternal Grandfather Breast cancer Maternal Grandmother Coronary artery disease Mother Heart disease Mother Obesity Mother Brain cancer Paternal Aunt Breast cancer Paternal Aunt Thyroid cancer Paternal Aunt Prostate cancer Paternal Grandfather Breast cancer Paternal Grandmother Congenital heart disease Sister Relation Status Comments Brother Alive Father Alive Maternal Grandfather Maternal Grandmother Mother Paternal Aunt Alive Paternal Grandfather Paternal Grandmother Sister Alive Social History Tobacco Use Types Packs/Day Years [...] on file 02/11/2023 No 02/11/2023 No 02/11/2023 Food Answer Date Recorded Within the past 6 months we worried whether our food would run out before we got money to buy more. Often True 025 Within the past 6 months the food we bought just didn't last and we didn't have enough money to get more. Sometimes True 04/2025 Residential Stability Answer Date Recor ded What is your housing situation today? I have eula colindres 04/22/2025 How many times have you moved in the past 12 tue ths? One time 04/22/2025 Paying for Meds Answer Date Recorded Do you have trouble paying for medicines? I vernell se not to answer 04/22/2025 Paying Utility Bills Answer Date Record ed Do you have trouble paying y our heating or electricity bill? I choose not to answer 04/22/2025 Transportation Answer Date Recorded Has the lack of transportati on kept you from medical appointments or from getting medications? No 04/22/2025 Digital Access Answer Date Recorded No 04/22/2025 Yes 04/22/2025 Do you have reliable internet access at home? I choose not to answer 04/22/2025 Do you have a device (e.g., phone, tablet, computer) with a working camera? Yes 04/22/2025 Intimate Partner Violence Answer Date R ecorded Are you denied basic needs s uch as food, clothing, or medical care? No 04/23/2025 In the past 12 months have y ou been in a relationship with a person who hurts, threatens, or tries to control you? No 04/23/2025 Are you denied basic needs s uch as food, clothing, or medical care? No 04/23/2025 In the past 12 months have y ou been in a relationship with a person who hurts, threatens, or tries to control you? 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 Not on file Not on file Last Filed Vital Signs Vital Sign Reading Time Taken Comments Blood Pressure 90/55 04/25/2025 7:15 AM EDT Pulse 78 04/25/2025 4:10 AM EDT Temperature 36.9 C (98.5 F) 04/25/2025 7:15 AM EDT Respiratory Rate 18 04/25/2025 4:10 AM EDT Oxygen Saturation 99% 04/25/2025 7:15 AM EDT Inhaled Oxygen Concentration - - Weight 68.5 kg (151 lb) 04/25/2025 6:56 AM EDT Height 160 cm (5' 2.99 ) 04/23/2025 7:57 PM EDT Body Mass Index 26.76 04/23/2025 7:57 PM EDT Plan of Treatment Health Maintenance Due Date Last Done Comments LIPID PANEL 1979 DEPRESSION SCREENING 1991 SMOKING Hx and SMOKELESS TOBACCO SCREENING 1992 HEPATITIS C SCREENING 1997 HIV ONE-TIME SCREENING (18-65 YEARS) 1997 COLOGUARD 2024 COLONOSCOPY 2024 COLORECTAL CANCER SCREENING 2024 FIT TEST 2024 FOBT 2024 SIGMOIDOSCOPY 2024 VIRTUAL COLONOSCOPY 2024 INFLUENZA VACCINE (#1) 2025 , 08/12/2022, 08/17/2021, Additional history exists COVID-19 VACCINE ( season) 2025 08/19/2022, 05/06/2022, 09/25/2021, Additional history exists MAMMOGRAM 02/22/2027 02/22/2025, 05/0 06/2025, 02/05/2025, Additional history exists SCREENING FOR DIABETES 04/25/2028 04/25/2025, 2024 Adult Td,Tdap Booster 07/03/2030 07/03/2020 , 02/09/2010, 06/12/2000 HEPATITIS A VACCINES Aged Out No long er eligible based on patient's age to complete this topic HIB VACCINES Aged Out No longer eligi ble based on patient's age to complete this topic MENINGOCOCCAL VACCINES (ACWY) Aged Out No longer eligible based on patient's age to complete this topic MENINGOCOCCAL VACCINES (B) Aged Out N o longer eligible based on patient's age to complete this topic PNEUMOCOCCAL VACCINES (0-49 years) Aged Out No longer eligible based on patient's age to complete this topic Medical Devices Not on file Procedures Procedure Name Priority Date/Time Associated Diagnosis Comments PHOSPHORUS Routine 04/25/2025 8:32 AM EDT CBC Routine 04/25/2025 8:32 AM EDT MAGNESIUM Routine 04/25/2025 8:32 AM EDT BASIC METABOLIC PANEL Routine 04/25/2025 8:32 AM EDT POCT GLUCOSE Routine 04/25/2025 7:54 AM EDT LACTIC ACID (LACTATE) STAT 04/25/2025 1:30 AM EDT MAGNESIUM STAT 04/25/2025 1:30 AM EDT LFTS (HEPATIC PANEL) STAT 04/25/2025 1:30 AM EDT BASIC METABOLIC PANEL STAT 04/25/2025 1:30 AM EDT CBC STAT 04/25/2025 1:30 AM EDT POCT GLUCOSE Routine 04/24/2025 10:02 PM EDT POCT GLUCOSE Routine 04/24/2025 6:23 PM EDT POCT GLUCOSE Routine 04/24/2025 12:08 PM EDT POCT GLUCOSE Routine 04/24/2025 11:39 AM EDT PHOSPHORUS Routine 04/24/2025 8:04 AM EDT CBC Routine 04/24/2025 8:04 AM EDT MAGNESIUM Routine 04/24/2025 8:04 AM EDT BASIC METABOLIC PANEL Routine 04/24/2025 8:04 AM EDT POCT GLUCOSE Routine 04/24/2025 7:54 AM EDT POCT GLUCOSE Routine 04/23/2025 8:30 PM EDT POCT GLUCOSE Routine 04/23/2025 5:22 PM EDT POCT GLUCOSE Routine 04/23/2025 1:30 PM EDT ESOPHAGOGASTRODUODENOSCOPY 04/23 12:10 PM EDT Vomiting ENDOSCOPY PROCEDURE 04/23/2025 12:04 PM EDT HCG (QUANTITATIVE, BLOOD) Routine 2024 8:13 AM EDT HEMOGLOBIN A1C Routine 04/23/2025 8:11 AM EDT LFTS (HEPATIC PANEL) Routine 04/23/2025 8:11 AM EDT CBC Routine 04/23/2025 8:11 AM EDT MAGNESIUM Routine 04/23/2025 8:11 AM EDT BASIC METABOLIC PANEL Routine 04/23/2025 8:11 AM EDT POCT GLUCOSE Routine 04/23/2025 7:30 AM EDT POCT GLUCOSE Routine 04/22/2025 5:09 PM EDT LAB ADD ON Routine 04/22/2025 4:06 PM EDT LFTS (HEPATIC PANEL) Routine 04/22/2025 3:28 PM EDT BASIC METABOLIC PANEL Routine 04/22/2025 3:28 PM EDT CBC AND DIFFERENTIAL Routine 04/22/2025 3:28 PM EDT ECG 12-LEAD Routine 04/22/2025 12:51 PM EDT LACTIC ACID (LACTATE) STAT 04/22/2025 3:09 AM EDT PT-INR STAT 04/21/2025 10:20 PM EDT MAGNESIUM STAT 04/21/2025 10:20 PM EDT LIPASE STAT 04/21/2025 10:20 PM EDT LFTS (HEPATIC PANEL) STAT 04/21/2025 10:20 PM EDT BASIC METABOLIC PANEL STAT 04/21/2025 10:20 PM EDT CBC AND DIFFERENTIAL STAT 04/21/2025 10:[address] ABDOMEN/PELVIS OUTSIDE [facility] INTERPRETATION OR CONSULT Routine 04/21/2025 10:05 PM EDT CBC Routine 04/18/2025 9:34 AM EDT PHOSPHORUS Routine 04/18/2025 9:34 AM EDT MAGNESIUM Routine 04/18/2025 9:34 AM EDT LFTS (HEPATIC PANEL) Routine 04/18/2025 9:34 AM EDT BASIC METABOLIC PANEL Routine 04/18/2025 9:34 AM EDT ENDOSCOPY PROCEDURE 04/17/2025 5:13 PM EDT AIRWAY PLACEMENT Routine 04/17/2025 2:58 PM EDT TX STOMACH SURGERY PROCEDURE UNLISTED 04/17/2025 2:39 PM EDT S/P bariatric surgery Special Needs 04/01 added to snapboard and prep sent sd TX REVISE,GASTROJEJUN ANAST, W/O VAGOTOMY 04/17/2025 2:39 PM EDT S/P bariatric surgery Special Needs 04/01 added to snapboard and prep sent sd from Last 3 Months Results * (ABNORMAL) CBC (04/25/2025 8:32 AM EDT) Only the most recent of5 resultswithin the time period is included. WBC 4.79 4.00 - 11.00 K/uL [facility] RBC 3.65(L) 4.00 - 5.20 M/uL [facility] HGB 10.9(L) 12.0 - 16.0 g/dL [facility] HCT 33.0(L) 36.0 - 46.0 % [facility] PLT 368 150 - 450 K/uL [facility] MCV 90.4 80.0 - 100.0 fL [facility] MCH 29.9 27.0 - 31.0 pg [facility] MCHC 33.0 32.0 - 36.0 g/dL [facility] RDW 13.2 11.5 - 14.5 % [facility] MPV 9.8 8.4 - 12.0 fL [facility] NRBC 0.00 0.00 /100 WBCs [facility] ABSOLUTE NRBC 0.00 0.00 K/uL [facility] Blood 04/25/2025 8:32 AM EDT 04/25/2025 9:14 AM EDT Honorio Pacheco MD LAB BLOOD ORDERABLES Fin al Result Performing Organization Address City/State/[facility] Co de Phone Number [facility] [address] [place] [phone] * Phosphorus (04/25/2025 8:32 AM EDT) Only the most recent of3 resultswithin the time period is included. PHOSPHORUS 2.9 2.4 - 4.3 mg/dL [facility] Blood 04/25/2025 8:32 AM EDT 04/25/2025 9:14 AM EDT Samy Huerta MD LAB BLOOD ORDERABLES Fi nal Result Performing Organization Address [facility] de Phone Number [facility] [address] [place] [phone] * Magnesium (04/25/2025 8:32 AM EDT) Only the most recent of6 resultswithin the time period is included. MAGNESIUM 2.0 1.7 - 2.6 mg/dL [facility] Blood 04/25/2025 8:32 AM EDT 04/25/2025 9:14 AM EDT Honorio Pacheco MD LAB BLOOD ORDERABLES Fin al Result Performing Organization Address [facility] de Phone Number [facility] [address] [place] [phone] * (ABNORMAL) Basic metabolic panel (04/25/2025 8:32 AM EDT) Only the most recent of7 resultswithin the time period is included. SODIUM 138 136 - 145 mmol/L [facility] POTASSIUM 4.1 3.4 - 5.1 mmol/L [facility] CHLORIDE 103 98 - 107 mmol/L [facility] CO2 26 22 - 31 mmol/L [facility] BUN 8 6 - 23 mg/dL [facility] CREATININE 0.66 0.50 - 1.20 mg/dL [facility] GLUCOSE 152(H) 70 - 100 mg/dL [facility] CALCIUM 8.5(L) 8.8 - 10.7 mg/dL [facility] EGFR 110 >59 mL/min/1.7 3m2 [facility] Comment:Estimated glomerular filtration rate calculated using the CKD-EPI refit equation. ANION GAP 9 7 - 17 mmol/L [facility] Blood 04/25/2025 8:32 AM EDT 04/25/2025 9:14 AM EDT Honorio Pacheco MD LAB BLOOD ORDERABLES Fin al Result Performing Organization Address [facility] de Phone Number [facility] [address] [place] [phone] * (ABNORMAL) POCT Glucose (04/25/2025 7:54 AM EDT) Only the most recent of11 resultswithin the time period is included. Glucose, POCT 144(H) 70 - 100 mg/dL [facility] 04/25/2025 7:54 AM EDT 04/25/2025 7:56 AM EDT Samy Huerta MD POINT OF CARE TEST ORDE RABARELY Final Result Performing Organization Address [facility] de Phone Number [facility] [address] [place] [phone] * (ABNORMAL) LFTs (hepatic panel) (04/25/2025 1:30 AM EDT) Only the most recent of5 resultswithin the time period is included. TOTAL PROTEIN 5.6(L) 6.4 - 8.3 g/dL [facility] ALBUMIN 3.4(L) 3.5 - 5.2 g/dL [facility] GLOBULIN 2.2 2.2 - 4.2 g/dL [facility] AST 10 10 - 50 U/L [facility] ALT 10 10 - 50 U/L [facility] ALKALINE PHOSPHATASE 49 35 - 130 U/L [facility] TOTAL BILIRUBIN 0.2 0.0 - 1.0 mg/dL [facility] DIRECT BILIRUBIN 0.1 0.0 - 0.3 mg/dL [facility] Blood 04/25/2025 1:30 AM EDT 04/25/2025 2:18 AM EDT Samy Huerta MD LAB BLOOD ORDERABLES Fi nal Result Performing Organization Address [facility] de Phone Number [facility] [address] [place] [phone] * Lactate (04/25/2025 1:30 AM EDT) Only the most recent of2 resultswithin the time period is included. LACTIC ACID (MMOL/L) 0.9 0.2 - 2.0 mmol/L [facility] Blood 04/25/2025 1:30 AM EDT 04/25/2025 2:19 AM EDT us Samy Huerta MD LAB BLOOD ORDERABLES Fi nal Result [facility] [address] [place] [address] * ENDOSCOPY PROCEDURE (04/23/2025 12:04 PM EDT) 04/23/2025 12:0 4 PM EDT Narrative Transcriptions Darien Mayfield MD, PhD - 04/23/2025 12:04 PM EDT [facility] Gastroenterology Patient Name: Marleen Vaca Procedure Date: 04/23/2025 12:04 PM Date of : 1980 Admit Type: Inpatient Age: 44 Room: 2 Gender: Female Note Status: Finalized Attending MD: DARIEN MAYFIELD MD, Instrument Name: [id number] Procedure: Upper GI endoscopy Indications: Nausea with vomiting Patient Profile: This is a 44 year old female. Refer to note in patient chart for documentation of history and physical. Providers: DARIEN MAYFIELD MD, MANSI SCHMID RN Referring MD: Pebbles Santos (Referring MD) Medicines: Monitored Anesthesia Care Complications: No immediate complications. Estimated blood loss: Minimal. Procedure: Pre-Anesthesia Assessment: - See the [facility] pre-procedure note for documentation of the pre-procedure assessment. After informed consent was obtained, the endoscope was passed under direct vision. Throughout the procedure, the patient's blood pressure, pulse, and oxygen saturations were monitored continuously. The Endoscope was introduced through the mouth, and advanced to the jejunum. The upper GI endoscopy was accomplished without difficulty. The patient tolerated the procedure well. Findings: Esophagus: The esophagus appeared normal. Stomach: There was evidence of Rosanne-en-Y. The pouch extended from 34 to 41 cm and the mucosa appeared normal. No fistulas were seen. There was evidence of recent endoscopic revision of the gastrojejunal anastomosis with expected clean based ulceration and erythema. The gastrojejunal anastomosis was 12 mm in diameter and was traversable with the standard upper endoscope. There were several intact sutures in the gastric pouch as well. Small Bowel: The rosanne-limb appeared normal to 70 cm. It was not dilated and there was no evidence of excess fluid or distal obstruction. The jejuno-jejunal anastomosis was not evaluated. Impression: - RYGB anatomy with evidence of recent endoscopic gastric bypass revision (EGBR) with expected clean-based ulceration and post-operative erythema/edema. - No gastrojejunal anastomosis stenosis Recommendation: - Return patient to [facility] for ongoing care. - OK to start liquid diet and continue as originally planned for 6 weeks post-EGBR. - All medications must be converted to crushed or liquid forms for next 6 weeks - Continue carafate and twice daily PPI. - Continue nausea control. Some nausea is expected as healing occurs. Attending Participation: I personally performed the entire procedure. DARIEN MAYFIELD MD 04/23/2025 12:27:08 PM Number of Addenda: 0 Note Initiated On: 04/23/2025 12:04 PM Pebbles Santos MD GI PROCEDURE ORDERABL ES Final Result * HCG (Quantitative, Blood) (04/23/2025 8:13 AM EDT) HCG (Quantitative) <1 <3 IU/L [facility] Comment: <3 IU/L=Negative, 3-8 IU/L may indicate early (repeat in 48hrs), >8 IU/L=Positive. Blood 04/23/2025 8:13 AM EDT 04/23/2025 9:05 AM EDT us Samy Huerta MD LAB BLOOD ORDERABLES Fi nal Result [facility] [address] [place] [address], [place] [address] * Hemoglobin A1c (04/23/2025 8:11 AM EDT) HEMOGLOBIN A1C 5.4 4.2 - 5.6 % [facility] Comment: HbA1c levels 5.7-6.4% represent pre-diabetes, indicating impaired glucose control and an increased risk of developing diabetes. The diagnostic HbA1c level for diabetes is 6.5% or greater. HbA1c is performed by the Jax Melani-quant immunoassay method which does not detect (incidental) hemoglobin variants. Hemoglobin electrophoresis should be ordered in patients with suspected hemoglobinopathies. CALC MEAN BLD GLUC 109 mg/dL [facility] Comment:The Calculated Mean Blood Glucose (CMBG) represents the estimated average glucose calculated from the measured hemoglobin A1c (HbA1c). There is no established normal range for the CMBG, however a 5.6% HbA1c (upper limit of normal) represents a CMBG of 114 mg/dL. Blood 04/23/2025 8:11 AM EDT 04/23/2025 9:04 AM EDT us Honorio Pacheco MD LAB BLOOD ORDERABLES Fin al Result Performing Organization Address [facility] Co de Phone Number [facility] [address] [place] [address] * Lab Add On: LFTs to last lab draw. Thank yoU! (04/22/2025 4:06 PM EDT) TEST REQUESTED LFTS TO LAST LAB DRAW. THANK YOU [facility] Comments (Chemistry) Request received [facility] 04/22/2025 4:06 PM EDT 04/22/2025 4:07 PM EDT us Samy Huerta MD LAB BLOOD ORDERABLES Fi nal Result Performing Organization Address [facility] Co de Phone Number [facility] [address] [place], [place] [address] [address] [place] [address] * (ABNORMAL) CBC and differential (04/22/2025 3:28 PM EDT) Only the most recent of2 resultswithin the time period is included. WBC 11.54(H) 4.00 - 11.00 K/uL [facility] RBC 3.94(L) 4.00 - 5.20 M/uL [facility] HGB 12.0 12.0 - 16.0 g/dL [facility] HCT 36.0 36.0 - 46.0 % [facility] PLT 340 150 - 450 K/uL [facility] MCV 91.4 80.0 - 100.0 fL [facility] MCH 30.5 27.0 - 31.0 pg [facility] MCHC 33.3 32.0 - 36.0 g/dL [facility] RDW 12.7 11.5 - 14.5 % [facility] MPV 9.4 8.4 - 12.0 fL [facility] NRBC 0.00 0.00 /100 WBCs [facility] ABSOLUTE NRBC 0.00 0.00 K/uL [facility] DIFF METHOD Auto [facility] NEUTS 72.2 48.0 - 76.0 % [facility] LYMPHS 20.0 18.0 - 41.0 % [facility] MONOS 6.8 4.0 - 11.0 % [facility] EOS 0.3 0.0 - 5.0 % [facility] BASOS 0.3 0.0 - 1.5 % [facility] % IMMATURE GRANS 0.4 0.0 - 0.9 % [facility] ABSOLUTE NEUTS 8.32(H) 1.92 - 7.60 K/uL [facility] Comment:1.21-5.39 cells/KL i s the reference range for individuals with the Serrano null phenotype ABSOLUTE LYMPHS 2.31 0.72 - 4.10 K/uL [facility] ABSOLUTE MONOS 0.79 0.16 - 1.10 K/uL [facility] ABSOLUTE EOS 0.03 0.00 - 0.50 K/uL [facility] ABSOLUTE BASOS 0.04 0.00 - 0.15 K/uL [facility] ABS IMMATURE GRANS 0.05 0.00 - 0.09 K/uL [facility] ABSOLUTE NEUTROPHIL COUNT 8.32(H) 1.92 - 7.60 K/uL [facility] Comment: Automated cell count. Manual ANC may differ if performed. 1.21-5.39 cells/KL is the reference range for individuals with the Serrano null phenotype Blood 04/22/2025 3:28 PM EDT 04/22/2025 3:46 PM EDT us Honorio Pacheco MD LAB BLOOD ORDERABLES Fin al Result [facility] [address] [place] [address] * ECG 12-LEAD (04/22/2025 12:51 PM EDT) Systolic Blood Pressure 118 mmHg [facility] Diastolic Blood Pressure 67 mmHg [facility] Ventricular Rate EKG/MIN 55 BPM [facility] Atrial Rate 55 BPM [facility] TX Interval 112 ms [facility] QRS Duration 78 ms [facility] QT Interval 438 ms [facility] QTC Interval 419 ms [facility] P [place] 11 degrees [facility] R Wave [place] 79 degrees [facility] T Wave [place] 55 degrees [facility] 04/22/2025 12:5 1 PM EDT Narrative [facility] - 04/23/2025 11:56 AM EDT Sinus bradycardia Otherwise normal ECG No previous ECGs available us Honorio Pacheco MD ECG ORDERABLES Final Re sult Performing Organization Address [facility]/ZIP Co de Phone Number [facility] * PT-INR (04/21/2025 10:20 PM EDT) Pathologist [facility] PT 11.7 10.0 - 13.0 sec [facility] INR 1.0 0.9 - 1.1 [facility] Blood 04/21/2025 10:2 0 PM EDT 04/21/2025 10:27 PM EDT us Romelia Solorio MD LAB BLOOD ORDE RABLES Final Result [facility] [address] [place] [address] * Lipase (04/21/2025 10:20 PM EDT) Pathologist [facility] LIPASE 15 13 - 60 U/L [facility] Comment: Blood 04/21/2025 10:2 0 PM EDT 04/21/2025 10:27 PM EDT us Romelia Solorio MD LAB BLOOD DAILY ANTONIO Final Result [facility] [address] [place] [phone] * CT Abdomen/Pelvis Outside with Interpretation or Consult (04/21/2025 10:05 PM EDT) 04/21/2025 10:5 1 PM EDT Impressions [facility] - 04/21/2025 11:41 PM EDT 1. Small hiatal hernia. Postsurgical changes of sleeve gastrectomy with moderate mucosal edema and surrounding inflammatory changes of the stomach. No evidence of perforated bowel or abscess. 2. Distal esophageal thickening may relate to esophagitis. 3. Mildly dilated, fluid-filled loop of small bowel in the left hemiabdomen with apparent transition point at one of the small bowel anastomoses, without associated inflammatory change, possibly chronic/postsurgical. No significant dilatation of more proximal loops. ATTESTATION: Hao Norton, as teaching physician have reviewed the images, if any, for this patient's exam, and if necessary, have edited the report originally created by Bella Vazquez. Narrative [facility] - 04/21/2025 11:[address] ABDOMEN/PELVIS OUTSIDE WITH INTERPRETATION OR CONSULT Referring clinician's provided indication for this examination in Epic: s/p gastric bypass surgery TECHNIQUE: CT of the abdomen and pelvis, with intravenous contrast. COMPARISON: None FINDINGS: Lower Chest: No consolidation or pleural effusions. Liver: Ill-defined hypoattenuation near the falciform ligament, likely focal fatty change. No suspicious focal lesion. Biliary: No biliary ductal dilatation. Spleen: No splenomegaly or focal lesions. Pancreas: No masses or ductal dilatation. Adrenal Glands: No nodules. Kidneys/Ureters: No solid masses, stones, or hydronephrosis. Bowel: Status post appendectomy. Posterior surgical changes of Rosanne-en-Y gastric bypass followed by sleeve gastrectomy. Small hiatal hernia. Moderate mucosal edema of the lower esophagus and stomach with surrounding fat stranding. Mildly dilated small bowel loop in the left hemiabdomen measuring up to 2.9 cm (3:39) without high-grade transition point at one of the left midabdominal small bowel anastomoses (4:310). Peritoneum/Retroperitoneum: No masses, pneumoperitoneum, or fluid. Lymph Nodes: No lymphadenopathy. Pelvic Organs/Bladder: No mass. Status post hysterectomy. Vessels: No abdominal aortic aneurysm. Bones/Soft Tissues: No destructive osseous lesions. Procedure Note Hao Harris MD - 04/21/2025 CT ABDOMEN/PELVIS OUTSIDE WITH INTERPRETATION OR CONSULT Referring clinician's provided indication for this examination in Epic:s/p gastric bypass surgery TECHNIQUE: CT of the abdomen and pelvis, with intravenous contrast. COMPARISON: None FINDINGS: Lower Chest: No consolidation or pleural effusions. Liver: Ill-defined hypoattenuation near the falciform ligament, likelyfocal fatty change. No suspicious focal lesion. Biliary: No biliary ductal dilatation. Spleen: No splenomegaly or focal lesions. Pancreas: No masses or ductal dilatation. Adrenal Glands: No nodules. Kidneys/Ureters: No solid masses, stones, or hydronephrosis. Bowel: Status post appendectomy. Posterior surgical changes of Tkfc-gc-Nabgdbux bypass followed by sleeve gastrectomy. Small hiatal hernia.Moderate mucosal edema of the lower esophagus and stomach with surroundingfat stranding. Mildly dilated small bowel loop in the left hemiabdomen measuring up to2.9 cm (3:39) without high-grade transition point at one of the leftmidabdominal small bowel anastomoses (4:310). Peritoneum/Retroperitoneum: No masses, pneumoperitoneum, or fluid. Lymph Nodes: No lymphadenopathy. Pelvic Organs/Bladder: No mass. Status post hysterectomy. Vessels: No abdominal aortic aneurysm. Bones/Soft Tissues: No destructive osseous lesions. IMPRESSION: 1. Small hiatal hernia. Postsurgical changes of sleeve gastrectomy withmoderate mucosal edema and surrounding inflammatory changes of thestomach. No evidence of perforated bowel or abscess. 2. Distal esophageal thickening may relate to esophagitis. 3. Mildly dilated, fluid-filled loop of small bowel in the lefthemiabdomen with apparent transition point at one of the small bowelanastomoses, without associated inflammatory change, possiblychronic/postsurgical. No significant dilatation of more proximal loops. ATTESTATION: Hao Norton, as teaching physician have reviewed theimages, if any, for this patient's exam, and if necessary, have edited thereport originally created by Bella Vazquez. us Protocol [facility] Emergency IMG OUTSIDE IMAGING W/ IN TERPRETATION Final Result [address] [address] * ENDOSCOPY PROCEDURE (04/17/2025 5:13 PM EDT) 04/17/2025 5:13 PM EDT Narrative Transcriptions Iron Miguel MD - 04/17/2025 5:13 PM EDT [facility] Gastroenterology Patient Name: Marleen Vaca Procedure Date: 04/17/2025 5:13 PM Date of : 1980 Admit Type: Inpatient Age: 44 Room: 6 Gender: Female Note Status: Finalized Attending MD: IRON MIGUEL MD [id number], Instrument Name: [id number] Procedure: Upper GI endoscopy Indications: ESD-TORe Patient Profile: This is a 44 year old female. Refer to note in patient chart for documentation of history and physical. Providers: IRON MIGUEL MD [id number], SAHRA BUSCH MD (Fellow), Natalie Ruiz RN, MRAIAA ROUSSEAU MD (Fellow) Referring MD: Pebbles Santos (Referring MD) Medicines: General Anesthesia, Rocephin 2 g IV Complications: No immediate complications. Procedure: After informed consent was obtained, the endoscope was passed under direct vision. Throughout the procedure, the patient's blood pressure, pulse, and oxygen saturations were monitored continuously. The Endoscope was introduced through the mouth, and advanced to the jejunum. Findings: Esophagus: The esophagus appeared normal. Stomach: There was evidence of Rosanne-en-Y. The pouch extended from 35 to 44 cm and the mucosa appeared normal. No fistula or ulcers were seen. The gastrojejunal anastomosis was 25 mm in diameter, without ulceration. Small Bowl: The rosanne-limb appeared normal to 54 cm. It was not dilated and bile was seen in the distal limb. The jejuno-jejunal anastomosis was not evaluated. REVISION OF GASTROJEJUNAL ANASTOMOSIS - ENDOSCOPIC SUBMUCOSAL DISSECTION: Attention was then given to the gastrojejunal anastomosis. Preparation was made for endoscopic submucosal dissection (ESD). A 1:100,000 solution of epinephrine with methylene blue mixed in 5% hetastarch was injected around the gastrojejunal anastomosis using a Shirley-Bonilla needle to lift the submucosal space. Subsequently, an ERBE hybrid jet knife (Endocut I , precise sect 6.0) was used to trim/dissect the mucosal and submucosal layers to expose the muscularis propria layer around the gastrojejunal anastomosis. Minor bleeding was easily treated with the ERBE hybrid knife (soft coag). Any visible vessels in the muscular space were treated prophylactically with the tip of the ERBE hybrid knife (soft coag). Subsequently, the inner and outer rim of the dissected area was treated with argon plasma coagulation (APC; forced APC, 0.8 L/min, 70 Daniels). REVISION OF GASTROJEJUNAL ANASTOMOSIS - TORe WITH OVERSTITCH: Next, the gastroscope was exchanged to a double channel endoscope, which was attached to an Overstitch endoscopic suturing device. The suturing device was then used to place 6 stitches into the tissue, in pursestring fashion, surrounding the anastomosis. The suture was then tightened and secured over a 10 mm CRE balloon. Subsequently, 2 reinforcing interrupted suture was placed in the gastric pouch to reinforce pursestring suture. POUCH REDUCTION: To shorten the pouch, a total of 2 sutures were placed to reduce the pouch. Following the procedure a diagnostic endoscope was used to evaluate the anatomy, to look for signs of trauma or hemorrhage. There were no mucosal injuries to the proximal esophagus over the endoscope. Impression: - Successful ESD TORe without complication Recommendation: - Observe patient in post-procedure area for 2 hours and then admit patient to medicine service - Avoid all oral intake today until the following day - All medications must be converted to crushed or liquid forms for next 6 weeks - Liquid Tylenol PRN 6-8 hrs - 150 cc LR/hour - Start pantoprazole 40mg IV BID - Zofran 8 mg IV Q8H. Additional anti-emetics may be used: compazine (rectal), IV phenergan, IV decadron, IV ativan (Avoid Reglan) - Cepacol lozenges or phenol spray for sore throat - POD #1 start Carafate 1 g liquid TID - No NG tube or BiPAP/ CPAP - Discharged home on POD #1 if tolerating sips of liquid - Follow up in clinic with Dr. Miguel in 4 weeks - Follow up in Nutrition clinic in 2 weeks. Attending Participation: I was present and participated during the entire procedure, including non-mast portions. Iron Miguel MD [id number] IRON MIGUEL MD [id number] 04/24/2025 4:23:37 PM This report has been signed electronically. MD SAHRA PHAM MD Number of Addenda: 0 Note Initiated On: 04/17/2025 5:13 PM us Pebbles Santos MD GI PROCEDURE ORDERABL ES Final Result * ANES ETT DOUBLE LUMEN - AIRWAY LDA (04/17/2025 2:58 PM EDT) Narrative Alena Mcdonnell CRNA - 04/17/2025 2:58 PM EDT Alena Mcdonnell CRNA 04/17/2025 3:09 PM Airway Placement Procedure Note: Patient was not difficult to intubate. Procedure performed by: fellow/resident/STRAIGHT EDGER Anesthesiologist: Joselito Scherer MD Fellow/Resident/STRAIGHT EDGER: Alena Mcdonnell CRNA Airway procedure initiated at:04/17/2025 2:58 PM and ended at. Personal Protective Equipment: Mask: surgical mask Eye Protection: eye shield Gloves: gloves Mask Ventilation: Quality: easy Adjunct: jaw thrust Airway Placement: Technique: direct laryngoscopy Details: Blade type: Mac Blade size: 3 Direct view: grade 1 Number of attempts: 1 ETT type: cuffed ETT size: 7.0 ETT depth at teeth: 21 Tube position confirmed by: bilateral breath sounds and EtCO2 Outcomes: Evidence of dental injury? no Complications observed? no us Joselito Scherer MD [place] ANESTHESIA Final Result from Last 3 Months Insurance [employer] Member Subscriber Plan / Payer (Ef fective 2021-Present) Name:Marleen Vaca Relation to Subscriber:Spouse Name:IRON VACA Date of :1900 (Home) Address: [address] [place] [address] Payer ID:[id number] (NAIC) Type:PPO Address: [place] [id number] [employer] Member Subscriber Plan / Payer (Ef fective 2021-Present) Name:Marleen Vaca Relation to Subscriber:Spouse Name:LEONELCLAREDINORA Date of :1900 (Home) Address: [address] [place] [address] Payer ID:[id number] (NAIC) Type:PPO Address: [address] [employer] Member Subscriber Plan / Payer (Ef fective 2021-Present) Name:Marleen Vaca Relation to Subscriber:Spouse Name:LEONELIRON Date of :1900 (Home) Address: [address] [place] [address] Payer ID:[id number] (NAIC) Type:PPO Address: [place] [id number] [employer] Advance Directives For more information, please contact: [phone] (9AM - 5PM [facility], Tuesday-Tuesday) Documents on File Type Date Recorded Patient Hand Stonecutter Expl anation Healthcare Proxy 02/04/2025 * Full Code (Latest Code Status on File) Date Activated Date Inactivated Comments 04/22/2025 2:59 PM Question Answer Comments Code Status Confirmed With: Patient * Full Code Date Activated Date Inactivated Comments 04/17/2025 5:50 PM 04/22/2025 2:59 PM Question Answer Comments Code Status Confirmed With: Patient Code Status Communicated To: Other (specify belo w) Code Discussion Comments: RC Care Teams Er Physician Relationship Specialty Start Date End Date Pebbles Santos MD [facility] [address] PCP - General 11/27/21 Additional Source Comments The information contained in this document represents components of the legal health record. It is not the complete legal health record.[facility]
--- OUTSIDE RECORDS SUMMARY | 2025-06-25 18:07 | XMS_ITS | Encounter Summary ---
Author Organization [facility] Address [address] [place] [id number] Phone Care Team Providers Care Community Living Specialist Name Role Phone Lorena Storm MD Primary Care Provider [phone] Pebbles Santos MD Primary Care Provide r Encounter Details Date Type Department Care Team (Latest Contact Info) Description 03/01/2018 Transcribe Orders [facility] Laboratory [address] [place] [id number] Ayaka Meza ARNP Routine medical exam (Primary Dx) Social History Tobacco Use Types Packs/Day Years Used Date Smoking Tobacco: Never Assessed Comments Unknown Sex and Gender Information Value Date Recorded Sex Assigned at Female 11/27/2021 9:58 AM EST Legal Sex Female 12:44 PM EDT Gender Identity Female 11/27/2021 9:58 AM EST Sexual Orientation Straight 11/27/2021 9: 58 AM EST documented as of this encounter Plan of Treatment Not on file documented as of this encounter Results * T spot TB test (03/01/2018 11:53 AM EDT) T SPOT Tuberculosis Negative [facility] Blood 03/01/2018 11:5 3 AM EDT 03/01/2018 11:56 AM EDT us Ayaka [facility] BLOOD ORDERABLES Final Result [address] [address] documented in this encounter Visit Diagnoses Diagnosis Routine medical exam- Primary Routine general medical examination at a health care facility documented in this encounter Care Teams Community Living Specialist Relationship Specialty Start Date End Date Lorena Storm MD [address] [place] [id number] PCP - General Internal Medicine 03/01/18 11/26/21 Pebbels Santos MD [address] [place] [id number] PCP - General 11/27/21 documented as of this encounter Additional Source Comments The information contained in this document represents components of the legal health record. It is not the complete legal health record.[facility]
--- OUTSIDE RECORDS SUMMARY | 2025-06-25 18:07 | XMS_ITS | Encounter Summary ---
Author Organization [facility] Address [address] [facility] [address] [place] [address] Phone Care Team Providers Care Dielectric Press Operator Name Role Phone Pebbles Santos MD Primary Care Provide r Encounter Details Date Type Department Care Team (Late st Contact Info) Description 04/23/2025 Procedure Pass [facility] Endoscopy Department [address] [place] [id number] Social History Tobacco Use Types Packs/Day Years [...] your housing situation today? I have eula sing 04/22/2025 How many times have you moved in the past 12 mon ths? One time 04/22/2025 Paying for Meds [...] Score (Lifetime/Recent) Answer Date of Assessment Author No Risk Indicated 04/23/2025 8:31 AM Lydia Sharma RN * [place] Suicide Severity Rating Scale (Screener/Recent Self-Report) Question Answer Date of Assessment Author 1. Wish to be (Past 1 Month) No 04/23/2025 8:31 AM Lydia Sharma RN 2. Non-Specific Active Suicidal Thoughts (Past 1 Month) No 04/23/2025 8:31 AM Lydia Sharma RN 6. Suicidal Behavior (Lifetime) No 04/23/2025 8:31 AM EDT Lito, Lydia Josiane, RN 6. Suicidal Behavior (3 Months) No 04/23/2025 8:31 AM EDT Lydia Morse RN documented as of this encounter Plan of Treatment Not on file documented as of this encounter Visit Diagnoses Not on filedocumented in this encounter Care Teams Dielectric Press Operator Relationship Specialty Start Date End Date Pebbles Santos MD [address] [place] [id number] PCP - General 11/27/21 documented as of this encounter Additional Source Comments The information contained in this document represents components of the legal health record. It is not the complete legal health record.[facility]
== END 2025-06-25 16:00 | disposition home or self-care (01) ==
LOC: HO.LAB 15:59
PROVIDERS: PCP Internal Medicine; Visit Provider Internal Medicine
DX: B35.3 Tinea pedis (principal); E16.2 Hypoglycemia, unspecified; E03.9 Hypothyroidism, unspecified
CPT/HCPCS: 36415; 80053; 82248; 83036